=== PATIENT | male | born 1950 | race Caucasian/White ===

== ENCOUNTER 2022-04-16 15:50 | Emergency (ER) | payer MEDICARE, MEDICAID, SELFPAY ==
[2022-04-16 16:30] VITALS: BP 89/59; PULSE 67; RESP 18; TEMP 36.3; O2SAT 93; BMI 25.8
--- NOTE | 2022-04-16 17:33 | DI.CT.S_ITS ---
PROCEDURE: CT HEAD/BRAIN WO CON INDICATIONS: Trauma, fall TECHNIQUE: Noncontrast 4.5 mm thick angled axial sections acquired from the foramen magnum to the vertex, with coronal and sagittal reformats. For radiation dose reduction, the following was used: automated exposure control, adjustment of mA and/or kV according to patient size. COMPARISON: None. FINDINGS: Image quality: Excellent. CSF spaces: Basal cisterns are patent. No extra-axial fluid collections. The ventricles are symmetric in size and shape. Brain: No intracranial bleeds or masses. There is cerebral volume loss for age, with resultant ventricular and sulcal prominence. There are periventricular and deep white matter chronic small vessel ischemic changes. There is intracranial internal carotid artery atherosclerosis. Skull and face: Calvarium and visualized facial bones appear intact, without suspicious lesions. Sinuses: Visualized sinuses and mastoids are clear. IMPRESSION: No acute intracranial finding. Dictated by: Eren Fonseca M.D. on 04/16/2022 at 18:05 Approved by: Eren Fonseca M.D. on 04/16/2022 at 18:05
--- NOTE | 2022-04-16 17:33 | DI.CT.S_ITS ---
PROCEDURE: CT CERVICAL SPINE WO CON INDICATIONS: Trauma, fall. TECHNIQUE: Noncontrast 3 mm thick sections acquired from the skull base to the T4 level. Sagittal and coronal reformats were then constructed. For radiation dose reduction, the following was used: automated exposure control, adjustment of mA and/or kV according to patient size. COMPARISON: None. FINDINGS: Image quality: Excellent. Bones: No fractures or dislocations. Visualized superior ribs are intact. Soft tissues: Prevertebral soft tissues are normal in thickness. No paravertebral hematomas. No apical pneumothoraces. IMPRESSION: No acute finding. Dictated by: Eren Fonseca M.D. on 04/16/2022 at 18:06 Approved by: Eren Fonseca M.D. on 04/16/2022 at 18:07
--- NOTE | 2022-04-16 20:05 | ED_ITS ---
HPI - Fall General Chief Complaint: Fall Stated Complaint: glf Time Seen by Provider: 04/16/22 20:05 Source: patient and EMS Mode of arrival: Ambulatory Limitations: no limitations History of Present Illness HPI Narrative: This is 71-year-old male who presents with complaint of slip and fall in the shower today. He states he hit his right shoulder and head. He states no loss of consciousness. No headache or neck pain. Patient states he is on an aspirin daily. He states his right shoulder hurts. He denies other injuries at this time. He denies any chest pain or shortness of breath. Denies any low back pain. Denies any hip or pelvic pain. He states he did not really injure his arms or legs otherwise. He can move his shoulder fully. Patient denies any nausea or vomiting. No new numbness or tingling. He states his hands are always a little tingly. Patient denies any loss of bowel or bladder control. He states he has walked since then. He states he was in the bathroom and it was wet and slippery. He states he takes medicine for blood pressure and diabetes he does not recall the names. He states is like [place] and he has been staying with his brother recently. Related Data Allergies Allergy/AdvReac Type Severity Reaction Status Date / Time NSAIDS (Non-Steroidal Allergy Verified 04/16/22 16:30 Anti-Inflamma Tetanus Vaccines and Toxoid Allergy Verified 04/16/22 16:30 Review of Systems Review of Systems ROS Unobtainable: All systems reviewed & are unremarkable except as noted in HPI and below Patient History Social History Smoking Status: Former smoker Smoking Status: Former smoker Substance Use Type: marijuana Exam Narrative Exam Narrative: GEN: Patient appears in mild distress. HEAD: No evidence of trauma, no raccoon/Arcos sign. NECK: Nontender, painless range of motion, trachea midline Negative Nexus criteria, there is no midline line tenderness, distracting injury, altered mental status, neuro deficit, recent EtOH. EYES: PERRLA, EOMI ENT: External inspection normal, trachea is midline, TM's are normal no hemotypanum, Nares are clear, no septal hematoma, no dental or oral injury, airway is normal and with normal occlusion, No bony tenderness RESP: Chest is nontender and has symmetric movement, no ecchymosis, breath sounds are normal no crackles, wheezes or rales CVS: Heart sounds are normal, no murmur noted, No JVD. ABG/GI: Nontender, soft, normal bowel sounds, no distention, no organomegaly, pelvic rock is negative NEURO: Oriented AOx3, neuro is grossly intact, sensation and motor is normal all 4 extremities moving, cranial nerves II through XII are intact, GCS is 15 PSYCH: Normal mood and affect SKIN: Intact, warm and dry, no crepitus and without decubitus BACK: No CVA tenderness, no vertebral tenderness, no step-off's, no crepitus EXT: Atraumatic, patient has full range of motion of shoulder. Nontender to deep palpation. 5/5 muscle strength with strong protection engineer and push-pull bilaterally. Patient is able to lift both legs independently without any issue. Hips are nontender, no pedal edema, normal color and temperature, normal range of motion of extremities with normal tendon exam, 2+ pulses in all four extremities Initial Vital Signs Initial Vital Signs: Vital Signs Temperature 97.3 F L 04/16/22 16:30 Pulse Rate 67 04/16/22 16:30 Respiratory Rate 18 04/16/22 16:30 Blood Pressure 89/59 L 04/16/22 16:30 Pulse Oximetry 93 04/16/22 16:30 Oxygen Delivery Method 04/16/22 16:[address] Head Rule Age greater or equal to 65 years: Yes Retrograde amnesia to the event greater or equal to 30 min: No GCS [place] coma scale eye opening: Spontaneous Debbie coma scale verbal response: Orientated [place] coma scale motor response: Obey commands [place] coma scale total score: 15 Course Orders Ordered: Discontinued Medications Hydrocodone Bitart/Acetaminophen (Hydrocodone/Acet 5/325 Tablet) 1 tab PO NOW ONE Stop: 04/16/22 20:22 Last Admin: 04/16/22 21:09 Dose: 1 tab Documented By: ALAN Vital Signs Vital signs: Vital Signs - 8 hr 04/16/22 16:30 Temperature 97.3 F L Pulse Rate 67 Respiratory Rate 18 Blood Pressure 89/59 L Pulse Oximetry 93 Oxygen Delivery Method Room Air MDM - Fall Imaging Data CT scan - head: Radiologist's Impression: [address] [id number] ReportSigned Patient: Jaycee Munoz MMR#: [id number]: 07/10/1942cct:[id number]/Sex: 79 / FDate of Service: 04/16/22Loc: EDAccession Number: [id number]? ? Procedure: XR chest 1V Ordering Provider: Lis Shay D.O. PROCEDURE:? XR CHEST 1V ? INDICATIONS:? chest pain ? TECHNIQUE:? One view of the chest was acquired.? ? COMPARISON:? [facility], , XR CHEST 1V, 01/08/2022, 0:29. ? FINDINGS:? ? Surgical changes and devices:? None.? ? Lungs and pleura:? Lungs are clear.? No pleural effusions or pneumothorax.? ? Mediastinum:? Mediastinal contours appear normal.? Heart size is normal.? ? Bones and chest wall:? No suspicious bony lesions.? Overlying soft tissues appear unremarkable.? ? IMPRESSION:? No acute finding. ? ? Dictated by: Eren Fonseca M.D. on 04/16/2022 at 18:55? ?? Approved by: Eren Fonseca M.D. on 04/16/2022 at 18:55?? CT - cervical spine: Radiologist's Impression: Close Head CT (Signed) Eren Fonseca - 04/16/[address] (Signed) Eren Fonseca - 04/16/22 Launch?Image [address] [address] [address] Scan Report Signed Patient: Lev Marlow MR#: [id number] : 1950 Acct:[id number] Age/Sex: 71 / M Date of Service: 04/16/22 Loc: ED Accession Number: [id number] ?? Procedure: CT cervical spine wo con Ordering Provider: Antony Parry MD PROCEDURE:? CT CERVICAL SPINE WO CON ? INDICATIONS:? Trauma, fall. ? TECHNIQUE:? Noncontrast 3 mm thick sections acquired from the skull base to the T4 level.? Sagittal and coronal reformats were then constructed.? For radiation dose reduction, the following was used:? automated exposure control, adjustment of mA and/or kV according to patient size.? ? COMPARISON:? None. ? FINDINGS:? Image quality:? Excellent.? ? Bones:? No fractures or dislocations.? Visualized superior ribs are intact.? ? Soft tissues:? Prevertebral soft tissues are normal in thickness.? No paravertebral hematomas.? No apical pneumothoraces.? ? ? IMPRESSION:? No acute finding. ? Dictated by: Eren Fonseca M.D. on 04/16/2022 at 18:06 ? ? Approved by: Eren Fonseca M.D. on 04/16/2022 at 18:07?? MDM Narrative Medical decision making narrative: This is a 71-year-old male reportedly anticoagulated on aspirin. Patient had a slip and fall shower. Describes right shoulder pain to myself, he does state he thinks he hit his head some neck pain. Exam is overall reassuring. Head CT and C-spine were obtained based on age, anticoagulation status and are negative. Patient's right shoulder he has full range of motion without any discrete bony tenderness no additional imaging was obtained and his exam is otherwise benign. Discharge Plan Departure Patient Disposition: Home Clinical Impression: Pain in right shoulder, Fall Activity Restrictions/Additional Instructions: Follow-up for recheck if your symptoms are persisting beyond a week. Please return for severe headaches, altered mental status, rapidly worsening neck or back pain, new weakness, loss of sensation, new chest pain or shortness of breath, persistent vomiting, new loss of bowel or bladder control or other new or concerning changes.
[2022-04-16] MEDS: HYDROCODONE/ACET 5/325 TABLET 1 TAB PO (21:09)
--- NOTE | 2022-04-16 21:23 | PC.NURSE ---
ambulatory, pink/warm/dry. Moving all extrem equally well. No s/s of trauma.
[2022-04-16 21:27] VITALS: BP 95/68; PULSE 91; RESP 18; O2SAT 99
== END 2022-04-16 21:29 | disposition home or self-care (01) ==
PROVIDERS: Emergency Provider Emergency Medicine
DX: M25.511 Pain in right shoulder (principal); S09.90XA Unspecified injury of head, initial encounter; M54.2 Cervicalgia; R07.9 Chest pain, unspecified; W18.2XXA Fall in (into) shower or empty bathtub, initial encounter; Z79.82 Long term (current) use of aspirin
CPT/HCPCS: 70450; 72125; 99284

== ENCOUNTER 2022-04-25 10:06 | Emergency (ER) | payer MEDICARE, SELFPAY ==
[2022-04-25 10:06] VITALS: BP 123/77; PULSE 93; RESP 18; TEMP 36.6; O2SAT 100; BMI 21.9
[2022-04-25 10:10] VITALS: BP 129/77; PULSE 57; O2SAT 98
[2022-04-25 10:30] VITALS: BP 124/66; PULSE 80; PULSE 93; RESP 17; RESP 18; O2SAT 98
--- NOTE | 2022-04-25 10:47 | ED_ITS ---
HPI - Fall General Chief Complaint: Fall Stated Complaint: glf, face edema, no thinner Time Seen by Provider: 04/25/22 10:45 Source: patient and EMS Mode of arrival: EMS Limitations: no limitations History of Present Illness HPI Narrative: Patient is a 71-year-old male who is here for evaluation of injuries that he sustained when he tripped and fell at home. He is not on blood thinners. He did hit the left side of his head. Has a bruise to the left side of his eye. No loss of consciousness. Did have neck pain and cervical collar was placed by nursing in triage. He reports no upper or lower extremity injuries. Prior to the fall he did not have chest pain or shortness of breath or lightheadedness. He was able to get up and walk afterwards. Related Data Allergies Allergy/AdvReac Type Severity Reaction Status Date / Time NSAIDS (Non-Steroidal Allergy Verified 04/16/22 16:30 Anti-Inflamma Tetanus Vaccines and Toxoid Allergy Verified 04/16/22 16:30 Review of Systems Constitutional Constitutional: Reports system reviewed and no additional complaints, except as documented Eyes Eyes: Reports system reviewed and no additional complaints, except as documented ENT Ears, Nose, Mouth, and Throat: Reports system reviewed and no additional complaints, except as documented Musculoskeletal Musculoskeletal: Reports system reviewed and no additional complaints, except as documented Integumentary/Breasts Skin/Breast: Reports system reviewed and no additional complaints, except as documented Neurologic Neurologic: Reports system reviewed and no additional complaints, except as documented Hematologic/Lymphatic On Anticoagulants: No Patient History Social History Smoking Status: Former smoker Smoking Status: Former smoker Substance Use Type: marijuana Exam Initial Vital Signs Initial Vital Signs: Vital Signs Temperature 97.8 F 04/25/22 10:06 Pulse Rate 93 H 04/25/22 10:06 Respiratory Rate 18 04/25/22 10:06 Blood Pressure 123/77 04/25/22 10:06 Pulse Oximetry 100 04/25/22 10:06 Oxygen Delivery Method 04/25/22 10:06 Const General: cooperative, comfortable, No in distress and No ill appearing HENMT HENMT Other: Small contusion left side of left eye. Eyes EOM: EOM intact bilaterally Chest Chest: No tenderness Resp Effort & Inspection: normal respiratory effort Auscultation: clear to auscultation bilaterally Cardio Rate: regular rate Rhythm: regular rhythm Back/Spine/Pelvis Cervical Spine: collar present Skin Other: Contusion to the left side of the left eye. Neuro General: patient alert, patient awake and moves all extremities Cognition: normal cognition Extrem Other: No gross deformities, is able to move all 4 extremities equal Psych Appearance: grossly normal and well kempt Scores GCS [place] coma scale eye opening: Spontaneous [place] coma scale verbal response: Orientated [place] coma scale motor response: Obey commands [place] coma scale total score: 15 Course Orders Ordered: ED Orders 04/25/22 10:47 CT cervical spine wo con Stat CT head/brain wo con Stat Vital Signs Vital signs: Vital Signs - 8 hr 04/25/22 10:06 04/25/22 10:10 04/25/22 10:10 Temperature 97.8 F Pulse Rate 93 H 57 L Respiratory Rate 18 Blood Pressure 123/77 129/77 Pulse Oximetry 100 98 Oxygen Delivery Method Room Air 04/25/22 10:30 04/25/22 10:30 04/25/22 11:00 Temperature Pulse Rate 93 H 80 Respiratory Rate 17 18 Blood Pressure 124/66 113/71 Pulse Oximetry 98 98 Oxygen Delivery Method 04/25/22 11:00 04/25/22 11:30 04/25/22 11:30 Temperature Pulse Rate 95 H 96 H Respiratory Rate 18 19 Blood Pressure 113/56 L Pulse Oximetry 98 97 Oxygen Delivery Method 04/25/22 12:00 04/25/22 12:00 Temperature Pulse Rate 109 H Respiratory Rate 21 Blood Pressure 104/73 Pulse Oximetry 98 Oxygen Delivery Method MDM - Fall Differential Diagnosis Differential diagnosis: Likely syncope, concussion without loss of consciousness and other (Intracranial hemorrhage) Condition is:: Resolving Discussed with:: Patient Imaging Data CT - cervical spine: Radiologist's Impression: [address] [address] [address] Scan Report Signed Patient: Lev Marlow MR#: [id number] : 1950 Acct:[id number] Age/Sex: 71 / M Date of Service: 04/25/22 Loc: ED Accession Number: [id number] ?? Procedure: CT cervical spine wo con Ordering Provider: Lev Pope D.O. PROCEDURE:? CT CERVICAL SPINE WO CON ? INDICATIONS:? Fall with neck pain ? TECHNIQUE:? Noncontrast 3 mm thick sections acquired from the skull base to the T4 level.? Sagittal and coronal reformats were then constructed.? For radiation dose reduction, the following was used:? automated exposure control, adjustment of mA and/or kV according to patient size.? ? COMPARISON:? [facility], CT, CT HEAD/BRAIN WO CON, 04/25/2022, 11:19.? [facility], CT, CT CERVICAL SPINE WO CON, 04/16/2022, 17:46. ? FINDINGS:? Image quality:? Excellent.? ? Bones:? No fractures or dislocations.? Visualized superior ribs are intact.? ? Degenerative changes are seen throughout.? Focal degenerative change is seen involving the C1-C2 interface anteriorly. Several levels of significant posteriorly directed endplate osteophytes can be seen.? There is moderate disc space narrowing seen at C4-C5 and C5-C6.? Several levels of at least partially bridging anterior osteophytes can be seen. ? Soft tissues:? Prevertebral soft tissues are normal in thickness.? No paravertebral hematomas.? No apical pneumothoraces.? ? ? IMPRESSION:? Negative for fracture. ? Relatively prominent underlying degenerative changes are seen. ? ? ? Dictated by: Kg Gallagher M.D. on 04/25/2022 at 10:35 ? ? Approved by: Kg Gallagher M.D. on 04/25/2022 at 10:36 CT scan - head: Radiologist's Impression: [address] [address] [address] Scan Report Signed Patient: Lev Marlow MR#: [id number] : 1950 Acct:[id number] Age/Sex: 71 / M Date of Service: 04/25/22 Loc: ED Accession Number: [id number] ?? Procedure: CT head/brain wo con Ordering Provider: Lev Pope D.O. PROCEDURE:? CT HEAD/BRAIN WO CON ? INDICATIONS:? Fall hit left side of head ? TECHNIQUE:? Noncontrast 4.5 mm thick angled axial sections acquired from the foramen magnum to the vertex, with coronal and sagittal reformats.? For radiation dose reduction, the following was used:? automated exposure control, adjustment of mA and/or kV according to patient size.? ? COMPARISON:? [facility], CT, CT CERVICAL SPINE WO CON, 04/25/2022, 11:19.? [facility], CT, CT HEAD/BRAIN WO CON, 04/16/2022, 17:46. ? FINDINGS:? Image quality:? Excellent.? ? CSF spaces:? Basal cisterns are patent.? No extra-axial fluid collections.? The ventricles are symmetric in size and shape.? ? Brain:? No intracranial bleeds or masses.? There is cerebral volume loss for age, with resultant ventricular and sulcal prominence.? There are periventricular and deep white matter chronic small vessel ischemic changes.? There is intracranial internal carotid artery atherosclerosis.? ? Skull and face:? Calvarium and visualized facial bones appear intact, without suspicious lesions.? ? Sinuses:? Visualized sinuses and mastoids are clear.? ? ? IMPRESSION:? No acute intracranial hemorrhage is seen.? ? No acute intracranial process is seen.? ? No displaced calvarial fracture is seen. ? ? Dictated by: Kg Gallagher M.D. on 04/25/2022 at 10:37 ? ? Approved by: Kg Gallagher M.D. on 04/25/2022 at 10:37?? MDM Narrative Medical decision making narrative: Alert oriented x3. CT scan of his head and neck were unremarkable. Contusion to the left side of the left eye is no intervention here in the emergency department. No reports of other injuries. No other injuries found on the exam. Cervical collar was removed. Will discharge patient home. He was given return precautions follow-up instructions. He expressed understanding and agreement. Discharge Plan Departure Patient Disposition: Home Clinical Impression: Contusion of latter-day region, Fall Instructions: How to Prevent Falls Activity Restrictions/Additional Instructions: Your CT scans do not show any signs of fractures nor head bleeds. You can take Tylenol or ibuprofen for any discomfort. Contact your primary doctor for follow-up. Referrals: Miscellaneous,MD Rosalinda [Primary Care Provider] - Stand Alone Forms: Patient Portal/API
--- NOTE | 2022-04-25 10:47 | DI.CT.S_ITS ---
PROCEDURE: CT CERVICAL SPINE WO CON INDICATIONS: Fall with neck pain TECHNIQUE: Noncontrast 3 mm thick sections acquired from the skull base to the T4 level. Sagittal and coronal reformats were then constructed. For radiation dose reduction, the following was used: automated exposure control, adjustment of mA and/or kV according to patient size. COMPARISON: [facility], CT, CT HEAD/BRAIN WO CON, 04/25/2022, 11:19. [facility], CT, CT CERVICAL SPINE WO CON, 04/16/2022, 17:46. FINDINGS: Image quality: Excellent. Bones: No fractures or dislocations. Visualized superior ribs are intact. Degenerative changes are seen throughout. Focal degenerative change is seen involving the C1-C2 interface anteriorly. Several levels of significant posteriorly directed endplate osteophytes can be seen. There is moderate disc space narrowing seen at C4-C5 and C5-C6. Several levels of at least partially bridging anterior osteophytes can be seen. Soft tissues: Prevertebral soft tissues are normal in thickness. No paravertebral hematomas. No apical pneumothoraces. IMPRESSION: Negative for fracture. Relatively prominent underlying degenerative changes are seen. Dictated by: Kg Gallahger M.D. on 04/25/2022 at 10:35 Approved by: Kg Gallagher M.D. on 04/25/2022 at 10:36
--- NOTE | 2022-04-25 10:47 | DI.CT.S_ITS ---
PROCEDURE: CT HEAD/BRAIN WO CON INDICATIONS: Fall hit left side of head TECHNIQUE: Noncontrast 4.5 mm thick angled axial sections acquired from the foramen magnum to the vertex, with coronal and sagittal reformats. For radiation dose reduction, the following was used: automated exposure control, adjustment of mA and/or kV according to patient size. COMPARISON: [facility], CT, CT CERVICAL SPINE WO CON, 04/25/2022, 11:19. [facility], CT, CT HEAD/BRAIN WO CON, 04/16/2022, 17:46. FINDINGS: Image quality: Excellent. CSF spaces: Basal cisterns are patent. No extra-axial fluid collections. The ventricles are symmetric in size and shape. Brain: No intracranial bleeds or masses. There is cerebral volume loss for age, with resultant ventricular and sulcal prominence. There are periventricular and deep white matter chronic small vessel ischemic changes. There is intracranial internal carotid artery atherosclerosis. Skull and face: Calvarium and visualized facial bones appear intact, without suspicious lesions. Sinuses: Visualized sinuses and mastoids are clear. IMPRESSION: No acute intracranial hemorrhage is seen. No acute intracranial process is seen. No displaced calvarial fracture is seen. Dictated by: Kg Gallagher M.D. on 04/25/2022 at 10:37 Approved by: Kg Gallagher M.D. on 04/25/2022 at 10:37
[2022-04-25 11:00] VITALS: BP 113/71; PULSE 95; RESP 18; O2SAT 98
[2022-04-25 11:30] VITALS: BP 113/56; PULSE 96; RESP 19; O2SAT 97
[2022-04-25 12:00] VITALS: BP 104/73; PULSE 109; RESP 21; O2SAT 98
--- NOTE | 2022-04-25 12:04 | PC.NURSE ---
1140 c-collar removed by provider.
--- NOTE | 2022-04-25 12:38 | PC.NURSE ---
report to alphonse rai at [facility].
== END 2022-04-25 12:50 | disposition home or self-care (01) ==
PROVIDERS: Emergency Provider Emergency Medicine
DX: S00.83XA Contusion of other part of head, initial encounter (principal); M54.2 Cervicalgia; W18.30XA Fall on same level, unspecified, initial encounter
CPT/HCPCS: 70450; 72125; 99283

== ENCOUNTER 2022-04-26 10:24 | Inpatient (IN) | payer MEDICARE, MEDICAID, SELFPAY ==
[2022-04-26 10:32] VITALS: BP 123/71; PULSE 97; RESP 18; TEMP 36.8; O2SAT 99; BMI 21.1
--- NOTE | 2022-04-26 11:00 | DI.RAD.S_ITS ---
PROCEDURE: XR CHEST 1V INDICATIONS: falls TECHNIQUE: One view of the chest was acquired. COMPARISON: None. FINDINGS: Surgical changes and devices: None. Lungs and pleura: Lungs are clear. No pleural effusions or pneumothorax. Mediastinum: Mediastinal contours appear normal. Heart size is normal. Bones and chest wall: No suspicious bony lesions. Overlying soft tissues appear unremarkable. IMPRESSION: No acute process. Dictated by: Becki Lozano M.D. on 04/26/2022 at 11:33 Approved by: Becki Lozano M.D. on 04/26/2022 at 11:34
--- NOTE | 2022-04-26 11:00 | DI.CT.S_ITS ---
PROCEDURE: CT ANGIO HEAD AND NECK INDICATIONS: dizzy TECHNIQUE: Pre-contrast 4.5 mm thick sections acquired from the foramen magnum to the vertex. After the administration of intravenous contrast, 1 mm thick sections acquired from the aortic arch through the [place] of [place]. Post-contrast 4.5 mm thick sections then re-acquired from the foramen magnum to the vertex. 3-dimensional txattoc-zfmlbiaoe-slahfzmrhl (MIP) and/or volume rendering reformats were acquired of the central intracranial vasculature and neck separately. For radiation dose reduction, the following was used: automated exposure control, adjustment of mA and/or kV according to patient size. COMPARISON: [facility], CT, CT HEAD/BRAIN WO CON, 04/25/2022, 11:19. FINDINGS: Image quality: Decreased study quality secondary to patient motion. BRAIN: CSF spaces: Ventricles are normal in size and shape. Basal cisterns are patent. No extra-axial fluid collections. Brain: No midline shift. No intracranial bleeds or masses. Polanco-white matter interface appears intact. There is age-appropriate cortical volume loss. Moderate patchy hypodensity seen throughout the periventricular white matter. Skull and face: Small posterior, suboccipital subcutaneous soft tissue thickening, possibly hematoma. Calvarium and facial bones appear intact, without suspicious lesions. Orbits appear normal. Sinuses: Sinuses and mastoids are clear. HEAD CT ANGIOGRAPHY: Anterior circulation: Intracranial internal carotid arteries are normal in size and flow. The flow within the paired anterior cerebral arteries is normal and symmetric. The flow within the middle cerebral arteries is normal and symmetric. The anterior communicating artery is seen. No aneurysms are seen. Posterior circulation: Visualized portions of the vertebral arteries demonstrate normal caliber, and join to form a normal appearing basilar artery. Flow within the posterior cerebral arteries is normal and symmetric. No aneurysms are seen. NECK CT ANGIOGRAPHY: Carotid system: The great vessels demonstrate a conventional anatomy as they arise from the aortic arch. The origins of the common carotid arteries appear patent. The common carotid arteries demonstrate normal caliber and courses. The bifurcation regions are both widely patent. The internal carotid arteries demonstrate normal calibers and courses. Posterior circulation: There is a very tight stenosis of the proximal right subclavian artery estimated to be 80%, consisting of noncalcified plaque. The right vertebral artery is extremely diminutive at its origin, and continuing to be significantly diminutive to the foramen magnum. There are a few areas in the mid vertebral artery where the caliber become so diminutive it is undetectable. The more superior extracranial portions of both vertebral arteries also demonstrate normal courses and calibers. They join to form a normal appearing basilar artery. Soft tissues: Visualized neck soft tissues demonstrate no suspicious abnormalities. Bones: No suspicious bony lesions. Endplate degenerative changes throughout the cervical spine Visualized cervical spine appears normally aligned. IMPRESSION: 1. No CT evidence of acute intracranial process. 2. 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 3. Extremely diminutive right vertebral artery with some areas of noncalcified narrowing which may be symptomatic. 4. No significant stenosis, occlusion, or aneurysm in the intracranial arteries or extracranial carotid arteries. Any quantitative measurements of stenosis were performed using NASCET criteria. Dictated by: Gisselle Escobar M.D. on 04/26/2022 at 12:08 Approved by: Gisselle Escobar M.D. on 04/26/2022 at 12:26
--- NOTE | 2022-04-26 11:00 | DI.RAD.S_ITS ---
PROCEDURE: XR HIP W PEL IF DONE LT 2V INDICATIONS: chronic pain TECHNIQUE: AP pelvis and lateral view of the left hip acquired. COMPARISON: None. FINDINGS: Bones: Patient is status post right hip arthroplasty, with hardware components in expected positions. Moderate left hip joint space narrowing and periarticular osteophyte formation. The hip joint appears congruent. The visualized bony structures appear intact. Soft tissues: Overlying postoperative changes are noted. No suspicious soft tissue densities. IMPRESSION: 1. Expected appearance of right hip arthroplasty. 2. Left hip osteoarthritis. Dictated by: Becki Lozano M.D. on 04/26/2022 at 11:33 Approved by: Becki Lozano M.D. on 04/26/2022 at 11:33
[2022-04-26 11:08] LABS: Add Manual Diff / Slide Review NO; Basophils Absolute Auto 0 /uL (0-100); Basophils Percent Auto 0.3 % (0-2); Eosinophils Absolute Auto 0 /uL (0-450); Eosinophils Percent Auto 0.2 % (2-4); Hematocrit 39.9 % (41-53); Hemoglobin 14.3 g/dL (13.5-17.5); Lymphocytes Absolute Auto 500 /uL (1100-4500); Lymphocytes Percent Auto 4.1 % (25-40); Mean Corpuscular HGB Conc 35.9 % (30-36); Mean Corpuscular Hemoglobin 31.3 PG (26-34); Mean Corpuscular Volume 87.2 fL (80-100); Monocytes Absolute Auto 800 /uL (0-900); Monocytes Percent Auto 6.5 % (3-14); Neutrophils Absolute Auto 10900 /uL (1500-7000); Neutrophils Percent Auto 88.9 % (50-75); Platelet Count 191 X10^3/uL (150-400); Red Blood Cell Count 4.57 X10^6/uL (4.5-5.9); Red Cell Distribution Width 13.7 % (11.6-14.8); White Blood Cell Count 12.3 X10^3/uL (4.5-11.0)
[2022-04-26 11:13] LABS: Alanine Aminotransferase 436 IU/L (<50); Albumin Globulin Ratio 1.4 (1.0-2.8); Alkaline Phosphatase 120 U/L (38-126); Aspartate Aminotransferase 326 IU/L (17-59); Bilirubin Total 1.1 mg/dL (0.2-1.3); Blood Urea Nitrogen 7 mg/dL (9-20); Carbon Dioxide 31 mmol/L (22-32); Chloride 90 mmol/L (98-107); Creatine Kinase 89 U/L (55-170); Estimated Glomerular Filt Rate > 60 mL/min (>60); Globulin 2.9 g/dL (1.7-4.1); Glucose 143 mg/dL (80-110); HEMOLYSIS < 15 (0-50); Lipase 31 U/L (23-300); Potassium 3.7 mmol/L (3.4-5.1); Sodium 127 mmol/L (137-145); Total Protein 6.9 g/dL (6.3-8.2)
[2022-04-26 11:25] LABS: Troponin I < 0.012 ng/mL (0.01-0.034)
[2022-04-26 11:29] LABS: Procalcitonin 0.83 ng/mL (<0.5)
[2022-04-26] MEDS: SODIUM CHLORIDE 0.9% 1,000 ML 150 ML IV (11:46)
--- NOTE | 2022-04-26 12:04 | ED_ITS ---
HPI - Fall General Chief Complaint: Fall Stated Complaint: GLF with chronic hip pain Time Seen by Provider: 04/26/22 10:59 Source: patient, EMS and RN notes reviewed Mode of arrival: EMS History of Present Illness HPI Narrative: Patient is a 71-year-old male who has a history of coronary artery disease 3 stents, hypertension hyperlipidemia, chronic pain presenting today for the 3rd time this month with dizziness and falls. A states he now lives in the assisted living he did not use to but after his frequent falls it seems that he was moved over there. Previously seen on 04/16/2022 for fall in shower with right shoulder injury and head injury. He was then seen yesterday on the after trip and fall, presents today again after another fall and worsening left hip pain. He denies any fever or chills. Not really having chest pain or shortness of breath. Not sure why he is having ongoing falls. No nausea vomiting abdominal pain Related Data Home Medications Medication Instructions Recorded Confirmed atorvastatin 40 mg tablet 40 mg PO DAILY 04/26/22 04/26/22 insulin aspart U-100 100 unit/mL See Rx Instructions .Route .COMPLEX 04/26/22 04/26/22 (3 mL) subcutaneous pen (Novolog Flexpen U-100 Insulin aspart) metoprolol succinate 100 mg 100 mg PO DAILY 04/26/22 04/26/22 tablet,extended release 24 hr sitagliptin phosphate 50 mg tablet 50 mg PO DAILY 04/26/22 04/26/22 (Januvia) tamsulosin 0.4 mg capsule 0.4 mg PO DAILY 04/26/22 04/26/22 Allergies Allergy/AdvReac Type Severity Reaction Status Date / Time NSAIDS (Non-Steroidal Allergy Verified 04/16/22 16:30 Anti-Inflamma Tetanus Vaccines and Toxoid Allergy Verified 04/16/22 16:30 Review of Systems Review of Systems ROS Unobtainable: All systems reviewed & are unremarkable except as noted in HPI and below Patient History Social History household members: none Smoking Status: Former smoker Smoking Status: Former smoker Substance Use Type: marijuana Exam Initial Vital Signs Initial Vital Signs: Vital Signs Temperature 98.3 F 04/26/22 10:32 Pulse Rate 97 H 04/26/22 10:32 Respiratory Rate 18 04/26/22 10:32 Blood Pressure 123/71 04/26/22 10:32 Pulse Oximetry 99 04/26/22 10:32 Oxygen Delivery Method 04/26/22 10:32 GENERAL: Alert pleasant 71-year-old male very thin and in no acute distress. HEENT: Head atraumatic,EOMI, pupils reactive, face symmetric, moist mucous membranes CARDIOVASCULAR: Regular rate and rhythm without murmurs, rubs or gallops. RESPIRATORY: Breath sounds equal bilaterally, no wheezes rales or rhonchi. ABDOMEN: Soft, nontender. Normoactive bowel sounds all 4 quadrants. No guarding or rebound. EXTREMITIES: Normal range of motion, no clubbing or edema. Neurovascularly intact NEUROLOGICAL: Alert and oriented x4.Normal gait and speech. Cranial nerves II through XII grossly intact. Cover Maker strength equal bilaterally, both legs up off gurney SKIN: Warm, dry, no laceration, no petechiae, no rashes or lesions. Course Orders Ordered: ED Orders 04/26/22 10:40 TSH w/ Reflex to FT4 Urgent 04/26/22 10:48 Complete Blood Count AUTO DIFF Stat Comprehensive Metabolic Panel Stat Lipase Stat Procalcitonin Stat Troponin & CK Cardiac Panel Stat 04/26/22 11:00 CT angio head and neck Stat XR chest 1V Stat XR hip w pel if done LT 2V Stat 04/26/22 11:45 Urinalysis and Microscopic Stat 04/26/22 11:47 EKG-12 Lead Stat 04/26/22 14:05 US abdomen limited Stat 04/26/22 14:18 Consult to Occupational Therapy Evaluate & Treat Consult to Physical Therapy Evaluate & Treat 04/26/22 15:24 Blood Culture Stat 04/27/22 05:00 CBC Auto Diff [Complete Blood Count AUTO DIFF] DAILY CMP [Comprehensive Metabolic Panel] DAILY Hepatitis Acute Panel Urgent Procalcitonin Urgent 04/28/22 05:00 CBC Auto Diff [Complete Blood Count AUTO DIFF] DAILY CMP [Comprehensive Metabolic Panel] DAILY 04/29/22 05:00 CBC Auto Diff [Complete Blood Count AUTO DIFF] DAILY CMP [Comprehensive Metabolic Panel] DAILY Dextrose (Dextrose 50 % In Water 25 Gm/50 Ml Syringe) 25 gm IV PRN PRN PRN Reason: Hypoglycemia Enoxaparin Sodium (Enoxaparin 40 Mg/0.4 Ml Syringe) 40 mg SUBCUT DAILY TOMMY Gabapentin (Gabapentin 300 Mg Capsule) 100 mg PO BEDTIME TOMMY Sodium Chloride (Normal Saline 0.9%) 1,000 mls @ 150 mls/hr IV CONT TOMMY Last Admin: 04/26/22 11:46 Dose: 150 mls/hr Documented By: SATINDER Piperacillin Sod/Tazobactam (Sod 3.375 gm/ Sodium Chloride) 100 mls @ 25 mls/hr IV Q8H TOMMY Insulin Glargine (Insulin Glargine 100 Unit/Ml 3ml Pen) 20 unit SUBCUT BEDTIME TOMMY Insulin Human Lispro (Insulin Lispro 100 Unit/Ml 3ml Vial) 0 unit SUBCUT ACHS TOMMY; Protocol Melatonin (Melatonin 3 Mg Tablet) 6 mg PO BEDTIME PRN PRN Reason: Insomnia Metoprolol Succinate (Metoprolol Er 50 Mg Tablet) 100 mg PO DAILY TOMMY Naloxone HCl (Naloxone 0.4 Mg/Ml Vial) 0.2 mg IV Q2MIN PRN PRN Reason: Opiate Reversal Oxycodone/Acetaminophen (Oxycodone/Acetaminophen 5/325 Tablet) 1 tab PO Q4HR PRN PRN Reason: Pain, Moderate (4-6) Polyethylene Glycol (Polyethylene Glycol 3350 17 Gm Powd.Pack) 17 gm PO DAILY PRN PRN Reason: Constipation Sennosides (Sennosides 8.6 Mg Tablet) 8.6 mg PO BID PRN PRN Reason: Constipation Tamsulosin HCl (Tamsulosin 0.4 Mg Capsule) 0.4 mg PO BEDTIME [facility] Discontinued Medications Piperacillin Sod/Tazobactam (Sod 4.5 gm/ Sodium Chloride) 100 mls @ 200 mls/hr IV NOW ONE Stop: 04/26/22 14:06 Last Infusion: 04/26/22 15:09 Dose: 0 mls/hr Documented By: Admin: 04/26/22 14:41 Dose: 200 mls/hr Documented By: SATINDER Oxycodone/Acetaminophen (Oxycodone/Acetaminophen 5/325 Tablet) 1 tab PO NOW ONE Stop: 04/26/22 14:56 Last Admin: 04/26/22 15:00 Dose: 1 tab Documented By: SATINDER Vital Signs Vital signs: Vital Signs - 8 hr 04/26/22 10:32 Temperature 98.3 F Pulse Rate 97 H Respiratory Rate 18 Blood Pressure 123/71 Pulse Oximetry 99 Oxygen Delivery Method Room Air MDM - Fall Lab Data Result diagrams: 04/26/22 10:48 04/26/22 10:48 Labs: Lab Results 04/26/22 04/26/22 04/26/22 Range/Units 10:40 10:48 10:48 WBC 12.3 H (4.5-11.0) X10^3/uL RBC 4.57 (4.5-5.9) X10^6/uL Hgb 14.3 (13.5-17.5) g/dL Hct 39.9 L (41-53) % MCV 87.2 (80-100) fL MCH 31.3 (26-34) PG MCHC 35.9 (30-36) % RDW 13.7 (11.6-14.8) % Plt Count 191 (150-400) X10^3/uL Neut % (Auto) 88.9 H (50-75) % Lymph % (Auto) 4.1 L (25-40) % [place] % (Auto) 6.5 (3-14) % Eos % (Auto) 0.2 L (2-4) % Baso % (Auto) 0.3 (0-2) % Neut # (Auto) 74576 H (7404-1464) /uL Lymph # (Auto) 500 L (4256-1576) /uL [place] # (Auto) 800 (0-900) /uL Eos # (Auto) 0 (0-450) /uL Baso # (Auto) 0 (0-100) /uL Sodium 127 L (137-145) mmol/L Potassium 3.7 (3.4-5.1) mmol/L Chloride 90 L (98-107) mmol/L Carbon Dioxide 31 (22-32) mmol/L BUN 7 L (9-20) mg/dL Creatinine 0.35 L (0.66-1.25) mg/dL Estimated GFR > 60 (>60) mL/min BUN/Creatinine Ratio 20.0 (6-22) Glucose 143 H (80-110) mg/dL Hemoglobin A1c (4.0-6.0) % Calcium 9.0 (8.4-10.2) mg/dL Total Bilirubin 1.1 (0.2-1.3) mg/dL AST 326 H (17-59) IU/L ALT 436 H (<50) IU/L Alkaline Phosphatase 120 (38-126) U/L Total Creatine Kinase 89 (55-170) U/L CK-MB (CK-2) TNP CK-MB (CK-2) Rel Index TNP Troponin I < 0.012 (0.01-0.034) ng/mL Total Protein 6.9 (6.3-8.2) g/dL Albumin 4.0 (3.5-5.0) g/dL Globulin 2.9 (1.7-4.1) g/dL Albumin/Globulin Ratio 1.4 (1.0-2.8) Lipase 31 (23-300) U/L Procalcitonin 0.83 H (<0.5) ng/mL TSH 1.61 (0.47-4.68) uIU/mL Urine Color Urine Appearance Urine pH (4.5-8.0) Ur Specific [place] (1.000-1.035) Urine Protein (Negative) Urine Glucose (UA) (Negative) g/dL Urine Ketones (NEGATIVE) Urine Occult Blood (Negative) Urine Nitrate (Negative) Urine Bilirubin (NEGATIVE) Urine Urobilinogen (0.2) E.U./dL Ur Leukocyte Esterase (NEGATIVE) Urine RBC (0-5/HPF) Urine WBC (0-5/HPF) Ur Squamous Epith Cells (0-5/HPF) Urine Bacteria (None) Ur Culture Indicated? 04/26/22 04/26/22 Range/Units 10:48 11:45 WBC (4.5-11.0) X10^3/uL RBC (4.5-5.9) X10^6/uL Hgb (13.5-17.5) g/dL Hct (41-53) % MCV (80-100) fL MCH (26-34) PG MCHC (30-36) % RDW (11.6-14.8) % Plt Count (150-400) X10^3/uL Neut % (Auto) (50-75) % Lymph % (Auto) (25-40) % [place] % (Auto) (3-14) % Eos % (Auto) (2-4) % Baso % (Auto) (0-2) % Neut # (Auto) (4969-5519) /uL Lymph # (Auto) (9405-6501) /uL [place] # (Auto) (0-900) /uL Eos # (Auto) (0-450) /uL Baso # (Auto) (0-100) /uL Sodium (137-145) mmol/L Potassium (3.4-5.1) mmol/L Chloride (98-107) mmol/L Carbon Dioxide (22-32) mmol/L BUN (9-20) mg/dL Creatinine (0.66-1.25) mg/dL Estimated GFR (>60) mL/min BUN/Creatinine Ratio (6-22) Glucose (80-110) mg/dL Hemoglobin A1c 8.9 H (4.0-6.0) % Calcium (8.4-10.2) mg/dL Total Bilirubin (0.2-1.3) mg/dL AST (17-59) IU/L ALT (<50) IU/L Alkaline Phosphatase (38-126) U/L Total Creatine Kinase (55-170) U/L CK-MB (CK-2) CK-MB (CK-2) Rel Index Troponin I (0.01-0.034) ng/mL Total Protein (6.3-8.2) g/dL Albumin (3.5-5.0) g/dL Globulin (1.7-4.1) g/dL Albumin/Globulin Ratio (1.0-2.8) Lipase (23-300) U/L Procalcitonin (<0.5) ng/mL TSH (0.47-4.68) uIU/mL Urine Color Yellow Urine Appearance Clear Urine pH 7.0 (4.5-8.0) Ur Specific [place] <=1.005 (1.000-1.035) Urine Protein Negative (Negative) Urine Glucose (UA) Negative (Negative) g/dL Urine Ketones Negative (NEGATIVE) Urine Occult Blood Negative (Negative) Urine Nitrate Negative (Negative) Urine Bilirubin Negative (NEGATIVE) Urine Urobilinogen 0.2 (0.2) E.U./dL Ur Leukocyte Esterase Negative (NEGATIVE) Urine RBC 0-1/hpf (0-5/HPF) Urine WBC None seen (0-5/HPF) Ur Squamous Epith Cells None seen (0-5/HPF) Urine Bacteria Occasional (0-1) (None) Ur Culture Indicated? Cult not indicated Imaging Data Chest x-ray: Radiologist's Impression: atient: Beaumont,Lev MR#: [id number] : 1950 Acct:[id number] Age/Sex: 71 / M Date of Service: 04/26/22 Loc: ED Accession Number: [id number] ?? Procedure: XR chest 1V Ordering Provider: Guillermina Aguilar D.O. PROCEDURE:? XR CHEST 1V ? INDICATIONS:? falls ? TECHNIQUE:? One view of the chest was acquired.? ? COMPARISON:? None. ? FINDINGS:? ? Surgical changes and devices:? None.? ? Lungs and pleura:? Lungs are clear.? No pleural effusions or pneumothorax.? ? Mediastinum:? Mediastinal contours appear normal.? Heart size is normal.? ? Bones and chest wall:? No suspicious bony lesions.? Overlying soft tissues appear unremarkable.? ? IMPRESSION:? No acute process. CTA - brain/neck: Radiologist's Impression: CT Scan Report Signed Patient: Lev Marlow MR#: [id number] : 1950 Acct:[id number] Age/Sex: 71 / M Date of Service: 04/26/22 Loc: ED Accession Number: [id number] ?? Procedure: CT angio head and neck Ordering Provider: Guillermina Aguilar D.O. PROCEDURE:? CT ANGIO HEAD AND NECK ? INDICATIONS:? dizzy ? TECHNIQUE:? Pre-contrast 4.5 mm thick sections acquired from the foramen magnum to the vertex.? After the administration of intravenous contrast, 1 mm thick sections acquired from t he aortic arch through the [place] of [place].? Post-contrast 4.5 mm thick sections then re- acquired from the foramen magnum to the vertex.? 3-dimensional hwpvwmi-abkylnriv-gltbytwvjj (MIP) and/or volume rendering reformats were acquired of the central intracranial vasculature and neck separately. For radiation dose reduction, the following was used:? automated exposure control, adjustment of mA and/or kV according to patient size.? ? COMPARISON:? [facility], CT, CT HEAD/BRAIN WO CON, 04/25/2022, 11:19. ? FINDINGS:? Image quality:? Decreased study quality secondary to patient motion. ? BRAIN:? CSF spaces:? Ventricles are normal in size and shape.? Basal cisterns are patent.? No extra-axial fluid collections.? ? Brain:? No midline shift.? No intracranial bleeds or masses.? Polanco-white matter interface appears intact.? There is age-appropriate cortical volume loss.? Moderate patchy hypodensity seen throughout the periventricular white matter. ? Skull and face:? Small posterior, suboccipital subcutaneous soft tissue thickening, possibly hematoma.? Calvarium and facial bones appear intact, without suspicious lesions. ?Orbits appear normal.? ? Sinuses:? Sinuses and mastoids are clear.? ? HEAD CT ANGIOGRAPHY:? Anterior circulation:? Intracranial internal carotid arteries are normal in size and flow.? The flow within the paired anterior cerebral arteries is normal and symmetric.? The flow within the middle cerebral arteries is normal and symmetric.? The anterior communicating artery is seen.? No aneurysms are seen.? ? Posterior circulation:? Visualized portions of the vertebral arteries demonstrate normal caliber, and join to form a normal appearing basilar artery.? Flow within the posterior cerebral arteries is normal and symmetric.? No aneurysms are seen.? ? NECK CT ANGIOGRAPHY:? Carotid system:? The great vessels demonstrate a conventional anatomy as they arise from the aortic arch.? The origins of the common carotid arteries appear patent.? The common carotid arteries demonstrate normal caliber and courses.? The bifurcation regions are both widely patent.? The internal carotid arteries demonstrate normal calibers and courses.? ? Posterior circulation:? There is a very tight stenosis of the proximal right subclavian artery estimated to be 80%, consisting of noncalcified plaque.? The right vertebral artery is extremely diminutive at its origin, and continuing to be significantly diminutive to the foramen magnum.? There are a few areas in the mid vertebral artery where the caliber become so diminutive it is undetectable.? The more superior extracranial portions of both vertebral arteries also demonstrate normal courses and calibers.? They join to form a normal appearing basilar artery.? ? Soft tissues:? Visualized neck soft tissues demonstrate no suspicious abnormalities.? ? Bones:? No suspicious bony lesions.? Endplate degenerative changes throughout t he cervical spine Visualized cervical spine appears normally aligned.? ? ? IMPRESSION:? ? 1. No CT evidence of acute intracranial process. ? 2. 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 ? 3. Extremely diminutive right vertebral artery with some areas of noncalcified narrowing which may be symptomatic. ? 4. No significant stenosis, occlusion, or aneurysm in the intracranial arteries or extracranial carotid arteries.? ? Any quantitative measurements of stenosis were performed using NASCET criteria.? ? ? Dictated by: Gisselle Escobar M.D. on 04/26/2022 at 12:08 ? ? Extremity x-ray #1: Radiologist's Impression: XRay Report Signed Patient: Lev Marlow MR#: [id number] : 1950 Acct:[id number] Age/Sex: 71 / M Date of Service: 04/26/22 Loc: ED Accession Number: [id number] ?? Procedure: XR hip w pel if done LT 2V Ordering Provider: Guillermina Aguilar D.O. PROCEDURE:? XR HIP W PEL IF DONE LT 2V ? INDICATIONS:? chronic pain ? TECHNIQUE:? AP pelvis and lateral view of the left hip acquired.? ? COMPARISON:? None. ? FINDINGS:? ? Bones:? Patient is status post right hip arthroplasty, with hardware components in expected positions.? Moderate left hip joint space narrowing and periarticular osteophyte formation.? The hip joint appears congruent.? The visualized bony structures appear intact.? ? Soft tissues:? Overlying postoperative changes are noted.? No suspicious soft tissue densities.? ? ? IMPRESSION:? 1. Expected appearance of right hip arthroplasty. 2. Left hip osteoarthritis. ? Dictated by: Becki Lozano M.D. on 04/26/2022 at 11:33 ? ? US - abdomen: Radiologist's Impression: Signed Patient: Lev Marlow MR#: [id number] : 1950 Acct:[id number] Age/Sex: 71 / M Date of Service: 04/26/22 Loc: 90A-1 Accession Number: [id number] ?? Procedure: US abdomen limited Ordering Provider: Guillermina Aguilar D.O. PROCEDURE: US ABDOMEN LIMITED ? INDICATIONS:? RIGHT UPPER QUADRANT ELEVATED LIVER ENZYMES ? TECHNIQUE:? Real-time focused scanning was performed of the abdomen, with image documentatio n.? ? COMPARISON:? None. ? FINDINGS:? Liver is within normal limits.? There is a wall echo shadow complex within the gallbladder lumen measuring 26 mm.? Thickening of the gallbladder wall to 5.6 mm is present.? No biliary ductal dilatation.? Pancreas is grossly unremarkable. ? IMPRESSION:? 1. Gallbladder wall thickening, suggestive of cholecystitis in the appropriate clinical setting. 2. Findings suggestive of a large calculus within the gallbladder lumen versus calcified gallbladder wall.? ? ? Dictated by: Becki Lozano M.D. on 04/26/2022 at 15:17 ? ? ECG Data Interpretation: Normal sinus rhythm rate 94 CO interval 168 QRS [address] changes right bundle-branch block noted no priors to compare [facility] Narrative Medical decision making narrative: Patient is a 71-year-old male history of insulin-dependent diabetes hypertension hyperlipidemia coronary artery disease presenting today with weakness and falling for the 3rd time this month. He really isn't having any pain anywhere. His liver enzymes are elevated in the 304 100 range without right upper quadrant tenderness normal bilirubin and normal alk-phos. Ultrasound does show gallb ladder wall thickening suggestive of cholecystitis. Dr. Tinoco surgery has been consulted in regards to this. She is happy to consult and agrees with admission to Medicine. He is found to have mild leukocytosis of 12 with a normal lactate but he does have an elevated procalcitonin. No other source of infection is found so I suspect he does have acute cholecystitis with out sepsis causing his weakness. He is given 1 dose of Zosyn. This may be causing his frequent falls as well. CT head and neck angio was done to rule out any sort of stenosis because this is his 3rd visit. It does show some stenosis in the right proximal subclavian artery and some in the vertebral artery. He is no focal deficits otherwise. Now in the setting of infection it is difficult to determine if this is cause of his fall or not. He was have pain in x-ray did not show any abnormality. Dr. Carolina updated on patient's symptoms test results surgery consultation and is happy to accept [facility] CC: Weakness falling Complicating co-morbidities: As above Corroborating data: ED visits Data collected from: Medical records reviewed: Yes Differential considered: CVA, sepsis, cholelithiasis, alcohol Exam documented above, pertinent findings include: Generally weak without focal deficits no right upper quadrant pain Lab Test results independently reviewed as above. Pertinent findings: WBC 12.3 with neutrophils 88.9, sodium 127 chloride 90, AST, 326 ALT 436, bilirubin 1.1, procalcitonin 0.83 Independently reviewed EKG as above Imaging studies independently reviewed: Consultations: Surgery Dr. Tinoco and hospitalist Dr. Carolina Treatments: [place] Re-evaluations: Discussion: As above Diagnosis: Sepsis acute cholelithiasis, hyponatremia Disposition: see below, along with detailed discharge instructions that have been reviewed with patient as well as indications for ED re-evaluation and additional outpatient follow up Discharge Plan Departure Patient Disposition: Admitted as Observation Clinical Impression: Acute hyponatremia, Sepsis, Cholelithiases Admit Date/Time: 04/26/22 14:17 Admit Provider: Nam Carolina
[2022-04-26 12:07] LABS: Appearance Urine UA CLEAR; Bilirubin Urine UA NEGATIVE (NEGATIVE); Color Urine UA YELLOW; Glucose Urine UA NEGATIVE (Negative); Ketones Urine UA NEGATIVE (NEGATIVE); Leukocyte Esterase Urine UA NEGATIVE (NEGATIVE); Nitrite Urine UA NEGATIVE (Negative); Occult Blood Urine UA NEGATIVE (Negative); Protein Urine UA NEGATIVE (Negative); Specific Gravity Urine UA <=1.005 (1.000-1.035); Urobilinogen Urine UA 0.2 E.U./dL (0.2)
[2022-04-26 12:26] LABS: Bacteria Urine Occasional (0-1); Culture Indicated Urine Cult Not Indicated; RBC Urine 0-1/HPF (0-5/HPF); Squamous Epithelial Cell Urine None Seen (0-5/HPF); WBC Urine None Seen (0-5/HPF)
--- NOTE | 2022-04-26 14:05 | DI.US.S_ITS ---
PROCEDURE: US ABDOMEN LIMITED INDICATIONS: RIGHT UPPER QUADRANT ELEVATED LIVER ENZYMES TECHNIQUE: Real-time focused scanning was performed of the abdomen, with image documentation. COMPARISON: None. FINDINGS: Liver is within normal limits. There is a wall echo shadow complex within the gallbladder lumen measuring 26 mm. Thickening of the gallbladder wall to 5.6 mm is present. No biliary ductal dilatation. Pancreas is grossly unremarkable. IMPRESSION: 1. Gallbladder wall thickening, suggestive of cholecystitis in the appropriate clinical setting. 2. Findings suggestive of a large calculus within the gallbladder lumen versus calcified gallbladder wall. Dictated by: Becki Lozano M.D. on 04/26/2022 at 15:17 Approved by: Becki Lozano M.D. on 04/26/2022 at 15:22
[2022-04-26] MEDS: PIPERACILLIN/TAZO 4.5 GM in SODIUM CHLORIDE 0.9% 100 ML IV (14:41)
[2022-04-26] MEDS: OXYCODONE/ACETAMINOPHEN 5/325 TABLET 1 TAB PO ×2 (15:00→20:17)
[2022-04-26 15:09] LABS: TSH w/ Reflex to FT4 1.61 uIU/mL (0.47-4.68)
[2022-04-26 15:18] VITALS: BP 124/76; PULSE 97; RESP 16; O2SAT 96
[2022-04-26 15:35] VITALS: BP 132/76; PULSE 89; RESP 16; TEMP 36.8; O2SAT 98
[2022-04-26 15:51] VITALS: BMI 21.1
[2022-04-26 16:14] VITALS: BMI 21.1
--- NOTE | 2022-04-26 16:30 | PM.HP.1 ---
History of Present Illness History of Present Illness Date Patient Seen: 04/26/22 Chief complaint: GLF with chronic hip pain Narrative: This is a 71-year-old male with past medical history of CAD s/p JEANNINE x3, hypertension, hyperlipidemia, type 2 diabetes and chronic pain presented to the ED with recurrent falls. Found to have elevated WBC at 13, procalcitonin 0.83 and elevated liver enzymes. Abdominal ultrasound suggested possible acute cholecystitis. Dr. Tinoco general surgery consulted. Patient however denies any abdominal pain, but notes 2 weeks of watery diarrhea. He is not sure why he keeps falling, but he notes chronic tingling and numbness in his hands and feet. He has never received treatment for this. Patient denies drug or alcohol use. Has not seen a doctor in several years, and is unsure who keeps refilling his meds. He denies headache, sore throat, rhinorrhea, CP, abd pain, dysuria or LE swelling. Patient History Family & Social History Social History: household members none Prior Living Arrangements Skilled Nurse Facility Safety & Behavioral: Feels Safe in Current Yes Environment Been Physically Hurt or No Threatened By a Person Tobacco & Substance use: Tobacco type cigarettes Smoking Status Former smoker Substance Use Type marijuana Meds Home Medications and Allergies Home Medications Medication Instructions Recorded Confirmed Type atorvastatin 40 mg tablet 40 mg PO DAILY 04/26/22 04/26/22 History insulin aspart U-100 100 unit/mL See Rx Instructions .Route .COMPLEX 04/26/22 04/26/22 History (3 mL) subcutaneous pen (Novolog Flexpen U-100 Insulin aspart) metoprolol succinate 100 mg 100 mg PO DAILY 04/26/22 04/26/22 History tablet,extended release 24 hr sitagliptin phosphate 50 mg tablet 50 mg PO DAILY 04/26/22 04/26/22 History (Januvia) tamsulosin 0.4 mg capsule 0.4 mg PO DAILY 04/26/22 04/26/22 History Allergies Allergy/AdvReac Type Severity Reaction Status Date / Time NSAIDS (Non-Steroidal Allergy Verified 04/16/22 16:30 Anti-Inflamma Tetanus Vaccines and Toxoid Allergy Verified 04/16/22 16:30 Review of Systems Review of Systems Narrative: All other systems reviewed with the patient and are negative unless otherwise stated. Exam Vital Signs (past 8 hours): - 04/26/22 10:32 04/26/22 15:18 Temperature 98.3 F Pulse Rate 97 H 97 H Respiratory Rate 18 16 Blood Pressure 123/71 124/76 Pulse Oximetry 99 96 Oxygen Delivery Method Room Air Room Air Oxygen Delivery Method Room Air Narrative Exam Narrative: GEN: thin male who appears older than stated age HEENT: moist mucous membranes, PERRL, edentulous NECK: trachea midline, no JVD CV: regular rate and rhythm, no murmurs PULM: clear bilaterally ABD: soft, nontender, nondistended, no organomegaly EXT: warm and well perfused with no edema NEURO: awake, alert, oriented, no focal deficits Objective Labs Result Diagrams: 04/26/22 10:48 04/26/22 10:48 Labs: Laboratory Results - last 24 hr 04/26/22 04/26/22 04/26/22 10:40 10:48 10:48 WBC 12.3 H RBC 4.57 Hgb 14.3 Hct 39.9 L MCV 87.2 MCH 31.3 MCHC 35.9 RDW 13.7 Plt Count 191 Neut % (Auto) 88.9 H Lymph % (Auto) 4.1 L [place] % (Auto) 6.5 Eos % (Auto) 0.2 L Baso % (Auto) 0.3 Neut # (Auto) 37491 H Lymph # (Auto) 500 L [place] # (Auto) 800 Eos # (Auto) 0 Baso # (Auto) 0 Sodium 127 L Potassium 3.7 Chloride 90 L Carbon Dioxide 31 BUN 7 L Creatinine 0.35 L Estimated GFR > 60 BUN/Creatinine Ratio 20.0 Glucose 143 H Calcium 9.0 Total Bilirubin 1.1 AST 326 H ALT 436 H Alkaline Phosphatase 120 Total Creatine Kinase 89 CK-MB (CK-2) TNP CK-MB (CK-2) Rel Index TNP Troponin I < 0.012 Total Protein 6.9 Albumin 4.0 Globulin 2.9 Albumin/Globulin Ratio 1.4 Lipase 31 Procalcitonin 0.83 H TSH 1.61 Urine Color Urine Appearance Urine pH Ur Specific [place] Urine Protein Urine Glucose (UA) Urine Ketones Urine Occult Blood Urine Nitrate Urine Bilirubin Urine Urobilinogen Ur Leukocyte Esterase Urine RBC Urine WBC Ur Squamous Epith Cells Urine Bacteria Ur Culture Indicated? 04/26/22 11:45 WBC RBC Hgb Hct MCV MCH MCHC RDW Plt Count Neut % (Auto) Lymph % (Auto) [place] % (Auto) Eos % (Auto) Baso % (Auto) Neut # (Auto) Lymph # (Auto) [place] # (Auto) Eos # (Auto) Baso # (Auto) Sodium Potassium Chloride Carbon Dioxide BUN Creatinine Estimated GFR BUN/Creatinine Ratio Glucose Calcium Total Bilirubin AST ALT Alkaline Phosphatase Total Creatine Kinase CK-MB (CK-2) CK-MB (CK-2) Rel Index Troponin I Total Protein Albumin Globulin Albumin/Globulin Ratio Lipase Procalcitonin TSH Urine Color Yellow Urine Appearance Clear Urine pH 7.0 Ur Specific [place] <=1.005 Urine Protein Negative Urine Glucose (UA) Negative Urine Ketones Negative Urine Occult Blood Negative Urine Nitrate Negative Urine Bilirubin Negative Urine Urobilinogen 0.2 Ur Leukocyte Esterase Negative Urine RBC 0-1/hpf Urine WBC None seen Ur Squamous Epith Cells None seen Urine Bacteria Occasional (0-1) Ur Culture Indicated? Cult not indicated Assessment & Plan Assessment & Plan narrative: # recurrent falls -patient has had 6 falls in the last month, likely a component of his diabetic neuropathy -trial gabapentin 100mg nightly -PT/OT eval -check orthostatics qshift # possible acute cholecystitis with transaminitis and leukocytosis - LFT's noted to be 326 AST and 436 ALT on admission -Abd US with normal liver and thickened gallbladder wall suggestive of acute cholecystitis, however pt denies abd pain -WBC 13 and procal 0.83, continue zosyn for now and f/u cultures -trend LFT's -check hepatitis panel -avoid hepatotoxic agents -pt notes a few weeks of diarrhea, check stool PCR # hyponatremia -Na 127 on admission -IVF and monitor -if sodium decreases will fluid restrict due to likely SIADH # DM2, chronic -continue home lantus at 20u nightly with SSI -check A1c # HLD, chronic -hold home lipitor due to elevated LFT's # HTN, chronic -continue home metop succ # chronic left hip pain -L hip XR in ED with OA of hip -percocet PRN # possible malnutrition -patient BMI 21, says he lost 150 lbs and with poor sodium question his po intake -freight loading supervisor consultation Code status is full code. COVID negative. DVT prophylaxis with Lovenox. Proxy is his brother Doc. I have reviewed home meds and used all available resources to reconcile the home meds. This patient will be admitted as observation and will require less than 2 midnights of hospital time to treat possible acute cholecystitis. Time Spent With Patient Critical Care time: I spent a total of [] minutes of critical care time on this patient's care today; this time is exclusive of procedural time. Quality VTE Deep Vein Thrombosis/Pulmonary Embolism Present on Admission: No
--- NOTE | 2022-04-26 17:18 | PT.IPTN ---
Physical Therapy Treatment Note M3 PT-IP Subjective Start: 04/26/22 17:14 Freq: NEEDED Status: Active Protocol: Document 04/26/22 16:30 AB (Rec: 04/26/22 17:17 AB [id number]) Subjective Physical Therapy Visit Type Type Patient Refusal Notes Received PT eval and EMR reviewed. checked on pt and pt refused PT but agreed to provide PLOF and home set up. will f/u.
[2022-04-26 17:48] LABS: Hemoglobin A1C% w Est Avg Glu 8.9 % (4.0-6.0)
[2022-04-26 18:33] LABS: UR Morphine/Opiate cutoff 300 Negative (Negative); Ur Creatinine Normal (Normal); Ur Specific Gravity Normal (Normal); Urine Amphetamines Negative (Negative); Urine Barbiturates Negative (Negative); Urine Benzodiazepines Negative (Negative); Urine Cocaine Negative (Negative); Urine MDMA Negative (Negative); Urine Methadone Negative (Negative); Urine Methamphetamines Negative (Negative); Urine Oxycodone Positive (Negative); Urine Phencyclidine Negative (Negative); Urine Tetrahydrocannabinol Negative (Negative); Urine Tricyclic Antidepressant Negative (Negative); Urine pH Normal (Normal)
[2022-04-26] MEDS: PIPERACILLIN/TAZO 3.375 GM in SODIUM CHLORIDE 0.9% 100 ML IV (19:51)
[2022-04-26] MEDS: INSULIN GLARGINE 100 UNIT/ML 3ML PEN 20 UNIT SUBCUT (20:10)
[2022-04-26] MEDS: INSULIN LISPRO 100 UNIT/ML 3ML VIAL SUBCUT (20:10)
[2022-04-26] MEDS: GABAPENTIN 300 MG CAPSULE 100 MG PO (20:12)
[2022-04-26] MEDS: TAMSULOSIN 0.4 MG CAPSULE PO (20:12)
[2022-04-26] MEDS: MELATONIN 3 MG TABLET 6 MG PO (20:17)
[2022-04-26 20:25] VITALS: BP 133/83; PULSE 94; RESP 18; TEMP 36.9; O2SAT 98
[2022-04-26 22:55] VITALS: BP 115/71; BP 129/84; BP 155/89; PULSE 102; PULSE 86; PULSE 99
[2022-04-27] VITALS (15 sets, daily range): BP systolic 82–151; BP diastolic 55–93; PULSE 74–98; RESP 13–18; TEMP 36.2–37; O2SAT 94–100; BMI 21.1
--- NOTE | 2022-04-27 | PATH_ITS ---
[facility] Accession Number: [id number] No. of containers..01 Tissue . 01 Material submitted: . gallbladder - GALLBLADDER . 01 Diagnosis: Gallbladder, Cholecystectomy: Acute and chronic cholecystitis and cholelithiasis. One benign lymph node. MRV 04/30/2022 1340 Local . 01 Electronically signed: . Harriett Ramos MD, Pathologist NPI- [id number] . 01 Gross description: . The specimen is received in formalin, labeled with the patient's name, , and gallbladder, and consists of an intact gallbladder measuring 8.8 x 2.5 x 2.3 cm with edmonds smooth serosa and a roughened, unremarkable hepatic surface. The cystic duct is received patent, is inked blue, and a edmonds lymph node is identified measuring 1.3 cm in greatest dimension. The lumen contains green mucoid bile and multiple dark brown, roughened calculi measuring up to 2.7 cm in greatest dimension grossly obstructing the lumen. The mucosa is edmonds and velvety with focally denuded areas adjacent to the aforementioned calculi. No discoloration, polyps, or lesions are identified. The morales average 0.3 cm thick. Reimbursement Counselor sections to include the cystic duct margin, one half of the bisected lymph node candidate, and full-thickness sections are submitted in cassettes A1-A2. ([id number]) /FRR 04/28/20226 Local . 01 Pathologist provided ICD-10: K80.12 . 01 CPT . 885989 Specimen Comment: A courtesy copy of this report has been sent to [facility] Pathology Performed at: 01 [facility] [address] [place] [address] [address], [place], [place] [id number] MD Lamin Llanes MD Phone: [phone]
[2022-04-27] MEDS: PIPERACILLIN/TAZO 3.375 GM in SODIUM CHLORIDE 0.9% 100 ML IV ×3 (03:44→20:12)
[2022-04-27] MEDS: ONDANSETRON 4 MG/2 ML INJ IV (04:26)
[2022-04-27 06:20] LABS: Alanine Aminotransferase 279 IU/L (<50); Albumin 3.6 g/dL (3.5-5.0); Albumin Globulin Ratio 1.2 (1.0-2.8); Alkaline Phosphatase 109 U/L (38-126); Aspartate Aminotransferase 107 IU/L (17-59); BUN Creatinine Ratio 13.6 (6-22); Bilirubin Total 0.7 mg/dL (0.2-1.3); Blood Urea Nitrogen 6 mg/dL (9-20); Calcium 8.7 mg/dL (8.4-10.2); Carbon Dioxide 31 mmol/L (22-32); Chloride 94 mmol/L (98-107); Estimated Glomerular Filt Rate > 60 mL/min (>60); Globulin 2.9 g/dL (1.7-4.1); Glucose 112 mg/dL (80-110); HEMOLYSIS < 15 (0-50); Potassium 3.4 mmol/L (3.4-5.1); Sodium 132 mmol/L (137-145); Total Protein 6.5 g/dL (6.3-8.2)
[2022-04-27 06:35] LABS: Procalcitonin 0.63 ng/mL (<0.5)
[2022-04-27 06:41] LABS: Add Manual Diff / Slide Review NO; Basophils Absolute Auto 100 /uL (0-100); Basophils Percent Auto 0.7 % (0-2); Eosinophils Absolute Auto 100 /uL (0-450); Eosinophils Percent Auto 1.8 % (2-4); Hematocrit 38.8 % (41-53); Hemoglobin 13.8 g/dL (13.5-17.5); Lymphocytes Absolute Auto 900 /uL (1100-4500); Lymphocytes Percent Auto 11.2 % (25-40); Mean Corpuscular HGB Conc 35.5 % (30-36); Mean Corpuscular Hemoglobin 31.5 PG (26-34); Mean Corpuscular Volume 88.6 fL (80-100); Monocytes Absolute Auto 700 /uL (0-900); Monocytes Percent Auto 8.3 % (3-14); Neutrophils Absolute Auto 6300 /uL (1500-7000); Platelet Count 189 X10^3/uL (150-400); Red Blood Cell Count 4.39 X10^6/uL (4.5-5.9); Red Cell Distribution Width 13.9 % (11.6-14.8); White Blood Cell Count 8.1 X10^3/uL (4.5-11.0)
--- NOTE | 2022-04-27 07:37 | P.PN_ITS ---
Subjective Subjective Date Patient Seen: 04/27/22 Interval history: Patient feeling well this morning. Says gabapentin may have helped his neuropathy some. He is NPO for lap bakari today with gen surg. Exam Vital Signs (past 8 hours): - 04/27/22 03:16 Temperature 97.6 F Pulse Rate 94 H Respiratory Rate 18 Blood Pressure 128/70 Pulse Oximetry 98 Oxygen Flow Rate 0 Oxygen Delivery Method Room Air Oxygen Flow Rate 0 Narrative Exam Narrative: GEN: thin male who appears older than stated age HEENT: moist mucous membranes, PERRL, edentulous NECK: trachea midline, no JVD CV: regular rate and rhythm, no murmurs PULM: clear bilaterally ABD: soft, nontender, nondistended, no organomegaly EXT: warm and well perfused with no edema NEURO: awake, alert, oriented, no focal deficits Objective Labs Result Diagrams: 04/27/22 05:16 04/27/22 05:16 Labs: Laboratory Results - last 24 hr 04/26/22 04/26/22 04/26/22 10:40 10:48 10:48 WBC 12.3 H RBC 4.57 Hgb 14.3 Hct 39.9 L MCV 87.2 MCH 31.3 MCHC 35.9 RDW 13.7 Plt Count 191 Neut % (Auto) 88.9 H Lymph % (Auto) 4.1 L [place] % (Auto) 6.5 Eos % (Auto) 0.2 L Baso % (Auto) 0.3 Neut # (Auto) 04301 H Lymph # (Auto) 500 L [place] # (Auto) 800 Eos # (Auto) 0 Baso # (Auto) 0 Sodium 127 L Potassium 3.7 Chloride 90 L Carbon Dioxide 31 BUN 7 L Creatinine 0.35 L Estimated GFR > 60 BUN/Creatinine Ratio 20.0 Glucose 143 H Hemoglobin A1c Calcium 9.0 Total Bilirubin 1.1 AST 326 H ALT 436 H Alkaline Phosphatase 120 Total Creatine Kinase 89 CK-MB (CK-2) TNP CK-MB (CK-2) Rel Index TNP Troponin I < 0.012 Total Protein 6.9 Albumin 4.0 Globulin 2.9 Albumin/Globulin Ratio 1.4 Lipase 31 Procalcitonin 0.83 H TSH 1.61 Urine Color Urine Appearance Urine pH Ur Specific [place] Urine Protein Urine Glucose (UA) Urine Ketones Urine Occult Blood Urine Nitrate Urine Bilirubin Urine Urobilinogen Ur Leukocyte Esterase Urine RBC Urine WBC Ur Squamous Epith Cells Urine Bacteria Ur Culture Indicated? U Opiates 300ng/mL cut Ur Oxycodone Screen Urine Methadone Screen Ur Barbiturates Screen U Tricyclic Antidepress Ur Phencyclidine Scrn Ur Amphetamines Screen U Methamphetamines Scrn Ur MDMA Scrn (Ecstasy) U Benzodiazepines Scrn Urine Cocaine Screen U Marijuana (THC) Screen 04/26/22 04/26/22 04/26/22 10:48 11:45 18:15 WBC RBC Hgb Hct MCV MCH MCHC RDW Plt Count Neut % (Auto) Lymph % (Auto) [place] % (Auto) Eos % (Auto) Baso % (Auto) Neut # (Auto) Lymph # (Auto) [place] # (Auto) Eos # (Auto) Baso # (Auto) Sodium Potassium Chloride Carbon Dioxide BUN Creatinine Estimated GFR BUN/Creatinine Ratio Glucose Hemoglobin A1c 8.9 H Calcium Total Bilirubin AST ALT Alkaline Phosphatase Total Creatine Kinase CK-MB (CK-2) CK-MB (CK-2) Rel Index Troponin I Total Protein Albumin Globulin Albumin/Globulin Ratio Lipase Procalcitonin TSH Urine Color Yellow Urine Appearance Clear Urine pH 7.0 Ur Specific [place] <=1.005 Urine Protein Negative Urine Glucose (UA) Negative Urine Ketones Negative Urine Occult Blood Negative Urine Nitrate Negative Urine Bilirubin Negative Urine Urobilinogen 0.2 Ur Leukocyte Esterase Negative Urine RBC 0-1/hpf Urine WBC None seen Ur Squamous Epith Cells None seen Urine Bacteria Occasional (0-1) Ur Culture Indicated? Cult not indicated U Opiates 300ng/mL cut Negative Ur Oxycodone Screen Positive H Urine Methadone Screen Negative Ur Barbiturates Screen Negative U Tricyclic Antidepress Negative Ur Phencyclidine Scrn Negative Ur Amphetamines Screen Negative U Methamphetamines Scrn Negative Ur MDMA Scrn (Ecstasy) Negative U Benzodiazepines Scrn Negative Urine Cocaine Screen Negative U Marijuana (THC) Screen Negative 04/27/22 04/27/22 04/27/22 05:16 05:16 05:16 WBC 8.1 RBC 4.39 L Hgb 13.8 Hct 38.8 L MCV 88.6 MCH 31.5 MCHC 35.5 RDW 13.9 Plt Count 189 Neut % (Auto) 78.0 H Lymph % (Auto) 11.2 L [place] % (Auto) 8.3 Eos % (Auto) 1.8 L Baso % (Auto) 0.7 Neut # (Auto) 6300 Lymph # (Auto) 900 L [place] # (Auto) 700 Eos # (Auto) 100 Baso # (Auto) 100 Sodium 132 L Potassium 3.4 Chloride 94 L Carbon Dioxide 31 BUN 6 L Creatinine 0.44 L Estimated GFR > 60 BUN/Creatinine Ratio 13.6 Glucose 112 H Hemoglobin A1c Calcium 8.7 Total Bilirubin 0.7 AST 107 H ALT 279 H Alkaline Phosphatase 109 Total Creatine Kinase CK-MB (CK-2) CK-MB (CK-2) Rel Index Troponin I Total Protein 6.5 Albumin 3.6 Globulin 2.9 Albumin/Globulin Ratio 1.2 Lipase Procalcitonin 0.63 H TSH Urine Color Urine Appearance Urine pH Ur Specific [place] Urine Protein Urine Glucose (UA) Urine Ketones Urine Occult Blood Urine Nitrate Urine Bilirubin Urine Urobilinogen Ur Leukocyte Esterase Urine RBC Urine WBC Ur Squamous Epith Cells Urine Bacteria Ur Culture Indicated? U Opiates 300ng/mL cut Ur Oxycodone Screen Urine Methadone Screen Ur Barbiturates Screen U Tricyclic Antidepress Ur Phencyclidine Scrn Ur Amphetamines Screen U Methamphetamines Scrn Ur MDMA Scrn (Ecstasy) U Benzodiazepines Scrn Urine Cocaine Screen U Marijuana (THC) Screen PFSH Social History household members: none Smoking Status: Former smoker Assessment & Plan Assessment & Plan narrative: # possible acute cholecystitis with transaminitis and leukocytosis - LFT's noted to be 326 AST and 436 ALT on admission -Abd US with normal liver and thickened gallbladder wall suggestive of acute cholecystitis, however pt denies abd pain -WBC 13 and procal 0.83, continue zosyn for now and f/u cultures -trend LFT's, now improving -check hepatitis panel -avoid hepatotoxic agents -lap bakari 04/27 with gen surg -pt notes a few weeks of diarrhea, check stool PCR # recurrent falls -patient has had 6 falls in the last month, likely a component of his diabetic neuropathy -trial gabapentin 100mg nightly -PT/OT eval -check orthostatics qshift # hyponatremia, improving -Na 127 on admission, now 130's -IVF given and monitor # DM2, chronic -continue home lantus at 20u nightly with SSI -A1c 8.9% # HLD, chronic -hold home lipitor due to elevated LFT's # HTN, chronic -continue home metop succ # chronic left hip pain -L hip XR in ED with OA of hip -percocet PRN # possible malnutrition -patient BMI 21, says he lost 150 lbs and with poor sodium question his po intake -night manager consultation Code status is full code. COVID negative. DVT prophylaxis with Lovenox. Proxy is his brother Doc. Dispo: Back to [facility] on 04/28 hopefully. Time Spent With Patient Critical Care time: I spent a total of [] minutes of critical care time on this patient's care today ; this time is exclusive of procedural time. Quality VTE Deep Vein Thrombosis/Pulmonary Embolism Present on Admission: No
[2022-04-27] MEDS: POTASSIUM CHLORIDE 20 MEQ TAB 40 MEQ PO (07:58)
[2022-04-27] MEDS: OXYCODONE/ACETAMINOPHEN 5/325 TABLET 1 TAB PO ×3 (07:58→20:52)
[2022-04-27] MEDS: ENOXAPARIN 40 MG/0.4 ML SYRINGE SUBCUT (08:11)
[2022-04-27] MEDS: METOPROLOL ER 50 MG TABLET 100 MG PO (08:11)
--- NOTE | 2022-04-27 09:20 | PT.IIE ---
Surgery Performed Operation Date: 04/27/22 17:00 <No data on this case meets the specified criteria> Physical Therapy Inpatient Evaluation/Re-Eval M1 PT/OT-IP Prior Functional Status Start: 04/26/22 17:14 Freq: NEEDED Status: Active Protocol: Document 04/27/22 09:20 AB (Rec: 04/27/22 12:49 AB [id number]) Medical Review Prior Functional Status Medical History Reviewed Yes Communication able to make needs known but with confusion Mobility and Gait pt stated that he is self sufficient: independent with all mobilities and ambulation using a FWW. pt stated that he just moved to [facility] ~ 2 weeks ago and was living alone at home and does not use any AD at home. stated that he started using a fWW at [facility]. stated that he cannot walk much but able to walk from his room to the dinning room at [place]. Social History Household Members none Living Arrangements Assisted Living Number of Floors (Floors) One Floor Number of Stairs To Enter/Railing? pt lives at [facility] pt does not remember home set up. Home Equipment Front Wheel Walker M2 PT-IP Current Condition Start: 04/26/22 17:14 Freq: NEEDED Status: Active Protocol: Document 04/27/22 09:20 AB (Rec: 04/27/22 12:49 AB [email or web address]) Physical Therapy Current Condition Current Condition Evaluation Date 04/27/22 Treatment Diagnosis GLF; difficulty in walking Onset Date 04/26/22 M3 PT-IP Subjective Start: 04/26/22 17:14 Freq: NEEDED Status: Active Protocol: Document 04/27/22 09:20 AB (Rec: 04/27/22 12:49 AB [email or web address]) Subjective Physical Therapy Visit Type Type Initial Evaluation Visit Start Time 09:20 Visit Stop Time 09:45 Total Visit Minutes 25 Number of SYSTEMS TESTING LABORATORY TECHNICIAN Visits 0 Physical Therapy Visit Comments Patient Comments agreeable to do PT M4 PT-IP Mobility and Gait Start: 04/26/22 17:14 Freq: NEEDED Status: Active Protocol: Document 04/27/22 09:20 AB (Rec: 04/27/22 12:49 AB [email or web address]) PT-Bed Mobility Assessment Supine to Sit Supine to Sit Standby Assistance PT-Transfer Assessment Sit to and From Stand Sit to and from Stand Standby Assistance,1 Person Assistance,Use of Upper Extremities Equipment Transfer Assistive Device Gait Belt,Front Wheeled Walker Orthotic/Prosthetic Devices or Brace: No Comments Mobility Comments pt sitting on EOB with NAC in room taking BP. PT took over afterwards. BP in sittin/66. sit to stand SBA and BP in standin/55. pt sat back on EOB. slight c/o dizziness but did not worsen. pt rested for ~ 2 min and BP in sittin/54. pt stood up SBA and instructed to take steps towards HOB CGA using FWW. BP checked: 85/57. pt then requested to use the urinal. pt completed sit to stand SBA. CGA for standing balance using FWW for support while pt use the urinal. took side steps again towards HOB using FWW CGA and pt sat back down. BP checked: 87/60. completed sit to supine SBA. positioned in bed. BP checked : 120/80. call light and table placed within reach. Gait Assessment Comments Gait Comments steps towards HOB CGA ~ 2 ft PT-Balance Assessment Sitting Balance and Reactions Static Sitting Balance Ability Normal Dynamic Sitting Balance Ability Good Standing Balance and Reactions Static Standing Balance Ability Fair Dynamic Standing Balance Ability Fair Device Used FWW M5 PT-IP Objective Assessments Start: 04/26/22 17:14 Freq: NEEDED Status: Active Protocol: Document 04/27/22 09:20 AB (Rec: 04/27/22 12:49 AB [email or web address]) Orientation Orientation/Cognition Level of Alertness Confusional State Orientation Name Language Function Ability No Deficits Noted Safety Awareness Decreased Safety Awareness Memory Description Short Term Impaired Gross Range of Motion Lower Extremity ROM Assessment Within Functional Limits Strength Lower Extremity Strength Hip 4-/5 Knee 4-/5 Muscle Tone Muscle Tone WNL Yes M6 PT-IP Treatment Start: 04/26/22 17:14 Freq: NEEDED Status: Active Protocol: Document 04/27/22 09:20 AB (Rec: 04/27/22 12:49 AB [email or web address]) Physical Therapy Treatment Education Education Provided Safety M7 PT-IP Assessment and Plan Start: 04/26/22 17:14 Freq: NEEDED Status: Active Protocol: Document 04/27/22 09:20 AB (Rec: 04/27/22 12:49 AB [email or web address]) PT Summary Assessment and Plan Potential Rehabilitation Potential Fair Status of Condition at Evaluation Unstable Summary Impairments Pain,ROM,Strength,Balance, Coordination,Sensation,Tone, Cognition,Bed Mobility, Transfers,Gait,Activity Tolerance Assessment Summary pt requiring SBA to CGA with mobility but limited activity due to decrease BP: 82/55. will continue to assess progress. pt stated that he lives at [facility] and may go back there if able to provide assistance to pt. Goals Bed Mobility Goal Independent Transfer Goal Independent,Front Wheeled Walker Gait Goal Independent,Front Wheel Walker Gait Distance 150 Days to Meet Goals 5 Frequency of Treatment Frequency Of Treatment Once a Day Treatment Plan Physical Therapy Treatment Plan Bed Mobility Training,Transfer Training,Gait Training, Therapeutic Exercise,Balance Retraining,Discharge Planning, Hot or Cold Pack,Neuromuscular Re-ed,Coordination Retraining Precautions Other Precautions falls; BP Recommendations To Nursing Amount of Assist Needed 1 Person Assist Discharge Recommendations PT Discharge Recommendations Home with 05/11 Assist Available,Home Health Transportation Needs at Discharge Private Vehicle,Wheelchair/ Cabulance
--- NOTE | 2022-04-27 10:40 | CM.DANOTE ---
Addendum entered by Yamini Sorensen R.N. 04/27/22 12:57: Have left two more messages with nurse, Carmelita, to see if she can come and assess patient before his surgery, since he most likely should be ready for discharge tomorrow. Called salary and wage administrator at [facility] and left a message at their extension [phone], letting them know that patient likely will be ready for discharge tomorrow, and is unfortunate that he can't go back to his home tomorrow due to not having adequate nursing staff on the weekends. Mentioned to the salary and wage administrator that this DC Sales Operations Specialist has reached out to Carmelita to see if she can evaluate him, although he has not yet had the surgery. Messages left. Confirmed that patient is inpatient, secondary to his electrolytes. Could be avoidable days if [facility] does not call back, and if medically cleared for tomorrow. Addendum entered by Yamini Sorensen R.N. 04/27/22 11:27: Spoke to Carmelita, nurse at [facility]. She indicated, she is at her facility until 2:00pm, and she would need to see patient before coming back, as they have no nurses on the weekend to evaluate. Asked her reasoning for this, since patients do get discharged on weekends, and them not having the appropriate staff on the weekend ties up patient here for avoidable days. Let her know that this DC Sales Operations Specialist will get the time of the surgery, and see if she can come after surgery. Just found out that the surgery is not until 1700. Left another message with Ericka to see if she can come and see patient before his surgery, and if they can possibly accept tomorrow. Will call her back again if no response in the next few hours. Original Note: DCP: Case received, EMR reviewed and met with patient. Introduced self and role. Was able to obtain information regarding patient's baseline activity status prior to admission, as well as his current living situation. DCP assessment completed with information currently available. Patient is a 71 year old male who admitted yesterday afternoon to the care of the hospitalist team. PCP: [facility] provider? Payer: confirmed: [place]/Medicare. Patient came to the hospital via ambulance secondary to having dizziness and recent fall. Patient has history of type 2 diabetes, CAD, as well as recurrent falls. Patient had an ultrasound which noted acute cholecystitis. Patient is scheduled for surgery today. Met with patient in his room. He is alert and oriented, laying on his bed. Confirmed that patient resides at [facility]. He indicated, he is pretty independent there, takes his own showers, does not use any devices for mobility. Have attempted twice to get in contact with assisted living nurse at [facility], and have left two messages. Plan is for surgery today, possible discharge tomorrow. P: DCP has attempted twice to reach [facility]. Will attempt again. Left a message that patient most likely will be ready for discharge tomorrow, and if he needs to be assessed today. If no response again, will attempt salary and wage administrator. Yamini Sorensen RN/Contact Acid Plant Operator Discharge Planning/Care Management CM Discharge Assessment Start: 04/27/22 10:38 Freq: Status: Active Protocol: Document 04/27/22 10:38 (Rec: 04/27/22 10:40 [id number]) Discharge Planning Assessment Assigned Waiter And Cashier Yamini Sorensen RN/Contact Acid Plant Operator Advance Directives? No History Provided By Patient,Medical Record Prior Living Arrangements Assisted Living Comment Patient resides at [facility]. Household Members none Type of transporation used prior to Relies on Others admit Facility Name Admitted From: [facility] Willing to Return to Facility? Yes Independent with ADL's Yes Is patient alert and oriented? Yes Needs Assistance With Meal Prep,Home Chores / Shopping Caregiver for Another No Barriers to Discharge Yes Comment Getting in touch with [facility] on the weekend to pickling drum operator patients Discharge Plan Home Transportation Arrangement Facility or Medicaid transport . Referrals Initiated None needed Whiteboard Updated in Patient Room with Yes name and ext. # of Waiter And Cashier Review Status In Process Next Review Type Continued Stay Review
--- NOTE | 2022-04-27 11:42 | DIET.CONS ---
Dietary Consultation Note Admission Date: 04/26/2022 14:17 Assessment: 71M admitted after recurrent falls. Potential acute cholecysctitis. PMH of T2DM. Reports he is currently homeless. This has impacted his ability to access food. Has EBT card. Does not utilize food pantries. Was living in [facility]. States he is unclear where he will live after discharge. Per discharge planning, potential discharge to [facility]. BMI low for age (<23-- moderate) Reports diarrhea for 2 weeks prior to admission (chronic severe) Based on limited food access and diet recall, predicted <75% EER for 1 month or more (severe) Nutrition focused physical exam indicates severe wasting of sikh, orbital, acromion process, clavicle, shoulders and legs. PMH of T2DM with HgA1c of 8.9%. 108 mg/dl BG this morning (within goal). States DM management is difficult due to his sweet tooth, loves candy. No PCP currently. Never had DM education. EMR indicates home meds for DM: Januvia and aspart. Pt not able to confirm home meds. States my brain is . It has been like this for a while. Low Na of 127 at admission yesterday. Improved today at 132. Currently NPO for surgery. Ht: 175.26 cm Wt: 64.864 kg BMI: 21.1 Last BM: 04/25/22 (04/26/22 16:14) MNA: 13 Quentin Score: 20 Diet: 04/27/22 00:01 NPO Diet Diet Modifications: NPO Type: NPO except for Meds Nutrition Percent Meal Consumed 100% 04/26/22 18:24 Labs: RBC 4.39 X10^6/uL (4.5-5.9) L 04/27/22 05:16 Hgb 13.8 g/dL (13.5-17.5) 04/27/22 05:16 Hct 38.8 % (41-53) L 04/27/22 05:16 Creatinine 0.44 mg/dL (0.66-1.25) L 04/27/22 05:16 Hemoglobin A1c 8.9 % (4.0-6.0) H 04/26/22 10:48 Nutrition Diagnosis: Chronic severe protein calorie malnutrition r/t limited access to food aeb pt report of homelessness and inability to access food regularly, diet recall indicating <75% EER for 1 month or more, severe physical signs of wasting, low for age BMI, and diarrhea for 2 weeks. -The patient is at much higher risk for medical and surgical complications because of his malnutrition.? This increases the difficulty and complexity of medical and surgical interventions and increases the chances of poor outcomes such as morbidity and mortality. Interventions: Pt currently NPO. After d/c of NPO status, rec high kcal ONS BID. RD to provide food pantries in [place] and [facility]. EER: 1800-1950kcal (28-30kcal/kg per BMI) 97-130g PRO (1.5-2g/kg per malnutrition) Monitoring/Evaluations: NPO status, weight Electronically Signed by: Leslie Vera 04/27/22 11:42 Clinical Dietitian [address] [address]
--- NOTE | 2022-04-27 12:28 | PM.CN ---
History of Present Illness Consult details Date Patient Seen: 04/27/22 Time Patient Seen: 12:29 Chief complaint: GLF with chronic hip pain Reason for consult: Gall bladder as sourse of infection and elevated LFT's Requesting provider: Nam [place] Narrative: Complicated 71 yo male. Multiple medical issues. Likely biliary colic with transient cholangitis. Has gallstones. Severe protein malnutrition and diabetes along with acute hyponatremia. Meds Home Medications and Allergies Home Medications Medication Instructions Recorded Confirmed Type atorvastatin 40 mg tablet 40 mg PO DAILY 04/26/22 04/26/22 History insulin aspart U-100 100 unit/mL See Rx Instructions .Route .COMPLEX 04/26/22 04/26/22 History (3 mL) subcutaneous pen (Novolog Flexpen U-100 Insulin aspart) metoprolol succinate 100 mg 100 mg PO DAILY 04/26/22 04/26/22 History tablet,extended release 24 hr sitagliptin phosphate 50 mg tablet 50 mg PO DAILY 04/26/22 04/26/22 History (Januvia) tamsulosin 0.4 mg capsule 0.4 mg PO DAILY 04/26/22 04/26/22 History Allergies Allergy/AdvReac Type Severity Reaction Status Date / Time NSAIDS (Non-Steroidal Allergy Verified 04/16/22 16:30 Anti-Inflamma Tetanus Vaccines and Toxoid Allergy Verified 04/16/22 16:30 Review of Systems Review of Systems Narrative: multiple falls, decreased sensation in feet. weakness ROS: Yes All systems reviewed with the patient and are negative except as otherwise documented Exam Vital Signs (past 8 hours): - 04/27/22 08:11 04/27/22 09:22 Pulse Rate 94 H Pulse Rate [Orthostatic Lying] 74 Pulse Rate [Orthostatic Sitting] 88 Pulse Rate [Orthostatic Standing] 84 Blood Pressure 128/70 Blood Pressure [Orthostatic Lying] 125/73 Blood Pressure [Orthostatic Sitting] 107/66 Blood Pressure [Orthostatic Standing] 82/55 L Oxygen Delivery Method Room Air Oxygen Flow Rate 0 Const General: cooperative and frail appearing Nutritional Appearance: overweight Orientation: alert, awake and oriented x3 HENMT Head: normocephalic and atraumatic Ears: hearing grossly normal bilaterally Eyes General: appearance normal, both eyes and all related structures Sclera: sclerae normal Neck Neck: trachea midline Chest Chest: normal inspection of the chest Resp Effort & Inspection: normal respiratory effort and able to speak in complete sentences Cardio Rate: regular rate Rhythm: regular rhythm GI Inspection: normal to inspection Palpation: soft Skin General: no rashes or lesions noted and atrophy Neuro General: patient alert, patient awake and patient oriented x3 Cognition: normal cognition Extrem General: full ROM and muscle atrophy Psych Mental Status: mental status grossly normal Judgment: judgment good Objective Labs Result Diagrams: 04/27/22 05:16 04/27/22 05:16 Labs: Laboratory Results - last 24 hr 04/26/22 04/26/22 04/26/22 10:40 10:48 18:15 WBC RBC Hgb Hct MCV MCH MCHC RDW Plt Count Neut % (Auto) Lymph % (Auto) Fannin % (Auto) Eos % (Auto) Baso % (Auto) Neut # (Auto) Lymph # (Auto) Fannin # (Auto) Eos # (Auto) Baso # (Auto) Sodium Potassium Chloride Carbon Dioxide BUN Creatinine Estimated GFR BUN/Creatinine Ratio Glucose Hemoglobin A1c 8.9 H Calcium Total Bilirubin AST ALT Alkaline Phosphatase Total Protein Albumin Globulin Albumin/Globulin Ratio Procalcitonin TSH 1.61 U Opiates 300ng/mL cut Negative Ur Oxycodone Screen Positive H Urine Methadone Screen Negative Ur Barbiturates Screen Negative U Tricyclic Antidepress Negative Ur Phencyclidine Scrn Negative Ur Amphetamines Screen Negative U Methamphetamines Scrn Negative Ur MDMA Scrn (Ecstasy) Negative U Benzodiazepines Scrn Negative Urine Cocaine Screen Negative U Marijuana (THC) Screen Negative 04/27/22 04/27/22 04/27/22 05:16 05:16 05:16 WBC 8.1 RBC 4.39 L Hgb 13.8 Hct 38.8 L MCV 88.6 MCH 31.5 MCHC 35.5 RDW 13.9 Plt Count 189 Neut % (Auto) 78.0 H Lymph % (Auto) 11.2 L Fannin % (Auto) 8.3 Eos % (Auto) 1.8 L Baso % (Auto) 0.7 Neut # (Auto) 6300 Lymph # (Auto) 900 L Fannin # (Auto) 700 Eos # (Auto) 100 Baso # (Auto) 100 Sodium 132 L Potassium 3.4 Chloride 94 L Carbon Dioxide 31 BUN 6 L Creatinine 0.44 L Estimated GFR > 60 BUN/Creatinine Ratio 13.6 Glucose 112 H Hemoglobin A1c Calcium 8.7 Total Bilirubin 0.7 AST 107 H ALT 279 H Alkaline Phosphatase 109 Total Protein 6.5 Albumin 3.6 Globulin 2.9 Albumin/Globulin Ratio 1.2 Procalcitonin 0.63 H TSH U Opiates 300ng/mL cut Ur Oxycodone Screen Urine Methadone Screen Ur Barbiturates Screen U Tricyclic Antidepress Ur Phencyclidine Scrn Ur Amphetamines Screen U Methamphetamines Scrn Ur MDMA Scrn (Ecstasy) U Benzodiazepines Scrn Urine Cocaine Screen U Marijuana (THC) Screen PFSH Social History household members: none Tobacco & Substance Use Smoking Status: Former smoker Assessment & Plan Assessment & Plan narrative: Gallstones with transient cholangitis Laparoscopic cholecystectomy COVID-19 COVID-19 status: Negative Time Spent With Patient Time with patient: less than 30 minutes Critical Care time: I spent a total of [] minutes of critical care time on this patient's care today; this time is exclusive of procedural time.
[2022-04-27] MEDS: LACTATED RINGERS 1,000 ML 42 ML IV ×2 (13:12→14:29)
[2022-04-27 13:16] LABS: COVID19 -Nasal RAPID Negative (Negative)
--- NOTE | 2022-04-27 14:21 | SUR.OPER ---
Supine on padded OR bed, head on pillow, arms secured on padded arm boards at <90 degrees abduction, legs uncrossed, safety belt at thigh, tape over blanket over lower legs. Pt positioned per direction and supervision of Dr Tinoco.
[2022-04-27 14:24] LABS: Acinetobacter baumannii Not Detected (Not Detect); Candida albicans Not Detected (Not Detect); Candida glabrata Not Detected (Not Detect); Candida krusei Not Detected (Not Detect); Candida parapsilosis Not Detected (Not Detect); Candida tropicalis Not Detected (Not Detect); E. coli Not Detected (Not Detect); Enterobacter cloacae complex Not Detected (Not Detect); Enterobacteriaceae species Not Detected (Not Detect); Enterococcus species Not Detected (Not Detect); Haemophilus influenzae Not Detected (Not Detect); Listeria monocytogenes Not Detected (Not Detect); Methicillin-resistant gene Detected (Not Detect); Neisseria meningitidis Not Detected (Not Detect); Proteus species Not Detected (Not Detect); Pseudomonas aeruginosa Not Detected (Not Detect); Serratia marcescens Not Detected (Not Detect); Staphylococcus species Detected (Not Detect); Streptococcus agalactiae (Gr B Not Detected (Not Detect); Streptococcus pneumonia Not Detected (Not Detect); Streptococcus pyogenes (Gr A) Not Detected (Not Detect); Streptococcus species Not Detected (Not Detect)
[2022-04-27] MEDS: BUPIVACAINE 0.5% W/ EPI (PF) 30 ML VIAL INJ (14:31)
--- NOTE | 2022-04-27 14:55 | P.OP_ITS ---
Operative Date/Time/Diagnoses Date of procedure: 04/27/22 Time of procedure: 14:56 Pre-op diagnosis: Biliary colic, transient cholangitis Post-op diagnosis: same Procedure & Clinicians Procedure: Laparoscopic cholecystectomy Same procedure as scheduled: Yes Indications: Biliary colic, transient cholangitis Surgeon: Caryn Tinoco Click Yes if Unassisted: Yes Anesthesia Type: General Operative Notes Findings: Normal-appearing gallbladder, evidence of severe protein malnutrition Closure Type: primary Specimen(s): other (Gallbladder) Estimated Blood Loss (mL): 10 Blood products transfused: none Procedure in detail: Preop diagnosis: Biliary colic and transient cholangitis Postop diagnosis: Same Operative procedure: Laparoscopic cholecystectomy Surgeon: Jacquelin Tinoco MD Anesthetic: General with ET tube intubation with local Findings: Evidence of severe protein malnutrition. Normal-appearing gallbladder with large and small stones Procedure: Patient placed in a supine position. Prepped and draped sterile fashion to expose his abdomen. Infraumbilical port site was placed using open technique a 12 mm port. Insufflation began all other ports were placed under direct vision including a 5 mm port in the midepigastrium and 2 5 mm ports in the right lateral abdomen. Gallbladder was grasped and pushed cephalad for exposure. Cystic duct was identified clipped once distally twice proximally and transected. Cystic artery was identified clipped once distally twice proximally and transected. Gallbladder was removed from the fossa Bovie electrocautery. We had good hemostasis at the end the procedure. The gallbladder did open and bile escaped into the operative site. This was irrigated to a clear return prior to the end of the case. Gallbladder was placed into an Endo-Catch bag and pulled through the infraumb ilical port site without further spillage of bile or stone I then observed the abdomen for hemostasis prior to removing ports. Closure consisted of interrupted 0 Vicryl fascial closure of the infraumbilical port site. Skin was closed a running 4-0 Vicryl. Steri-Strips and sterile dressings were placed. Patient was awakened, extubated, taken to recovery room in stable condition. Needle, instrument, sponge count was correct. Blood loss: 10 mL Specimen: Gallbladder Complications: none Post-operative Condition: stable Disposition: PACU
--- NOTE | 2022-04-27 15:38 | SUR.PHASEI ---
transferred back to 220. belongings in .
[2022-04-27] MEDS: MELATONIN 3 MG TABLET 6 MG PO (20:12)
[2022-04-27] MEDS: TAMSULOSIN 0.4 MG CAPSULE PO (20:12)
[2022-04-27] MEDS: GABAPENTIN 100 MG CAPSULE PO (20:35)
[2022-04-27] MEDS: INSULIN GLARGINE 100 UNIT/ML 3ML PEN 20 UNIT SUBCUT (21:00)
[2022-04-28] VITALS (7 sets, daily range): BP systolic 101–153; BP diastolic 60–88; PULSE 62–91; RESP 18; TEMP 36.5–37.2; O2SAT 96–99
[2022-04-28] MEDS: OXYCODONE/ACETAMINOPHEN 5/325 TABLET 1 TAB PO ×2 (02:22→08:13)
[2022-04-28] MEDS: PIPERACILLIN/TAZO 3.375 GM in SODIUM CHLORIDE 0.9% 100 ML IV (04:25)
[2022-04-28 05:12] LABS: Add Manual Diff / Slide Review NO; Basophils Absolute Auto 0 /uL (0-100); Basophils Percent Auto 0.3 % (0-2); Eosinophils Absolute Auto 100 /uL (0-450); Eosinophils Percent Auto 0.6 % (2-4); Hematocrit 38.6 % (41-53); Hemoglobin 13.7 g/dL (13.5-17.5); Lymphocytes Absolute Auto 800 /uL (1100-4500); Lymphocytes Percent Auto 7.6 % (25-40); Mean Corpuscular HGB Conc 35.5 % (30-36); Mean Corpuscular Hemoglobin 31.1 PG (26-34); Mean Corpuscular Volume 87.6 fL (80-100); Monocytes Absolute Auto 700 /uL (0-900); Monocytes Percent Auto 7.1 % (3-14); Neutrophils Absolute Auto 8300 /uL (1500-7000); Neutrophils Percent Auto 84.4 % (50-75); Platelet Count 193 X10^3/uL (150-400); Red Blood Cell Count 4.41 X10^6/uL (4.5-5.9); Red Cell Distribution Width 14.1 % (11.6-14.8); White Blood Cell Count 9.8 X10^3/uL (4.5-11.0)
[2022-04-28 05:18] LABS: Alanine Aminotransferase 177 IU/L (<50); Alkaline Phosphatase 88 U/L (38-126); Aspartate Aminotransferase 60 IU/L (17-59); Bilirubin Total 0.8 mg/dL (0.2-1.3); Blood Urea Nitrogen 6 mg/dL (9-20); Calcium 8.7 mg/dL (8.4-10.2); Carbon Dioxide 29 mmol/L (22-32); Chloride 94 mmol/L (98-107); Estimated Glomerular Filt Rate > 60 mL/min (>60); Glucose 128 mg/dL (80-110); HEMOLYSIS < 15 (0-50); Potassium 4.1 mmol/L (3.4-5.1); Sodium 133 mmol/L (137-145); Total Protein 6.3 g/dL (6.3-8.2)
[2022-04-28] MEDS: ENOXAPARIN 40 MG/0.4 ML SYRINGE SUBCUT (08:13)
[2022-04-28] MEDS: METOPROLOL ER 50 MG TABLET 100 MG PO (08:14)
[2022-04-28] MEDS: INSULIN LISPRO 100 UNIT/ML 3ML VIAL SUBCUT ×2 (08:16→12:15)
--- NOTE | 2022-04-28 12:11 | CM.DPC ---
Addendum entered by Yamini Sorensen R.N. 04/28/22 13:47: Whit at [facility] has called back, and can accept patient back today. Unable to get in touch with Medicaid for transport, and [facility] has no vehicle to draft roller picker. Called Anshul castro, set up draft roller picker time for 1430 with taxi voucher for $8.00. Updated hospitalist, he is working on orders, and will fax over. Updated nurse, Alicja, to have patient down at ER entrance. Addendum entered by Yamini Sorensen R.N. 04/28/22 12:45: Whit, med tech from [facility], called back. She attempted to call patient, phone was not near him. Placed phone by patient and transferred call. She stated, she will try to get a nurse to see patient this weekend, but not sure if able. She will update this DC Construction Carpenter. Original Note: DCP Cont: Confirmed that patient is medically stable for discharge, but unable to get in touch with the facility. Had mentioned to nurse, Ericka, yesterday, that patient would most likely be ready after surgery, but at the time, surgery time was unknown. Let her know that this DC Construction Carpenter would call her back when surgery time was known. Found out that surgery was at 1700. Attempted to reach Michelle about 3 times, one time, phone was hung up. Left her a message asking her if she could see patient before surgery, but she did not respond. Attempted to reach court administrator, Brigido, left a message, no response. Spoke to Nadia Lamb, hospital DISPLAY DECORATOR, she had called on another matter. Gave her an update on this situation, that [facility], as well as [facility], continue to state that they have no staff on the weekends for admissions. In this perspective, patients sit here at the hospital that are medically stable. Nadia encouraged this DC Construction Carpenter to send out an email, and this can be addressed with Nova Trevino and her. Sent out an email to Adriana Bhatt, regarding conversation with this DC Construction Carpenter and Nadia. This DC Construction Carpenter has already attempted to reach [facility] nurse, with no answer, and left another message with admissions and court administrator, Brigido and Alee. P: DCP to continue to follow. Patient is avoidable day, secondary to not being able to to get in touch with facility. Most likely will be two avoidable days. Plan is to return to [facility], most likely Saturday. Yamini Sroensen RN/Bio Medical Technician
[2022-04-28] MEDS: ACETAMINOPHEN 325 MG TABLET 975 MG PO (13:17)
[2022-04-28] MEDS: HYDROMORPHONE 2 MG TABLET PO (13:18)
--- NOTE | 2022-04-28 13:56 | P.DS_ITS ---
History of Present Illness History of Present Illness Date Patient Seen: 04/28/22 Time Patient Seen: 13:56 Chief complaint: GLF with chronic hip pain Narrative: Per Dr. Carolina, This is a 71-year-old male with past medical history of CAD s/p JEANNINE x3, h ypertension, hyperlipidemia, type 2 diabetes and chronic pain presented to the ED with recurrent falls. Found to have elevated WBC at 13, procalcitonin 0.83 and elevated liver enzymes. Abdominal ultrasound suggested possible acute cholecystitis. Dr. Tinoco general surgery consulted. Patient however denies any abdominal pain, but notes 2 weeks of watery diarrhea. He is not sure why he keeps falling, but he notes chronic tingling and numbness in his hands and feet. He has never received treatment for this. Patient denies drug or alcohol use. Has not seen a doctor in several years, and is unsure who keeps refilling his meds. He denies headache, sore throat, rhinorrhea, CP, abd pain, dysuria or LE swelling. Discharge Providers Provider Date of admission: 04/26/22 14:17 Discharge Date: 04/28/22 Primary care physician: Doctor Karen MD Consults: 04/26/22 14:18 Consult to Occupational Therapy Evaluate & Treat Comment: Physician Instructions: Evaluate and treat Consult to Physical Therapy Evaluate & Treat Comment: Physician Instructions: Evaluate and Treat 04/26/22 17:49 Consult to General Surgery Routine Comment: Consulting Provider: Caryn Tinoco Reason for consultation: possible acute cholecystitis 04/26/22 17:57 Consult to Dietitian, Adult Routine Comment: Reason For Exam: BMI 21, lost 150 lbs, low sodium Discharge provider: Garo Nunez DO Summary Hospital Course Discharge Diagnosis: # recurrent falls # Acute cholecystitis # hyponatremia, improved. # DM2, chronic # HLD, chronic # HTN, chronic # chronic left hip pain # Chronic severe protein calorie malnutrition r/t limited access to food aeb pt report of homelessness and inability to access food regularly, diet recall indicating <75% EER for 1 month or more, severe physical signs of wasting Hospital Course: This is a 71 year old male with a past medical history of CAD, hypertension, hyperlipidemia, type 2 diabetes who presented with recurrent falls from his assisted living facility. On evaluation he had markedly amylase levels and abdominal ultrasound showed findings consistent with cholecystitis. He underwent laparoscopic cholecystectomy with General surgery and had an uncomplicated course after surgery. He was eating tolerating a diet and his pain was controlled on oral medications. His recurrent falls are most likely related to diabetic neuropathy. He did not benefit from low dose gabapentin while admitted, but consider trial of higher doses as an outpatient in assisted living facility. He had mild hyponatremia, likely due to decreased oral intake and improved with fluids and diet. He was diagnosed with chronic severe protein calorie malnutrition, and The patient is at much higher risk for medical and surgical complications because of his malnutrition.? This increases the difficulty and complexity of medical and surgical interventions and increases the chances of poor outcomes such as morbidity and mortality. No changes to his home medications are recommended, other than the addition of short term pain r elief after cholecystectomy. No antibiotics were necessary after cholecystectomy. Time Spent with Patient Time spent: Greater than 30 minutes Exam Vital Signs (past 8 hours): - 04/28/22 08:13 04/28/22 08:14 04/28/22 08:43 Temperature 98.9 F Pulse Rate 83 62 Pulse Rate [Orthostatic Lying] Pulse Rate [Orthostatic Sitting] Pulse Rate [Orthostatic Standing] Respiratory Rate Blood Pressure 103/70 110/68 Blood Pressure [Orthostatic Lying] Blood Pressure [Orthostatic Sitting] Blood Pressure [Orthostatic Standing] Pulse Oximetry Oxygen Flow Rate 04/28/22 12:00 04/28/22 12:37 04/28/22 12:38 Temperature 98.4 F 97.7 F Pulse Rate 86 85 Pulse Rate [Orthostatic Lying] 85 Pulse Rate [Orthostatic Sitting] 86 Pulse Rate [Orthostatic Standing] 91 H Respiratory Rate 18 18 Blood Pressure 108/60 138/82 Blood Pressure [Orthostatic Lying] 138/82 Blood Pressure [Orthostatic Sitting] 142/85 H Blood Pressure [Orthostatic Standing] 153/88 H Pulse Oximetry 96 99 Oxygen Flow Rate 0 0 Oxygen Delivery Method Room Air Oxygen Flow Rate 0 Narrative Exam Narrative: GEN: thin male who appears older than stated age HEENT: moist mucous membranes, PERRL, edentulous NECK: trachea midline, no JVD CV: regular rate and rhythm, no murmurs PULM: clear bilaterally ABD: soft, nontender, nondistended, incisions c/d/i EXT: warm and well perfused with no edema NEURO: awake, alert, oriented, no focal deficits Objective Labs Result Diagrams: 04/28/22 04:40 04/28/22 04:40 Labs: Laboratory Results - last 24 hr 04/26/22 04/28/22 04/28/22 15:18 04:40 04:40 WBC 9.8 RBC 4.41 L Hgb 13.7 Hct 38.6 L MCV 87.6 MCH 31.1 MCHC 35.5 RDW 14.1 Plt Count 193 Neut % (Auto) 84.4 H Lymph % (Auto) 7.6 L Taney % (Auto) 7.1 Eos % (Auto) 0.6 L Baso % (Auto) 0.3 Neut # (Auto) 8300 H Lymph # (Auto) 800 L Taney # (Auto) 700 Eos # (Auto) 100 Baso # (Auto) 0 Sodium 133 L Potassium 4.1 Chloride 94 L Carbon Dioxide 29 BUN 6 L Creatinine 0.46 L Estimated GFR > 60 BUN/Creatinine Ratio 13.0 Glucose 128 H Calcium 8.7 Total Bilirubin 0.8 AST 60 H ALT 177 H Alkaline Phosphatase 88 Total Protein 6.3 A. baumannii (PCR) Not detected Tanya albicans (PCR) Not detected C. glabrata (PCR) Not detected C. krusei (PCR) Not detected C. parapsilosis (PCR) Not detected C. tropicalis (PCR) Not detected Enterobacteriac sp PCR Not detected E. cloacae complex PCR Not detected Enterococcus sp PCR Not detected E. coli (PCR) Not detected H. influenzae (PCR) Not detected Klebsiella oxytoca PCR Not detected Klebsiella pneumoniae Not detected List. monocytogenes PCR Not detected N. meningitidis (PCR) Not detected Proteus species (PCR) Not detected Serratia marcescens PCR Not detected Staphylococcus sp PCR Detected H Staph aureus (PCR) Not detected mecA-Methicil Res Gene Detected H Streptococcus sp PCR Not detected Group A Strep (PCR) Not detected Strep agalactiae (PCR) Not detected Strep pneumoniae (PCR) Not detected P. aeruginosa (PCR) Not detected Sachin/B-Vanco Res Genes TNP KPC-Carbap Res Gene PCR TNP PFSH Social History household members: none Smoking Status: Former smoker Discharge Plan Discharge Plan Patient Disposition: Assisted Living Transfer to: [facility] Provider Discharge Comment: patient was admitted to the hospital with acute cholecystitis. Now s/p laparoscopic cholecystectomy. Doing well after surgery. Continue dilaudid for pain control. Follow up with general surgery following pr ocedure as an outpatient. Discharge orders & Medications Discharge Orders: Discharge (Order); Ordered 04/28/22 Ordered By: Garo Nunez Prescriptions: New acetaminophen 325 mg Tablet 975 mg PO Q8H PRN (Reason: Pain, Mild (1-3)) Qty: 30 0RF hydromorphone 2 mg Tablet 2 mg PO Q4HR PRN (Reason: Pain, Moderate (4-6)) 7 Days Qty: 20 0RF Continued atorvastatin 40 mg tablet 40 mg PO DAILY metoprolol succinate 100 mg tablet extended release 24 hr 100 mg PO DAILY tamsulosin 0.4 mg capsule 0.4 mg PO DAILY Label Comments: TAKE ONE CAPSULE BY MOUTH ONE TIME DAILY insulin aspart U-100 [Novolog Flexpen U-100 Insulin] 100 unit/mL (3 mL) insulin pen See Rx Instructions .ROUTE .COMPLEX Rx Instructions: PER BLOOD SUGAR Januvia 50 mg tablet 50 mg PO DAILY Label Comments: TAKE ONE TABLET BY MOUTH ONE TIME DAILY aspirin 81 mg Tablet,Delayed Release (Dr/Ec) 81 mg PO DAILY omeprazole 20 mg capsule,delayed release(DR/EC) 20 mg PO DAILY Label Comments: once a day insulin glargine [Basaglar KwikPen U-100 Insulin] 100 unit/mL (3 mL) insulin pen 26 unit SUBCUT BEDTIME Label Comments: Inject 26 Units under the skin nightly Follow up/Referrals: Caryn Tinoco MD [Physician] - 2 Weeks (s/p lap bakari) Doctor Jones MD [Primary Care Provider] - Discharge Health Status Precautions: [place] Diet/Activity/Treatments Diet: Diet as Tolerated and Carb-consistent/Diabetic Liquid consistency: Normal/Thin Food texture: Regular Activity: As tolerated Visit Report/Discharge Packet Instructions: DI for Open Cholecystectomy, DI for Laparoscopy, DI for Prescription Opioid Use, DI for Laparoscopic Cholecystectomy, [facility]: Wound Care Stand Alone Forms: Patient Portal/API, Stroke Signs & Symptoms, Surgery Discharge Discharge Data Primary Care Provider: Doctor Karen Quality VTE Deep Vein Thrombosis/Pulmonary Embolism Present on Admission: No
--- NOTE | 2022-04-28 14:31 | PC.NURSE ---
The is pt discharged back to [place]. Attempted to reach medical staff at the facility three separates times but no answer. Pt is A&Ox4 but forgetful at times. Pt is able to make needs known. Pt able to ambulate with FWW. Pain controlled at this time. Pt sent to facility with discharge packet including discharge instructions, prescriptions, and instructions. Pt verbalized understanding of discharge instructions and no questions at this time.
--- NOTE | 2022-04-28 15:05 | PT-IP ANOTE ---
Checked on pt at 1330. Stated he just had pain medication that has made him too groggy to get up and move around yet. [employer] CONVERTER OPERATOR stated will check on him later. Patient DC before this therapist returned to ask if he would like to participate in PT this afternoon.
[2022-05-01 16:13] LABS: HBsAg Screen Negative (Negative); Hepatitis A Antibody IgM Negative (Negative); Hepatitis B Core Antibody IgM Negative (Negative); Hepatitis C Antibody >11.0 s/co ratio (0.0-0.9); Hepatitis C Quant HCV Not Detected IU/mL (.)
[2022-05-04 15:19] LABS: Albumin 3.3 g/dL (3.5-5.0); Albumin Globulin Ratio 1.1 (1.0-2.8)
== END 2022-04-28 14:31 | DRG 417 ==
LOC: ED 14:15 → AC 15:12
PROVIDERS: Surgery; Admitting Provider Student in an Organized Health Care Education/Training Program; Emergency Provider Emergency Medicine; Referring Provider Emergency Medicine; Visit Provider Student in an Organized Health Care Education/Training Program
PROC: 0FT44ZZ Resection of Gallbladder, Percutaneous Endoscopic Approach (ICD-10-PCS; CPT 47562; principal; 2022-04-27 17:00)
DX: K80.00 Calculus of gallbladder with acute cholecystitis without obstruction (principal); E43 Unspecified severe protein-calorie malnutrition; E87.1 Hypo-osmolality and hyponatremia; K83.09 Other cholangitis; E11.40 Type 2 diabetes mellitus with diabetic neuropathy, unspecified; I10 Essential (primary) hypertension; M16.12 Unilateral primary osteoarthritis, left hip; E78.5 Hyperlipidemia, unspecified; I25.10 Atherosclerotic heart disease of native coronary artery without angina pectoris; Z91.81 History of falling; Z20.822 Contact with and (suspected) exposure to COVID-19; Z79.4 Long term (current) use of insulin; Z87.891 Personal history of nicotine dependence; Z68.21 Body mass index [BMI] 21.0-21.9, adult; Z79.84 Long term (current) use of oral hypoglycemic drugs; S00.83XA Contusion of other part of head, initial encounter; M54.2 Cervicalgia; W18.30XA Fall on same level, unspecified, initial encounter
CPT/HCPCS: 36415; 47562; 70450; 70496; 70498; 71045; 72125; 73502; 76705; 80053; 80074; 80305; 81001; 82550; 82962; 83036; 83690; 84145; 84443; 84484; 85025; 87040; 87077; 87147; 87150; 87635; 93005; 93010; 96365; 97163; 97166; 99232; 99283; 99284; 99285; C9803; J1170; J1650; J1815; J2405; J2543; J2704; Q9967

== ENCOUNTER 2022-05-03 21:26 | Emergency (ER) | payer MEDICARE, MEDICAID, SELFPAY ==
[2022-05-03] VITALS (7 sets, daily range): BP systolic 113–142; BP diastolic 63–85; PULSE 73–80; RESP 13–22; TEMP 36.8; O2SAT 97–98; BMI 19.6
--- NOTE | 2022-05-03 21:42 | DI.RAD.S_ITS ---
PROCEDURE: XR CHEST 1V INDICATIONS: chest pain TECHNIQUE: One view of the chest was acquired. COMPARISON: [facility], CR, XR CHEST 1V, 04/26/2022, 11:10. FINDINGS: Surgical changes and devices: None. Lungs and pleura: Evaluation slightly limited by lordotic projection. Visualized lungs are clear. No pleural effusions or pneumothorax. There is a skin fold projecting over the left lateral lung base. Mediastinum: Mediastinal contours appear normal. Heart size is normal. Bones and chest wall: There is an old healed right 8th rib fracture. No suspicious bony lesions. Overlying soft tissues appear unremarkable. IMPRESSION: 1. No acute cardiopulmonary disease. Dictated by: Lamin Goode M.D. on 05/03/2022 at 22:57 Approved by: Lamin Goode M.D. on 05/03/2022 at 22:58
[2022-05-03 21:59] LABS: Prothrombin Time 11.9 SECONDS (10.1-12.7)
[2022-05-03 22:01] LABS: PTT Partial Thromboplastin Tim 34 SECONDS (26-36)
[2022-05-03 22:04] LABS: Alanine Aminotransferase 40 IU/L (<50); Alkaline Phosphatase 73 U/L (38-126); Aspartate Aminotransferase 24 IU/L (17-59); BUN Creatinine Ratio 19.2 (6-22); Bilirubin Total 0.5 mg/dL (0.2-1.3); Blood Urea Nitrogen 10 mg/dL (9-20); Carbon Dioxide 31 mmol/L (22-32); Chloride 92 mmol/L (98-107); Creatine Kinase < 20 U/L (55-170); Estimated Glomerular Filt Rate > 60 mL/min (>60); Glucose 176 mg/dL (80-110); Lipase 50 U/L (23-300); Magnesium 1.6 mg/dL (1.6-2.3); Potassium 3.8 mmol/L (3.4-5.1); Sodium 132 mmol/L (137-145); Total Protein 6.7 g/dL (6.3-8.2)
[2022-05-03 22:07] LABS: Add Manual Diff / Slide Review NO; Basophils Absolute Auto 100 /uL (0-100); Basophils Percent Auto 0.9 % (0-2); Eosinophils Absolute Auto 200 /uL (0-450); Eosinophils Percent Auto 3.1 % (2-4); Hematocrit 40.8 % (41-53); Hemoglobin 14.2 g/dL (13.5-17.5); Lymphocytes Absolute Auto 1300 /uL (1100-4500); Mean Corpuscular HGB Conc 34.8 % (30-36); Mean Corpuscular Hemoglobin 30.5 PG (26-34); Mean Corpuscular Volume 87.5 fL (80-100); Monocytes Absolute Auto 700 /uL (0-900); Monocytes Percent Auto 10.9 % (3-14); Neutrophils Absolute Auto 3800 /uL (1500-7000); Neutrophils Percent Auto 63.1 % (50-75); Platelet Count 293 X10^3/uL (150-400); Red Blood Cell Count 4.67 X10^6/uL (4.5-5.9); Red Cell Distribution Width 13.9 % (11.6-14.8); White Blood Cell Count 6.1 X10^3/uL (4.5-11.0)
[2022-05-03 22:11] LABS: COVID19 -Nasal RAPID Negative (Negative)
--- NOTE | 2022-05-03 22:11 | ED.CHESTPAIN ---
HPI - Chest Pain General Chief Complaint: Chest Pain Stated Complaint: chest pain Time Seen by Provider: 05/03/22 21:56 Source: patient and EMS Mode of arrival: EMS Limitations: no limitations History of Present Illness HPI narrative: Patient is a 71-year-old male who arrives by EMS for evaluation of left-sided chest pain. At the time of my evaluation he states that his pain is now completely resolved but it has been off and on for the past several hours. Is not worse with palpation. He describes it as a dull pain. Is on the left side of his chest. No worse with palpation or movement or breathing. He does have history of coronary artery disease but he states this pain feels different than the discomfort that he had which led to stent placements. He is having shortness of breath but this is not new for him. He recently was in the hospital and had his gallbladder removed. Related Data Home Medications Medication Instructions Recorded Confirmed atorvastatin 40 mg tablet 40 mg PO DAILY 04/26/22 04/26/22 insulin aspart U-100 100 unit/mL See Rx Instructions .Route .COMPLEX 04/26/22 04/26/22 (3 mL) subcutaneous pen (Novolog Flexpen U-100 Insulin aspart) metoprolol succinate 100 mg 100 mg PO DAILY 04/26/22 04/26/22 tablet,extended release 24 hr sitagliptin phosphate 50 mg tablet 50 mg PO DAILY 04/26/22 04/26/22 (Januvia) tamsulosin 0.4 mg capsule 0.4 mg PO DAILY 04/26/22 04/26/22 aspirin 81 mg tablet,delayed 81 mg PO DAILY 04/28/22 04/28/22 release insulin glargine 100 unit/mL (3 26 unit SUBCUT BEDTIME 04/28/22 04/28/22 mL) subcutaneous pen (Basaglar KwikPen U-100 Insulin) omeprazole 20 mg capsule,delayed 20 mg PO DAILY 04/28/22 04/28/22 release Previous Rx's Medication Instructions Recorded acetaminophen 325 mg tablet 975 mg PO Q8H PRN Pain, Mild (1-3) 04/28/22 #30 tabs hydromorphone 2 mg tablet 2 mg PO Q4HR PRN Pain, Moderate 04/28/22 (4-6) 7 days #20 tabs Allergies Allergy/AdvReac Type Severity Reaction Status Date / Time NSAIDS (Non-Steroidal Allergy Verified 04/16/22 16:30 Anti-Inflamma Tetanus Vaccines and Toxoid Allergy Verified 04/16/22 16:30 Review of Systems Constitutional Constitutional: Reports system reviewed and no additional complaints, except as documented Cardiovascular Cardiovascular: Reports system reviewed and no additional complaints, except as documented Respiratory Respiratory: Reports system reviewed and no additional complaints, except as documented Gastrointestinal Gastrointestinal: Reports system reviewed and no additional complaints, except as documented Integumentary/Breasts Skin/Breast: Reports system reviewed and no additional complaints, except as documented Hematologic/Lymphatic On Anticoagulants: No Patient History Social History household members: none Smoking Status: Former smoker Smoking Status: Former smoker alcohol intake frequency: holidays/special occasions only Substance Use Type: marijuana Exam Initial Vital Signs Initial Vital Signs: Vital Signs Pulse Rate 79 05/03/22 21:33 Respiratory Rate 22 05/03/22 21:33 Blood Pressure 113/69 05/03/22 21:33 Pulse Oximetry 97 05/03/22 21:33 Const General: cooperative and frail appearing HENMT Head: normal to inspection and normocephalic Resp Effort & Inspection: normal respiratory effort Auscultation: clear to auscultation bilaterally Cardio Rate: regular rate Rhythm: regular rhythm GI Inspection: normal to inspection and non-distended Neuro General: patient alert, patient awake, patient oriented x3 and moves all extremities Speech: speech normal Extrem General: normal to inspection and capillary refill normal Course Orders Ordered: ED Orders 05/03/22 21:29 Complete Blood Count AUTO DIFF Stat Comprehensive Metabolic Panel Stat Lipase Stat Magnesium Stat Partial Thromboplastin Time Stat Prothrombin Time INR Stat Troponin & CK Cardiac Panel Stat 05/03/22 21:42 XR chest 1V Stat EKG-12 Lead Stat 05/03/22 21:50 COVID19 -Nasal RAPID/Pre-Proc Stat 05/03/22 23:31 Troponin & CK Cardiac Panel Stat Discontinued Medications Hydrocodone Bitart/Acetaminophen (Hydrocodone/Acet 5/325 Tablet) 1 tab PO NOW ONE Stop: 05/04/22 00:41 Last Admin: 05/04/22 00:44 Dose: 1 tab Documented By: MARINO Vital Signs Vital signs: Vital Signs - 8 hr 05/03/22 21:34 05/03/22 21:33 05/03/22 21:33 Temperature 98.2 F Pulse Rate 80 79 Respiratory Rate 15 22 Blood Pressure 113/69 113/69 Pulse Oximetry 97 97 Oxygen Delivery Method Room Air 05/03/22 22:00 05/03/22 22:00 05/03/22 22:30 Temperature Pulse Rate 76 Respiratory Rate 19 Blood Pressure 127/74 114/65 Pulse Oximetry 97 Oxygen Delivery Method 05/03/22 22:30 05/03/22 23:00 05/03/22 23:00 Temperature Pulse Rate 75 73 Respiratory Rate 21 21 Blood Pressure 121/63 Pulse Oximetry 98 98 Oxygen Delivery Method 05/03/22 23:30 05/03/22 23:32 05/03/22 23:32 Temperature Pulse Rate 76 74 Respiratory Rate 18 13 Blood Pressure 142/85 H Pulse Oximetry 98 98 Oxygen Delivery Method 05/04/22 00:00 05/04/22 00:30 Temperature Pulse Rate 81 92 H Respiratory Rate 21 Blood Pressure Pulse Oximetry 98 99 Oxygen Delivery Method MDM - Chest Pain Differential Diagnosis Differential diagnosis: Likely fracture of rib, pneumothorax, stable angina, unstable angina pectoris, atypical chest pain, st elevation myocardial infarction, costochondritis and chest pain Condition is:: Resolved Condition is at treatment goal?: Yes Medical Records Data Attestation: I reviewed the patient's medical records. Lab Data Attestation: I reviewed the patient's lab results. Result diagrams: 05/03/22 21:29 05/03/22 21:29 Labs: Lab Results 05/03/22 05/03/22 05/03/22 Range/Units 21:29 21:29 21:29 WBC 6.1 (4.5-11.0) X10^3/uL RBC 4.67 (4.5-5.9) X10^6/uL Hgb 14.2 (13.5-17.5) g/dL Hct 40.8 L (41-53) % MCV 87.5 (80-100) fL MCH 30.5 (26-34) PG MCHC 34.8 (30-36) % RDW 13.9 (11.6-14.8) % Plt Count 293 (150-400) X10^3/uL Neut % (Auto) 63.1 (50-75) % Lymph % (Auto) 22.0 L (25-40) % Forrest % (Auto) 10.9 (3-14) % Eos % (Auto) 3.1 (2-4) % Baso % (Auto) 0.9 (0-2) % Neut # (Auto) 3800 (5453-4826) /uL Lymph # (Auto) 1300 (9034-8412) /uL Forrest # (Auto) 700 (0-900) /uL Eos # (Auto) 200 (0-450) /uL Baso # (Auto) 100 (0-100) /uL PT 11.9 (10.1-12.7) SECONDS INR 1.0 (0.9-1.3) APTT 34 (26-36) SECONDS Sodium 132 L (137-145) mmol/L Potassium 3.8 (3.4-5.1) mmol/L Chloride 92 L (98-107) mmol/L Carbon Dioxide 31 (22-32) mmol/L BUN 10 (9-20) mg/dL Creatinine 0.52 L (0.66-1.25) mg/dL Estimated GFR > 60 (>60) mL/min BUN/Creatinine Ratio 19.2 (6-22) Glucose 176 H (80-110) mg/dL Calcium 9.0 (8.4-10.2) mg/dL Magnesium 1.6 (1.6-2.3) mg/dL Total Bilirubin 0.5 (0.2-1.3) mg/dL AST 24 (17-59) IU/L ALT 40 (<50) IU/L Alkaline Phosphatase 73 (38-126) U/L Total Creatine Kinase < 20 L (55-170) U/L CK-MB (CK-2) TNP CK-MB (CK-2) Rel Index TNP Troponin I < 0.012 (0.01-0.034) ng/mL Total Protein 6.7 (6.3-8.2) g/dL Lipase 50 D (23-300) U/L SARS-CoV-2 (PCR) (Negative) 05/03/22 05/03/22 Range/Units 21:50 23:31 WBC (4.5-11.0) X10^3/uL RBC (4.5-5.9) X10^6/uL Hgb (13.5-17.5) g/dL Hct (41-53) % MCV (80-100) fL MCH (26-34) PG MCHC (30-36) % RDW (11.6-14.8) % Plt Count (150-400) X10^3/uL Neut % (Auto) (50-75) % Lymph % (Auto) (25-40) % Forrest % (Auto) (3-14) % Eos % (Auto) (2-4) % Baso % (Auto) (0-2) % Neut # (Auto) (3007-7972) /uL Lymph # (Auto) (8334-1575) /uL Forrest # (Auto) (0-900) /uL Eos # (Auto) (0-450) /uL Baso # (Auto) (0-100) /uL PT (10.1-12.7) SECONDS INR (0.9-1.3) APTT (26-36) SECONDS Sodium (137-145) mmol/L Potassium (3.4-5.1) mmol/L Chloride (98-107) mmol/L Carbon Dioxide (22-32) mmol/L BUN (9-20) mg/dL Creatinine (0.66-1.25) mg/dL Estimated GFR (>60) mL/min BUN/Creatinine Ratio (6-22) Glucose (80-110) mg/dL Calcium (8.4-10.2) mg/dL Magnesium (1.6-2.3) mg/dL Total Bilirubin (0.2-1.3) mg/dL AST (17-59) IU/L ALT (<50) IU/L Alkaline Phosphatase (38-126) U/L Total Creatine Kinase < 20 L (55-170) U/L CK-MB (CK-2) TNP CK-MB (CK-2) Rel Index TNP Troponin I < 0.012 (0.01-0.034) ng/mL Total Protein (6.3-8.2) g/dL Lipase (23-300) U/L SARS-CoV-2 (PCR) Negative (Negative) Imaging Data Chest x-ray: Attestation: I personally reviewed and interpreted this imaging study as follows: My Impression: No acute pathology Radiologist's Impression: [address] [address] XRay Report Signed Patient: Lev Marlow MR#: [id number] : 1950 Acct:[id number] Age/Sex: 71 / M Date of Service: 05/03/22 Loc: ED Accession Number: [id number] ?? Procedure: XR chest 1V Ordering Provider: Lev Pope D.O. PROCEDURE:? XR CHEST 1V ? INDICATIONS:? chest pain ? TECHNIQUE:? One view of the chest was acquired.? ? COMPARISON:? [facility], , XR CHEST 1V, 04/26/2022, 11:10. ? FINDINGS:? ? Surgical changes and devices:? None.? ? Lungs and pleura:? Evaluation slightly limited by lordotic projection.? Visualized lungs are clear.? No pleural effusions or pneumothorax.? There is a skin fold projecting over the left lateral lung base.? ? Mediastinum:? Mediastinal contours appear normal.? Heart size is normal.? ? Bones and chest wall:? There is an old healed right 8th rib fracture.? No suspicious bony lesions.? Overlying soft tissues appear unremarkable.? ? IMPRESSION:? ? 1.? No acute cardiopulmonary disease. ? ? ? Dictated by: Lamin Goode M.D. on 05/03/2022 at 22:57 ? ? Approved by: Lamin Goode M.D. on 05/03/2022 at 22:58? ECG Data Attestation: I personally reviewed and interpreted this ECG as follows: Prior ECG tracings: available for review Interpretation: Sinus rhythm Ventricular rate is 76 Left axis deviation Normal QRS No ST T wave changes EMS EKG shows sinus rhythm with occasional PVC with a heart rate of 83 MDM Narrative Medical decision making narrative: Patient has had 2- troponins. Unremarkable EKG. Has been asymptomatic since arrival here in the ER. His other symptoms are at baseline. We will hold on further workup for now given the resolution of his symptoms. With the patient all of his medications as directed. With him follow-up with his primary doctor. He was given return precautions. He expressed understanding and agreement. Discharge Plan Departure Patient Disposition: Home Clinical Impression: Chest pain Instructions: DI for Chest Pain Activity Restrictions/Additional Instructions: Recommend that you continue to take all of your medications as directed and contact your primary doctor for a follow-up. Return to the emergency department for any new or worsening symptoms. Prescriptions: No Action atorvastatin 40 mg tablet 40 mg PO DAILY metoprolol succinate 100 mg tablet extended release 24 hr 100 mg PO DAILY tamsulosin 0.4 mg capsule 0.4 mg PO DAILY Label Comments: TAKE ONE CAPSULE BY MOUTH ONE TIME DAILY insulin aspart U-100 [Novolog Flexpen U-100 Insulin] 100 unit/mL (3 mL) insulin pen See Rx Instructions .ROUTE .COMPLEX Rx Instructions: PER BLOOD SUGAR Januvia 50 mg tablet 50 mg PO DAILY Label Comments: TAKE ONE TABLET BY MOUTH ONE TIME DAILY aspirin 81 mg Tablet,Delayed Release (Dr/Ec) 81 mg PO DAILY omeprazole 20 mg capsule,delayed release(DR/EC) 20 mg PO DAILY Label Comments: once a day insulin glargine [Basaglar KwikPen U-100 Insulin] 100 unit/mL (3 mL) insulin pen 26 unit SUBCUT BEDTIME Label Comments: Inject 26 Units under the skin nightly acetaminophen 325 mg Tablet 975 mg PO Q8H PRN (Reason: Pain, Mild (1-3)) Qty: 30 0RF hydromorphone 2 mg Tablet 2 mg PO Q4HR PRN (Reason: Pain, Moderate (4-6)) 7 Days Qty: 20 0RF Referrals: Miscellaneous,Doctor, MD [Primary Care Provider] - Stand Alone Forms: Patient Portal/API
[2022-05-03 22:15] LABS: Troponin I < 0.012 ng/mL (0.01-0.034)
[2022-05-03 23:49] LABS: Creatine Kinase < 20 U/L (55-170)
[2022-05-04] VITALS: PULSE 81; RESP 21; O2SAT 98
[2022-05-04 00:02] LABS: Troponin I < 0.012 ng/mL (0.01-0.034)
[2022-05-04 00:30] VITALS: PULSE 92; O2SAT 99
[2022-05-04] MEDS: HYDROCODONE/ACET 5/325 TABLET 1 TAB PO (00:44)
[2022-05-04 17:02] LABS: Albumin 3.7 g/dL (3.5-5.0); Albumin Globulin Ratio 1.2 (1.0-2.8); HEMOLYSIS 18 (0-50)
== END 2022-05-04 01:20 | disposition home or self-care (01) ==
PROVIDERS: Emergency Provider Emergency Medicine
DX: R07.9 Chest pain, unspecified (principal); Z20.822 Contact with and (suspected) exposure to COVID-19
CPT/HCPCS: 36415; 71045; 80053; 82550; 83690; 83735; 84484; 85025; 85610; 85730; 87635; 93005; 99284; C9803

== ENCOUNTER 2022-05-06 03:19 | Emergency (ER) | payer MEDICARE, MEDICAID, SELFPAY ==
[2022-05-06 03:32] VITALS: BP 137/82; PULSE 98; RESP 15; TEMP 35.8; O2SAT 99; BMI 20.7
--- NOTE | 2022-05-06 03:34 | ED.FALL ---
HPI - Fall General Chief Complaint: Fall Stated Complaint: fell pain to rt side Time Seen by Provider: 05/06/22 03:23 Source: patient Mode of arrival: Wheelchair Limitations: no limitations History of Present Illness HPI Narrative: Patient is a 71-year-old male who arrives in the emergency department this morning for evaluation of right-sided rib pain. He states that he injured his ribs when he tripped and fell. He states he did not hit his head. Did scrape his right knee. He has been ambulatory. Has had discomfort in the right side of his ribcage since the fall. He was here in the emergency department a couple days ago where I evaluated him for chest discomfort. He states this is completely different from that. He does seem somewhat confused about the events as to why he is here. When he was here a couple days ago he was actually sent from a rehab facility. He arrives this evening not by EMS but by coming in the front door. When asked if he is still at the rehab facility he said yes. He states that he fell because he was trying to meet some friends because they were going to go dragging for gold. When asked why he was doing that in the middle of the night he then states that he seems to be somewhat confused as to what is going on. He does know his name in the ear and where he is now. Related Data Home Medications Medication Instructions Recorded Confirmed atorvastatin 40 mg tablet 40 mg PO DAILY 04/26/22 04/26/22 insulin aspart U-100 100 unit/mL See Rx Instructions .Route .COMPLEX 04/26/22 04/26/22 (3 mL) subcutaneous pen (Novolog Flexpen U-100 Insulin aspart) metoprolol succinate 100 mg 100 mg PO DAILY 04/26/22 04/26/22 tablet,extended release 24 hr sitagliptin phosphate 50 mg tablet 50 mg PO DAILY 04/26/22 04/26/22 (Januvia) tamsulosin 0.4 mg capsule 0.4 mg PO DAILY 04/26/22 04/26/22 aspirin 81 mg tablet,delayed 81 mg PO DAILY 04/28/22 04/28/22 release insulin glargine 100 unit/mL (3 26 unit SUBCUT BEDTIME 04/28/22 04/28/22 mL) subcutaneous pen (Basaglar KwikPen U-100 Insulin) omeprazole 20 mg capsule,delayed 20 mg PO DAILY 04/28/22 04/28/22 release Previous Rx's Medication Instructions Recorded acetaminophen 325 mg tablet 975 mg PO Q8H PRN Pain, Mild (1-3) 04/28/22 #30 tabs Allergies Allergy/AdvReac Type Severity Reaction Status Date / Time NSAIDS (Non-Steroidal Allergy Verified 04/16/22 16:30 Anti-Inflamma Tetanus Vaccines and Toxoid Allergy Verified 04/16/22 16:30 Review of Systems Constitutional Constitutional: Reports system reviewed and no additional complaints, except as documented Cardiovascular Cardiovascular: Reports system reviewed and no additional complaints, except as documented Respiratory Respiratory: Reports system reviewed and no additional complaints, except as documented Integumentary/Breasts Skin/Breast: Reports system reviewed and no additional complaints, except as documented Neurologic Neurologic: Reports system reviewed and no additional complaints, except as documented Hematologic/Lymphatic On Anticoagulants: No Patient History Social History household members: none Smoking Status: Former smoker Smoking Status: Former smoker alcohol intake frequency: holidays/special occasions only Substance Use Type: marijuana Exam Initial Vital Signs Initial Vital Signs: Vital Signs Temperature 96.4 F L 05/06/22 03:32 Pulse Rate 98 H 05/06/22 03:32 Respiratory Rate 15 05/06/22 03:32 Blood Pressure 137/82 05/06/22 03:32 Pulse Oximetry 99 05/06/22 03:32 Oxygen Delivery Method 05/06/22 03:32 HENMT Head: normal to inspection Chest Other: Tenderness to palpation right-sided ribs Resp Effort & Inspection: normal respiratory effort Auscultation: clear to auscultation bilaterally Cardio Rate: regular rate GI Inspection: non-distended Back/Spine/Pelvis Cervical Spine: No cervical spinal tenderness Skin Other: Superficial abrasion right knee Neuro Other: Patient is alert to person and place but seems somewhat confused as to the events that led to him coming here. Extrem Other: Patient is able to stand. Full range of motion of bilateral lower extremities. And upper extremities Course Orders Ordered: ED Orders 05/06/22 03:35 XR ribs RT min 3V w CXR1V Stat Vital Signs Vital signs: Vital Signs - 8 hr 05/06/22 03:32 Temperature 96.4 F L Pulse Rate 98 H Respiratory Rate 15 Blood Pressure 137/82 Pulse Oximetry 99 Oxygen Delivery Method Room Air MDM - Fall Differential Diagnosis Differential diagnosis: Likely syncope and other (Rib fractures, orthopedic injuries, intra-abdominal injuries, intracranial injuries and others) Lab Data Labs: Point of Care Testing Glucose POC 124 Imaging Data Rib x-ray: Attestation: I personally reviewed and interpreted this imaging study as follows: Radiologist's Impression: Chronic appearing right 8th through 10th rib fractures. No convincing acute finding MDM Narrative Medical decision making narrative: Patient arrived through the triage entrance although I had significant concern that maybe he actually got confused and left his rehab facility without their knowledge. He stated that he was actually meeting up some friend to go [place] [employer] but he was obviously somewhat confused about this. He did know what year was in his name and his date and that he was at the hospital. He stated that he fell and had right-sided chest pain. The x-ray did not show any acute fractures. He is no respiratory distress. There is no other signs of trauma. We were able to contact his living facility and it turns out that he has not been discharge. They were unaware that he had left. We were unable to come pick him up. I informed the patient that we should send him back to his rehab facility and he agreed. He did eat here in the ER. Will transport back by BLS secondary to his confusion. Discharge Plan Departure Patient Disposition: SNF Clinical Impression: Right-sided chest wall pain Activity Restrictions/Additional Instructions: Lev can continue to take all of his medications as directed. Prescriptions: No Action atorvastatin 40 mg tablet 40 mg PO DAILY metoprolol succinate 100 mg tablet extended release 24 hr 100 mg PO DAILY tamsulosin 0.4 mg capsule 0.4 mg PO DAILY Label Comments: TAKE ONE CAPSULE BY MOUTH ONE TIME DAILY insulin aspart U-100 [Novolog Flexpen U-100 Insulin] 100 unit/mL (3 mL) insulin pen See Rx Instructions .ROUTE .COMPLEX Rx Instructions: PER BLOOD SUGAR Januvia 50 mg tablet 50 mg PO DAILY Label Comments: TAKE ONE TABLET BY MOUTH ONE TIME DAILY aspirin 81 mg Tablet,Delayed Release (Dr/Ec) 81 mg PO DAILY omeprazole 20 mg capsule,delayed release(DR/EC) 20 mg PO DAILY Label Comments: once a day insulin glargine [Basaglar KwikPen U-100 Insulin] 100 unit/mL (3 mL) insulin pen 26 unit SUBCUT BEDTIME Label Comments: Inject 26 Units under the skin nightly acetaminophen 325 mg Tablet 975 mg PO Q8H PRN (Reason: Pain, Mild (1-3)) Qty: 30 0RF SNF Discharge Plan Transfer to: [facility] I certify the postop hospital jail care is medically necessary on a continuing basis for any conditions for which he/ she received care during this hospitalization.: Yes The receiving facility has agreed to accept transfer and provide medical treatment.: Yes
--- NOTE | 2022-05-06 03:35 | DI.RAD.S_ITS ---
PROCEDURE: XR RIBS RT MIN 3V W CXR 1V INDICATIONS: R side rib pain after fall TECHNIQUE: 2 views of the right ribs were acquired, along with a single view chest. COMPARISON: None. FINDINGS: Surgical changes and devices: None. Bones and chest wall: Age indeterminate right posterior 8th through 10th rib fractures are seen. No suspicious bony lesions. Overlying soft tissues appear unremarkable. Lungs and pleura: No pleural effusions or pneumothorax. Lungs appear clear. Mediastinum: Mediastinal contours appear normal. Heart size is normal. IMPRESSION: Age indeterminate right posterior lateral 8th through 10th rib fractures, suggest clinical correlation. No acute cardiopulmonary pathology. No significant discrepancies from preliminary reading. Dictated by: Jj Nava M.D. on 05/06/2022 at 8:46 Approved by: Jj Nava M.D. on 05/06/2022 at 8:47
== END 2022-05-06 07:40 ==
PROVIDERS: Emergency Provider Emergency Medicine
DX: R07.89 Other chest pain (principal)
CPT/HCPCS: 71101; 82962; 99283

== ENCOUNTER → 2022-06-05 15:17 | Outpatient (ROUT) | payer MEDICARE, MEDICAID, SELFPAY ==
[2022-06-05 15:24] LABS: Add Manual Diff / Slide Review NO; Basophils Absolute Auto 100 /uL (0-100); Basophils Percent Auto 1.4 % (0-2); Eosinophils Absolute Auto 100 /uL (0-450); Eosinophils Percent Auto 2.4 % (2-4); Hematocrit 40.3 % (41-53); Hemoglobin 14.1 g/dL (13.5-17.5); Lymphocytes Absolute Auto 1000 /uL (1100-4500); Mean Corpuscular HGB Conc 34.9 % (30-36); Mean Corpuscular Hemoglobin 30.9 PG (26-34); Mean Corpuscular Volume 88.4 fL (80-100); Monocytes Absolute Auto 600 /uL (0-900); Monocytes Percent Auto 13.9 % (3-14); Neutrophils Absolute Auto 2700 /uL (1500-7000); Neutrophils Percent Auto 59.3 % (50-75); Platelet Count 202 X10^3/uL (150-400); Red Blood Cell Count 4.55 X10^6/uL (4.5-5.9); White Blood Cell Count 4.5 X10^3/uL (4.5-11.0)
[2022-06-05 15:45] LABS: BUN Creatinine Ratio 18.4 (6-22); Blood Urea Nitrogen 9 mg/dL (9-20); Calcium 9.2 mg/dL (8.4-10.2); Carbon Dioxide 28 mmol/L (22-32); Chloride 92 mmol/L (98-107); Estimated Glomerular Filt Rate > 60 mL/min (>60); Glucose 177 mg/dL (80-110); HEMOLYSIS < 15 (0-50); Sodium 130 mmol/L (137-145)
== END ==
PROVIDERS: Visit Provider Nurse Practitioner Family
DX: N18.9 Chronic kidney disease, unspecified (principal); D64.9 Anemia, unspecified
CPT/HCPCS: 80048; 85025

== ENCOUNTER 2022-06-21 20:31 | Inpatient (IN) | payer MEDICARE, MEDICAID, SELFPAY ==
[2022-06-21] VITALS (15 sets, daily range): BP systolic 100–139; BP diastolic 55–64; PULSE 91–98; RESP 8–23; TEMP 39.3; O2SAT 95–97; BMI 21.4
--- NOTE | 2022-06-21 20:42 | DI.RAD.S_ITS ---
PROCEDURE: XR CHEST 1V INDICATIONS: altered, weak TECHNIQUE: One view of the chest was acquired. COMPARISON: [facility], CT, CT CHEST ABD PEL W CON, 06/21/2022, 21:32. [facility], CR, XR CHEST 1V, 05/03/2022, 21:58. FINDINGS: Surgical changes and devices: None. Lungs and pleura: Lungs are clear. No pleural effusions or pneumothorax. Mediastinum: Mediastinal contours appear normal. Heart size is normal. Bones and chest wall: No suspicious bony lesions. Overlying soft tissues appear unremarkable. IMPRESSION: 1. No acute cardiopulmonary disease. Dictated by: Lamin Goode M.D. on 06/21/2022 at 21:56 Approved by: Lamin Goode M.D. on 06/21/2022 at 22:06
[2022-06-21 20:53] LABS: Prothrombin Time 11.8 SECONDS (10.1-12.7)
[2022-06-21 20:55] LABS: Add Manual Diff / Slide Review NO; Basophils Absolute Auto 0 /uL (0-100); Basophils Percent Auto 0.5 % (0-2); Eosinophils Absolute Auto 0 /uL (0-450); Eosinophils Percent Auto 0.4 % (2-4); Hemoglobin 14.7 g/dL (13.5-17.5); Lymphocytes Absolute Auto 300 /uL (1100-4500); Mean Corpuscular HGB Conc 34.2 % (30-36); Mean Corpuscular Hemoglobin 30.7 PG (26-34); Mean Corpuscular Volume 89.8 fL (80-100); Monocytes Absolute Auto 200 /uL (0-900); Monocytes Percent Auto 3.8 % (3-14); Neutrophils Absolute Auto 5000 /uL (1500-7000); Neutrophils Percent Auto 90.3 % (50-75); PTT Partial Thromboplastin Tim 31 SECONDS (26-36); Platelet Count 187 X10^3/uL (150-400); Red Blood Cell Count 4.79 X10^6/uL (4.5-5.9); Red Cell Distribution Width 13.9 % (11.6-14.8); White Blood Cell Count 5.5 X10^3/uL (4.5-11.0)
[2022-06-21 20:59] LABS: Lactate (Lactic Acid) 2.9 mmol/L (0.7-2.1)
[2022-06-21 21:01] LABS: Acetaminophen < 10 ug/mL (10-30); Albumin 4.4 g/dL (3.5-5.0); Albumin Globulin Ratio 1.3 (1.0-2.8); Alkaline Phosphatase 330 U/L (38-126); BUN Creatinine Ratio 21.2 (6-22); Bilirubin Total 2.7 mg/dL (0.2-1.3); Blood Urea Nitrogen 11 mg/dL (9-20); Calcium 9.2 mg/dL (8.4-10.2); Carbon Dioxide 33 mmol/L (22-32); Chloride 92 mmol/L (98-107); Creatine Kinase 26 U/L (55-170); Estimated Glomerular Filt Rate > 60 mL/min (>60); Ethanol (ETOH) < 10 mg/dL; Globulin 3.3 g/dL (1.7-4.1); Glucose 152 mg/dL (80-110); HEMOLYSIS < 15 (0-50); Potassium 3.7 mmol/L (3.4-5.1); Salicylate < 1.0 mg/dL (<20); Sodium 131 mmol/L (137-145); Total Protein 7.7 g/dL (6.3-8.2)
[2022-06-21 21:13] LABS: Troponin I 0.067 ng/mL (0.01-0.034)
[2022-06-21 21:14] LABS: Alanine Aminotransferase 894 IU/L (<50); Aspartate Aminotransferase 1394 IU/L (17-59)
[2022-06-21 21:18] LABS: Procalcitonin 0.32 ng/mL (<0.5)
[2022-06-21] MEDS: SODIUM CHLORIDE 0.9% 1,000 ML 150 ML IV (21:20)
--- NOTE | 2022-06-21 21:24 | DI.CT.S_ITS ---
PROCEDURE: CT CHEST ABD PEL W CON INDICATIONS: septic, altered, critical LFTs TECHNIQUE: After the administration of intravenous contrast, axial sections acquired from the supraclavicular neck to the pubic symphysis. Coronal and sagittal reformats were performed. For radiation dose reduction, the following was used: automated exposure control, adjustment of mA and/or kV according to patient size. COMPARISON: [facility], CR, XR CHEST 1V, 06/21/2022, 20:42. FINDINGS: Image quality: There is motion artifact limiting evaluation. Beam hardening artifact is also present secondary to patient's bilateral upper extremities as well as streak artifact from patient's right hip prosthesis also limiting evaluation. CHEST: Lower Neck: No lymphadenopathy by size criteria. Thyroid: Visualized thyroid demonstrates no discrete nodules. Axillae: No lymphadenopathy by size criteria. Chest Wall: Unremarkable. Lungs and Airways: No acute consolidation. There is mild dependent atelectasis bilaterally. Motion artifact limits evaluation of the lung bases. Mild centrilobular emphysematous changes are present. The trachea and central airways are patent. Pleura: No pneumothorax or pleural effusions. Heart: Heart size is normal. No pericardial effusion. Thoracic Vessels: The aorta and pulmonary arteries are normal in size. Mediastinum and Felisa: No lymphadenopathy by size criteria. Esophagus: No wall thickening. No hiatal hernia. ABDOMEN: Liver: No mass lesion. Gallbladder: Surgically absent. Biliary ducts: No biliary ductal dilatation. Pancreas: Unremarkable. Spleen: Normal in size. Adrenal Glands: No adrenal nodules. Kidneys and Ureters: No hydronephrosis. Stomach and Bowel: Stomach and small bowel loops are normal in caliber and wall thickness. No pericecal inflammatory changes to suggest appendicitis. There is mild segmental wall thickening within the sigmoid colon. Colonic diverticulosis is present without acute diverticulitis. Peritoneum: No abnormal intraperitoneal fluid. No free air. Ventral Wall: No hernia. Abdominal Nodes: No retroperitoneal or mesenteric adenopathy by size criteria. Vessels: Aorta and inferior vena cava are normal in size. PELVIS: Pelvic Organs: Unremarkable. Bladder: Unremarkable. Pelvic Nodes: No enlarged lymph nodes. Miscellaneous: No inguinal hernias are seen. Bones: Visualized osseous structures demonstrate no suspicious focal lesions. IMPRESSION: 1. No acute airspace consolidation. 2. No definite acute abnormality in the abdomen or pelvis. 3. Mild segmental wall thickening in the sigmoid colon may reflect a mild colitis. Recommend correlation clinically. Dictated by: Lamin Goode M.D. on 06/21/2022 at 22:31 Approved by: Lamin Goode M.D. on 06/21/2022 at 22:40
--- NOTE | 2022-06-21 21:31 | DI.CT.S_ITS ---
PROCEDURE: CT HEAD/BRAIN WO CON INDICATIONS: altered TECHNIQUE: Noncontrast 4.5 mm thick angled axial sections acquired from the foramen magnum to the vertex, with coronal and sagittal reformats. For radiation dose reduction, the following was used: automated exposure control, adjustment of mA and/or kV according to patient size. COMPARISON: [facility], CT, CT HEAD/BRAIN WO CON, 04/25/2022, 11:19. FINDINGS: Image quality: Excellent. CSF spaces: Basal cisterns are patent. No extra-axial fluid collections. The ventricles are symmetric in size and shape. There is mild to moderate cerebral volume loss, with resultant ventricular and sulcal prominence. Brain: No intracranial hemorrhage, mass, or mass effect. There are subcortical, periventricular and deep white matter hypodensities consistent with moderate chronic small vessel ischemic changes. The espino-white matter junction appears preserved. There is intracranial internal carotid artery atherosclerosis. Skull and face: Calvarium and visualized facial bones appear intact, without suspicious lesions. Sinuses: Visualized sinuses and mastoids are clear. IMPRESSION: 1. No acute intracranial abnormality. 2. Moderate chronic white matter small vessel ischemic changes and mild to moderate cerebral volume loss. Dictated by: Lamin Goode M.D. on 06/21/2022 at 22:30 Approved by: Lamin Goode M.D. on 06/21/2022 at 22:31
[2022-06-21 21:51] LABS: Ammonia (NH3) < 9 umol/L (9-30)
--- NOTE | 2022-06-21 22:00 | ED_ITS ---
HPI - Fall General Chief Complaint: Fall Stated Complaint: [id number]- [id number] Time Seen by Provider: 06/21/22 20:35 Source: patient and EMS Mode of arrival: EMS History of Present Illness HPI Narrative: 71-year-old male former smoker with history diabetes, hyperlipidemia, hypertension presents from a senior living facility for evaluation of altered mental status over the course of the day and a ground level fall. The patient is typically alert and oriented and has been confused and generally departed from his baseline over the course of the day, certainly prior to his fall. It is unclear why he fell but someone heard him fall through a curtain. He denies any head or neck pain. Denies chest pain, shortness of breath or cough. He admits to general chronic pain. He states that when he fell he landed on his buttocks. He denies any extremity pain. He denies any fever or chills. He is had no nausea or vomiting. He does state that he generally feels weak and unwell Related Data Home Medications Medication Instructions Recorded Confirmed atorvastatin 40 mg tablet 40 mg PO DAILY 04/26/22 05/11/22 insulin aspart U-100 100 unit/mL See Rx Instructions .Route .COMPLEX 04/26/22 05/11/22 (3 mL) subcutaneous pen (Novolog FlexPen U-100 Insulin aspart) metoprolol succinate 100 mg 100 mg PO DAILY 04/26/22 05/11/22 tablet,extended release 24 hr sitagliptin phosphate 50 mg tablet 50 mg PO DAILY 04/26/22 05/11/22 (Januvia) tamsulosin 0.4 mg capsule 0.4 mg PO DAILY 04/26/22 05/11/22 aspirin 81 mg tablet,delayed 81 mg PO DAILY 04/28/22 05/11/22 release insulin glargine 100 unit/mL (3 26 unit SUBCUT BEDTIME 04/28/22 05/11/22 mL) subcutaneous pen (Basaglar KwikPen U-100 Insulin) omeprazole 20 mg capsule,delayed 20 mg PO DAILY 04/28/22 05/11/22 release Previous Rx's Medication Instructions Recorded acetaminophen 325 mg tablet 975 mg PO Q8H PRN Pain, Mild (1-3) 04/28/22 #30 tabs Allergies Allergy/AdvReac Type Severity Reaction Status Date / Time NSAIDS (Non-Steroidal Allergy Verified 05/11/22 10:18 Anti-Inflamma Tetanus Vaccines and Toxoid Allergy Verified 05/11/22 10:18 Review of Systems Review of Systems Narrative: GENERAL: See HPI HEENT: Denies sinus pain, ear pain, sore throat, difficulty swallowing, dizziness. RESPIRATORY: Denies dyspnea, cough, wheezing, hemoptysis, sputum. CARDIOVASCULAR: Denies chest pain, palpitations, orthopnea, edema, GASTROINTESTINAL: Denies nausea, vomiting, abdominal pain, diarrhea, co nstipation, melena. : Denies dysuria, frequency, incontinence, hematuria, urinary retention. MUSCULOSKELETAL: See HPI SKIN: Denies rash, skin lesions, or other NEUROLOGIC: Denies weakness, headache, numbness, change in speech, confusion, seizures, incoordination. PSYCHIATRIC: No concerning psychosocial issues. 12 point review of systems is negative except for those stated above Patient History Medical History (Updated 06/22/22 @ 02:12 by TEA Jimenez) BPH (benign prostatic hyperplasia) CAD (coronary artery disease) of bypass graft Chronic pain Essential hypertension GERD (gastroesophageal reflux disease) Malnutrition of mild degree Recurrent falls Type 2 diabetes mellitus with hyperlipidemia Surgical History (Updated 06/22/22 @ 02:12 by TEA Jimenez) History of cholecystectomy Family History (Updated 06/22/22 @ 02:13 by TEA Jimenez) Father No problems noted. Mother No problems noted. Social History household members: none Smoking Status: Former smoker Smoking Status: Former smoker alcohol intake frequency: holidays/special occasions only Substance Use Type: marijuana Exam Narrative Exam Narrative: GENERAL: [71] year old patient appears stated age. Well-developed patient, in mild distress. GCS 14 (slightly confused) HEAD: Atraumatic. Normocephalic. No hematoma or contusion, no evidence of depressed skull fracture EYES: Pupils equal round and reactive. Extraocular motions intact. No scleral icterus. No injection or drainage. ENT: Nose without bleeding, purulent drainage. Throat without erythema, tonsillar hypertrophy or exudate. Airway patent. NECK: Trachea midline. Non tender CARDIOVASCULAR: Regular rate and rhythm without murmurs, gallops, or rubs. RESPIRATORY: Clear to auscultation. Breath sounds equal bilaterally. No wheezes, rales, or rhonchi. GASTROINTESTINAL: Abdomen soft, non-tender, nondistended. EXTREMITIES: No edema or joint tenderness. BACK: Nontender without deformity or crepitance. No flank tenderness. NEURO: Cranial nerves 2-12 grossly intact SKIN: No rash or erythema of visible areas Initial Vital Signs Initial Vital Signs: Vital Signs Temperature 102.8 F H 06/21/22 20:41 Pulse Rate 91 H 06/21/22 20:41 Respiratory Rate 22 06/21/22 20:41 Blood Pressure 101/57 L 06/21/22 20:41 Pulse Oximetry 96 06/21/22 20:41 Oxygen Delivery Method Room Air 06/21/22 20:41 Course Orders Ordered: ED Orders 06/21/22 20:34 Acetaminophen Stat Complete Blood Count AUTO DIFF Stat Comprehensive Metabolic Panel Stat Ethanol (ETOH) Stat Lactate (Lactic Acid) Stat Osmolality, Serum Stat PTT Partial Thromboplastin Dylon Stat Procalcitonin Stat Prothrombin Time INR Stat Salicylate Stat Thyroid Stimulating Hormone Stat Troponin & CK Cardiac Panel Stat 06/21/22 20:42 XR chest 1V Stat EKG-12 Lead Stat 06/21/22 21:15 Blood Culture Stat 06/21/22 21:24 CT chest abd pel w con Stat 06/21/22 21:31 CT head/brain wo con Stat 06/21/22 21:35 Ammonia (NH3) Stat 06/21/22 23:45 Urinalysis and Microscopic Stat Urine Culture Stat Urine Drug Screen, Rapid Stat 06/22/22 US abdomen limited Stat 06/22/22 00:06 Hepatitis Acute Panel Stat 06/22/22 00:12 Respiratory Panel (Film Array) Stat 06/22/22 01:27 Education, smoking cessation ONGOING 06/22/22 01:46 Hemoglobin A1C% w Est Avg Glu Urgent 06/22/22 01:48 Consult to Dietitian, Adult Routine Consult to Occupational Therapy Evaluate & Treat Consult to Physical Therapy Evaluate & Treat CRP [C-Reactive Protein Quant] Urgent GGT [Gamma Glutamyl Transpeptidase] Stat LDH [Lactate Dehydrogenase] Stat Lipase Stat Magnesium Urgent TRIG [Triglycerides] Urgent 06/22/22 01:51 Consult to Discharge Planning Routine 06/22/22 02:10 MRSA (Nasal) PCR Stat 06/22/22 05:00 Complete Blood Count AUTO DIFF DAILY Comprehensive Metabolic Panel DAILY Prothrombin Time INR Routine Trop I [Troponin I] Q6H 06/23/22 05:00 Complete Blood Count AUTO DIFF DAILY Comprehensive Metabolic Panel DAILY 06/24/22 05:00 Complete Blood Count AUTO DIFF DAILY Comprehensive Metabolic Panel DAILY Acetaminophen (Acetaminophen 325 Mg Tablet) 650 mg PO Q6H PRN PRN Reason: Fever/Mild Pain (1-3) Dextrose (Dextrose 50 % In Water 25 Gm/50 Ml Syringe) 25 gm IV PRN PRN PRN Reason: Hypoglycemia Sodium Chloride (Normal Saline 0.9%) 1,000 mls @ 150 mls/hr IV CONT TOMMY Last Admin: 06/21/22 21:20 Dose: 150 mls/hr Documented By: RLS Dextrose/Sodium Chloride (Dextrose 5%-0.9% Ns) 1,000 mls @ 80 mls/hr IV CONT TOMMY Last Admin: 06/22/22 02:18 Dose: 80 mls/hr Documented By: GC Piperacillin Sod/Tazobactam (Sod 3.375 gm/ Sodium Chloride) 100 mls @ 25 mls/hr IV Q8H [facility] Insulin Glargine (Insulin Glargine 100 Unit/Ml 3ml Pen) 26 unit SUBCUT 2100 [facility] Insulin Human Lispro (Insulin Lispro 100 Unit/Ml 3ml Vial) 0 unit SUBCUT ACHS [facility]; Protocol Metoprolol Succinate (Metoprolol Er 50 Mg Tablet) 100 mg PO DAILY [facility] Naloxone HCl (Naloxone 0.4 Mg/Ml Vial) 0.2 mg IV Q2MIN PRN PRN Reason: Opiate Reversal Ondansetron HCl (Ondansetron 4 Mg/2 Ml Inj) 4 mg IV Q4HR PRN PRN Reason: Nausea And Vomiting Oxycodone HCl (Oxycodone Ir 10 Mg Tablet) 10 mg PO Q3H PRN PRN Reason: Pain, Severe (7-10) Pantoprazole Sodium (Pantoprazole Dr 20 Mg Tablet) 20 mg PO 0600 [facility] Sennosides (Sennosides 8.6 Mg Tablet) 17.2 mg PO BEDTIME [facility] Tamsulosin HCl (Tamsulosin 0.4 Mg Capsule) 0.4 mg PO DAILY [facility] Discontinued Medications Atorvastatin Calcium (Atorvastatin 20 Mg Tablet) 40 mg PO DAILY [facility] Sodium Chloride (Normal Saline 0.9%) 2,121 mls @ 707 mls/hr 30 ml/kg infuse over 3 hr (2121 ml) IV NOW ONE Stop: 06/22/22 00:21 Last Infusion: 06/22/22 00:36 Dose: 0 mls/hr Documented By: Admin: 06/21/22 22:11 Dose: 707 mls/hr Documented By: MARINO Piperacillin Sod/Tazobactam (Sod 4.5 gm/ Sodium Chloride) 100 mls @ 200 mls/hr IV NOW ONE Stop: 06/21/22 21:23 Last Infusion: 06/21/22 22:45 Dose: 0 mls/hr Documented By: Admin: 06/21/22 22:10 Dose: 200 mls/hr Documented By: MARINO Non-Formulary Medication (Omeprazole) 20 mg PO DAILY TOMMY Vital Signs Vital signs: Vital Signs - 8 hr 06/21/22 20:41 06/21/22 20:44 06/21/22 20:45 Temperature 102.8 F H Pulse Rate 91 H 98 H 98 H Respiratory Rate 22 15 Blood Pressure 101/57 L Pulse Oximetry 96 96 97 Oxygen Delivery Method Room Air 06/21/22 20:45 06/21/22 21:00 06/21/22 21:00 Temperature Pulse Rate 92 H Respiratory Rate 22 Blood Pressure 100/56 L 123/64 Pulse Oximetry 95 Oxygen Delivery Method 06/21/22 21:15 06/21/22 21:15 06/21/22 21:30 Temperature Pulse Rate 92 H Respiratory Rate 19 Blood Pressure 110/58 L 111/55 L Pulse Oximetry 96 Oxygen Delivery Method 06/21/22 21:30 06/21/22 21:55 06/21/22 21:55 Temperature Pulse Rate 91 H 93 H Respiratory Rate 18 18 Blood Pressure 139/63 Pulse Oximetry 96 96 Oxygen Delivery Method 06/21/22 22:00 06/21/22 22:00 06/21/22 22:15 Temperature Pulse Rate 92 H 91 H Respiratory Rate 16 16 Blood Pressure 128/55 L Pulse Oximetry 96 96 Oxygen Delivery Method 06/21/22 22:15 06/21/22 22:30 06/21/22 22:30 Temperature Pulse Rate 93 H Respiratory Rate 12 Blood Pressure 121/58 L 121/62 Pulse Oximetry 96 Oxygen Delivery Method 06/21/22 22:45 06/21/22 22:45 06/21/22 23:00 Temperature Pulse Rate 94 H Respiratory Rate 8 L Blood Pressure 119/61 134/64 Pulse Oximetry 96 Oxygen Delivery Method 06/21/22 23:00 06/21/22 23:15 06/21/22 23:15 Temperature Pulse Rate 96 H 95 H Respiratory Rate 15 23 Blood Pressure 115/57 L Pulse Oximetry 97 97 Oxygen Delivery Method 06/21/22 23:30 06/21/22 23:30 06/21/22 23:45 Temperature Pulse Rate 96 H Respiratory Rate 18 Blood Pressure 120/55 L 129/58 L Pulse Oximetry Oxygen Delivery Method 06/21/22 23:45 06/22/22 00:00 06/22/22 00:00 Temperature Pulse Rate 96 H 96 H Respiratory Rate 18 14 Blood Pressure 119/57 L Pulse Oximetry 97 96 Oxygen Delivery Method 06/22/22 00:15 06/22/22 00:15 06/22/22 00:30 Temperature Pulse Rate 95 H Respiratory Rate 20 Blood Pressure 105/56 L 128/60 Pulse Oximetry 98 Oxygen Delivery Method 06/22/22 00:30 06/22/22 01:00 06/22/22 01:00 Temperature Pulse Rate 95 H 91 H Respiratory Rate 19 17 Blood Pressure 123/53 L Pulse Oximetry 96 97 Oxygen Delivery Method 06/22/22 01:15 06/22/22 01:15 06/22/22 01:30 Temperature Pulse Rate 90 Respiratory Rate 17 Blood Pressure 115/58 L 121/57 L Pulse Oximetry 97 Oxygen Delivery Method 06/22/22 01:30 06/22/22 01:46 06/22/22 01:46 Temperature Pulse Rate 90 92 H Respiratory Rate 18 20 Blood Pressure 98/78 Pulse Oximetry 98 99 Oxygen Delivery Method 06/22/22 02:00 06/22/22 02:01 06/22/22 02:01 Temperature 99.2 F Pulse Rate 92 H 90 Respiratory Rate Blood Pressure 116/55 L Pulse Oximetry 97 97 Oxygen Delivery Method 06/22/22 02:16 06/22/22 02:16 Temperature Pulse Rate 87 Respiratory Rate Blood Pressure 124/62 Pulse Oximetry 97 Oxygen Delivery Method MDM - Fall Lab Data 06/21/22 20:34 06/21/22 20:34 Labs: Lab Results 06/21/22 06/21/22 06/21/22 Range/Units 20:34 20:34 20:34 WBC 5.5 (4.5-11.0) X10^3/uL RBC 4.79 (4.5-5.9) X10^6/uL Hgb 14.7 (13.5-17.5) g/dL Hct 43.0 (41-53) % MCV 89.8 (80-100) fL MCH 30.7 (26-34) PG MCHC 34.2 (30-36) % RDW 13.9 (11.6-14.8) % Plt Count 187 (150-400) X10^3/uL Neut % (Auto) 90.3 H (50-75) % Lymph % (Auto) 5.0 L (25-40) % [place] % (Auto) 3.8 (3-14) % Eos % (Auto) 0.4 L (2-4) % Baso % (Auto) 0.5 (0-2) % Neut # (Auto) 5000 (2153-4170) /uL Lymph # (Auto) 300 L (3501-1978) /uL [place] # (Auto) 200 (0-900) /uL Eos # (Auto) 0 (0-450) /uL Baso # (Auto) 0 (0-100) /uL PT 11.8 (10.1-12.7) SECONDS INR 1.0 (0.9-1.3) APTT 31 (26-36) SECONDS Sodium 131 L (137-145) mmol/L Potassium 3.7 (3.4-5.1) mmol/L Chloride 92 L (98-107) mmol/L Carbon Dioxide 33 H (22-32) mmol/L BUN 11 (9-20) mg/dL Creatinine 0.52 L (0.66-1.25) mg/dL Estimated GFR > 60 (>60) mL/min BUN/Creatinine Ratio 21.2 (6-22) Glucose 152 H (80-110) mg/dL Lactate (0.7-2.1) mmol/L Calcium 9.2 (8.4-10.2) mg/dL Magnesium (1.6-2.3) mg/dL Total Bilirubin 2.7 H (0.2-1.3) mg/dL GGT (15-73) U/L AST 1394 H (17-59) IU/L ALT 894 H (<50) IU/L Alkaline Phosphatase 330 H (38-126) U/L Ammonia (9-30) umol/L Lactate Dehydrogenase (120-246) U/L Total Creatine Kinase 26 L (55-170) U/L CK-MB (CK-2) TNP CK-MB (CK-2) Rel Index TNP Troponin I 0.067 H (0.01-0.034) ng/mL C-Reactive Protein (<1.0) mg/dL Total Protein 7.7 (6.3-8.2) g/dL Albumin 4.4 (3.5-5.0) g/dL Globulin 3.3 (1.7-4.1) g/dL Albumin/Globulin Ratio 1.3 (1.0-2.8) Triglycerides (35-150) mg/dL Lipase (23-300) U/L Procalcitonin 0.32 (<0.5) ng/mL TSH (0.47-4.68) uIU/mL Urine Color Urine Appearance Urine pH (4.5-8.0) Ur Specific Humphrey (1.000-1.035) Urine Protein (Negative) Urine Glucose (UA) (Negative) g/dL Urine Ketones (NEGATIVE) Urine Occult Blood (Negative) Urine Nitrate (Negative) Urine Bilirubin (NEGATIVE) Urine Urobilinogen (0.2) E.U./dL Ur Leukocyte Esterase (NEGATIVE) Urine RBC (0-5/HPF) Urine WBC (0-5/HPF) Urine Bacteria (None) Micro UA Comment Salicylates < 1.0 (<20) mg/dL U Opiates 300ng/mL cut (Negative) Ur Oxycodone Screen (Negative) Urine Methadone Screen (Negative) Acetaminophen < 10 (10-30) ug/mL Ur Barbiturates Screen (Negative) U Tricyclic Antidepress (Negative) Ur Phencyclidine Scrn (Negative) Ur Amphetamines Screen (Negative) U Methamphetamines Scrn (Negative) Ur MDMA Scrn (Ecstasy) (Negative) U Benzodiazepines Scrn (Negative) Urine Cocaine Screen (Negative) U Marijuana (THC) Screen (Negative) Ethyl Alcohol < 10 ( - 10) mg/dL Chlamy pneumoniae PCR (Not Detect) Adenovirus (PCR) (Not Detect) B. pertussis DNA (PCR) (Not Detecte) B.parapertussis DNA PCR (Not Detecte) Coronavirus OC43 (PCR) (Not Detect) Coronavirus HKU1 (PCR) (Not Detect) Coronavirus 229E (PCR) (Not Detect) SARS-CoV-2 (PCR) (Not Detecte) Coronavirus NL63 (PCR) (Not Detect) Human Metapneumovir PCR (Not Detect) Influenza Type A (PCR) (Not Detect) Influenza Type B (PCR) (Not Detect) M. pneumoniae (PCR) (Not Detect) Parainfluenza 1 (PCR) (Not Detect) Parainfluenza 2 (PCR) (Not Detect) Parainfluenza 3 (PCR) (Not Detect) Parainfluenza 4 (PCR) (Not Detect) RSV (PCR) (Not Detect) Entero/Rhino (PCR) (Not Detect) 06/21/22 06/21/22 06/21/22 Range/Units 20:34 20:34 21:35 WBC (4.5-11.0) X10^3/uL RBC (4.5-5.9) X10^6/uL Hgb (13.5-17.5) g/dL Hct (41-53) % MCV (80-100) fL MCH (26-34) PG MCHC (30-36) % RDW (11.6-14.8) % Plt Count (150-400) X10^3/uL Neut % (Auto) (50-75) % Lymph % (Auto) (25-40) % [place] % (Auto) (3-14) % Eos % (Auto) (2-4) % Baso % (Auto) (0-2) % Neut # (Auto) (1283-7180) /uL Lymph # (Auto) (9935-6047) /uL [place] # (Auto) (0-900) /uL Eos # (Auto) (0-450) /uL Baso # (Auto) (0-100) /uL PT (10.1-12.7) SECONDS INR (0.9-1.3) APTT (26-36) SECONDS Sodium (137-145) mmol/L Potassium (3.4-5.1) mmol/L Chloride (98-107) mmol/L Carbon Dioxide (22-32) mmol/L BUN (9-20) mg/dL Creatinine (0.66-1.25) mg/dL Estimated GFR (>60) mL/min BUN/Creatinine Ratio (6-22) Glucose (80-110) mg/dL Lactate 2.9 H (0.7-2.1) mmol/L Calcium (8.4-10.2) mg/dL Magnesium (1.6-2.3) mg/dL Total Bilirubin (0.2-1.3) mg/dL GGT (15-73) U/L AST (17-59) IU/L ALT (<50) IU/L Alkaline Phosphatase (38-126) U/L Ammonia < 9 L (9-30) umol/L Lactate Dehydrogenase (120-246) U/L Total Creatine Kinase (55-170) U/L CK-MB (CK-2) CK-MB (CK-2) Rel Index Troponin I (0.01-0.034) ng/mL C-Reactive Protein (<1.0) mg/dL Total Protein (6.3-8.2) g/dL Albumin (3.5-5.0) g/dL Globulin (1.7-4.1) g/dL Albumin/Globulin Ratio (1.0-2.8) Triglycerides (35-150) mg/dL Lipase (23-300) U/L Procalcitonin (<0.5) ng/mL TSH 0.820 (0.47-4.68) uIU/mL Urine Color Urine Appearance Urine pH (4.5-8.0) Ur Specific [place] (1.000-1.035) Urine Protein (Negative) Urine Glucose (UA) (Negative) g/dL Urine Ketones (NEGATIVE) Urine Occult Blood (Negative) Urine Nitrate (Negative) Urine Bilirubin (NEGATIVE) Urine Urobilinogen (0.2) E.U./dL Ur Leukocyte Esterase (NEGATIVE) Urine RBC (0-5/HPF) Urine WBC (0-5/HPF) Urine Bacteria (None) Micro UA Comment Salicylates (<20) mg/dL U Opiates 300ng/mL cut (Negative) Ur Oxycodone Screen (Negative) Urine Methadone Screen (Negative) Acetaminophen (10-30) ug/mL Ur Barbiturates Screen (Negative) U Tricyclic Antidepress (Negative) Ur Phencyclidine Scrn (Negative) Ur Amphetamines Screen (Negative) U Methamphetamines Scrn (Negative) Ur MDMA Scrn (Ecstasy) (Negative) U Benzodiazepines Scrn (Negative) Urine Cocaine Screen (Negative) U Marijuana (THC) Screen (Negative) Ethyl Alcohol ( - 10) mg/dL Chlamy pneumoniae PCR (Not Detect) Adenovirus (PCR) (Not Detect) B. pertussis DNA (PCR) (Not Detecte) B.parapertussis DNA PCR (Not Detecte) Coronavirus OC43 (PCR) (Not Detect) Coronavirus HKU1 (PCR) (Not Detect) Coronavirus 229E (PCR) (Not Detect) SARS-CoV-2 (PCR) (Not Detecte) Coronavirus NL63 (PCR) (Not Detect) Human Metapneumovir PCR (Not Detect) Influenza Type A (PCR) (Not Detect) Influenza Type B (PCR) (Not Detect) M. pneumoniae (PCR) (Not Detect) Parainfluenza 1 (PCR) (Not Detect) Parainfluenza 2 (PCR) (Not Detect) Parainfluenza 3 (PCR) (Not Detect) Parainfluenza 4 (PCR) (Not Detect) RSV (PCR) (Not Detect) Entero/Rhino (PCR) (Not Detect) 06/21/22 06/21/22 06/21/22 Range/Units 23:45 23:45 23:59 WBC (4.5-11.0) X10^3/uL RBC (4.5-5.9) X10^6/uL Hgb (13.5-17.5) g/dL Hct (41-53) % MCV (80-100) fL MCH (26-34) PG MCHC (30-36) % RDW (11.6-14.8) % Plt Count (150-400) X10^3/uL Neut % (Auto) (50-75) % Lymph % (Auto) (25-40) % [place] % (Auto) (3-14) % Eos % (Auto) (2-4) % Baso % (Auto) (0-2) % Neut # (Auto) (9108-5219) /uL Lymph # (Auto) (6189-8021) /uL [place] # (Auto) (0-900) /uL Eos # (Auto) (0-450) /uL Baso # (Auto) (0-100) /uL PT (10.1-12.7) SECONDS INR (0.9-1.3) APTT (26-36) SECONDS Sodium (137-145) mmol/L Potassium (3.4-5.1) mmol/L Chloride (98-107) mmol/L Carbon Dioxide (22-32) mmol/L BUN (9-20) mg/dL Creatinine (0.66-1.25) mg/dL Estimated GFR (>60) mL/min BUN/Creatinine Ratio (6-22) Glucose (80-110) mg/dL Lactate 1.7 (0.7-2.1) mmol/L Calcium (8.4-10.2) mg/dL Magnesium (1.6-2.3) mg/dL Total Bilirubin (0.2-1.3) mg/dL GGT (15-73) U/L AST (17-59) IU/L ALT (<50) IU/L Alkaline Phosphatase (38-126) U/L Ammonia (9-30) umol/L Lactate Dehydrogenase (120-246) U/L Total Creatine Kinase (55-170) U/L CK-MB (CK-2) CK-MB (CK-2) Rel Index Troponin I (0.01-0.034) ng/mL C-Reactive Protein (<1.0) mg/dL Total Protein (6.3-8.2) g/dL Albumin (3.5-5.0) g/dL Globulin (1.7-4.1) g/dL Albumin/Globulin Ratio (1.0-2.8) Triglycerides (35-150) mg/dL Lipase (23-300) U/L Procalcitonin (<0.5) ng/mL TSH (0.47-4.68) uIU/mL Urine Color Yellow Urine Appearance Clear Urine pH 7.0 (4.5-8.0) Ur Specific [place] <=1.005 (1.000-1.035) Urine Protein Negative (Negative) Urine Glucose (UA) Negative (Negative) g/dL Urine Ketones Negative (NEGATIVE) Urine Occult Blood Negative (Negative) Urine Nitrate Negative (Negative) Urine Bilirubin Negative (NEGATIVE) Urine Urobilinogen 1.0 (0.2) E.U./dL Ur Leukocyte Esterase Negative (NEGATIVE) Urine RBC None seen (0-5/HPF) Urine WBC None seen (0-5/HPF) Urine Bacteria None seen (None) Micro UA Comment * Salicylates (<20) mg/dL U Opiates 300ng/mL cut Negative (Negative) Ur Oxycodone Screen Negative (Negative) Urine Methadone Screen Negative (Negative) Acetaminophen (10-30) ug/mL Ur Barbiturates Screen Negative (Negative) U Tricyclic Antidepress Negative (Negative) Ur Phencyclidine Scrn Negative (Negative) Ur Amphetamines Screen Negative (Negative) U Methamphetamines Scrn Negative (Negative) Ur MDMA Scrn (Ecstasy) Negative (Negative) U Benzodiazepines Scrn Negative (Negative) Urine Cocaine Screen Negative (Negative) U Marijuana (THC) Screen Negative (Negative) Ethyl Alcohol ( - 10) mg/dL Chlamy pneumoniae PCR (Not Detect) Adenovirus (PCR) (Not Detect) B. pertussis DNA (PCR) (Not Detecte) B.parapertussis DNA PCR (Not Detecte) Coronavirus OC43 (PCR) (Not Detect) Coronavirus HKU1 (PCR) (Not Detect) Coronavirus 229E (PCR) (Not Detect) SARS-CoV-2 (PCR) (Not Detecte) Coronavirus NL63 (PCR) (Not Detect) Human Metapneumovir PCR (Not Detect) Influenza Type A (PCR) (Not Detect) Influenza Type B (PCR) (Not Detect) M. pneumoniae (PCR) (Not Detect) Parainfluenza 1 (PCR) (Not Detect) Parainfluenza 2 (PCR) (Not Detect) Parainfluenza 3 (PCR) (Not Detect) Parainfluenza 4 (PCR) (Not Detect) RSV (PCR) (Not Detect) Entero/Rhino (PCR) (Not Detect) 06/22/22 06/22/22 06/22/22 Range/Units 00:12 01:48 01:48 WBC (4.5-11.0) X10^3/uL RBC (4.5-5.9) X10^6/uL Hgb (13.5-17.5) g/dL Hct (41-53) % MCV (80-100) fL MCH (26-34) PG MCHC (30-36) % RDW (11.6-14.8) % Plt Count (150-400) X10^3/uL Neut % (Auto) (50-75) % Lymph % (Auto) (25-40) % [place] % (Auto) (3-14) % Eos % (Auto) (2-4) % Baso % (Auto) (0-2) % Neut # (Auto) (4988-2089) /uL Lymph # (Auto) (9227-4844) /uL [place] # (Auto) (0-900) /uL Eos # (Auto) (0-450) /uL Baso # (Auto) (0-100) /uL PT (10.1-12.7) SECONDS INR (0.9-1.3) APTT (26-36) SECONDS Sodium (137-145) mmol/L Potassium (3.4-5.1) mmol/L Chloride (98-107) mmol/L Carbon Dioxide (22-32) mmol/L BUN (9-20) mg/dL Creatinine (0.66-1.25) mg/dL Estimated GFR (>60) mL/min BUN/Creatinine Ratio (6-22) Glucose (80-110) mg/dL Lactate (0.7-2.1) mmol/L Calcium (8.4-10.2) mg/dL Magnesium (1.6-2.3) mg/dL Total Bilirubin (0.2-1.3) mg/dL GGT 267 H (15-73) U/L AST (17-59) IU/L ALT (<50) IU/L Alkaline Phosphatase (38-126) U/L Ammonia (9-30) umol/L Lactate Dehydrogenase 904 H (120-246) U/L Total Creatine Kinase (55-170) U/L CK-MB (CK-2) CK-MB (CK-2) Rel Index Troponin I (0.01-0.034) ng/mL C-Reactive Protein (<1.0) mg/dL Total Protein (6.3-8.2) g/dL Albumin (3.5-5.0) g/dL Globulin (1.7-4.1) g/dL Albumin/Globulin Ratio (1.0-2.8) Triglycerides (35-150) mg/dL Lipase 70 (23-300) U/L Procalcitonin (<0.5) ng/mL TSH (0.47-4.68) uIU/mL Urine Color Urine Appearance Urine pH (4.5-8.0) Ur Specific [place] (1.000-1.035) Urine Protein (Negative) Urine Glucose (UA) (Negative) g/dL Urine Ketones (NEGATIVE) Urine Occult Blood (Negative) Urine Nitrate (Negative) Urine Bilirubin (NEGATIVE) Urine Urobilinogen (0.2) E.U./dL Ur Leukocyte Esterase (NEGATIVE) Urine RBC (0-5/HPF) Urine WBC (0-5/HPF) Urine Bacteria (None) Micro UA Comment Salicylates (<20) mg/dL U Opiates 300ng/mL cut (Negative) Ur Oxycodone Screen (Negative) Urine Methadone Screen (Negative) Acetaminophen (10-30) ug/mL Ur Barbiturates Screen (Negative) U Tricyclic Antidepress (Negative) Ur Phencyclidine Scrn (Negative) Ur Amphetamines Screen (Negative) U Methamphetamines Scrn (Negative) Ur MDMA Scrn (Ecstasy) (Negative) U Benzodiazepines Scrn (Negative) Urine Cocaine Screen (Negative) U Marijuana (THC) Screen (Negative) Ethyl Alcohol ( - 10) mg/dL Chlamy pneumoniae PCR Not detected (Not Detect) Adenovirus (PCR) Not detected (Not Detect) B. pertussis DNA (PCR) Not detected (Not Detecte) B.parapertussis DNA PCR Not detected (Not Detecte) Coronavirus OC43 (PCR) Not detected (Not Detect) Coronavirus HKU1 (PCR) Not detected (Not Detect) Coronavirus 229E (PCR) Not detected (Not Detect) SARS-CoV-2 (PCR) Not detected (Not Detecte) Coronavirus NL63 (PCR) Not detected (Not Detect) Human Metapneumovir PCR Not detected (Not Detect) Influenza Type A (PCR) Not detected (Not Detect) Influenza Type B (PCR) Not detected (Not Detect) M. pneumoniae (PCR) Not detected (Not Detect) Parainfluenza 1 (PCR) Not detected (Not Detect) Parainfluenza 2 (PCR) Not detected (Not Detect) Parainfluenza 3 (PCR) Not detected (Not Detect) Parainfluenza 4 (PCR) Not detected (Not Detect) RSV (PCR) Not detected (Not Detect) Entero/Rhino (PCR) Not detected (Not Detect) 06/22/22 06/22/22 Range/Units 01:48 01:48 WBC (4.5-11.0) X10^3/uL RBC (4.5-5.9) X10^6/uL Hgb (13.5-17.5) g/dL Hct (41-53) % MCV (80-100) fL MCH (26-34) PG MCHC (30-36) % RDW (11.6-14.8) % Plt Count (150-400) X10^3/uL Neut % (Auto) (50-75) % Lymph % (Auto) (25-40) % [place] % (Auto) (3-14) % Eos % (Auto) (2-4) % Baso % (Auto) (0-2) % Neut # (Auto) (1344-9924) /uL Lymph # (Auto) ([id number]) /uL [place] # (Auto) (0-900) /uL Eos # (Auto) (0-450) /uL Baso # (Auto) (0-100) /uL PT (10.1-12.7) SECONDS INR (0.9-1.3) APTT (26-36) SECONDS Sodium (137-145) mmol/L Potassium (3.4-5.1) mmol/L Chloride (98-107) mmol/L Carbon Dioxide (22-32) mmol/L BUN (9-20) mg/dL Creatinine (0.66-1.25) mg/dL Estimated GFR (>60) mL/min BUN/Creatinine Ratio (6-22) Glucose (80-110) mg/dL Lactate (0.7-2.1) mmol/L Calcium (8.4-10.2) mg/dL Magnesium 1.5 L (1.6-2.3) mg/dL Total Bilirubin (0.2-1.3) mg/dL GGT (15-73) U/L AST (17-59) IU/L ALT (<50) IU/L Alkaline Phosphatase (38-126) U/L Ammonia (9-30) umol/L Lactate Dehydrogenase (120-246) U/L Total Creatine Kinase (55-170) U/L CK-MB (CK-2) CK-MB (CK-2) Rel Index Troponin I (0.01-0.034) ng/mL C-Reactive Protein 1.6 H (<1.0) mg/dL Total Protein (6.3-8.2) g/dL Albumin (3.5-5.0) g/dL Globulin (1.7-4.1) g/dL Albumin/Globulin Ratio (1.0-2.8) Triglycerides 100 (35-150) mg/dL Lipase (23-300) U/L Procalcitonin (<0.5) ng/mL TSH (0.47-4.68) uIU/mL Urine Color Urine Appearance Urine pH (4.5-8.0) Ur Specific [place] (1.000-1.035) Urine Protein (Negative) Urine Glucose (UA) (Negative) g/dL Urine Ketones (NEGATIVE) Urine Occult Blood (Negative) Urine Nitrate (Negative) Urine Bilirubin (NEGATIVE) Urine Urobilinogen (0.2) E.U./dL Ur Leukocyte Esterase (NEGATIVE) Urine RBC (0-5/HPF) Urine WBC (0-5/HPF) Urine Bacteria (None) Micro UA Comment Salicylates (<20) mg/dL U Opiates 300ng/mL cut (Negative) Ur Oxycodone Screen (Negative) Urine Methadone Screen (Negative) Acetaminophen (10-30) ug/mL Ur Barbiturates Screen (Negative) U Tricyclic Antidepress (Negative) Ur Phencyclidine Scrn (Negative) Ur Amphetamines Screen (Negative) U Methamphetamines Scrn (Negative) Ur MDMA Scrn (Ecstasy) (Negative) U Benzodiazepines Scrn (Negative) Urine Cocaine Screen (Negative) U Marijuana (THC) Screen (Negative) Ethyl Alcohol ( - 10) mg/dL Chlamy pneumoniae PCR (Not Detect) Adenovirus (PCR) (Not Detect) B. pertussis DNA (PCR) (Not Detecte) B.parapertussis DNA PCR (Not Detecte) Coronavirus OC43 (PCR) (Not Detect) Coronavirus HKU1 (PCR) (Not Detect) Coronavirus 229E (PCR) (Not Detect) SARS-CoV-2 (PCR) (Not Detecte) Coronavirus NL63 (PCR) (Not Detect) Human Metapneumovir PCR (Not Detect) Influenza Type A (PCR) (Not Detect) Influenza Type B (PCR) (Not Detect) M. pneumoniae (PCR) (Not Detect) Parainfluenza 1 (PCR) (Not Detect) Parainfluenza 2 (PCR) (Not Detect) Parainfluenza 3 (PCR) (Not Detect) Parainfluenza 4 (PCR) (Not Detect) RSV (PCR) (Not Detect) Entero/Rhino (PCR) (Not Detect) MDM Narrative Medical decision making narrative: [71] year old patient presents with altered mental status, weakness and fever Multiple etiologies for patient's symptoms considered including, but not limited to: [Sepsis due to multiple etiologies, traumatic injury as a consequence of fall] Prior Charts reviewed in our EMR Primary Historian: patient, nursing staff through EMS Labs reviewed and interpreted by myself: No leukocytosis or left shift, no anemia. Electrolytes and renal function within normal range, LFTs and bilirubin up. Initial lactate significantly elevated, improved after fluids and antibiotics Imaging reviewed: CT head, Chest/Abd/Pelvis without significant abnormalities Consultations: Hospitalist Patient with generalized weakness, fever, chills and acute metabolic encephalopathy in the setting of elevated LFTs and bilirubin, without radiographic findings. No evidence of pneumonia, urine without evidence of infection. No obvious obstructive process on imaging. Patient will require hospitalization for further stabilization and evaluation of his condition Discharge Plan Departure Patient Disposition: Admitted As Inpatient Clinical Impression: Acute metabolic encephalopathy, Sepsis, Fever, Abnormal LFTs
[2022-06-21] MEDS: PIPERACILLIN/TAZO 4.5 GM in SODIUM CHLORIDE 0.9% 100 ML IV (22:10)
[2022-06-21] MEDS: SODIUM CHLORIDE 0.9% 2,121 ML 707 ML IV (22:11)
[2022-06-21 22:45] LABS: Reflexed Lactate in 2 Hours Y
[2022-06-22] VITALS (26 sets, daily range): BP systolic 93–142; BP diastolic 49–78; PULSE 61–96; RESP 14–21; TEMP 36.7–37.3; O2SAT 94–99; BMI 22.1
[2022-06-22] LABS: Appearance Urine UA CLEAR; Bilirubin Urine UA NEGATIVE (NEGATIVE); Color Urine UA YELLOW; Glucose Urine UA NEGATIVE (Negative); Ketones Urine UA NEGATIVE (NEGATIVE); Leukocyte Esterase Urine UA NEGATIVE (NEGATIVE); Nitrite Urine UA NEGATIVE (Negative); Occult Blood Urine UA NEGATIVE (Negative); Protein Urine UA NEGATIVE (Negative); Specific Gravity Urine UA <=1.005 (1.000-1.035)
--- NOTE | 2022-06-22 | DI.US.S_ITS ---
PROCEDURE: US ABDOMEN LIMITED INDICATIONS: Transaminitis with fever lactic acidosis (RTUQ) TECHNIQUE: Real-time scanning was performed of the abdominal and retroperitoneal organs, with image documentation. COMPARISON: [facility], , US ABDOMEN LIMITED, 04/26/2022, 14:30. FINDINGS: Liver: Liver is normal in size and homogeneous in echotexture. Gallbladder: Surgically absent part Biliary ducts: Intrahepatic bile ducts are non-dilated. Extrahepatic bile duct caliber measures 4 mm. Normal is 6-7 mm or less in diameter, or 10 mm or less post-cholecystectomy. Pancreas: Visualized portions of the pancreas are sonographically normal. IMPRESSION: Normal right upper quadrant ultrasound . Dictated by: Robert Gonzalez M.D. on 06/22/2022 at 7:57 Approved by: Robert Gonzalez M.D. on 06/22/2022 at 8:02
[2022-06-22 00:19] LABS: Bacteria Urine None Seen; RBC Urine None Seen (0-5/HPF); WBC Urine None Seen (0-5/HPF)
[2022-06-22 00:22] LABS: Lactate 2HR (Lactic Acid Rflx) 1.7 mmol/L (0.7-2.1)
[2022-06-22 00:28] LABS: Ur Creatinine 20 (Normal); Ur Specific Gravity <1.005 (Normal); Urine pH 7 (Normal)
[2022-06-22 00:29] LABS: UR Morphine/Opiate cutoff 300 Negative (Negative); Urine Amphetamines Negative (Negative); Urine Barbiturates Negative (Negative); Urine Benzodiazepines Negative (Negative); Urine Cocaine Negative (Negative); Urine MDMA Negative (Negative); Urine Methadone Negative (Negative); Urine Methamphetamines Negative (Negative); Urine Oxycodone Negative (Negative); Urine Phencyclidine Negative (Negative); Urine Tetrahydrocannabinol Negative (Negative); Urine Tricyclic Antidepressant Negative (Negative)
--- NOTE | 2022-06-22 01:58 | PM.HP.1 ---
History of Present Illness History of Present Illness Date Patient Seen: 06/22/22 Time Patient Seen: 01:59 Chief complaint: GLF- confused- rbbb Narrative: Lev Fernandez is a 71-year-old male with a medical history of CAD s/p JEANNINE x3, hypertension, hyperlipidemia, IDDM, BPH, recurrent falls, malnutrition, and a recent history 04/27/2022 of lap bakari. Patient presented to the ED from an SNF altered over the day following a ground level fall which was not witnessed, patient is altered mildly GCS 14, and endorses generalized pain all over, rigors, increasing weakness with a presenting fever 102.8. On admit patient is slightly confused, impairing accuracy of ROS: denies chest pain, shortness in breath, headache, changes in vision, difficulty swallowing, speech impairment, numbness, tingling, LOC, cough, recent exposure to illness, urinary incontinence/retention, dysuria, frequency, urgency, hematuria, bowel changes, constipation, incontinence, melena, rashes, recent changes to medication, or illness. In ED temp 102.8?, BP 101/57, 91, 22, 96% on room air. On admit temp continues 102.8, BP 115/57, 95, 23, O2 sat 97% on room air. GCS 14, are factor hepatocellular, sofa: 3, ABIC: 8.27 intermediate risk. Patient has no white count or left shift, sodium 131, Cl 92, bicarb 33, creatinine 0.52, glucose 152. procalcitonin, salicylates, acetaminophen, ETOH, and ammonia are all negative, lactate 2.9. Bili 2.7, AST 1394, ALT 894, alk-phos 330, TSH 0.820 CK 26, troponin 0.067, tox screen is negative, urinalysis is negative, chest x-ray is negative. Head CT negative, CT of chest abdomen pelvis demonstrate?Mild segmental wall thickening in the sigmoid colon may reflect a mild colitis. Patient admitted to acute care with sepsis without shock, ground level fall, transaminitis, lactic acidosis, and global encephalopathy of unknown etiology. ? Patient History Medical History (Updated 06/22/22 @ 02:12 by JOSE Jimenez-NEDA) BPH (benign prostatic hyperplasia) CAD (coronary artery disease) of bypass graft Chronic pain Essential hypertension GERD (gastroesophageal reflux disease) Malnutrition of mild degree Recurrent falls Type 2 diabetes mellitus with hyperlipidemia Surgical History ([facility] 06/22/22 @ 02:[facility] History of cholecystectomy Family & Social History Family History (Updated 06/22/22 @ 02:13 [facility] Father No problems noted. Mother No problems noted. Social History: household members none-resides in a SNF Safety & Behavioral: Feels Safe in Current Yes Environment Been Physically Hurt or No Threatened By a Person Tobacco & Substance use: Tobacco type cigarettes Smoking Status Former smoker alcohol intake frequency holiday/special occasion Substance Use Type marijuana Meds Home Medications and Allergies Home Medications Medication Instructions Recorded Confirmed Type atorvastatin 40 mg tablet 40 mg PO DAILY 04/26/22 05/11/22 History insulin aspart U-100 100 unit/mL See Rx Instructions .Route .COMPLEX 04/26/22 05/11/22 History (3 mL) subcutaneous pen (Novolog FlexPen U-100 Insulin aspart) metoprolol succinate 100 mg 100 mg PO DAILY 04/26/22 05/11/22 History tablet,extended release 24 hr sitagliptin phosphate 50 mg tablet 50 mg PO DAILY 04/26/22 05/11/22 History (Januvia) tamsulosin 0.4 mg capsule 0.4 mg PO DAILY 04/26/22 05/11/22 History acetaminophen 325 mg tablet 975 mg PO Q8H PRN Pain, Mild (1-3) 04/28/22 05/11/22 Rx #30 tabs aspirin 81 mg tablet,delayed 81 mg PO DAILY 04/28/22 05/11/22 History release insulin glargine 100 unit/mL (3 26 unit SUBCUT BEDTIME 04/28/22 05/11/22 History mL) subcutaneous pen (Basaglar KwikPen U-100 Insulin) omeprazole 20 mg capsule,delayed 20 mg PO DAILY 04/28/22 05/11/22 History release Allergies Allergy/AdvReac Type Severity Reaction Status Date / Time NSAIDS (Non-Steroidal Allergy Verified 05/11/22 10:18 Anti-Inflamma Tetanus Vaccines and Toxoid Allergy Verified 05/11/22 10:18 Review of Systems Review of Systems Narrative: All 12 point systems reviewed with the patient and are negative except otherwise documented. Accuracy questionable due to global encephalopathy. Exam Vital Signs (past 8 hours): - 06/21/22 20:41 06/21/22 20:44 06/21/22 20:45 Temperature 102.8 F H Pulse Rate 91 H 98 H 98 H Respiratory Rate 22 15 Blood Pressure 101/57 L Pulse Oximetry 96 96 97 Oxygen Delivery Method Room Air 06/21/22 20:45 06/21/22 21:00 06/21/22 21:00 Temperature Pulse Rate 92 H Respiratory Rate 22 Blood Pressure 100/56 L 123/64 Pulse Oximetry 95 Oxygen Delivery Method 06/21/22 21:15 06/21/22 21:15 06/21/22 21:30 Temperature Pulse Rate 92 H Respiratory Rate 19 Blood Pressure 110/58 L 111/55 L Pulse Oximetry 96 Oxygen Delivery Method 06/21/22 21:30 06/21/22 21:55 06/21/22 21:55 Temperature Pulse Rate 91 H 93 H Respiratory Rate 18 18 Blood Pressure 139/63 Pulse Oximetry 96 96 Oxygen Delivery Method 06/21/22 22:00 06/21/22 22:00 06/21/22 22:15 Temperature Pulse Rate 92 H 91 H Respiratory Rate 16 16 Blood Pressure 128/55 L Pulse Oximetry 96 96 Oxygen Delivery Method 06/21/22 22:15 06/21/22 22:30 06/21/22 22:30 Temperature Pulse Rate 93 H Respiratory Rate 12 Blood Pressure 121/58 L 121/62 Pulse Oximetry 96 Oxygen Delivery Method 06/21/22 22:45 06/21/22 22:45 06/21/22 23:00 Temperature Pulse Rate 94 H Respiratory Rate 8 L Blood Pressure 119/61 134/64 Pulse Oximetry 96 Oxygen Delivery Method 06/21/22 23:00 06/21/22 23:15 06/21/22 23:15 Temperature Pulse Rate 96 H 95 H Respiratory Rate 15 23 Blood Pressure 115/57 L Pulse Oximetry 97 97 Oxygen Delivery Method Oxygen Delivery Method Room Air Narrative Exam Narrative: General: Patient is a thin, frail appearing elderly male, mildly confused in no distress at this time. HEENT: Normocephalic, atraumatic, extraocular muscles intact, oral pharynx is clear and mucous membranes are dry. Neck is supple and symmetric, trachea is midline, no adenopathy, no thyroid enlargement, nontender, no masses palpated. Negative for JVD Chest: Breathing without nasal flaring, retractions, labored, mildly tachypneic Lungs: all lung rossi are clear without adventitious sounds, wheezes, rhonchi, or rales. Cardio: regular rate and rhythm without murmur, rubs, or gallops, no carotid bruit, no cardiac pulsations present. Abdomen: Soft generalized diffuse tenderness with deep palpation, negative for organomegaly, or masses. Bowel sounds are hypoactive present in all 4 quadrants without guarding or rebound, no CVA tenderness. Musculoskeletal: Muscle strength and tone are equal, noted wasting, no deformity, crepitus, effusions, cyanosis, clubbing or edema present. Full range of motion intact radial and pedal pulses are normal. Skin: Very Warm dry and intact without rashes, ulcerations or petechiae. Neuro: GCS:14 -mild confusion, Alert and orientated x3, moves all extremities, sensation to touch intact, no gross deficits noted of cranial nerves. Psych: Patient has a appropriate affect, mental status attitude thought context and judgment appear slightly altered from base line. Objective Labs 06/21/22 20:34 06/21/22 20:34 Labs: Laboratory Results - last 24 hr 06/21/22 06/21/22 06/21/22 20:34 20:34 20:34 WBC 5.5 RBC 4.79 Hgb 14.7 Hct 43.0 MCV 89.8 MCH 30.7 MCHC 34.2 RDW 13.9 Plt Count 187 Neut % (Auto) 90.3 H Lymph % (Auto) 5.0 L Clarke % (Auto) 3.8 Eos % (Auto) 0.4 L Baso % (Auto) 0.5 Neut # (Auto) 5000 Lymph # (Auto) 300 L Clarke # (Auto) 200 Eos # (Auto) 0 Baso # (Auto) 0 PT 11.8 INR 1.0 APTT 31 Sodium 131 L Potassium 3.7 Chloride 92 L Carbon Dioxide 33 H BUN 11 Creatinine 0.52 L Estimated GFR > 60 BUN/Creatinine Ratio 21.2 Glucose 152 H Lactate Calcium 9.2 Total Bilirubin 2.7 H AST 1394 H ALT 894 H Alkaline Phosphatase 330 H Ammonia Total Creatine Kinase 26 L CK-MB (CK-2) TNP CK-MB (CK-2) Rel Index TNP Troponin I 0.067 H Total Protein 7.7 Albumin 4.4 Globulin 3.3 Albumin/Globulin Ratio 1.3 Procalcitonin 0.32 TSH Urine Color Urine Appearance Urine pH Ur Specific [place] Urine Protein Urine Glucose (UA) Urine Ketones Urine Occult Blood Urine Nitrate Urine Bilirubin Urine Urobilinogen Ur Leukocyte Esterase Urine RBC Urine WBC Urine Bacteria Micro UA Comment Salicylates < 1.0 U Opiates 300ng/mL cut Ur Oxycodone Screen Urine Methadone Screen Acetaminophen < 10 Ur Barbiturates Screen U Tricyclic Antidepress Ur Phencyclidine Scrn Ur Amphetamines Screen U Methamphetamines Scrn Ur MDMA Scrn (Ecstasy) U Benzodiazepines Scrn Urine Cocaine Screen U Marijuana (THC) Screen Ethyl Alcohol < 10 06/21/22 06/21/22 06/21/22 20:34 20:34 21:35 WBC RBC Hgb Hct MCV MCH MCHC RDW Plt Count Neut % (Auto) Lymph % (Auto) Clarke % (Auto) Eos % (Auto) Baso % (Auto) Neut # (Auto) Lymph # (Auto) Clarke # (Auto) Eos # (Auto) Baso # (Auto) PT INR APTT Sodium Potassium Chloride Carbon Dioxide BUN Creatinine Estimated GFR BUN/Creatinine Ratio Glucose Lactate 2.9 H Calcium Total Bilirubin AST ALT Alkaline Phosphatase Ammonia < 9 L Total Creatine Kinase CK-MB (CK-2) CK-MB (CK-2) Rel Index Troponin I Total Protein Albumin Globulin Albumin/Globulin Ratio Procalcitonin TSH 0.820 Urine Color Urine Appearance Urine pH Ur Specific [place] Urine Protein Urine Glucose (UA) Urine Ketones Urine Occult Blood Urine Nitrate Urine Bilirubin Urine Urobilinogen Ur Leukocyte Esterase Urine RBC Urine WBC Urine Bacteria Micro UA Comment Salicylates U Opiates 300ng/mL cut Ur Oxycodone Screen Urine Methadone Screen Acetaminophen Ur Barbiturates Screen U Tricyclic Antidepress Ur Phencyclidine Scrn Ur Amphetamines Screen U Methamphetamines Scrn Ur MDMA Scrn (Ecstasy) U Benzodiazepines Scrn Urine Cocaine Screen U Marijuana (THC) Screen Ethyl Alcohol 06/21/22 06/21/22 06/21/22 23:45 23:45 23:59 WBC RBC Hgb Hct MCV MCH MCHC RDW Plt Count Neut % (Auto) Lymph % (Auto) Clarke % (Auto) Eos % (Auto) Baso % (Auto) Neut # (Auto) Lymph # (Auto) Clarke # (Auto) Eos # (Auto) Baso # (Auto) PT INR APTT Sodium Potassium Chloride Carbon Dioxide BUN Creatinine Estimated GFR BUN/Creatinine Ratio Glucose Lactate 1.7 Calcium Total Bilirubin AST ALT Alkaline Phosphatase Ammonia Total Creatine Kinase CK-MB (CK-2) CK-MB (CK-2) Rel Index Troponin I Total Protein Albumin Globulin Albumin/Globulin Ratio Procalcitonin TSH Urine Color Yellow Urine Appearance Clear Urine pH 7.0 Ur Specific [place] <=1.005 Urine Protein Negative Urine Glucose (UA) Negative Urine Ketones Negative Urine Occult Blood Negative Urine Nitrate Negative Urine Bilirubin Negative Urine Urobilinogen 1.0 Ur Leukocyte Esterase Negative Urine RBC None seen Urine WBC None seen Urine Bacteria None seen Micro UA Comment * Salicylates U Opiates 300ng/mL cut Negative Ur Oxycodone Screen Negative Urine Methadone Screen Negative Acetaminophen Ur Barbiturates Screen Negative U Tricyclic Antidepress Negative Ur Phencyclidine Scrn Negative Ur Amphetamines Screen Negative U Methamphetamines Scrn Negative Ur MDMA Scrn (Ecstasy) Negative U Benzodiazepines Scrn Negative Urine Cocaine Screen Negative U Marijuana (THC) Screen Negative Ethyl Alcohol Assessment & Plan Assessment & Plan narrative: Lev Fernandez is a 71-year-old male with a medical history of CAD s/p JEANNINE x3, hypertension, hyperlipidemia, IDDM, BPH, recurrent falls, malnutrition, and a recent history 04/27/2022 of lap bakari. Patient presented to the ED from an SNF altered over the day following a ground level fall which was not witnessed, patient is altered GCS14, and endorses generalized pain all over, rigors, increasing weakness with a presenting fever 102.8. Patient admitted to acute care with sepsis without shock, ground level fall, transaminitis, lactic acidosis, fever, with global encephalopathy of unknown etiology. Patient will require IV hydration, IV antibiotics monitoring evaluation of transaminitis, sepsis, and encephalopathy, right upper quadrant abdominal ultrasound tomorrow, and evaluation by PT OT regarding falls. 1. Sepsis without shock, with fever, lactic acidosis, global encephalopathy, acute, present on admission -unknown etiology, metabolic, sofa score: 3, possible hepatic encephalopathy -ED temp 102.8?, BP 101/57, 91, 22, 96% on room air. -admit temp continues 102.8, BP 115/57, 95, 23, O2 sat 97% on room air. -no white count or left shift, sodium 131, Cl 92, bicarb 33, creatinine 0.52, glucose 152. Bili 2.7, GCS 14. -procalcitonin, salicylates, acetaminophen, ETOH, UA, CXR, tox, and ammonia are all negative, lactate 2.9. -fluid bolus given in ED with Zosyn -continue Zosyn q.6 hours, D5 NS at 100cc/HR-appears hypovolemic -NPO overnight (except meds & ice chips as tolerated) if no nausea or vomiting advance with clear liquids in a.m. -monitor for shock, inflammatory markers, variceal hemorrhage, ascites, ischemic hepatitis (hypoxic hepatitis/shock liver), hepatocellular carcinoma, hepatic renal syndrome, renal failure associated with possible underlying liver diseases. 2. Transaminitis, hepatocellular, acute on chronic -R factor hepatocellular, ABIC: 8.27 intermediate risk. -Bili 2.7, AST 1394, ALT 894, alk-phos 330, TSH 0.820 CK 26, -CT of chest abdomen pelvis demonstrate?Mild segmental wall thickening in the sigmoid colon may reflect a mild colitis. -On last admit 04/26/2022: - LFT's noted to be 326 AST and 436 ALT on admission -04/26/2022: Abd US with normal liver and thickened gallbladder wall suggestive of acute cholecystitis, however pt denies abd pain -lap bakari 04/27/2022- WBC 13 and procal 0.83,-hepatitis panel negative -trend LFT's -avoid hepatotoxic agents -pending respiratory panel, LDH, GGT, lipase, triglycerides,MRSA -alk-phos 330, GGT 267: Right upper quadrant ultrasound ordered -strict I&O 3. Myocardial injury as evidenced by elevated troponin likely demand, acute, present on admission -troponin 0.067 trend x3 4. Ground level fall, unwitnessed, hx of recurrent falls, acute, present on admission -head CT negative, CXR negative -PT OT consult ordered -strict fall precaution 5. Hyponatremia, acute on chronic, present on admission -Na 131 on admit-D5 NS at 80 cc/HR -04/26/2022 Na 127 on admission -IVF and monitor -if sodium decreases will fluid restrict due to likely SIADH 6. IDDM, with hyperlipidemia, acute on chronic, present on admission -continue home lantus at 26u nightly with SSI -Hold lipitor due to LFTs -check A1c 7. HTN, essential, chronic, present on admission -continue metoprolol 8. chronic pain, present on admission -pain management continue 9. BPH, chronic, present on admission Continue tamsulosin -monitor for urinary retention 10. Malnutrition, mild, acute on chronic, present on admission -as evidence by BMI 21.4 -patient's malnutrition places them at high risk for medical and surgical complications in relation to acute illness/chronic illness. This increases the difficulty in complexity of medical management and increases the chances poor outcomes such as mortality and morbidity as well as impaired wound healing, and immune suppression. -dietary consult ordered to evaluate and implement steps to improve caloric intake and nutrition. Code status:Full Surrogate decision maker: Brother Doc MCCRARY PCR:Negative DVT/VTE prophylaxis: Lovenox and SCD Disposition: Patient admitted to acute care for evaluation sepsis, fever lactic acidosis transaminitis and global encephalopathy, ground level fall, expected length of stay greater than 2 midnights. I have utilized all available immediate resources to obtain, update, or review the patient's current medications. I confirmed that the patient's advanced care plan is present, Code status is documented and/or surrogate decision maker is listed in the patient's medical record. I have personally reviewed patient's chart notes from PCP, specialists, diagnostic imaging, and laboratory results. Time Spent With Patient Critical Care time: I spent a total of [] minutes of critical care time on this patient's care today; this time is exclusive of procedural time.
[2022-06-22 02:09] LABS: Lipase 70 U/L (23-300); Magnesium 1.5 mg/dL (1.6-2.3)
[2022-06-22 02:14] LABS: Gamma Glutamyl Transpeptidase 267 U/L (15-73)
[2022-06-22 02:17] LABS: C-Reactive Protein Quant 1.6 mg/dL (<1.0); Triglycerides 100 mg/dL (35-150)
[2022-06-22] MEDS: DEXTROSE 5%-0.9% NS 1,000 ML 80 ML IV (02:18)
[2022-06-22 02:21] LABS: Lactate Dehydrogenase 904 U/L (120-246)
[2022-06-22 02:26] LABS: Adenovirus Not Detected (Not Detect); B. parapertussis Not Detected (Not Detecte); Bordetella pertussis Not Detected (Not Detecte); Chlamydophila pneumoniae Not Detected (Not Detect); Coronavirus 229E Not Detected (Not Detect); Coronavirus HKU1 Not Detected (Not Detect); Coronavirus NL 63 Not Detected (Not Detect); Coronavirus OC43 Not Detected (Not Detect); Human Metapneumovirus Not Detected (Not Detect); Human Rhinovirus/Enterovirus Not Detected (Not Detect); Influenza A Not Detected (Not Detect); Influenza B Not Detected (Not Detect); Mycoplasma pneumoniae Not Detected (Not Detect); Parainfluenza Virus 1 Not Detected (Not Detect); Parainfluenza Virus 2 Not Detected (Not Detect); Parainfluenza Virus 3 Not Detected (Not Detect); Parainfluenza Virus 4 Not Detected (Not Detect); Respiratory Syncytial Virus Not Detected (Not Detect); SARS- CoV-2 Not Detected (Not Detecte)
[2022-06-22] MEDS: PIPERACILLIN/TAZO 3.375 GM in SODIUM CHLORIDE 0.9% 100 ML IV ×3 (03:35→19:01)
[2022-06-22 03:53] LABS: MRSA (Nasal) PCR Not Detected (Not Detect)
[2022-06-22] MEDS: MAGNESIUM SULFATE 2 GM/50 ML PIGGYBACK IV (04:20)
[2022-06-22 05:18] LABS: Alanine Aminotransferase 659 IU/L (<50); Albumin 3.4 g/dL (3.5-5.0); Albumin Globulin Ratio 1.3 (1.0-2.8); Alkaline Phosphatase 219 U/L (38-126); Aspartate Aminotransferase 557 IU/L (17-59); BUN Creatinine Ratio 23.9 (6-22); Bilirubin Total 1.7 mg/dL (0.2-1.3); Blood Urea Nitrogen 11 mg/dL (9-20); Calcium 8.2 mg/dL (8.4-10.2); Carbon Dioxide 25 mmol/L (22-32); Chloride 98 mmol/L (98-107); Estimated Glomerular Filt Rate > 60 mL/min (>60); Globulin 2.6 g/dL (1.7-4.1); Glucose 140 mg/dL (80-110); HEMOLYSIS 27 (0-50); Potassium 3.4 mmol/L (3.4-5.1); Sodium 130 mmol/L (137-145)
[2022-06-22 05:53] LABS: Troponin I 0.292 ng/mL (0.01-0.034)
[2022-06-22 06:22] LABS: Add Manual Diff / Slide Review NO; Basophils Absolute Auto 0 /uL (0-100); Basophils Percent Auto 0.3 % (0-2); Eosinophils Absolute Auto 0 /uL (0-450); Eosinophils Percent Auto 0.1 % (2-4); Hemoglobin 12.8 g/dL (13.5-17.5); Lymphocytes Absolute Auto 500 /uL (1100-4500); Lymphocytes Percent Auto 4.4 % (25-40); Mean Corpuscular HGB Conc 34.6 % (30-36); Mean Corpuscular Hemoglobin 30.8 PG (26-34); Mean Corpuscular Volume 89.1 fL (80-100); Monocytes Absolute Auto 1000 /uL (0-900); Monocytes Percent Auto 8.5 % (3-14); Neutrophils Absolute Auto 9700 /uL (1500-7000); Neutrophils Percent Auto 86.7 % (50-75); Platelet Count 160 X10^3/uL (150-400); Red Blood Cell Count 4.15 X10^6/uL (4.5-5.9); Red Cell Distribution Width 13.7 % (11.6-14.8); White Blood Cell Count 11.2 X10^3/uL (4.5-11.0)
[2022-06-22 06:29] LABS: INR 1.4 (0.9-1.3); Prothrombin Time 15.6 SECONDS (10.1-12.7)
[2022-06-22] MEDS: PANTOPRAZOLE DR 20 MG TABLET PO (06:30)
[2022-06-22 06:46] LABS: Magnesium 1.8 mg/dL (1.6-2.3)
--- NOTE | 2022-06-22 06:52 | PC.NURSE ---
Hospitalist, Nakia Meier notified of bump in pts troponin. Pt denies CP, SOB, diaphoresis, N/V.
[2022-06-22 07:00] LABS: Hemoglobin A1C% w Est Avg Glu 6.3 % (4.0-6.0)
--- NOTE | 2022-06-22 08:02 | OT.IPNOTE ---
Pt troponin levels increased and at .292, hold OT eval.
--- NOTE | 2022-06-22 08:15 | PC.NURSE ---
This nurse cannot validate the accuracy of the vitals that were transferred to the chart from the monitor prior to 7am.
--- NOTE | 2022-06-22 09:05 | PT-IP ANOTE ---
Holding physical therapy evaluation. Troponins are increasing. Will follow up when pt more medically stable.
[2022-06-22] MEDS: INSULIN LISPRO 100 UNIT/ML 3ML VIAL SUBCUT ×2 (09:19→13:07)
[2022-06-22] MEDS: ENOXAPARIN 40 MG/0.4 ML SYRINGE SUBCUT (09:20)
[2022-06-22] MEDS: TAMSULOSIN 0.4 MG CAPSULE PO (09:37)
[2022-06-22] MEDS: METOPROLOL ER 50 MG TABLET PO (09:38)
--- NOTE | 2022-06-22 09:54 | PC.NURSE ---
I called and spoke with the hospitalist Caroline as patient's BP's have been lower this morning between 105-120 systolic. She gave me a verbal order to give 50mg metoprolol ER instead of the 100mg dose. ordered changed.
--- NOTE | 2022-06-22 11:26 | CM.DANOTE ---
Addendum entered by STAR Kitchen 06/22/22 13:33: ADD: SW received a call back from [facility] and provided update and potential that pt will improve in the next 1-2 days for discharge over the weekend and Whit confirms they cannot accept return pts over the weekend although SW discussed if no medical need to remain in the hospital there might not be justification for keeping pt admitted and she acknowledged understanding but states they do not have RN to accept admission back on the w/e. BF Addendum entered by STAR Kitchen 06/22/22 11:45: ADD: ABBY called medicaid transportation and confirmed pt has transportation benefits in case pt ready for d/c over the weekend and [facility] unable to provide transport. Brother/DPOA Doc also confirmed pt has no hx of SNF. BF Original Note: Patient is a 71 yo male who was admitted on 06/22/22 for GLF/Confusion. Pt has [employer] [facility] and [facility] and his PCP is [facility] provider. EMR was reviewed. Per MD, pt with GLF and sepsis with encephalopathy and to get IV-Abx and fluids. PT/OT pending due to trops/bp issues. Pt's last admission was in Apr 2022 this year for Richie Duenas and discharged back to [facility]. SW met bedside with pt and explained role and he confirms he lives at [facility] and thought he has only been there a couple weeks but he moved in a couple months ago the end of last year. Pt confirms he typically ambulates with FWW independently at [facility] and manages most of his own ADLs but they assist with meals and meds and transport. Pt confirms his brother Doc in [place] is his DPOA and states he's the only local family that matters. Pt agreeable with getting brother on the phone with update and to talk to pt. SW called Doc and explained role and his got on speaker phone as she is a retired RN and provide update and they confirm [facility] informed them of pt's ED visit and admission. They state pt has a son who lives in [place] who talks to pt via phone regularly. Pt has some mild cognitive impairment at baseline with slight forgetfulness at times. SW discussed process of PT/OT eval and recommendations and coordination with [facility] to confirm pt can return to [facility] at d/c and then if SNF recommended, SW would need to confirm which SNFs accept [facility] H[facility] and then get insurance auth. Pt and family hopeful pt can return to [facility] at d/c. SW called [facility] and left msg with RN station/phone and faxed initial clinicals to review. Plan: SW to follow for PT/OT eval and recommendations towards determining return to [facility] vs potential for SNF pending progress. STAR Kitchen Discharge Planning/Care Management CM Discharge Assessment Start: 06/22/22 11:23 Freq: Status: Active Protocol: Document 06/22/22 11:23 BF (Rec: 06/22/22 11:26 BF [id number]) Discharge Planning Assessment Assigned Horologist STAR Juan DPOA/Assigned Designee Name brother Doc Contact Information [phone] Advance Directives? No Advance Directives on File No History Provided By Patient,Family Member,Medical Record Has Patient been admitted in last 30 No days? Comment last admit in Apr 2022 for Lap Yulissa and return to [facility] Prior Living Arrangements Assisted Living Household Members none Type of transporation used prior to Relies on Others admit Facility Name Admitted From: [facility] Willing to Return to Facility? Yes Independent with ADL's Yes: mostly Is patient alert and oriented? Yes: mostly, some forgetfulness Needs Assistance With Meal Prep,Managing Medications ,Home Chores / Shopping Caregiver for Another No DME Already Rented / Owned FWW / Walker Patient/Family Preference Home with Home Health Comment Return to [facility] with HH vs SNF pending progress Barriers to Discharge Yes Comment Getting in touch with [facility] on the weekend to picker and packer patients Discharge Plan Assisted Living Facility Transportation Arrangement Facility or Medicaid transport . Additional Comment Pending PT eval and recommendations Whiteboard Updated in Patient Room with Yes name and ext. # of Horologist Review Status In Process Please Provide Date Initial DC 06/22/22 Assessment Was Performed Next Review Type Continued Stay Review
[2022-06-22] MEDS: POTASSIUM CHLORIDE 20 MEQ TAB 40 MEQ PO (12:24)
[2022-06-22 12:52] LABS: Acinetobacter baumannii Not Detected (Not Detect); Candida albicans Not Detected (Not Detect); Candida glabrata Not Detected (Not Detect); Candida krusei Not Detected (Not Detect); Candida parapsilosis Not Detected (Not Detect); E. coli Not Detected (Not Detect); Enterobacter cloacae complex Not Detected (Not Detect); Enterobacteriaceae species Detected (Not Detect); Enterococcus species Not Detected (Not Detect); Haemophilus influenzae Not Detected (Not Detect); KPC (carbapenem-resist gene) Not Detected (Not Detect); Listeria monocytogenes Not Detected (Not Detect); Methicillin-resistant gene Not Detected (Not Detect); Neisseria meningitidis Not Detected (Not Detect); Proteus species Not Detected (Not Detect); Pseudomonas aeruginosa Not Detected (Not Detect); Serratia marcescens Not Detected (Not Detect); Staphylococcus species Not Detected (Not Detect); Streptococcus agalactiae (Gr B Not Detected (Not Detect); Streptococcus pneumonia Not Detected (Not Detect); Streptococcus pyogenes (Gr A) Not Detected (Not Detect); Streptococcus species Not Detected (Not Detect)
[2022-06-22 12:53] LABS: Candida tropicalis Not Detected (Not Detect)
[2022-06-22] MEDS: OXYCODONE IR 5 MG TABLET 10 MG PO ×2 (13:05→22:05)
[2022-06-22] MEDS: DEXTROSE 5%-0.9% NS 1,000 ML 100 ML IV (15:17)
--- NOTE | 2022-06-22 15:24 | PC.NURSE ---
Pt arrived from ED at approximately 1045 this a.m. VSS, low grade temp 99.1. He is A&OX2, initially he pulled out x2 PIV's. Explained to patient need for intravenous medications and he states Ok. I'll leave these in. He denies CP, SOB, dizziness. He c/o back pain this afternoon 11/22 and reports pain is well controlled with prn oxycodone 10 mg this afternoon. He is passing gas and able to stand and ambulate with slightly unsteady gait to BR to void. He is tolerating jello well denying sara n/v or abdominal pain.+ flatulence. K+replacement po administered as well as IV zosyn antibiotic. +BCX results reported to Hospitalist. No new orders as patient is receiving antibiotics. Continuous monitoring. BG ACHS,
--- NOTE | 2022-06-22 15:31 | DIET.CONS ---
Addendum entered by Leslie Vera 06/22/22 16:07: Will monitor PO, ONS, and diet adv Original Note: Dietary Consultation Note Admission Date: 06/22/2022 03:55 Assessment: 71 y/o M admitted for sepsis without shock, GLF, transaminitis, lactic acidosis, and global encephalopathy. This RD saw Lev last admission in April. He was then diagnosed with malnutrition mostly r/t food insecurity. Some improvement in wt from 65 to 68kg in that time. Pt has been at a SNF prior to this admission. Due to his altered cognition, he was unable to report recent food intake reliably. Has PMH of T2DM, malnutrition, and lap bakari. BMI low for age <23 (moderate) NFPE: significant scooping of temples, prominent acromion process and boxed shoulders. Current diet is clears. May benefit from advancement of diet to meet nutrient needs. Ht: 175.26 cm Wt: 68 kg BMI: 22.1 Last BM: 06/22/22 (06/22/22 11:11) MNA: 9 Quentin Score: 19 Diet: 06/22/22 01:37 NPO Diet Diet Modifications: except for ice chips & medsOvernightmayadvanceinAM May Advance Diet as Tolerated: Yes NPO Type: NPO except for Meds 06/22/22 Breakfast Clear Liquid Diet Diet Modifications: Labs: RBC 4.15 X10^6/uL (4.5-5.9) L 06/22/22 05:35 Hgb 12.8 g/dL (13.5-17.5) L 06/22/22 05:35 Hct 37.0 % (41-53) L 06/22/22 05:35 Creatinine 0.46 mg/dL (0.66-1.25) L 06/22/22 04:59 Hemoglobin A1c 6.3 % (4.0-6.0) H 06/21/22 20:34 Lactate 1.7 mmol/L (0.7-2.1) 06/21/22 23:59 Nutrition Diagnosis: Chronic moderate protein calorie malnutrition r/t predicated inadequate PO and h/o food insecurity aeb pt report last admission of limited access to food, moderately low BMI for age (<23) and significant muscle/fat wasting indicated by prominent acromion process, boxed shoulders, and temporal scooping. -The patient is at much higher risk for medical and surgical complications because of his malnutrition. This increases the difficulty and complexity of medical and surgical interventions and increases the chances of poor outcomes such as morbidity and mortality. Interventions: 1. While on clears will send appropriate ONS TID 2. After advancement, rec regular ONS BID EER: 1700-1900kcals (25-28kcal/kg per BMI) 88-102g PRO (1.3-1.5g/kg per malnutrition) Monitoring/Evaluations: Electronically Signed by: Leslie Vera 06/22/22 15:31 Clinical Dietitian [address] [address]
--- NOTE | 2022-06-22 17:16 | PM.EVENT ---
Event Note Event Note (Rapid Response, Code, or fall): Patient had blood cultures positive for Gram-negative bacilli in 3/[address] revealed some evidence for sigmoid colitis. It is possible that he has had translocation of the gut as the etiology for his bacteremia. Right upper quadrant ultrasound was negative. Does have significant transaminitis which raises concern for acute hepatitis, but LFTs are already improving. He has no evidence of an obstructive process. No biliary ductal dilatation. No evidence for cholangitis. Continue Zosyn therapy. Plan to recheck blood cultures in the morning. He is now afebrile w/stable vital signs.
[2022-06-22] MEDS: INSULIN GLARGINE 100 UNIT/ML 3ML PEN 26 UNIT SUBCUT (21:07)
[2022-06-23] VITALS (11 sets, daily range): BP systolic 115–148; BP diastolic 69–79; PULSE 68–80; RESP 17–20; TEMP 36.5–37.4; O2SAT 97–99
[2022-06-23] MEDS: OXYCODONE IR 5 MG TABLET 10 MG PO ×3 (02:24→20:53)
[2022-06-23] MEDS: PIPERACILLIN/TAZO 3.375 GM in SODIUM CHLORIDE 0.9% 100 ML IV ×3 (02:24→19:44)
[2022-06-23] MEDS: DEXTROSE 5%-0.9% NS 1,000 ML 100 ML IV (02:25)
[2022-06-23 04:32] LABS: Add Manual Diff / Slide Review NO; Basophils Absolute Auto 0 /uL (0-100); Basophils Percent Auto 0.6 % (0-2); Eosinophils Absolute Auto 200 /uL (0-450); Eosinophils Percent Auto 2.6 % (2-4); Hematocrit 35.1 % (41-53); Hemoglobin 12.4 g/dL (13.5-17.5); Lymphocytes Absolute Auto 700 /uL (1100-4500); Mean Corpuscular HGB Conc 35.2 % (30-36); Mean Corpuscular Hemoglobin 31.3 PG (26-34); Monocytes Absolute Auto 600 /uL (0-900); Monocytes Percent Auto 8.9 % (3-14); Neutrophils Absolute Auto 5200 /uL (1500-7000); Neutrophils Percent Auto 76.9 % (50-75); Platelet Count 143 X10^3/uL (150-400); Red Blood Cell Count 3.95 X10^6/uL (4.5-5.9); White Blood Cell Count 6.7 X10^3/uL (4.5-11.0)
[2022-06-23 04:33] LABS: Alanine Aminotransferase 382 IU/L (<50); Albumin 3.4 g/dL (3.5-5.0); Albumin Globulin Ratio 1.3 (1.0-2.8); Alkaline Phosphatase 166 U/L (38-126); Aspartate Aminotransferase 165 IU/L (17-59); BUN Creatinine Ratio 10.6 (6-22); Bilirubin Total 1.2 mg/dL (0.2-1.3); Blood Urea Nitrogen 5 mg/dL (9-20); Calcium 8.3 mg/dL (8.4-10.2); Carbon Dioxide 31 mmol/L (22-32); Chloride 99 mmol/L (98-107); Estimated Glomerular Filt Rate > 60 mL/min (>60); Globulin 2.6 g/dL (1.7-4.1); Glucose 81 mg/dL (80-110); HEMOLYSIS < 15 (0-50); Potassium 3.7 mmol/L (3.4-5.1); Sodium 133 mmol/L (137-145)
[2022-06-23 04:48] LABS: Troponin I 0.217 ng/mL (0.01-0.034)
[2022-06-23] MEDS: PANTOPRAZOLE DR 20 MG TABLET PO (06:49)
[2022-06-23] MEDS: ENOXAPARIN 40 MG/0.4 ML SYRINGE SUBCUT (08:06)
[2022-06-23] MEDS: TAMSULOSIN 0.4 MG CAPSULE PO (08:07)
[2022-06-23] MEDS: METOPROLOL ER 50 MG TABLET 100 MG PO (08:07)
[2022-06-23] MEDS: INSULIN LISPRO 100 UNIT/ML 3ML VIAL SUBCUT ×2 (08:10→12:27)
--- NOTE | 2022-06-23 11:13 | PT-IP ANOTE ---
Patient refused physical therapy evaluation at this time. He reports he was able to walk to the bathroom with nursing earlier today and he is too tired to get up again. Assisted pt to reposition in bed for comfort. Will continue to follow for evaluation when he is ready to participate.
--- NOTE | 2022-06-23 11:29 | OT.IPNOTE ---
Pt states too tired at this time to do OT eval. Pt states wants to go back home and not go to SNF, but open to home health if needed.
--- NOTE | 2022-06-23 14:52 | CM.DPNOTE ---
Discharge Planning Note: 71 year old patient resting in bed, slightly confused, weak, poor memory. Positive blood cultures. has a brother Doc who lives in [place]. Patient resides at [facility] in [facility] he has been there since the Fall. Plan: Follow for needs. Call [facility] on Saturday for update. Buffy Chadwick RN/DCP
[2022-06-23] MEDS: ONDANSETRON 4 MG/2 ML INJ IV (17:02)
--- NOTE | 2022-06-23 17:57 | PM.PN.1 ---
Subjective Subjective Interval history: 71-year-old male with coronary artery disease status post drug-eluting stent placement x3, hypertension, hyperlipidemia, insulin-dependent diabetes mellitus type 2, BPH, recurrent falls, malnutrition, and recent laparoscopic cholecystectomy who was admitted with sepsis as evidenced by fever, lactic acidosis, encephalopathy, and transaminitis. Blood culture subsequently grew Gram-negative bacilli in 3/[address] also revealed evidence for sigmoid colitis. Is felt he likely has bacterial translocation of the gut as the etiology. Patient reports he does not feel as though he is significantly improved today. Continues to have abdominal pain both in the left lower quadrant and right lower quadrant. He is a somewhat vague historian. He initially tells me he does not know if he has lost weight. However he then tells me his baseline weight a year ago was 260 lb and more recently he has been weighing 130 lb. He then tells me his weight was 260 lb 2 years ago. He reports he was not making any specific effort to lose weight. Exam Vital Signs (past 8 hours): - 06/23/22 13:00 06/23/22 14:00 06/23/22 17:00 Temperature 97.7 F Pulse Rate 74 Respiratory Rate 17 Blood Pressure 119/69 Pulse Oximetry 97 98 99 Oxygen Delivery Method Room Air Room Air Oxygen Flow Rate 0 Oxygen Delivery Method Room Air Oxygen Flow Rate 0 Narrative Exam Narrative: GEN: Frail elderly male, Alert and oriented x 3, NAD HEENT:NC, Face symmetric CHEST: Respiratory excursions symmetric, CTAB CV: RRR, no M/R/G ABD: Soft, mild tenderness in both the left and right lower quadrants, ND, BT present in all 4 quadrants, no organomegaly or masses EXTR: warm, well perfused, no C/C/E SKIN: warm and dry, no rash NEURO: Alert and oriented x 3, nonfocal Objective Labs 06/23/22 04:05 06/23/22 04:05 Labs: Laboratory Results - last 24 hr 06/23/22 06/23/22 06/23/22 04:05 04:05 04:05 WBC 6.7 RBC 3.95 L Hgb 12.4 L Hct 35.1 L MCV 89.0 MCH 31.3 MCHC 35.2 RDW 14.0 Plt Count 143 L Neut % (Auto) 76.9 H Lymph % (Auto) 11.0 L [place] % (Auto) 8.9 Eos % (Auto) 2.6 Baso % (Auto) 0.6 Neut # (Auto) 5200 Lymph # (Auto) 700 L [place] # (Auto) 600 Eos # (Auto) 200 Baso # (Auto) 0 Sodium 133 L Potassium 3.7 Chloride 99 Carbon Dioxide 31 BUN 5 L Creatinine 0.47 L Estimated GFR > 60 BUN/Creatinine Ratio 10.6 Glucose 81 Calcium 8.3 L Total Bilirubin 1.2 AST 165 H ALT 382 H Alkaline Phosphatase 166 H Troponin I 0.217 H* Total Protein 6.0 L Albumin 3.4 L Globulin 2.6 Albumin/Globulin Ratio 1.3 PFSH Medical History (Updated 06/22/22 @ 02:12 by TEA Jimenez) BPH (benign prostatic hyperplasia) CAD (coronary artery disease) of bypass graft Chronic pain Essential hypertension GERD (gastroesophageal reflux disease) Malnutrition of mild degree Recurrent falls Type 2 diabetes mellitus with hyperlipidemia Surgical History (Updated 06/22/22 @ 02:12 by TEA Jimenez) History of cholecystectomy Family History (Updated 06/22/22 @ 02:13 by TEA Jimenez) Father No problems noted. Mother No problems noted. Social History household members: none Smoking Status: Former smoker alcohol intake: current Assessment & Plan Assessment & Plan narrative: 1. Gram-negative sepsis, likely secondary to bacterial translocation of the gut from colitis Blood cultures were drawn on admission and 3/4 bottles are positive for Gram-negative bacilli. Speciation is presently pending. Suspected etiology is bacterial translocation from the gut at the site of colitis. Continue Zosyn therapy. Await further culture results. 2. Transaminitis Suspect this is related to sepsis. LFTs are significantly improved from admission. On the his AST was 1394, down to 557 yesterday and 165 today. ALT was 894 on admission, down to 659 yesterday and 382 today. Alkaline phosphatase was 330 on admission 219 yesterday and 166 today. 3. Acute myocardial injury Initial troponin was 0.067. It peaked at 0.292 and has since come down 2.2 1 7. He had no ischemic symptoms. Suspect it was secondary to sepsis physiology. 4. Ground level fall, unwitnessed in the setting of recurrent falls Patient declined to participate in therapies today. Await further evaluation and recommendation. 5. Hyponatremia, acute on chronic Sodium was 131 on admission, down to 130 yesterday. Up to 133 today. No specific intervention needed. 6. Diabetes mellitus type 2, insulin dependent Blood sugars have been well controlled in the 120s to 150s. Continue controlled carb diet and usual insulin dosing. 7. Hypertension Blood pressures have been normotensive. Continue usual metoprolol dosing. 8. Severe protein calorie malnutrition Patient reports unintentional weight loss of approximately 100 lb over the last 1-2 years. Will ensure he has a dietitian consult in place. 9. Hyperlipidemia Continue statin therapy. 10. Chronic pain syndrome Oxycodone is available as needed. 11. BPH Continue tamsulosin. Code status Full Prophylaxis Lovenox Disposition Likely return to assisted living facility at discharge. Time Spent With Patient Critical Care time: I spent a total of [] minutes of critical care time on this patient's care today; this time is exclusive of procedural time. Quality VTE Deep Vein Thrombosis/Pulmonary Embolism Present on Admission: No
[2022-06-23] MEDS: SENNOSIDES 8.6 MG TABLET 17.2 MG PO (20:53)
[2022-06-23] MEDS: INSULIN GLARGINE 100 UNIT/ML 3ML PEN 26 UNIT SUBCUT (20:57)
[2022-06-24] VITALS: BP 105/60; PULSE 67; RESP 19; TEMP 36.6; O2SAT 98
[2022-06-24] MEDS: PIPERACILLIN/TAZO 3.375 GM in SODIUM CHLORIDE 0.9% 100 ML IV ×3 (03:32→18:44)
[2022-06-24] MEDS: OXYCODONE IR 5 MG TABLET 10 MG PO ×2 (03:35→19:23)
[2022-06-24 04:00] VITALS: BP 129/75; PULSE 77; RESP 19; TEMP 36.4; O2SAT 97
[2022-06-24 04:53] LABS: Add Manual Diff / Slide Review NO; Basophils Absolute Auto 100 /uL (0-100); Eosinophils Absolute Auto 200 /uL (0-450); Eosinophils Percent Auto 2.6 % (2-4); Hemoglobin 13.3 g/dL (13.5-17.5); Lymphocytes Absolute Auto 1000 /uL (1100-4500); Lymphocytes Percent Auto 17.9 % (25-40); Mean Corpuscular Hemoglobin 30.9 PG (26-34); Mean Corpuscular Volume 88.4 fL (80-100); Monocytes Absolute Auto 700 /uL (0-900); Monocytes Percent Auto 11.9 % (3-14); Neutrophils Absolute Auto 3900 /uL (1500-7000); Neutrophils Percent Auto 66.6 % (50-75); Platelet Count 154 X10^3/uL (150-400); White Blood Cell Count 5.8 X10^3/uL (4.5-11.0)
[2022-06-24 05:13] LABS: Alanine Aminotransferase 253 IU/L (<50); Albumin 3.5 g/dL (3.5-5.0); Albumin Globulin Ratio 1.2 (1.0-2.8); Alkaline Phosphatase 158 U/L (38-126); Aspartate Aminotransferase 74 IU/L (17-59); BUN Creatinine Ratio 11.8 (6-22); Bilirubin Total 0.9 mg/dL (0.2-1.3); Blood Urea Nitrogen 6 mg/dL (9-20); Calcium 8.6 mg/dL (8.4-10.2); Carbon Dioxide 30 mmol/L (22-32); Chloride 97 mmol/L (98-107); Estimated Glomerular Filt Rate > 60 mL/min (>60); Globulin 2.9 g/dL (1.7-4.1); Glucose 72 mg/dL (80-110); HEMOLYSIS < 15 (0-50); Potassium 3.2 mmol/L (3.4-5.1); Sodium 133 mmol/L (137-145); Total Protein 6.4 g/dL (6.3-8.2)
[2022-06-24] MEDS: PANTOPRAZOLE DR 20 MG TABLET PO (05:38)
[2022-06-24 08:00] VITALS: BP 118/70; PULSE 78; RESP 14; TEMP 36.8; O2SAT 97
--- NOTE | 2022-06-24 09:00 | PT.IIE ---
Current Diagnoses Sepsis, unspecified organism (06/22/22) Surgical History (Last Updated 06/22/22 @ 02:12 [facility] History of cholecystectomy Medical History (Last Updated 06/22/22 @ 02:12 by Nakia Meier [facility]) BPH (benign prostatic hyperplasia) CAD (coronary artery disease) of bypass graft Chronic pain Essential hypertension GERD (gastroesophageal reflux disease) Malnutrition of mild degree Recurrent falls Type 2 diabetes mellitus with hyperlipidemia Physical Therapy Inpatient Evaluation/Re-Eval M1 PT/OT-IP Prior Functional Status Start: 06/23/22 10:59 Freq: NEEDED Status: Active Protocol: Document 06/24/22 08:43 DCW (Rec: 06/24/22 09:49 [facility] [id number]) Medical Review Prior Functional Status Medical History Reviewed Yes Diet/Fluid Consistency Regular Communication WNL Mobility and Gait FWW at baseline, occasional use of walking stick, but stick has recently been misplaced Activities of Daily Living and IADL's There is no normal, just depends how I feel, typically walking short distances within [facility] Social History Household Members none Living Arrangements Assisted Living Home Equipment Front Wheel Walker,Straight Cane M2 PT-IP Current Condition Start: 06/23/22 10:59 Freq: NEEDED Status: Active Protocol: Document 06/24/22 08:43 DCW (Rec: 06/24/22 09:49 DCW [id number]) Physical Therapy Current Condition Current Condition Evaluation Date 06/24/22 Treatment Diagnosis Fatigue, weakness Onset Date 06/22/22 M3 PT-IP Subjective Start: 06/23/22 10:59 Freq: NEEDED Status: Active Protocol: Document 06/24/22 08:43 DCW (Rec: 06/24/22 09:49 [facility] [id number]) Subjective Physical Therapy Visit Type Type Initial Evaluation Visit Start Time 08:43 Visit Stop Time 09:00 Total Visit Minutes 17 Notes Upon therapist entering room, pt had bed up in reclined position, but was lying in bed upside down, so that his feet were up in the raised head of the bed and was resting his head against the footboard. Notes he is willing to work with PT, but that he is much more fatigued that usual. 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 I never don't have pain . Therapy Pain Assessment Pain When Pain Assessed At Rest Pain Present Pain Present Pain Reported Location Generalized Intensity 6 M4 PT-IP Mobility and Gait Start: 06/23/22 10:59 Freq: NEEDED Status: Active Protocol: Document 06/24/22 08:43 DCW (Rec: 06/24/22 09:49 DCW [id number]) PT-Bed Mobility Assessment Rolling Level of Assist Independent Supine to Sit Supine to Sit Independent Sit to Supine Sit to Supine Independent Scooting Scooting to Edge of Bed Independent Scooting Up and Down in Bed Independent PT-Transfer Assessment Sit to and From Stand Sit to and from Stand Independent Equipment Transfer Assistive Device Gait Belt,Front Wheeled Walker Comments Mobility Comments Pt performs bed mobility and sit->stand transfers independently but very impulsively, not waiting for instruction or therapist readiness. Gait Assessment Gait Gait Assistance Required: Standby Assistance Distance (Feet) 25 Assistive Devices Assistive Device Gait Belt,Front Wheeled Walker Factors Limiting Gait Function Factors Limiting Gait Function Decreased Activity Tolerance, Decreased Strength,Difficulty Following Directions,Poor Safety Awareness Comments Gait Comments Pt ambulated 25' in room SBA / c FWW, reports he could have walked into kay, but was unwilling to wear a mask, so he turned around and plopped back down in bed. M5 PT-IP Objective Assessments Start: 06/23/22 10:59 Freq: NEEDED Status: Active Protocol: Document 06/24/22 08:43 DCW (Rec: 06/24/22 09:49 DC [id number]) Orientation Orientation/Cognition Level of Alertness Alert Orientation Name,Birthday,Month,Year,Place ,Situation Language Function Ability No Deficits Noted Safety Awareness Decreased Safety Awareness Memory Description No Deficits Noted Comments Impulsive Gross Range of Motion Lower Extremity ROM Assessment Within Functional Limits Strength Lower Extremity Strength Assessment Within Functional Limits M7 PT-IP Assessment and Plan Start: 06/23/22 10:59 Freq: NEEDED Status: Active Protocol: Document 06/24/22 08:43 DCW (Rec: 06/24/22 09:49 DCW [id number]) PT Summary Assessment and Plan Potential Rehabilitation Potential Good Status of Condition at Evaluation Stable Summary Impairments Balance,Activity Tolerance Assessment Summary Overall, pt a little difficult of a historian, but does feel that he is moving fairly similarly to baseline, although with decreased activity tolerance. After getting up and ambulating 25', pt did note increased fatigue , O2 sat measured at 97% after activity. Pt would likely benefit from in-patient therapy working on balance and improving activity tolerance, may have limited effect due to impulsivity. Pt will likely be able to return to [facility] upon discharge from hospital. Pt left in bed with call patino within reach. Goals Gait Goal Independent,Front Wheel Walker Gait Distance 100' Frequency of Treatment Frequency Of Treatment Once a Day Treatment Plan Physical Therapy Treatment Plan Gait Training,Therapeutic Exercise,Balance Retraining, Discharge Planning Other Recommendations and Next Treatment Increasing gait distance, Focus improving activity tolerance Recommendations To Nursing Amount of Assist Needed Standby Assistance Discharge Recommendations Other Discharge Recommendations Return to [facility]
[2022-06-24] MEDS: ASPIRIN EC 81 MG TABLET PO (09:48)
[2022-06-24] MEDS: METOPROLOL ER 50 MG TABLET 100 MG PO (09:48)
[2022-06-24] MEDS: TAMSULOSIN 0.4 MG CAPSULE PO (09:48)
[2022-06-24] MEDS: ENOXAPARIN 40 MG/0.4 ML SYRINGE SUBCUT (09:48)
[2022-06-24] MEDS: SITAGLIPTIN 50 MG TABLET PO (09:48)
--- NOTE | 2022-06-24 10:28 | PC.NURSE ---
Patients blood sugar 99, o insulin given. Patient took his meds whole with water and tolerated well. He denies pain. Worked with physical therapy and did well.
[2022-06-24] MEDS: POTASSIUM CHLORIDE 20 MEQ TAB 40 MEQ PO ×2 (10:47→20:53)
[2022-06-24 12:00] VITALS: BP 107/70; PULSE 75; RESP 14; TEMP 36.5; O2SAT 97
--- NOTE | 2022-06-24 13:38 | PM.PN.1 ---
Subjective Subjective Interval history: 71-year-old male with coronary artery disease status post drug-eluting stent placement x3, hypertension, hyperlipidemia, insulin-dependent diabetes mellitus type 2, BPH, recurrent falls, malnutrition, and recent laparoscopic cholecystectomy who was admitted with sepsis as evidenced by fever, lactic acidosis, acute metabolic encephalopathy, and transaminitis.? Blood culture subsequently grew Gram-negative bacilli in 3/4 bottles.? Abdominal CT also revealed evidence for sigmoid colitis.? Is felt he likely has bacterial translocation of the gut as the etiology. Patient states he is not sure if he is feeling better today. He had a bit of nausea this morning but feels it will get better with eating. He states his left lower quadrant pain has resolved. He remains somewhat of a vague historian. As noted yesterday, he reported losing 130 lb over the last 1-2 years. He describes it as being unintentional weight loss. He reports diminished appetite overall. Exam Vital Signs (past 8 hours): - 06/24/22 08:00 06/24/22 10:09 06/24/22 12:00 Temperature 98.3 F 97.7 F Pulse Rate 78 75 Respiratory Rate 14 14 Blood Pressure 118/70 107/70 Pulse Oximetry 97 97 Oxygen Delivery Method Room Air Oxygen Flow Rate 0 0 Oxygen Delivery Method Room Air Oxygen Flow Rate 0 Narrative Exam Narrative: GEN:? Frail elderly male, Alert and oriented x 3, NAD HEENT:NC, Face symmetric, bitemporal wasting CHEST: Respiratory excursions symmetric, CTAB CV: RRR, no M/R/G ABD: Soft, scaphoid abdomen, mild tenderness in the right lower quadrant, ND, BT present in all 4 quadrants, no organomegaly or masses EXTR: warm, thin with sarcopenia, well perfused, no C/C/E SKIN: warm and dry, no rash NEURO: Alert and oriented x 3, nonfocal Objective Labs 06/24/22 04:29 06/24/22 04:29 Labs: Laboratory Results - last 24 hr 06/24/22 06/24/22 04:29 04:29 WBC 5.8 RBC 4.30 L Hgb 13.3 L Hct 38.0 L MCV 88.4 MCH 30.9 MCHC 35.0 RDW 14.0 Plt Count 154 Neut % (Auto) 66.6 Lymph % (Auto) 17.9 L [place] % (Auto) 11.9 Eos % (Auto) 2.6 Baso % (Auto) 1.0 Neut # (Auto) 3900 Lymph # (Auto) 1000 L [place] # (Auto) 700 Eos # (Auto) 200 Baso # (Auto) 100 Sodium 133 L Potassium 3.2 L Chloride 97 L Carbon Dioxide 30 BUN 6 L Creatinine 0.51 L Estimated GFR > 60 BUN/Creatinine Ratio 11.8 Glucose 72 L Calcium 8.6 Total Bilirubin 0.9 AST 74 H ALT 253 H Alkaline Phosphatase 158 H Total Protein 6.4 Albumin 3.5 Globulin 2.9 Albumin/Globulin Ratio 1.2 [facility] Medical History (Updated 06/22/22 @ 02:12 by VON Jimenez) BPH (benign prostatic hyperplasia) CAD (coronary artery disease) of bypass graft Chronic pain Essential hypertension GERD (gastroesophageal reflux disease) Malnutrition of mild degree Recurrent falls Type 2 diabetes mellitus with hyperlipidemia Surgical History (Updated 06/22/22 @ 02:12 by TEA Jimenez) History of cholecystectomy Family History (Updated 06/22/22 @ 02:13 by TEA Jimenez) Father No problems noted. Mother No problems noted. Social History household members: none Smoking Status: Former smoker alcohol intake: current Assessment & Plan Assessment & Plan narrative: 1. Sepsis secondary to Klebsiella pneumonia, likely secondary to bacterial translocation of the gut from colitis Blood cultures were drawn on admission and 3/4 bottles were positive for Klebsiella pneumonia.?Suspected etiology is bacterial translocation from the gut at the site of colitis.? Klebsiella is sensitive to everything except for ampicillin and ticarcillin. Continue Zosyn therapy.? Patient is showing clinical improvement with resolution of his fever, normalization of his white blood cell count and improved pain. 2. Transaminitis Suspect this is related to sepsis.? LFTs are significantly improved from admission.? His AST is now down to 74, ALT down to 253, and alk phos down to 158. 3. Acute myocardial injury Initial troponin was 0.067.? It peaked at 0.292 and has since come down 2.2 1 7.? He had no ischemic symptoms.? Suspect it was secondary to sepsis physiology. 4. Ground level fall, unwitnessed in the setting of recurrent falls Patient declined to participate in therapies today.? PT evaluated him today and found he was requiring only standby assist and recommended return to his [facility]. 5. Hyponatremia, acute on chronic Sodium was 131 on admission, down to 130 on 06/22, stable at 133 since. 6. Diabetes mellitus type 2, insulin dependent Blood sugars remain well controlled.? Continue controlled carb diet and usual insulin dosing. 7. Hypertension Blood pressures have been normotensive.? Continue usual metoprolol dosing. 8. Severe protein calorie malnutrition Patient reported a 130 lb unintentional weight loss over the last 1-2 years. Additionally, there is documentation within our EMR that shows he weighed 79.379 kg on April 16 and weighs 68 kg now, which represents a 14.2% weight loss in just over 2 months. Patient meets criteria for chronic severe protein calorie malnutrition. At the time of the dietitians evaluation, the history of profound weight loss was not known, hence her diagnosis of chronic moderate protein calorie malnutrition. 9. Hyperlipidemia Continue statin therapy. 10. Chronic pain syndrome Oxycodone is available as needed. 11. BPH Continue tamsulosin. Resolved issues: Acute metabolic encephalopathy, due to sepsis, resolved Code status Full Prophylaxis Lovenox Disposition Plan to return to his assisted living facility tomorrow Time Spent With Patient Critical Care time: I spent a total of [] minutes of critical care time on this patient's care today; this time is exclusive of procedural time. Quality VTE Deep Vein Thrombosis/Pulmonary Embolism Present on Admission: No
[2022-06-24 16:00] VITALS: BP 92/60; PULSE 70; RESP 13; TEMP 36.6; O2SAT 90
[2022-06-24 20:00] VITALS: BP 136/81; PULSE 87; RESP 20; TEMP 36.6; O2SAT 96
[2022-06-24] MEDS: INSULIN GLARGINE 100 UNIT/ML 3ML PEN 26 UNIT SUBCUT (20:52)
[2022-06-24] MEDS: SENNOSIDES 8.6 MG TABLET 17.2 MG PO (20:53)
--- NOTE | 2022-06-24 22:30 | PC.NURSE ---
Patient is alert and oriented except did not know month, day of month or day of week. Breath sounds CTA with RA sat of 96%. HRR. Denies nausea. BT present but hypoactive; does complain of some mild tenderness in low abdomen. Denies dysuria, frequency or urgency with urination. Is able to turn himself in bed. Gait not assessed at this time but previous RN reported he gets up with walker and 1 assist and patient denies any weakness. Complained of pain in bilateral hips and was medicated earlier with oxycodone. Bilateral calf SCD's were applied. Fall risk score is high and bed alarm is activated.
[2022-06-25] VITALS (7 sets, daily range): BP systolic 112–123; BP diastolic 53–81; PULSE 77–89; RESP 17–19; TEMP 36.3–36.8; O2SAT 96–98
[2022-06-25] MEDS: SODIUM CHLORIDE 0.9% FLUSH 10 ML IV ×2 (02:57→08:31)
[2022-06-25] MEDS: PIPERACILLIN/TAZO 3.375 GM in SODIUM CHLORIDE 0.9% 100 ML IV (02:57)
[2022-06-25] MEDS: SODIUM CHLORIDE 0.9% 250 ML 21 ML IV (02:57)
[2022-06-25 05:21] LABS: Add Manual Diff / Slide Review NO; Basophils Absolute Auto 100 /uL (0-100); Basophils Percent Auto 1.1 % (0-2); Eosinophils Absolute Auto 200 /uL (0-450); Eosinophils Percent Auto 2.8 % (2-4); Hematocrit 38.3 % (41-53); Hemoglobin 13.5 g/dL (13.5-17.5); Lymphocytes Absolute Auto 1000 /uL (1100-4500); Lymphocytes Percent Auto 18.6 % (25-40); Mean Corpuscular HGB Conc 35.2 % (30-36); Mean Corpuscular Hemoglobin 31.2 PG (26-34); Mean Corpuscular Volume 88.7 fL (80-100); Monocytes Absolute Auto 700 /uL (0-900); Monocytes Percent Auto 13.1 % (3-14); Neutrophils Absolute Auto 3600 /uL (1500-7000); Neutrophils Percent Auto 64.4 % (50-75); Platelet Count 170 X10^3/uL (150-400); Red Blood Cell Count 4.31 X10^6/uL (4.5-5.9); Red Cell Distribution Width 13.6 % (11.6-14.8); White Blood Cell Count 5.6 X10^3/uL (4.5-11.0)
[2022-06-25 05:33] LABS: Alanine Aminotransferase 170 IU/L (<50); Albumin 3.7 g/dL (3.5-5.0); Albumin Globulin Ratio 1.2 (1.0-2.8); Alkaline Phosphatase 151 U/L (38-126); Aspartate Aminotransferase 37 IU/L (17-59); Bilirubin Total 0.8 mg/dL (0.2-1.3); Blood Urea Nitrogen 6 mg/dL (9-20); Calcium 8.7 mg/dL (8.4-10.2); Carbon Dioxide 28 mmol/L (22-32); Chloride 97 mmol/L (98-107); Estimated Glomerular Filt Rate > 60 mL/min (>60); Glucose 140 mg/dL (80-110); HEMOLYSIS < 15 (0-50); Potassium 3.9 mmol/L (3.4-5.1); Sodium 131 mmol/L (137-145); Total Protein 6.7 g/dL (6.3-8.2)
[2022-06-25] MEDS: OXYCODONE IR 5 MG TABLET 10 MG PO ×2 (05:35→13:14)
[2022-06-25] MEDS: PANTOPRAZOLE DR 20 MG TABLET PO (05:38)
--- NOTE | 2022-06-25 07:59 | P.DS_ITS ---
History of Present Illness History of Present Illness Date Patient Seen: 06/25/22 Time Patient Seen: 08:00 Chief complaint: GLF- confused- rbbb Narrative: Lev Fernandez is a 71-year-old male with a medical history of CAD s/p JEANNINE x3, hypertension, hyperlipidemia, IDDM, BPH, recurrent falls, malnutrition, and a recent history 04/27/2022 of lap bakari. Patient presented to the ED from an SNF altered over the day following a ground level fall which was not witnessed, patient is altered mildly GCS 14, and endorses generalized pain all over, rigors, increasing weakness with a presenting fever 102.8. On admit patient is slightly confused, impairing accuracy of ROS: denies chest pain, shortness in breath, headache, changes in vision, difficulty swallowing, speech impairment, numbness, tingling, LOC, cough, recent exposure to illness, urinary incontinence/retention, dysuria, frequency, urgency, hematuria, bowel changes, constipation, incontinence, melena, rashes, recent changes to medication, or illness. In ED temp 102.8?, BP 101/57, 91, 22, 96% on room air. On admit temp continues 102.8, BP 115/57, 95, 23, O2 sat 97% on room air. GCS 14, are factor hepatocellular, sofa: 3, ABIC: 8.27 intermediate risk. Patient has no white count or left shift, sodium 131, Cl 92, bicarb 33, creatinine 0.52, glucose 152. procalcitonin, salicylates, acetaminophen, ETOH, and ammonia are all negative, lactate 2.9. Bili 2.7, AST 1394, ALT 894, alk-phos 330, TSH 0.820 CK 26, troponin 0.067, tox screen is negative, urinalysis is negative, chest x-ray is negative. Head CT negative, CT of chest abdomen pelvis demonstrate?Mild segmental wall thickening in the sigmoid colon may reflect a mild colitis. Patient admitted to acute care with sepsis without shock, ground level fall, transaminitis, lactic acidosis, and global encephalopathy of unknown etiology. ? Discharge Providers Provider Date of admission: 06/22/22 03:55 Discharge Date: 06/25/22 Consults: 06/22/22 01:48 Consult to Dietitian, Adult Routine Comment: Reason For Exam: BMI 21.4 Consult to Occupational Therapy Evaluate & Treat Comment: Physician Instructions: Evaluate and treat Consult to Physical Therapy Evaluate & Treat Comment: Physician Instructions: Evaluate and Treat 06/22/22 01:51 Consult to Discharge Planning Routine Comment: Discharge provider: Nam Carolina DO Summary Hospital Course Discharge Diagnosis: 1. Sepsis secondary to Klebsiella pneumonia, likely secondary to bacterial translocation of the gut from colitis Blood cultures were drawn on admission and 3/4 bottles were positive for Klebsiella pneumonia.?Suspected etiology is bacterial translocation from the gut at the site of colitis.? Klebsiella is sensitive to everything except for ampicillin and ticarcillin.? Continue Zosyn therapy.? Patient is showing clinical improvement with resolution of his fever, normalization of his white blood cell count and improved pain. Discharged on 5 more days of po levaquin. 2. Transaminitis Suspect this is related to sepsis.? LFTs are significantly improved from admission.? His AST is now down to 74, ALT down to 253, and alk phos down to 158. 3. Acute myocardial injury Initial troponin was 0.067.? It peaked at 0.292 and has since come down.? He had no ischemic symptoms.? Suspect it was secondary to sepsis physiology. 4. Ground level fall, unwitnessed in the setting of recurrent falls Patient declined to participate in therapies today.? PT evaluated him and found he was requiring only standby assist and recommended return to his [facility]. 5. Hyponatremia, acute on chronic Sodium was 131 on admission, down to 130 on 06/22, stable at 133 since. 6. Diabetes mellitus type 2, insulin dependent Blood sugars remain well controlled.? Continue controlled carb diet and usual insulin dosing. 7. Hypertension Blood pressures have been normotensive.? Continue usual metoprolol dosing. 8. Severe protein calorie malnutrition Patient reported a 130 lb unintentional weight loss over the last 1-2 years.? Additionally, there is documentation within our EMR that shows he weighed 79.379 kg on April 16 and weighs 68 kg now, which represents a 14.2% weight loss in just over 2 months.? Patient meets criteria for chronic severe protein calorie malnutrition.? At the time of the dietitians evaluation, the history of profound weight loss was not known, hence her diagnosis of chronic moderate protein ca ilan malnutrition. 9. Hyperlipidemia Continue statin therapy. 10. Chronic pain syndrome Oxycodone is available as needed. 11. BPH Continue tamsulosin. Hospital Course: 71-year-old male with coronary artery disease status post drug-eluting stent pl acement x3, hypertension, hyperlipidemia, insulin-dependent diabetes mellitus type 2, BPH, recurrent falls, malnutrition, and recent laparoscopic cholecystectomy who was admitted with sepsis as evidenced by fever, lactic acidosis, acute metabolic encephalopathy, and transaminitis.? Blood culture sub sequently grew Klebsiella pneumoniae in 3/4 bottles.? Abdominal CT also revealed evidence for sigmoid colitis.? Is felt he likely has bacterial translocation of the gut as the etiology. Received 3 days of IV Zosyn and switched to 5 days of po levaquin on discharge. Time Spent with Patient Time spent: Greater than 30 minutes Exam Vital Signs (past 8 hours): - 06/25/22 00:00 06/25/22 00:00 06/25/22 04:00 Temperature 98.3 F 98.0 F Pulse Rate 89 78 Respiratory Rate 19 19 Blood Pressure 112/81 123/77 Pulse Oximetry 98 98 98 Oxygen Delivery Method Room Air Oxygen Flow Rate 0 06/25/22 04:00 Temperature Pulse Rate Respiratory Rate Blood Pressure Pulse Oximetry 98 Oxygen Delivery Method Room Air Oxygen Flow Rate 0 Oxygen Delivery Method Room Air Oxygen Flow Rate 0 Narrative Exam Narrative: GEN:? Frail elderly male, Alert and oriented x 3, NAD HEENT:NC, Face symmetric, bitemporal wasting CHEST: Respiratory excursions symmetric, CTAB CV: RRR, no M/R/G ABD: Soft, scaphoid abdomen, mild tenderness in the right lower quadrant, ND, BT present in all 4 quadrants, no organomegaly or masses EXTR: warm, thin with sarcopenia, well perfused, no C/C/E SKIN: warm and dry, no rash NEURO: Alert and oriented x 3, nonfocal Objective Labs 06/25/22 04:58 06/25/22 04:58 Labs: Laboratory Results - last 24 hr 06/25/22 06/25/22 04:58 04:58 WBC 5.6 RBC 4.31 L Hgb 13.5 Hct 38.3 L MCV 88.7 MCH 31.2 MCHC 35.2 RDW 13.6 Plt Count 170 Neut % (Auto) 64.4 Lymph % (Auto) 18.6 L [place] % (Auto) 13.1 Eos % (Auto) 2.8 Baso % (Auto) 1.1 Neut # (Auto) 3600 Lymph # (Auto) 1000 L [place] # (Auto) 700 Eos # (Auto) 200 Baso # (Auto) 100 Sodium 131 L Potassium 3.9 Chloride 97 L Carbon Dioxide 28 BUN 6 L Creatinine 0.46 L Estimated GFR > 60 BUN/Creatinine Ratio 13.0 Glucose 140 H Calcium 8.7 Total Bilirubin 0.8 AST 37 ALT 170 H Alkaline Phosphatase 151 H Total Protein 6.7 Albumin 3.7 Globulin 3.0 Albumin/Globulin Ratio 1.2 PFSH Medical History (Updated 06/22/22 @ 02:12 by TEA Jimenez) BPH (benign prostatic hyperplasia) CAD (coronary artery disease) of bypass graft Chronic pain Essential hypertension GERD (gastroesophageal reflux disease) Malnutrition of mild degree Recurrent falls Type 2 diabetes mellitus with hyperlipidemia Surgical History (Updated 06/22/22 @ 02:12 by TEA Jimenez) History of cholecystectomy Family History (Updated 06/22/22 @ 02:13 by TEA Jimenez) Father No problems noted. Mother No problems noted. Social History household members: none Smoking Status: Former smoker alcohol intake: current Discharge Plan Discharge Plan Patient Disposition: Assisted Living Other facility: [facility] Under care of provider: Facility MD Discharge orders & Medications Discharge Orders: Discharge (Order); Ordered 06/25/22 Ordered By: Nam Carolina Prescriptions: New sennosides [senna] 8.6 mg Tablet 17.2 mg PO BEDTIME Qty: 30 0RF Saccharomyces boulardii [Florastor] 250 mg capsule 250 mg PO BID Qty: 30 0RF levofloxacin 750 mg tablet 750 mg PO DAILY 5 Days Qty: 5 0RF Rx Instructions: start on 06/26 buprenorphine 7.5 mcg/hour patch weekly 1 patch transdermal QWEEK Qty: 4 0RF Continued atorvastatin 40 mg tablet 40 mg PO DAILY metoprolol succinate 100 mg tablet extended release 24 hr 100 mg PO DAILY tamsulosin 0.4 mg capsule 0.4 mg PO DAILY Patient Comments: TAKE ONE CAPSULE BY MOUTH ONE TIME DAILY insulin aspart U-100 [Novolog FlexPen U-100 Insulin] 100 unit/mL (3 mL) insulin pen See Rx Instructions .ROUTE .COMPLEX Rx Instructions: PER BLOOD SUGAR Januvia 50 mg tablet 50 mg PO DAILY Patient Comments: TAKE ONE TABLET BY MOUTH ONE TIME DAILY aspirin 81 mg Tablet,Delayed Release (Dr/Ec) 81 mg PO DAILY omeprazole 20 mg capsule,delayed release(DR/EC) 20 mg PO DAILY Patient Comments: once a day insulin glargine [Basaglar KwikPen U-100 Insulin] 100 unit/mL (3 mL) insulin pen 26 unit SUBCUT BEDTIME Patient Comments: Inject 26 Units under the skin nightly acetaminophen 325 mg Tablet 975 mg PO Q8H PRN (Reason: Pain, Mild (1-3)) Qty: 30 0RF Follow up/Referrals: Miscellaneous,Doctor, MD [Non-Staff] - Diet/Activity/Treatments Diet: Diet as Tolerated and Carb-consistent/Diabetic Liquid consistency: Normal/Thin Food texture: Regular Activity: As tolerated Oxygen: N/A Visit Report/Discharge Packet Instructions: DI for Colitis, DI for Bacteremia-Adult Stand Alone Forms: Patient Portal/API, Stroke Signs & Symptoms Quality VTE Deep Vein Thrombosis/Pulmonary Embolism Present on Admission: No
[2022-06-25] MEDS: INSULIN LISPRO 100 UNIT/ML 3ML VIAL SUBCUT ×2 (08:23→12:17)
[2022-06-25] MEDS: cefTRIAXone 2,000 MG in SODIUM CHLORIDE 0.9% 100 ML 200 MG IV (08:24)
[2022-06-25] MEDS: ASPIRIN EC 81 MG TABLET PO (08:25)
[2022-06-25] MEDS: METOPROLOL ER 50 MG TABLET 100 MG PO (08:25)
[2022-06-25] MEDS: TAMSULOSIN 0.4 MG CAPSULE PO (08:25)
[2022-06-25] MEDS: SITAGLIPTIN 50 MG TABLET PO (08:25)
--- NOTE | 2022-06-25 08:47 | CM.DPC ---
Addendum entered by STAR Kitchen 06/25/22 13:54: ADD: Faxed d/c summary to [facility] to review and return call from Alvina at [facility] that they can transport at 1500. ABBY updated electric welder helper, ORDER ENTRY SPECIALIST, and RN. BF Addendum entered by STAR Kitchen 06/25/22 10:54: ADD: Alvina RN from [facility] completed bedside assess and confirm they can accept pt back and has received the signed med list and scripts and they will fill the meds but currently their internet/computer system is down and waiting for it to be fixed before they can transport pt back today and admit him and Alvina will call back walter. BF Original Note: DCP Discharge SHELTER Per MD, pt is medically stable for d/c back to [facility] today and no identified barriers to discharge. ABBY faxed updated MD and PT notes to [facility] to review and called [facility] and updated and she confirms they will likely be bedside around 1000 today to confirm they can accept him back. Plan: ABBY to follow for confirmation from [facility] RN that pt can return today via facility van and to fax d/c packet for their review. STAR Kitchen
--- NOTE | 2022-06-25 09:01 | OT.IPNOTE ---
Went to see pt for OT eval and pt to be discharging back to [facility]. Pt states has been doing his ADL's on his own in the room, therefore discharge OT eval orders.
--- NOTE | 2022-06-25 10:30 | PT.IPTN ---
Current Diagnoses Sepsis, unspecified organism (06/22/22) Physical Therapy Treatment Note M2 PT-IP Current Condition Start: 06/23/22 10:59 Freq: NEEDED Status: Active Protocol: Document 06/24/22 08:43 DCW (Rec: 06/24/22 09:49 DCW [id number]) Physical Therapy Current Condition Current Condition Evaluation Date 06/24/22 Treatment Diagnosis Fatigue, weakness Onset Date 06/22/22 M3 PT-IP Subjective Start: 06/23/22 10:59 Freq: NEEDED Status: Active Protocol: Document 06/25/22 11:00 TS (Rec: 06/25/22 11:22 TS [id number]) Subjective Physical Therapy Visit Type Type Treatment Note Visit Start Time 10:30 Visit Stop Time 10:50 Total Visit Minutes 20 M4 PT-IP Mobility and Gait Start: 06/23/22 10:59 Freq: NEEDED Status: Active Protocol: Document 06/25/22 11:00 TS (Rec: 06/25/22 11:22 TS [id number]) PT-Bed Mobility Assessment Rolling Level of Assist Independent Supine to Sit Supine to Sit Independent Sit to Supine Sit to Supine Independent Scooting Scooting to Edge of Bed Independent Scooting Up and Down in Bed Independent PT-Transfer Assessment Sit to and From Stand Sit to and from Stand Independent Equipment Transfer Assistive Device Gait Belt,Front Wheeled Walker Comments Mobility Comments Pt found resting in bed watching star trek this morning, agreeable to PT session. He continues to perform all bed mobility and sit to stand independently without UE support. Therapist did not find him to be impulsive this morning and followed instructions well. Gait Assessment Gait Gait Assistance Required: Standby Assistance Distance (Feet) 150 Assistive Devices Assistive Device Gait Belt,Front Wheeled Walker Gait Deviations General Gait Pattern Narrow Based Gait Factors Limiting Gait Function Factors Limiting Gait Function Decreased Activity Tolerance, Poor Balance Comments Gait Comments Pt ambulated 150' ft with FWW around unit today SBA. He demonstrated a narrow stance during ambulation with some swaying and according to him feeling wobbly. PT-Balance Assessment Sitting Balance and Reactions Static Sitting Balance Ability Normal Dynamic Sitting Balance Ability Good Standing Balance and Reactions Static Standing Balance Ability Good Dynamic Standing Balance Ability Fair Device Used Hand on tray table Comments Other Balance Tests/Deviations/Treatment Pt performed static standing : with use of finger tips on tray table after coming up from sitting. Pt performed narrow stance eyes open 30 secs and eyes closed 10 secs before laying back on bed, some swaying in both attempts. M5 PT-IP Objective Assessments Start: 06/23/22 10:59 Freq: NEEDED Status: Active Protocol: Document 06/24/22 08:43 DCW (Rec: 06/24/22 09:49 DCW [id number]) Orientation Orientation/Cognition Level of Alertness Alert Orientation Name,Birthday,Month,Year,Place ,Situation Language Function Ability No Deficits Noted Safety Awareness Decreased Safety Awareness Memory Description No Deficits Noted Comments Impulsive Gross Range of Motion Lower Extremity ROM Assessment Within Functional Limits Strength Lower Extremity Strength Assessment Within Functional Limits M7 PT-IP Assessment and Plan Start: 06/23/22 10:59 Freq: NEEDED Status: Active Protocol: Document 06/25/22 11:00 TS (Rec: 06/25/22 11:22 TS [id number]) PT Summary Assessment and Plan Potential Rehabilitation Potential Good Status of Condition at Evaluation Stable Summary Impairments Balance,Activity Tolerance Assessment Summary Pt continues to be independent in bed mobility and sit to stand. He continues to have fair balance with swaying during standing and ambulation with FWW. Recommend pt get up with nursing until balance has improved. PT is currently recommending home to [facility] and PT to improve his balance. Goals Gait Goal Independent,Front Wheel Walker Gait Distance 100' Treatment Plan Physical Therapy Treatment Plan Gait Training,Therapeutic Exercise,Balance Retraining, Discharge Planning Other Recommendations and Next Treatment Improve balance. Focus Recommendations To Nursing Amount of Assist Needed Standby Assistance Discharge Recommendations Other Discharge Recommendations Return to [facility]
--- NOTE | 2022-06-25 15:19 | PC.NURSE ---
Pt. left unit with all belongings via wheelchair to facility designee and vehicle. D/c plan reviewed with pt and Care management updated facility to pt status. Pt left unit @ 1500.
[2022-06-25 18:13] LABS: Osmolality, Serum 277 mOsmol/kg (280-301)
[2022-06-27 18:12] LABS: HBsAg Screen Negative (Negative); Hepatitis A Antibody IgM Negative (Negative); Hepatitis B Core Antibody IgM Negative (Negative); Hepatitis C Antibody Reactive (Non Reactive); Hepatitis C Quant HCV Not Detected IU/mL (.)
== END 2022-06-25 15:00 | DRG 871 ==
LOC: ED 06-22 01:46 → AC 06-22 03:55
PROVIDERS: Family Medicine; Admitting Provider Nurse Practitioner Family; Emergency Provider Emergency Medicine; Referring Provider Emergency Medicine; Visit Provider Nurse Practitioner Family
DX: A41.9 Sepsis, unspecified organism (principal); E43 Unspecified severe protein-calorie malnutrition; G93.41 Metabolic encephalopathy; J15.0 Pneumonia due to Klebsiella pneumoniae; E87.1 Hypo-osmolality and hyponatremia; I5A Non-ischemic myocardial injury (non-traumatic); E87.20 Acidosis, unspecified; R29.6 Repeated falls; E11.9 Type 2 diabetes mellitus without complications; E78.5 Hyperlipidemia, unspecified; I10 Essential (primary) hypertension; N40.0 Benign prostatic hyperplasia without lower urinary tract symptoms; G89.4 Chronic pain syndrome; K52.9 Noninfective gastroenteritis and colitis, unspecified; I25.10 Atherosclerotic heart disease of native coronary artery without angina pectoris; K21.9 Gastro-esophageal reflux disease without esophagitis; Z87.891 Personal history of nicotine dependence; Z68.22 Body mass index [BMI] 22.0-22.9, adult; Z79.4 Long term (current) use of insulin; Z95.5 Presence of coronary angioplasty implant and graft; Z79.84 Long term (current) use of oral hypoglycemic drugs; Z20.822 Contact with and (suspected) exposure to COVID-19
CPT/HCPCS: 36415; 70450; 71045; 71260; 74177; 76705; 80053; 80074; 80305; 80320; 80329; 81001; 82140; 82550; 82962; 82977; 83036; 83605; 83615; 83690; 83735; 83930; 84145; 84443; 84478; 84484; 85025; 85610; 85730; 86140; 87040; 87086; 87150; 87186; 87633; 87797; 93005; 93010; 96365; 96366; 96367; 97116; 97161; 99284; 99285; G0480; J0696; J1650; J1815; J2405; J2543; J3475; Q9967

== ENCOUNTER 2022-07-14 00:04 | Emergency (ER) | payer MEDICARE, MEDICAID, SELFPAY ==
[2022-06-22 11:11] VITALS: BMI 22.1
[2022-07-14] VITALS: BP 126/82; PULSE 92; RESP 15; TEMP 36.8; O2SAT 95; BMI 21.9
--- NOTE | 2022-07-14 00:06 | DI.RAD.S_ITS ---
PROCEDURE: XR ACUTE ABDOMEN SERIES INDICATIONS: abdominal pain TECHNIQUE: One view chest and two views of the abdomen were acquired. COMPARISON: [facility], CR, XR CHEST 1V, 06/21/2022, 20:42. [facility], CT, CT CHEST ABD PEL W CON, 06/21/2022, 21:32. FINDINGS: Surgical changes and devices: There is a right hip prosthesis redemonstrated. Chest: Lungs are clear. Heart size is normal. No pleural effusions. No pneumoperitoneum. Abdomen: Bowel gas pattern is within normal limits. No suspicious calcifications. Bones: No suspicious bony lesions. IMPRESSION: 1. No definite acute intra-abdominal abnormality. Dictated by: Lamin Goode M.D. on 07/14/2022 at 1:25 Approved by: Lamin Goode M.D. on 07/14/2022 at 1:27
--- NOTE | 2022-07-14 00:10 | ED_ITS ---
HPI - Abdominal Pain General Chief Complaint: Abdominal Pain Stated Complaint: R lower quad pain Time Seen by Provider: 07/14/22 00:06 Source: patient and EMS Mode of arrival: EMS History of Present Illness HPI narrative: 71-year-old male former smoker with history diabetes, hyperlipidemia, hypertension presents from a detention facility for evaluation of right lower quadrant pain over at least the past few days. He states he is had multiple occasions before but this seems to be the worst. His pain is worse when he moves and improves with rest. He denies any fever or chills. He is slightly nauseated but denies any vomiting. He denies any runny nose, sore throat or cough. He is had no chest pain or shortness of breath. He denies recent antibiotics, change in medications or dietary change. Related Data Home Medications Medication Instructions Recorded Confirmed atorvastatin 40 mg tablet 40 mg PO DAILY 04/26/22 06/22/22 insulin aspart U-100 100 unit/mL See Rx Instructions .Route .COMPLEX 04/26/22 06/22/22 (3 mL) subcutaneous pen (Novolog FlexPen U-100 Insulin aspart) metoprolol succinate 100 mg 100 mg PO DAILY 04/26/22 06/22/22 tablet,extended release 24 hr sitagliptin phosphate 50 mg tablet 50 mg PO DAILY 04/26/22 06/22/22 (Januvia) tamsulosin 0.4 mg capsule 0.4 mg PO DAILY 04/26/22 06/22/22 aspirin 81 mg tablet,delayed 81 mg PO DAILY 04/28/22 06/22/22 release insulin glargine 100 unit/mL (3 26 unit SUBCUT BEDTIME 04/28/22 06/22/22 mL) subcutaneous pen (Basaglar KwikPen U-100 Insulin) omeprazole 20 mg capsule,delayed 20 mg PO DAILY 04/28/22 06/22/22 release Previous Rx's Medication Instructions Recorded acetaminophen 325 mg tablet 975 mg PO Q8H PRN Pain, Mild (1-3) 04/28/22 #30 tabs Saccharomyces boulardii 250 mg 250 mg PO BID #30 caps 06/24/22 capsule (Florastor) sennosides 8.6 mg tablet (senna) 17.2 mg PO BEDTIME #30 tabs 06/24/22 buprenorphine 7.5 mcg/hour weekly 1 patch transdermal QWEEK #4 ea 06/25/22 transdermal patch amoxicillin 875 mg-potassium 1 tab PO Q12H #20 tabs 07/14/22 clavulanate 125 mg tablet Allergies Allergy/AdvReac Type Severity Reaction Status Date / Time NSAIDS (Non-Steroidal Allergy Verified 05/11/22 10:18 Anti-Inflamma Tetanus Vaccines and Toxoid Allergy Verified 05/11/22 10:18 Review of Systems Review of Systems Narrative: GENERAL: Denies chills, fatigue, malaise, fever, sweats. HEENT: Denies sinus pain, ear pain, sore throat, difficulty swallowing, dizziness. RESPIRATORY: Denies dyspnea, cough, wheezing, hemoptysis, sputum. CARDIOVASCULAR: Denies chest pain, palpitations, orthopnea, edema, GASTROINTESTINAL: See HPI : Denies dysuria, frequency, incontinence, hematuria, urinary retention. MUSCULOSKELETAL: denies weakness, joint pain, or bony pain SKIN: Denies rash, skin lesions, or other NEUROLOGIC: Denies weakness, headache, numbness, change in speech, confusion, seizures, incoordination. PSYCHIATRIC: No concerning psychosocial issues. 12 point review of systems is negative except for those stated above Patient History Medical History BPH (benign prostatic hyperplasia) CAD (coronary artery disease) of bypass graft Chronic pain Essential hypertension GERD (gastroesophageal reflux disease) Malnutrition of mild degree Recurrent falls Type 2 diabetes mellitus with hyperlipidemia Surgical History History of cholecystectomy Family History Father No problems noted. Mother No problems noted. Social History household members: none Smoking Status: Former smoker alcohol intake: current Smoking Status: Former smoker alcohol intake frequency: holidays/special occasions only Substance Use Type: marijuana Exam Narrative Exam Narrative: GENERAL: [71] year old patient appears stated age. Well-developed patient, in mild distress. HEAD: Atraumatic. Normocephalic. EYES: Pupils equal round and reactive. Extraocular motions intact. No scleral icterus. No injection or drainage. ENT: Nose without bleeding, purulent drainage. Throat without erythema, tonsillar hypertrophy or exudate. Airway patent. NECK: Trachea midline. Non tender CARDIOVASCULAR: Regular rate and rhythm without murmurs, gallops, or rubs. RESPIRATORY: Clear to auscultation. Breath sounds equal bilaterally. No wheezes, rales, or rhonchi. GASTROINTESTINAL: Abdomen soft, moderately tender in the right lower quadrant, nondistended. EXTREMITIES: No edema or joint tenderness. BACK: Nontender without deformity or crepitance. No flank tenderness. NEURO: AOx3. SKIN: No rash or erythema of visible areas Initial Vital Signs Initial Vital Signs: Vital Signs Temperature 98.3 F 07/14/22 00:00 Pulse Rate 92 H 07/14/22 00:00 Respiratory Rate 15 07/14/22 00:00 Blood Pressure 126/82 07/14/22 00:00 Pulse Oximetry 95 07/14/22 00:00 Oxygen Delivery Method Room Air 07/14/22 00:00 Course Orders Ordered: Discontinued Medications Hydrocodone Bitart/Acetaminophen (Hydrocodone/Acet 5/325 Prepack) 1 bottle [facility] SEE[facility] ONE Stop: 07/14/22 03:49 Last Admin: 07/14/22 04:06 Dose: 1 bottle Documented By: NATHAN Amoxicillin/Clavulanate Potassium (Amoxicillin/Clav 875/125 Mg) 1 tab PO NOW ONE Stop: 07/14/22 03:49 Last Admin: 07/14/22 04:06 Dose: 1 tab Documented By: NATHAN Sodium Chloride (Normal Saline 0.9%) 1,000 mls @ 1,000 mls/hr IV BOLUS ONE Stop: 07/14/22 01:05 Last Infusion: 07/14/22 01:41 Dose: 0 mls/hr Documented By: Admin: 07/14/22 00:21 Dose: 1,000 mls/hr Documented By: NATHAN Ondansetron HCl (Ondansetron 4 Mg Odt Prepack) [facility] bottle [facility] ONE Stop: 07/14/22 03:49 Last Admin: 07/14/22 04:06 Dose: 1 bottle Documented By: NATHAN Vital Signs Vital signs: Vital Signs - 8 hr 07/14/22 00:00 07/14/22 03:16 Temperature 98.3 F Pulse Rate 92 H 86 Respiratory Rate 15 Blood Pressure 126/82 Pulse Oximetry 95 98 Oxygen Delivery Method Room Air MDM - Abdominal Pain Lab Data 07/14/22 00:10 07/14/22 00:10 Labs: Lab Results 07/14/22 07/14/22 Range/Units 00:10 00:10 WBC 9.0 (4.5-11.0) X10^3/uL RBC 4.33 L (4.5-5.9) X10^6/uL Hgb 13.4 L (13.5-17.5) g/dL Hct 38.2 L (41-53) % MCV 88.4 (80-100) fL MCH 31.0 (26-34) PG MCHC 35.1 (30-36) % RDW 14.0 (11.6-14.8) % Plt Count 257 (150-400) X10^3/uL Neut % (Auto) 62.2 (50-75) % Lymph % (Auto) 21.5 L (25-40) % [place] % (Auto) 12.4 (3-14) % Eos % (Auto) 2.8 (2-4) % Baso % (Auto) 1.1 (0-2) % Neut # (Auto) 5600 (0656-8736) /uL Lymph # (Auto) 2000 (3608-0119) /uL [place] # (Auto) 1100 H (0-900) /uL Eos # (Auto) 300 (0-450) /uL Baso # (Auto) 100 (0-100) /uL Sodium 133 L (137-145) mmol/L Potassium 3.7 (3.4-5.1) mmol/L Chloride 95 L (98-107) mmol/L Carbon Dioxide 34 H (22-32) mmol/L BUN 6 L (9-20) mg/dL Creatinine 0.53 L (0.66-1.25) mg/dL Estimated GFR > 60 (>60) mL/min BUN/Creatinine Ratio 11.3 (6-22) Glucose 83 (80-110) mg/dL Calcium 9.2 (8.4-10.2) mg/dL Total Bilirubin 0.6 (0.2-1.3) mg/dL AST 25 (17-59) IU/L ALT 30 (<50) IU/L Alkaline Phosphatase 76 (38-126) U/L Total Protein 7.2 (6.3-8.2) g/dL Albumin 4.2 (3.5-5.0) g/dL Globulin 3.0 (1.7-4.1) g/dL Albumin/Globulin Ratio 1.4 (1.0-2.8) Lipase 55 (23-300) U/L MDM Narrative Medical decision making narrative: CC: 71-year-old male with right lower quadrant pain Complicating co-morbidities: Age, hyperlipidemia, coronary artery disease, type 2 diabetes Data collected from: Patient Medical records reviewed: Prior notes reviewed in our EMR Differential considered, but not limited to: Appendicitis, bowel obstruction, diverticulitis, kidney stone versus other Exam documented above, pertinent findings include: Heart rate regular, lungs clear, abdomen is soft but tender in the right lower quadrant with bowel sounds present Electrolytes and renal function largely within normal, Lab Test results independently reviewed as above. Pertinent findings: No significant leukocytosis or left shift, no evidence of anemia, bilirubin and LFTs within normal Independently reviewed EKG as above Imaging studies independently reviewed: CT shows possible mild diverticulitis without evidence of abscess or perforation, no acute appendicitis Discussion: Patient presents with right lower quadrant pain, no signs of sepsis, pain well controlled, labs reassuring, imaging demonstrates no obstruction, perforation or abscess. No indication for hospitalization. Patient tolerating orals and appropriate for discharge. Return precautions di scussed, patient understands diagnosis and plan, questions answered to his apparent satisfaction Discharge Plan Departure Patient Disposition: Home Clinical Impression: Diverticulitis Instructions: DI for Diverticulitis Activity Restrictions/Additional Instructions: *You have been diagnosed with [abdominal pain due to diverticulitis] * As we discussed your history and physical exam as well as labs and imaging are very reassuring. *What to do: *Please continue to take your regular medications as directed. [x ] New medication prescriptions printed *Please follow up with your primary care provider in 2-3 days, call for an appointment. Let them know you were seen in the Emergency Department and that we ask that you be seen in follow up. We will electronically transmit a record of today's note if your PCP is in our system *Please consider a clear liquid diet for the next 24-48 hours and then slowly advance to regular as tolerated. Also, try to avoid alcohol, nicotine, caffeine, spicy, acidic or fatty foods as this may worsen your symptoms *If you do not have a primary care provider please contact the [facility] Resource line at [phone]. They will ask some questions about your medical history and help get you set up with a doctor in the community. *Return to Emergency Department if you should have any new, worsening or concerning symptoms, such as [fever greater than 101 F, shaking chills, worsening pain, persistent vomiting or other bothersome symptoms] Prescriptions: New amoxicillin-pot clavulanate 875-125 mg tablet 1 tab PO Q12H Qty: 20 0RF No Action atorvastatin 40 mg tablet 40 mg PO DAILY metoprolol succinate 100 mg tablet extended release 24 hr 100 mg PO DAILY tamsulosin 0.4 mg capsule 0.4 mg PO DAILY Patient Comments: TAKE ONE CAPSULE BY MOUTH ONE TIME DAILY insulin aspart U-100 [Novolog FlexPen U-100 Insulin] 100 unit/mL (3 mL) insulin pen See Rx Instructions .ROUTE .COMPLEX Rx Instructions: PER BLOOD SUGAR Januvia 50 mg tablet 50 mg PO DAILY Patient Comments: TAKE ONE TABLET BY MOUTH ONE TIME DAILY aspirin 81 mg Tablet,Delayed Release (Dr/Ec) 81 mg PO DAILY omeprazole 20 mg capsule,delayed release(DR/EC) 20 mg PO DAILY Patient Comments: once a day insulin glargine [Basaglar KwikPen U-100 Insulin] 100 unit/mL (3 mL) insulin pen 26 unit SUBCUT BEDTIME Patient Comments: Inject 26 Units under the skin nightly acetaminophen 325 mg Tablet 975 mg PO Q8H PRN (Reason: Pain, Mild (1-3)) Qty: 30 0RF sennosides [senna] 8.6 mg Tablet 17.2 mg PO BEDTIME Qty: 30 0RF Saccharomyces boulardii [Florastor] 250 mg capsule 250 mg PO BID Qty: 30 0RF buprenorphine 7.5 mcg/hour patch weekly 1 patch transdermal QWEEK Qty: 4 0RF Stand Alone Forms: Patient Portal/API
[2022-07-14 00:20] LABS: Add Manual Diff / Slide Review NO; Basophils Absolute Auto 100 /uL (0-100); Basophils Percent Auto 1.1 % (0-2); Eosinophils Absolute Auto 300 /uL (0-450); Eosinophils Percent Auto 2.8 % (2-4); Hematocrit 38.2 % (41-53); Hemoglobin 13.4 g/dL (13.5-17.5); Lymphocytes Absolute Auto 2000 /uL (1100-4500); Lymphocytes Percent Auto 21.5 % (25-40); Mean Corpuscular HGB Conc 35.1 % (30-36); Mean Corpuscular Volume 88.4 fL (80-100); Monocytes Absolute Auto 1100 /uL (0-900); Monocytes Percent Auto 12.4 % (3-14); Neutrophils Absolute Auto 5600 /uL (1500-7000); Neutrophils Percent Auto 62.2 % (50-75); Platelet Count 257 X10^3/uL (150-400); Red Blood Cell Count 4.33 X10^6/uL (4.5-5.9)
[2022-07-14] MEDS: SODIUM CHLORIDE 0.9% 1,000 ML 1000 ML IV (00:21)
[2022-07-14 00:32] LABS: Alanine Aminotransferase 30 IU/L (<50); Albumin 4.2 g/dL (3.5-5.0); Albumin Globulin Ratio 1.4 (1.0-2.8); Alkaline Phosphatase 76 U/L (38-126); Aspartate Aminotransferase 25 IU/L (17-59); BUN Creatinine Ratio 11.3 (6-22); Bilirubin Total 0.6 mg/dL (0.2-1.3); Blood Urea Nitrogen 6 mg/dL (9-20); Calcium 9.2 mg/dL (8.4-10.2); Carbon Dioxide 34 mmol/L (22-32); Chloride 95 mmol/L (98-107); Estimated Glomerular Filt Rate > 60 mL/min (>60); Glucose 83 mg/dL (80-110); HEMOLYSIS 23 (0-50); Lipase 55 U/L (23-300); Potassium 3.7 mmol/L (3.4-5.1); Sodium 133 mmol/L (137-145); Total Protein 7.2 g/dL (6.3-8.2)
--- NOTE | 2022-07-14 02:26 | DI.CT.S_ITS ---
PROCEDURE: CT ABDOMEN PELVIS W CON INDICATIONS: severe RLQ pain TECHNIQUE: After the administration of oral and IV contrast, axial sections were acquired from the lung bases to the pubic symphysis. Coronal and sagittal reformats were performed. For radiation dose reduction, the following was used: automated exposure control, adjustment of mA and/or kV according to patient size. COMPARISON: [facility], CR, XR ACUTE ABDOMEN SERIES, 07/14/2022, 0:14. FINDINGS: Image quality: There is artifact associated with the metallic hardware. Artifact from the metallic hardware is reduced by metal reconstruction algorithm. Lung bases: Unremarkable. Heart: No significant findings. Advanced coronary artery calcification is seen. ABDOMEN: Liver: Unremarkable. Gallbladder: Removed. Biliary ducts: Unremarkable. Pancreas: Unremarkable. Spleen: Unremarkable. Adrenal Glands: Unremarkable. Kidneys and Ureters: At the superior pole of the right kidney, there is a water density cyst measuring 2.6 cm. Additional tiny apparent cyst can be seen elsewhere. Prominent atherosclerotic calcification of the renal arteries can be seen. The kidneys demonstrate normal size and enhance symmetrically. There is no hydronephrosis. Stomach and Bowel: In this patient with this given history, scrutiny is given to the appendix. No appendix (either normal or abnormal) is identified on this study. No focal right lower quadrant inflammatory change can be seen. There is a moderate amount of stool seen within the colon. Colonic diverticulosis is seen, with minimal, potential diverticulitis. No dilated loops of small bowel are seen. The stomach is relatively decompressed, which limits its evaluation. Peritoneum: No abnormal intraperitoneal fluid. No free air. Ventral Wall: No hernia. Abdominal Nodes: No retroperitoneal or mesenteric adenopathy by size criteria. Vessels: Aorta and inferior vena cava are normal in size. Atherosclerotic calcification is noted. PELVIS: Pelvic Organs: Unremarkable. Bladder: Unremarkable. Pelvic Nodes: No enlarged lymph nodes. Miscellaneous: No inguinal hernias are seen. Bones: Right hip arthroplasty hardware is seen. IMPRESSION: No appendix (either normal or abnormal) is identified on this study. No focal right lower quadrant inflammatory change is seen. Minimal, potential diverticulitis. There is a moderate amount of stool seen within the colon. Please correlate with an underlying history of constipation. Additional findings: Advanced atherosclerotic disease, including involving the coronary arteries Cholecystectomy Right hip arthroplasty Note: No significant discrepancy from the preliminary report. Dictated by: Kg Gallagher M.D. on 07/14/2022 at 8:42 Approved by: Kg Gallagher M.D. on 07/14/2022 at 8:46
[2022-07-14 03:16] VITALS: PULSE 86; O2SAT 98
[2022-07-14] MEDS: HYDROCODONE/ACET 5/325 PREPACK 1 BOTTLE MISC (04:06)
[2022-07-14] MEDS: AMOXICILLIN/CLAV 875/125 MG 1 TAB PO (04:06)
[2022-07-14] MEDS: ONDANSETRON 4 MG ODT PREPACK 1 BOTTLE MISC (04:06)
[2022-07-14 05:58] VITALS: BP 139/76; PULSE 77; RESP 18; O2SAT 97
== END 2022-07-14 05:59 | disposition home or self-care (01) ==
PROVIDERS: Emergency Provider Emergency Medicine
DX: K57.92 Diverticulitis of intestine, part unspecified, without perforation or abscess without bleeding (principal); Z79.899 Other long term (current) drug therapy
CPT/HCPCS: 36415; 74022; 74177; 80053; 83690; 85025; 96360; 99284; Q9967

== ENCOUNTER 2022-07-16 22:19 | Emergency (ER) | payer MEDICARE, MEDICAID, SELFPAY ==
[2022-06-22 11:11] VITALS: BMI 22.1
[2022-07-16 22:28] VITALS: BP 89/52; PULSE 82; RESP 16; TEMP 36.8; O2SAT 98; BMI 20.7
--- NOTE | 2022-07-16 22:49 | DI.RAD.S_ITS ---
PROCEDURE: XR CHEST 1V INDICATIONS: suspected sepsis TECHNIQUE: One view of the chest was acquired. COMPARISON: [facility], CR, XR CHEST 1V, 06/21/2022, 20:42. FINDINGS: Surgical changes and devices: None. Lungs and pleura: Lungs are clear. No pleural effusions or pneumothorax. Mediastinum: Mediastinal contours appear normal. Heart size is normal. Bones and chest wall: No suspicious bony lesions. Overlying soft tissues appear unremarkable. IMPRESSION: 1. No acute cardiopulmonary disease. Dictated by: Lamin Goode M.D. on 07/17/2022 at 0:53 Approved by: Lamin Goode M.D. on 07/17/2022 at 0:55
[2022-07-16 23:07] VITALS: BP 96/61
[2022-07-16 23:16] LABS: Prothrombin Time 11.3 SECONDS (10.1-12.7)
[2022-07-16 23:18] LABS: PTT Partial Thromboplastin Tim 34 SECONDS (26-36)
[2022-07-16 23:19] LABS: Alanine Aminotransferase 26 IU/L (<50); Albumin 4.1 g/dL (3.5-5.0); Albumin Globulin Ratio 1.4 (1.0-2.8); Alkaline Phosphatase 66 U/L (38-126); Aspartate Aminotransferase 24 IU/L (17-59); BUN Creatinine Ratio 11.1 (6-22); Bilirubin Total 0.6 mg/dL (0.2-1.3); Blood Urea Nitrogen 7 mg/dL (9-20); Calcium 9.1 mg/dL (8.4-10.2); Carbon Dioxide 29 mmol/L (22-32); Chloride 95 mmol/L (98-107); Estimated Glomerular Filt Rate > 60 mL/min (>60); Globulin 2.9 g/dL (1.7-4.1); Glucose 123 mg/dL (80-110); HEMOLYSIS < 15 (0-50); Lipase 65 U/L (23-300); Potassium 3.8 mmol/L (3.4-5.1); Sodium 131 mmol/L (137-145)
[2022-07-16 23:21] LABS: Add Manual Diff / Slide Review NO; Basophils Absolute Auto 100 /uL (0-100); Basophils Percent Auto 2.4 % (0-2); Eosinophils Absolute Auto 100 /uL (0-450); Eosinophils Percent Auto 3.9 % (2-4); Hemoglobin 13.5 g/dL (13.5-17.5); Lymphocytes Absolute Auto 1300 /uL (1100-4500); Lymphocytes Percent Auto 35.5 % (25-40); Mean Corpuscular HGB Conc 34.7 % (30-36); Mean Corpuscular Volume 89.4 fL (80-100); Monocytes Absolute Auto 400 /uL (0-900); Monocytes Percent Auto 11.1 % (3-14); Neutrophils Absolute Auto 1700 /uL (1500-7000); Neutrophils Percent Auto 47.1 % (50-75); Platelet Count 212 X10^3/uL (150-400); Red Blood Cell Count 4.36 X10^6/uL (4.5-5.9); Red Cell Distribution Width 13.7 % (11.6-14.8); White Blood Cell Count 3.7 X10^3/uL (4.5-11.0)
[2022-07-16 23:32] LABS: COVID19 -Nasal RAPID Negative (Negative)
[2022-07-16 23:36] LABS: Procalcitonin 0.03 ng/mL (<0.5)
[2022-07-16] MEDS: SODIUM CHLORIDE 0.9% 1,000 ML 1000 ML IV (23:36)
--- NOTE | 2022-07-16 23:42 | ED_ITS ---
HPI - Abdominal Pain General Chief Complaint: Abdominal Pain Stated Complaint: Abd pain Time Seen by Provider: 07/16/22 22:26 Source: patient and EMS Mode of arrival: EMS History of Present Illness HPI narrative: 71-year-old male former smoker with history diabetes, hyperlipidemia, hypertension returns for the second time this week for evaluation of abdominal pain. He was diagnosed with diverticulitis a few days ago and sent home with ABX and pain meds. There is report that his pain meds were not appropriately labeled and were thrown away and he hasn't had access to pain meds. He denies N/V/Diarrhea. His pain is worse when he moves and better with rest. He's had no fever or chills. He denies chest pain, SOB, or cough. Related Data Home Medications Medication Instructions Recorded Confirmed atorvastatin 40 mg tablet 40 mg PO DAILY 04/26/22 06/22/22 insulin aspart U-100 100 unit/mL See Rx Instructions .Route .COMPLEX 04/26/22 06/22/22 (3 mL) subcutaneous pen (Novolog FlexPen U-100 Insulin aspart) metoprolol succinate 100 mg 100 mg PO DAILY 04/26/22 06/22/22 tablet,extended release 24 hr sitagliptin phosphate 50 mg tablet 50 mg PO DAILY 04/26/22 06/22/22 (Januvia) tamsulosin 0.4 mg capsule 0.4 mg PO DAILY 04/26/22 06/22/22 aspirin 81 mg tablet,delayed 81 mg PO DAILY 04/28/22 06/22/22 release insulin glargine 100 unit/mL (3 26 unit SUBCUT BEDTIME 04/28/22 06/22/22 mL) subcutaneous pen (Basaglar KwikPen U-100 Insulin) omeprazole 20 mg capsule,delayed 20 mg PO DAILY 04/28/22 06/22/22 release Previous Rx's Medication Instructions Recorded acetaminophen 325 mg tablet 975 mg PO Q8H PRN Pain, Mild (1-3) 04/28/22 #30 tabs Saccharomyces boulardii 250 mg 250 mg PO BID #30 caps 06/24/22 capsule (Florastor) sennosides 8.6 mg tablet (senna) 17.2 mg PO BEDTIME #30 tabs 06/24/22 buprenorphine 7.5 mcg/hour weekly 1 patch transdermal QWEEK #4 ea 06/25/22 transdermal patch amoxicillin 875 mg-potassium 1 tab PO Q12H #20 tabs 07/14/22 clavulanate 125 mg tablet hydrocodone 5 mg-acetaminophen 325 1 tab PO Q4-6H PRN pain #10 tabs 07/17/22 mg tablet Allergies Allergy/AdvReac Type Severity Reaction Status Date / Time NSAIDS (Non-Steroidal Allergy Verified 05/11/22 10:18 Anti-Inflamma Tetanus Vaccines and Toxoid Allergy Verified 05/11/22 10:18 Review of Systems Review of Systems Narrative: GENERAL: Denies chills, fatigue, malaise, fever, sweats. HEENT: Denies sinus pain, ear pain, sore throat, difficulty swallowing, dizziness. RESPIRATORY: Denies dyspnea, cough, wheezing, hemoptysis, sputum. CARDIOVASCULAR: Denies chest pain, palpitations, orthopnea, edema, GASTROINTESTINAL: See HPI : Denies dysuria, frequency, incontinence, hematuria, urinary retention. MUSCULOSKELETAL: denies weakness, joint pain, or bony pain SKIN: Denies rash, skin lesions, or other NEUROLOGIC: Denies weakness, headache, numbness, change in speech, confusion, seizures, incoordination. PSYCHIATRIC: No concerning psychosocial issues. 12 point review of systems is negative except for those stated above Patient History Medical History BPH (benign prostatic hyperplasia) CAD (coronary artery disease) of bypass graft Chronic pain Essential hypertension GERD (gastroesophageal reflux disease) Malnutrition of mild degree Recurrent falls Type 2 diabetes mellitus with hyperlipidemia Surgical History History of cholecystectomy Family History Father No problems noted. Mother No problems noted. Social History household members: none Smoking Status: Former smoker alcohol intake: current Smoking Status: Former smoker alcohol intake frequency: holidays/special occasions only Substance Use Type: marijuana Exam Narrative Exam Narrative: GENERAL: [71] year old patient appears stated age. Well-developed patient, in mild distress. HEAD: Atraumatic. Normocephalic. EYES: Pupils equal round and reactive. Extraocular motions intact. No scleral icterus. No injection or drainage. ENT: Nose without bleeding, purulent drainage. Throat without erythema, tonsillar hypertrophy or exudate. Airway patent. NECK: Trachea midline. Non tender CARDIOVASCULAR: Regular rate and rhythm without murmurs, gallops, or rubs. RESPIRATORY: Clear to auscultation. Breath sounds equal bilaterally. No wheezes, rales, or rhonchi. GASTROINTESTINAL: Abdomen soft, tenderness, nondistended. EXTREMITIES: No edema or joint tenderness. BACK: Nontender without deformity or crepitance. No flank tenderness. NEURO: AOx3. SKIN: No rash or erythema of visible areas Initial Vital Signs Initial Vital Signs: Vital Signs Temperature 98.2 F 07/16/22 22:28 Pulse Rate 82 07/16/22 22:28 Respiratory Rate 16 07/16/22 22:28 Blood Pressure 89/52 L 07/16/22 22:28 Pulse Oximetry 98 07/16/22 22:28 Oxygen Delivery Method Room Air 07/16/22 22:28 Course Orders Ordered: Discontinued Medications Hydrocodone Bitart/Acetaminophen (Hydrocodone/Acet 5/325 Prepack) 1 bottle MISC SEEINSTR ONE Stop: 07/17/22 02:46 Last Admin: 07/17/22 03:01 Dose: 1 bottle Documented By: NATHAN Sodium Chloride (Normal Saline 0.9%) 1,000 mls @ 1,000 mls/hr IV BOLUS ONE Stop: 07/16/22 23:48 Last Infusion: 07/17/22 00:39 Dose: 0 mls/hr Documented By: Admin: 07/16/22 23:36 Dose: 1,000 mls/hr Documented By: NATHAN Ondansetron HCl (Ondansetron 4 Mg Odt) 4 mg SL NOW PRN PRN Reason: Nausea And Vomiting Ondansetron HCl (Ondansetron 4 Mg/2 Ml Inj) 4 mg IV NOW PRN PRN Reason: Nausea And Vomiting Ondansetron HCl (Ondansetron 4 Mg Odt Prepack) 1 bottle MISC SEEINSTR ONE Stop: 07/17/22 02:46 Last Admin: 07/17/22 03:01 Dose: 1 bottle Documented By: NATHAN Vital Signs Vital signs: Vital Signs - 8 hr 07/16/22 22:28 07/16/22 23:07 Temperature 98.2 F Pulse Rate 82 Respiratory Rate 16 Blood Pressure 89/52 L 96/61 Pulse Oximetry 98 Oxygen Delivery Method Room Air MDM - Abdominal Pain Lab Data 07/16/22 22:52 07/16/22 22:52 Labs: Lab Results 07/16/22 07/16/22 07/16/22 Range/Units 22:52 22:52 22:52 WBC 3.7 L (4.5-11.0) X10^3/uL RBC 4.36 L (4.5-5.9) X10^6/uL Hgb 13.5 (13.5-17.5) g/dL Hct 39.0 L (41-53) % MCV 89.4 (80-100) fL MCH 31.0 (26-34) PG MCHC 34.7 (30-36) % RDW 13.7 (11.6-14.8) % Plt Count 212 (150-400) X10^3/uL Neut % (Auto) 47.1 L (50-75) % Lymph % (Auto) 35.5 (25-40) % Moca % (Auto) 11.1 (3-14) % Eos % (Auto) 3.9 (2-4) % Baso % (Auto) 2.4 H (0-2) % Neut # (Auto) 1700 (1600-1941) /uL Lymph # (Auto) 1300 (4976-7564) /uL Moca # (Auto) 400 (0-900) /uL Eos # (Auto) 100 (0-450) /uL Baso # (Auto) 100 (0-100) /uL PT 11.3 (10.1-12.7) SECONDS INR 1.0 (0.9-1.3) APTT 34 (26-36) SECONDS Sodium 131 L (137-145) mmol/L Potassium 3.8 (3.4-5.1) mmol/L Chloride 95 L (98-107) mmol/L Carbon Dioxide 29 (22-32) mmol/L BUN 7 L (9-20) mg/dL Creatinine 0.63 L (0.66-1.25) mg/dL Estimated GFR > 60 (>60) mL/min BUN/Creatinine Ratio 11.1 (6-22) Glucose 123 H (80-110) mg/dL Lactate (0.7-2.1) mmol/L Calcium 9.1 (8.4-10.2) mg/dL Total Bilirubin 0.6 (0.2-1.3) mg/dL AST 24 (17-59) IU/L ALT 26 (<50) IU/L Alkaline Phosphatase 66 (38-126) U/L Total Protein 7.0 (6.3-8.2) g/dL Albumin 4.1 (3.5-5.0) g/dL Globulin 2.9 (1.7-4.1) g/dL Albumin/Globulin Ratio 1.4 (1.0-2.8) Lipase 65 (23-300) U/L Procalcitonin 0.03 (<0.5) ng/mL SARS-CoV-2 (PCR) (Negative) 07/16/22 07/16/22 Range/Units 22:52 22:52 WBC (4.5-11.0) X10^3/uL RBC (4.5-5.9) X10^6/uL Hgb (13.5-17.5) g/dL Hct (41-53) % MCV (80-100) fL MCH (26-34) PG MCHC (30-36) % RDW (11.6-14.8) % Plt Count (150-400) X10^3/uL Neut % (Auto) (50-75) % Lymph % (Auto) (25-40) % Moca % (Auto) (3-14) % Eos % (Auto) (2-4) % Baso % (Auto) (0-2) % Neut # (Auto) (3070-7096) /uL Lymph # (Auto) (1038-7396) /uL Moca # (Auto) (0-900) /uL Eos # (Auto) (0-450) /uL Baso # (Auto) (0-100) /uL PT (10.1-12.7) SECONDS INR (0.9-1.3) APTT (26-36) SECONDS Sodium (137-145) mmol/L Potassium (3.4-5.1) mmol/L Chloride (98-107) mmol/L Carbon Dioxide (22-32) mmol/L BUN (9-20) mg/dL Creatinine (0.66-1.25) mg/dL Estimated GFR (>60) mL/min BUN/Creatinine Ratio (6-22) Glucose (80-110) mg/dL Lactate 1.0 (0.7-2.1) mmol/L Calcium (8.4-10.2) mg/dL Total Bilirubin (0.2-1.3) mg/dL AST (17-59) IU/L ALT (<50) IU/L Alkaline Phosphatase (38-126) U/L Total Protein (6.3-8.2) g/dL Albumin (3.5-5.0) g/dL Globulin (1.7-4.1) g/dL Albumin/Globulin Ratio (1.0-2.8) Lipase (23-300) U/L Procalcitonin (<0.5) ng/mL SARS-CoV-2 (PCR) Negative (Negative) Point of care testing: Urine Dip Bedside Urine Glucose Negative Bedside Urine Bilirubin - Negative Bedside Urine Ketone - Negative Urine Specific [place] 1.005 Bedside Urine Occult Blood - Negative Bedside Urine pH 6.5 Bedside Urine Protein - Negative Bedside Urine Urobilinogen - Negative Bedside Urine Nitrite - Negative Bedside Urine Leukocytes - Negative Esterase MDM Narrative Medical decision making narrative: [71] year old patient presents with abdominal pain Multiple etiologies for patient's symptoms considered including, but not limited to: [diverticulitis with abscess, perforation vs. other] Prior Charts reviewed in our EMR Primary Historian: patient Labs reviewed and interpreted by myself: no leukocytosis, no anemia, elect rolytes and kidney function at baseline Imaging reviewed: CT Abd/pel with mild segmental thickening consistent with colitis Patient's symptoms improved over duration of stay with above-stated therapies. Findings and discharge diagnosis discussed with patient/family followed by verbalization of understanding Return precautions discussed with patient/family whom verbalize understanding of diagnosis and plan Discharge Plan Departure Patient Disposition: Home Clinical Impression: Colitis Instructions: DI for Colitis Activity Restrictions/Additional Instructions: *You have been diagnosed with [abdominal pain] due to colitis *What to do: *Please continue to take your regular medications as directed. Also, please be sure to continue the antibiotics you were given at your last visit [x ] New medication prescriptions sent to your pharmacy: [ ] *Please follow up with your primary care provider in 2-3 days, call for an appointment. Let them know you were seen in the Emergency Department and that we ask that you be seen in follow up. We will electronically transmit a record of today's note if your PCP is in our system *Please consider a clear liquid diet for the next 24-48 hours and then slowly advance to regular as tolerated. Also, try to avoid alcohol, nicotine, caffeine, spicy, acidic or fatty foods as this may worsen your symptoms *If you do not have a primary care provider please contact the [facility] Resource line at [phone]. They will ask some questions about your medical history and help get you set up with a doctor in the community. *Return to Emergency Department if you should have any new, worsening or concerning symptoms, such as [fever greater than 101 F, shaking chills, worsening pain, persistent vomiting or other bothersome symptoms] You have been prescribed a short course of narcotic medications. These are potentially dangerous and addictive medications that should be used carefully. While on these medications you cannot drive or operate heavy machinery. Additionally, you cannot sign legal documents or perform any duties such as this. 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 Please understand that we cannot provide further refills of narcotics or controlled substances through the ED and your pain management will need to be through your Primary Care Provider Prescriptions: New hydrocodone-acetaminophen 5-325 mg tablet 1 tab PO Q4-6H PRN (Reason: pain) Qty: 10 0RF No Action amoxicillin-pot clavulanate 875-125 mg tablet 1 tab PO Q12H Qty: 20 0RF atorvastatin 40 mg tablet 40 mg PO DAILY metoprolol succinate 100 mg tablet extended release 24 hr 100 mg PO DAILY tamsulosin 0.4 mg capsule 0.4 mg PO DAILY Patient Comments: TAKE ONE CAPSULE BY MOUTH ONE TIME DAILY insulin aspart U-100 [Novolog FlexPen U-100 Insulin] 100 unit/mL (3 mL) insulin pen See Rx Instructions .ROUTE .COMPLEX Rx Instructions: PER BLOOD SUGAR Januvia 50 mg tablet 50 mg PO DAILY Patient Comments: TAKE ONE TABLET BY MOUTH ONE TIME DAILY aspirin 81 mg Tablet,Delayed Release (Dr/Ec) 81 mg PO DAILY omeprazole 20 mg capsule,delayed release(DR/EC) 20 mg PO DAILY Patient Comments: once a day insulin glargine [Basaglar KwikPen U-100 Insulin] 100 unit/mL (3 mL) insulin pen 26 unit SUBCUT BEDTIME Patient Comments: Inject 26 Units under the skin nightly acetaminophen 325 mg Tablet 975 mg PO Q8H PRN (Reason: Pain, Mild (1-3)) Qty: 30 0RF sennosides [senna] 8.6 mg Tablet 17.2 mg PO BEDTIME Qty: 30 0RF Saccharomyces boulardii [Florastor] 250 mg capsule 250 mg PO BID Qty: 30 0RF buprenorphine 7.5 mcg/hour patch weekly 1 patch transdermal QWEEK Qty: 4 0RF Stand Alone Forms: Patient Portal/API
--- NOTE | 2022-07-17 00:55 | DI.CT.S_ITS ---
PROCEDURE: CT CHEST ABD PEL W CON INDICATIONS: sepsis, fever, DM, chest/abd pain TECHNIQUE: After the administration of intravenous contrast, axial sections acquired from the supraclavicular neck to the pubic symphysis. Coronal and sagittal reformats were performed. For radiation dose reduction, the following was used: automated exposure control, adjustment of mA and/or kV according to patient size. COMPARISON: [facility], CT, CT ABDOMEN PELVIS W CON, 07/14/2022, 2:29. [facility], CT, CT CHEST ABD PEL W CON, 06/21/2022, 21:32. FINDINGS: Image quality: There is metallic streak artifact secondary to patient's right hip prosthesis. CHEST: Lower Neck: No lymphadenopathy by size criteria. Thyroid: Visualized thyroid demonstrates no discrete nodules. Axillae: No lymphadenopathy by size criteria. Chest Wall: Unremarkable. Lungs and Airways: No acute consolidation. No suspicious pulmonary nodules. The trachea and central airways are patent. Pleura: No pneumothorax or pleural effusions. Heart: Heart size is normal. No pericardial effusion. Thoracic Vessels: The aorta and pulmonary arteries are normal in size. Mediastinum and Felisa: No lymphadenopathy by size criteria. Esophagus: No wall thickening. No hiatal hernia. ABDOMEN: Liver: No mass lesion. Gallbladder: Surgically absent. Biliary ducts: No biliary ductal dilatation. Pancreas: Unremarkable. Spleen: Normal in size. Adrenal Glands: No adrenal nodules. Kidneys and Ureters: No hydronephrosis. There is an exophytic right renal cyst as well as additional small low-density foci in the kidneys bilaterally which are too small to characterize but likely represent cysts. Stomach and Bowel: Stomach and small bowel loops are normal in caliber and wall thickness. The appendix is not well visualized but there are no pericecal inflammatory changes to suggest appendicitis. There is mild segmental wall thickening within the sigmoid colon redemonstrated suggestive of a mild colitis. Colonic diverticulosis is redemonstrated without acute diverticulitis. Peritoneum: No abnormal intraperitoneal fluid. No free air. Ventral Wall: No hernia. Abdominal Nodes: No retroperitoneal or mesenteric adenopathy by size criteria. Vessels: Aorta and inferior vena cava are normal in size. There is diffuse atherosclerotic vascular calcification. PELVIS: Pelvic Organs: Unremarkable. Bladder: Unremarkable. Pelvic Nodes: No enlarged lymph nodes. Miscellaneous: No inguinal hernias are seen. Bones: There are bilateral healed rib fractures redemonstrated. Visualized osseous structures demonstrate no suspicious focal lesions. IMPRESSION: 1. Mild segmental wall thickening in the sigmoid colon redemonstrated suggestive of a mild infectious or inflammatory colitis. 2. Colonic diverticulosis without definite acute diverticulitis. Dictated by: Lamin Goode M.D. on 07/17/2022 at 1:50 Approved by: Lamin Goode M.D. on 07/17/2022 at 1:57
[2022-07-17 01:46] VITALS: BP 150/69; PULSE 69; RESP 18; O2SAT 96
[2022-07-17] MEDS: HYDROCODONE/ACET 5/325 PREPACK 1 BOTTLE MISC (03:01)
[2022-07-17] MEDS: ONDANSETRON 4 MG ODT PREPACK 1 BOTTLE MISC (03:01)
--- NOTE | 2022-07-17 03:11 | PC.NURSE ---
[employer] note Scheduled BLS transport with [facility] for pt to go back to [facility] around 0445.
== END 2022-07-17 04:42 | disposition home or self-care (01) ==
PROVIDERS: Emergency Provider Emergency Medicine
DX: K52.9 Noninfective gastroenteritis and colitis, unspecified (principal); R07.9 Chest pain, unspecified; Z79.899 Other long term (current) drug therapy; Z20.822 Contact with and (suspected) exposure to COVID-19
CPT/HCPCS: 36415; 71045; 71260; 74177; 80053; 81003; 83605; 83690; 84145; 85025; 85610; 85730; 87040; 87635; 93005; 96360; 99284; C9803; Q9967

== ENCOUNTER → 2022-07-17 08:00 | Outpatient (ROUT) | payer MEDICARE, MEDICAID, SELFPAY ==
[2022-06-22 11:11] VITALS: BMI 22.1
[2022-07-17 09:05] LABS: Add Manual Diff / Slide Review NO; Basophils Absolute Auto 100 /uL (0-100); Basophils Percent Auto 1.6 % (0-2); Eosinophils Absolute Auto 100 /uL (0-450); Eosinophils Percent Auto 3.2 % (2-4); Hematocrit 38.8 % (41-53); Hemoglobin 13.3 g/dL (13.5-17.5); Lymphocytes Absolute Auto 1300 /uL (1100-4500); Lymphocytes Percent Auto 27.6 % (25-40); Mean Corpuscular HGB Conc 34.3 % (30-36); Mean Corpuscular Hemoglobin 30.8 PG (26-34); Mean Corpuscular Volume 89.8 fL (80-100); Monocytes Absolute Auto 700 /uL (0-900); Monocytes Percent Auto 14.5 % (3-14); Neutrophils Absolute Auto 2500 /uL (1500-7000); Neutrophils Percent Auto 53.1 % (50-75); Platelet Count 205 X10^3/uL (150-400); Red Blood Cell Count 4.32 X10^6/uL (4.5-5.9); Red Cell Distribution Width 13.4 % (11.6-14.8); White Blood Cell Count 4.6 X10^3/uL (4.5-11.0)
[2022-07-17 09:41] LABS: BUN Creatinine Ratio 10.7 (6-22); Blood Urea Nitrogen 6 mg/dL (9-20); Carbon Dioxide 30 mmol/L (22-32); Chloride 98 mmol/L (98-107); Estimated Glomerular Filt Rate > 60 mL/min (>60); Glucose 84 mg/dL (80-110); HEMOLYSIS < 15 (0-50); Potassium 3.5 mmol/L (3.4-5.1); Sodium 136 mmol/L (137-145)
== END ==
PROVIDERS: Visit Provider Nurse Practitioner Family
DX: Z79.899 Other long term (current) drug therapy (principal)
CPT/HCPCS: 36415; 80048; 85025

== ENCOUNTER 2022-08-02 15:18 | Emergency (ER) | payer MEDICARE, MEDICAID, SELFPAY ==
[2022-06-22 11:11] VITALS: BMI 22.1
[2022-08-02 15:22] VITALS: BP 144/91; PULSE 77; RESP 18; TEMP 36.6; O2SAT 99
[2022-08-02 15:53] LABS: Add Manual Diff / Slide Review NO; Basophils Absolute Auto 100 /uL (0-100); Basophils Percent Auto 1.7 % (0-2); Eosinophils Absolute Auto 200 /uL (0-450); Eosinophils Percent Auto 3.2 % (2-4); Hematocrit 39.5 % (41-53); Hemoglobin 13.9 g/dL (13.5-17.5); Lymphocytes Absolute Auto 1200 /uL (1100-4500); Lymphocytes Percent Auto 23.6 % (25-40); Mean Corpuscular HGB Conc 35.1 % (30-36); Mean Corpuscular Hemoglobin 31.1 PG (26-34); Mean Corpuscular Volume 88.5 fL (80-100); Monocytes Absolute Auto 600 /uL (0-900); Monocytes Percent Auto 11.6 % (3-14); Neutrophils Absolute Auto 3000 /uL (1500-7000); Neutrophils Percent Auto 59.9 % (50-75); Platelet Count 186 X10^3/uL (150-400); Red Blood Cell Count 4.47 X10^6/uL (4.5-5.9); Red Cell Distribution Width 13.3 % (11.6-14.8)
[2022-08-02 16:03] LABS: Alanine Aminotransferase 22 IU/L (<50); Albumin Globulin Ratio 1.3 (1.0-2.8); Alkaline Phosphatase 67 U/L (38-126); Aspartate Aminotransferase 22 IU/L (17-59); BUN Creatinine Ratio 18.5 (6-22); Bilirubin Total 0.8 mg/dL (0.2-1.3); Blood Urea Nitrogen 10 mg/dL (9-20); Carbon Dioxide 33 mmol/L (22-32); Chloride 98 mmol/L (98-107); Estimated Glomerular Filt Rate > 60 mL/min (>60); Glucose 121 mg/dL (80-110); HEMOLYSIS 24 (0-50); Lipase 52 U/L (23-300); Potassium 3.9 mmol/L (3.4-5.1); Sodium 134 mmol/L (137-145)
[2022-08-02 17:12] VITALS: BP 163/77; PULSE 85; RESP 16; O2SAT 99
--- NOTE | 2022-08-02 18:51 | ED.ABDPAIN ---
HPI - Abdominal Pain General Chief Complaint: Abdominal Pain Stated Complaint: RLQ abdominal Pain Time Seen by Provider: 08/02/22 17:20 Source: patient and EMS Mode of arrival: EMS History of Present Illness HPI narrative: The patient 71-year-old male history of diabetes, hyperlipidemia, hypertension, who presents for the 3rd time this month with right lower quadrant pain. He is had multiple CTs including chest/ab/pelvis and other abdominal CTs with presumed mild colitis. He previously had sepsis secondary to Klebsiella pneumonia that was in 06/2022. His most recent visit was 07/16/2022 he was given antibiotics on July 14 Augmentin in pain medications. 3rd he presented stating that his pain medications were lost or thrown away. He reports that he continues to have right lower quadrant pain. It has been ongoing for months no one will tell him what it is. He denies any fever or chills. He does look thin but he reports that he is eating and drinking. Bowel movements are normal. He denies any dizziness, chest pain palpitations. Related Data Home Medications Medication Instructions Recorded Confirmed atorvastatin 40 mg tablet 40 mg PO DAILY 04/26/22 08/02/22 insulin aspart U-100 100 unit/mL See Rx Instructions .Route .COMPLEX 04/26/22 08/02/22 (3 mL) subcutaneous pen (Novolog FlexPen U-100 Insulin aspart) metoprolol succinate 100 mg 100 mg PO DAILY 04/26/22 08/02/22 tablet,extended release 24 hr sitagliptin phosphate 50 mg tablet 50 mg PO DAILY 04/26/22 08/02/22 (Januvia) tamsulosin 0.4 mg capsule 0.4 mg PO DAILY 04/26/22 08/02/22 aspirin 81 mg tablet,delayed 81 mg PO DAILY 04/28/22 08/02/22 release omeprazole 20 mg capsule,delayed 20 mg PO DAILY 04/28/22 08/02/22 release insulin glargine 100 unit/mL (3 20 unit SUBCUT BEDTIME 08/02/22 08/02/22 mL) subcutaneous pen (Lantus Solostar U-100 Insulin) trazodone 50 mg tablet 50 mg PO BEDTIME 08/02/22 08/02/22 Previous Rx's Medication Instructions Recorded Saccharomyces boulardii 250 mg 250 mg PO BID #30 caps 06/24/22 capsule (Florastor) sennosides 8.6 mg tablet (senna) 17.2 mg PO BEDTIME #30 tabs 06/24/22 buprenorphine 7.5 mcg/hour weekly 1 patch transdermal QWEEK #4 ea 06/25/22 transdermal patch Allergies Allergy/AdvReac Type Severity Reaction Status Date / Time NSAIDS (Non-Steroidal Allergy Verified 08/02/22 15:51 Anti-Inflamma Tetanus Vaccines and Toxoid Allergy Verified 08/02/22 15:51 Review of Systems Review of Systems ROS Unobtainable: All systems reviewed & are unremarkable except as noted in HPI and below Patient History Medical History BPH (benign prostatic hyperplasia) CAD (coronary artery disease) of bypass graft Chronic pain Essential hypertension GERD (gastroesophageal reflux disease) Malnutrition of mild degree Recurrent falls Type 2 diabetes mellitus with hyperlipidemia Surgical History History of cholecystectomy Family History Father No problems noted. Mother No problems noted. Social History household members: none Smoking Status: Former smoker alcohol intake: current Smoking Status: Former smoker alcohol intake frequency: holidays/special occasions only Substance Use Type: marijuana Exam Initial Vital Signs Initial Vital Signs: Vital Signs Temperature 97.9 F 08/02/22 15:22 Pulse Rate 77 08/02/22 15:22 Respiratory Rate 18 08/02/22 15:22 Blood Pressure 144/91 H 08/02/22 15:22 Pulse Oximetry 99 08/02/22 15:22 Oxygen Delivery Method Room Air 08/02/22 15:22 GENERAL: Thin 71-year-old male no acute distress HEENT: Head atraumatic,EOMI, pupils reactive, face symmetric, moist mucous membranes CARDIOVASCULAR: Regular rate and rhythm without murmurs, rubs or gallops. RESPIRATORY: Breath sounds equal bilaterally, no wheezes rales or rhonchi. ABDOMEN: Soft, mild right lower quadrant pain no guarding no rebound negative Hernandez sign : No CVA tenderness EXTREMITIES: Normal range of motion, no clubbing or edema. Neurovascularly intact NEUROLOGICAL: Alert and oriented x4. SKIN: Warm, dry, no laceration, no petechiae, no rashes or lesions. Course Orders Ordered: Discontinued Medications Hydrocodone Bitart/Acetaminophen (Hydrocodone/Acet 5/325 Tablet) 1 tab PO NOW ONE Stop: 08/02/22 19:40 Last Admin: 08/02/22 19:45 Dose: 1 tab Documented By: QUINCY Morphine Sulfate (Morphine 4 Mg/Ml Inj) 4 mg IV NOW ONE Stop: 08/02/22 18:59 Last Admin: 08/02/22 19:47 Dose: Not Given Documented By: QUINCY Vital Signs Vital signs: Vital Signs - 8 hr 08/02/22 15:22 08/02/22 17:12 Temperature 97.9 F Pulse Rate 77 85 Respiratory Rate 18 16 Blood Pressure 144/91 H 163/77 H Pulse Oximetry 99 99 Oxygen Delivery Method Room Air Room Air MDM - Abdominal Pain Lab Data 08/02/22 15:30 08/02/22 15:30 Labs: Lab Results 08/02/22 08/02/22 Range/Units 15:30 15:30 WBC 5.0 (4.5-11.0) X10^3/uL RBC 4.47 L (4.5-5.9) X10^6/uL Hgb 13.9 (13.5-17.5) g/dL Hct 39.5 L (41-53) % MCV 88.5 (80-100) fL MCH 31.1 (26-34) PG MCHC 35.1 (30-36) % RDW 13.3 (11.6-14.8) % Plt Count 186 (150-400) X10^3/uL Neut % (Auto) 59.9 (50-75) % Lymph % (Auto) 23.6 L (25-40) % [place] % (Auto) 11.6 (3-14) % Eos % (Auto) 3.2 (2-4) % Baso % (Auto) 1.7 (0-2) % Neut # (Auto) 3000 (9718-9119) /uL Lymph # (Auto) 1200 (7402-7865) /uL [place] # (Auto) 600 (0-900) /uL Eos # (Auto) 200 (0-450) /uL Baso # (Auto) 100 (0-100) /uL Sodium 134 L (137-145) mmol/L Potassium 3.9 (3.4-5.1) mmol/L Chloride 98 (98-107) mmol/L Carbon Dioxide 33 H (22-32) mmol/L BUN 10 (9-20) mg/dL Creatinine 0.54 L (0.66-1.25) mg/dL Estimated GFR > 60 (>60) mL/min BUN/Creatinine Ratio 18.5 (6-22) Glucose 121 H (80-110) mg/dL Calcium 9.0 (8.4-10.2) mg/dL Total Bilirubin 0.8 (0.2-1.3) mg/dL AST 22 (17-59) IU/L ALT 22 (<50) IU/L Alkaline Phosphatase 67 (38-126) U/L Total Protein 7.0 (6.3-8.2) g/dL Albumin 4.0 (3.5-5.0) g/dL Globulin 3.0 (1.7-4.1) g/dL Albumin/Globulin Ratio 1.3 (1.0-2.8) Lipase 52 (23-300) U/L Point of care testing: Urine Dip Bedside Urine Glucose Negative Bedside Urine Bilirubin - Negative Bedside Urine Ketone - Negative Urine Specific [place] 1.010 Bedside Urine Occult Blood - Negative Bedside Urine pH 6.5 Bedside Urine Protein - Negative Bedside Urine Urobilinogen - Negative Bedside Urine Nitrite - Negative Bedside Urine Leukocytes - Negative Esterase MDM Narrative Medical decision making narrative: Patient 71-year-old male history of alcohol abuse, hypertension diabetes presents today with ongoing right lower quadrant pain. He has been seen and worked up multiple times for this. He previously had sepsis with Klebsiella pneumonia in June. He is no evidence of sepsis today. He is afebrile with normal vitals. He has a white count of 5 there is no other abnormality. No evidence of DKA electrolytes are within limits creatinine baseline glucose is 121. Previously elevated liver enzymes thought to be secondary to sepsis have since resolved. Multiple CTs this month do not show any abnormality in the right lower quadrant. Patient has already been treated with Augmentin. He is requesting pain medicine and information. He has already been given 2 prescriptions for hydrocodone this month. There will be no more given today. He is allergic to NSAIDs and refuses to take Tylenol. He is given 1 dose of morphine. At this time I do not believe that he needs any repeat imaging or further antibiotics. He needs follow-up with a PCP and GI. Discharge Plan Departure Patient Disposition: Home Clinical Impression: Abdominal pain, chronic, generalized, Colitis Instructions: DI for Abdominal Pain-Adult Activity Restrictions/Additional Instructions: *You have been diagnosed with abdominal pain, colitis *What to do: At this time you do need to follow up with your primary care provider for pain management. You may also need to see a GI specialist for colonoscopy *Continue to take medications as directed Tylenol 650 mg every 6 hours if needed for zeod-un-pbyomxvi pain *Follow up with your primary care provider in 2-3 days or call [phone] *Return to ER if you should have increasing pain fever passing out or any new, worsening or concerning symptoms Prescriptions: No Action trazodone 50 mg tablet 50 mg PO BEDTIME insulin glargine [Lantus Solostar U-100 Insulin] 100 unit/mL (3 mL) Insulin Pen 20 unit SUBCUT BEDTIME atorvastatin 40 mg tablet 40 mg PO DAILY metoprolol succinate 100 mg tablet extended release 24 hr 100 mg PO DAILY tamsulosin 0.4 mg capsule 0.4 mg PO DAILY Patient Comments: TAKE ONE CAPSULE BY MOUTH ONE TIME DAILY insulin aspart U-100 [Novolog FlexPen U-100 Insulin] 100 unit/mL (3 mL) insulin pen See Rx Instructions .ROUTE .COMPLEX Rx Instructions: PER BLOOD SUGAR Januvia 50 mg tablet 50 mg PO DAILY Patient Comments: TAKE ONE TABLET BY MOUTH ONE TIME DAILY aspirin 81 mg Tablet,Delayed Release (Dr/Ec) 81 mg PO DAILY omeprazole 20 mg capsule,delayed release(DR/EC) 20 mg PO DAILY Patient Comments: once a day sennosides [senna] 8.6 mg Tablet 17.2 mg PO BEDTIME Qty: 30 0RF Saccharomyces boulardii [Florastor] 250 mg capsule 250 mg PO BID Qty: 30 0RF buprenorphine 7.5 mcg/hour patch weekly 1 patch transdermal QWEEK Qty: 4 0RF Stand Alone Forms: Patient Portal/API
[2022-08-02] MEDS: HYDROCODONE/ACET 5/325 TABLET 1 TAB PO (19:45)
== END 2022-08-02 20:19 | disposition home or self-care (01) ==
PROVIDERS: Emergency Medicine; Emergency Provider Emergency Medicine
DX: R10.84 Generalized abdominal pain (principal); K52.9 Noninfective gastroenteritis and colitis, unspecified; Z79.899 Other long term (current) drug therapy
CPT/HCPCS: 36415; 80053; 81003; 83690; 85025; 99283

== ENCOUNTER 2022-08-20 12:13 | Emergency (ER) | payer MEDICARE, MEDICAID, SELFPAY ==
[2022-06-22 11:11] VITALS: BMI 22.1
[2022-08-20] VITALS (26 sets, daily range): BP systolic 99–139; BP diastolic 57–78; PULSE 76–91; RESP 11–24; TEMP 36.9; O2SAT 94–100; BMI 21.5
--- NOTE | 2022-08-20 12:30 | DI.RAD.S_ITS ---
PROCEDURE: XR CHEST 1V INDICATIONS: suspected sepsis TECHNIQUE: One view of the chest was acquired. COMPARISON: [facility], CR, XR CHEST 1V, 07/16/2022, 23:20. FINDINGS: Surgical changes and devices: None. Lungs and pleura: Minimal appearance of increased patchy opacities are noted within the bases, right greater than left. Mediastinum: Mediastinal contours appear normal. Heart size is normal. Bones and chest wall: No suspicious bony lesions. Overlying soft tissues appear unremarkable. IMPRESSION: Minimal appearance of bibasilar patchy opacities suggestive of pneumonia. Dictated by: María Bruce M.D. on 08/20/2022 at 12:55 Approved by: María Bruce M.D. on 08/20/2022 at 12:55
[2022-08-20 12:42] LABS: Add Manual Diff / Slide Review NO; Basophils Absolute Auto 100 /uL (0-100); Basophils Percent Auto 1.9 % (0-2); Eosinophils Absolute Auto 200 /uL (0-450); Eosinophils Percent Auto 3.6 % (2-4); Hematocrit 39.9 % (41-53); Hemoglobin 13.8 g/dL (13.5-17.5); Lymphocytes Absolute Auto 1500 /uL (1100-4500); Lymphocytes Percent Auto 26.1 % (25-40); Mean Corpuscular HGB Conc 34.7 % (30-36); Mean Corpuscular Hemoglobin 30.6 PG (26-34); Mean Corpuscular Volume 88.1 fL (80-100); Monocytes Absolute Auto 500 /uL (0-900); Monocytes Percent Auto 9.5 % (3-14); Neutrophils Absolute Auto 3400 /uL (1500-7000); Neutrophils Percent Auto 58.9 % (50-75); Platelet Count 196 X10^3/uL (150-400); Red Blood Cell Count 4.52 X10^6/uL (4.5-5.9); Red Cell Distribution Width 13.6 % (11.6-14.8); White Blood Cell Count 5.7 X10^3/uL (4.5-11.0)
--- NOTE | 2022-08-20 12:45 | ED_ITS ---
HPI - Syncope General Chief Complaint: Syncope Stated Complaint: near syncope Time Seen by Provider: 08/20/22 12:39 Source: patient and EMS Mode of arrival: EMS Limitations: no limitations History of Present Illness HPI narrative: Patient is a 71-year-old male who resides at rehab facility, history of coronary artery disease with 3 stents, hypertension, hyperlipidemia, chronic pain presents today with a syncopal episode. He has been in recently for ongoing right lower quadrant pain diagnosed with colitis. He was previously septic and admitted however has been in then for ongoing pain. Presents today with a syncopal episode. He was found slumped over passed out with coffee spilled in his lap. He denies any recollection of how this happened or the events leading to this. He is awake alert. EMS reports that he was hypotensive on scene but blood pressure has improved with a small amount of IV fluids. He continues to have some mild right lower quadrant pain. Denies any palpitations chest pain. Related Data Home Medications Medication Instructions Recorded Confirmed atorvastatin 40 mg tablet 40 mg PO DAILY 04/26/22 08/02/22 insulin aspart U-100 100 unit/mL See Rx Instructions .Route .COMPLEX 04/26/22 08/02/22 (3 mL) subcutaneous pen (Novolog FlexPen U-100 Insulin aspart) metoprolol succinate 100 mg 100 mg PO DAILY 04/26/22 08/02/22 tablet,extended release 24 hr sitagliptin phosphate 50 mg tablet 50 mg PO DAILY 04/26/22 08/02/22 (Januvia) tamsulosin 0.4 mg capsule 0.4 mg PO DAILY 04/26/22 08/02/22 aspirin 81 mg tablet,delayed 81 mg PO DAILY 04/28/22 08/02/22 release omeprazole 20 mg capsule,delayed 20 mg PO DAILY 04/28/22 08/02/22 release insulin glargine 100 unit/mL (3 20 unit SUBCUT BEDTIME 08/02/22 08/02/22 mL) subcutaneous pen (Lantus Solostar U-100 Insulin) trazodone 50 mg tablet 50 mg PO BEDTIME 08/02/22 08/02/22 Previous Rx's Medication Instructions Recorded Saccharomyces boulardii 250 mg 250 mg PO BID #30 caps 06/24/22 capsule (Florastor) sennosides 8.6 mg tablet (senna) 17.2 mg PO BEDTIME #30 tabs 06/24/22 buprenorphine 7.5 mcg/hour weekly 1 patch transdermal QWEEK #4 ea 06/25/22 transdermal patch Allergies Allergy/AdvReac Type Severity Reaction Status Date / Time NSAIDS (Non-Steroidal Allergy Verified 08/02/22 15:51 Anti-Inflamma Tetanus Vaccines and Toxoid Allergy Verified 08/02/22 15:51 Review of Systems Review of Systems ROS Unobtainable: All systems reviewed & are unremarkable except as noted in HPI and below Patient History Medical History BPH (benign prostatic hyperplasia) CAD (coronary artery disease) of bypass graft Chronic pain Essential hypertension GERD (gastroesophageal reflux disease) Malnutrition of mild degree Recurrent falls Type 2 diabetes mellitus with hyperlipidemia Surgical History History of cholecystectomy Family History Father No problems noted. Mother No problems noted. Social History household members: none Smoking Status: Former smoker alcohol intake: current Smoking Status: Former smoker alcohol intake frequency: holidays/special occasions only Substance Use Type: marijuana Exam Initial Vital Signs Initial Vital Signs: Vital Signs Temperature 98.5 F 08/20/22 12:15 Pulse Rate 84 08/20/22 12:15 Respiratory Rate 16 08/20/22 12:15 Blood Pressure 116/75 08/20/22 12:15 Pulse Oximetry 100 08/20/22 12:15 Oxygen Delivery Method Room Air 08/20/22 12:15 GENERAL: Very thin 71-year-old male malnourished HEENT: Head atraumatic,EOMI, pupils reactive, face symmetric, moist mucous membranes CARDIOVASCULAR: Regular rate and rhythm without murmurs, rubs or gallops. RESPIRATORY: Breath sounds equal bilaterally, no wheezes rales or rhonchi. ABDOMEN: Soft, mild right lower quadrant pain similar to previous exams Normoactive bowel sounds all 4 quadrants. No guarding or rebound. EXTREMITIES: Normal range of motion, no clubbing or edema. Neurovascularly intact NEUROLOGICAL: Alert and oriented x4.Normal gait and speech. Cranial nerves II through XII grossly intact. 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 Course Orders Ordered: Discontinued Medications Sodium Chloride (Normal Saline 0.9%) 1,000 mls @ 1,000 mls/hr IV BOLUS ONE Stop: 08/20/22 15:48 Last Infusion: 08/20/22 16:21 Dose: 0 mls/hr Documented By: Admin: 08/20/22 15:00 Dose: 1,000 mls/hr Documented By: ALAN Ondansetron HCl (Ondansetron 4 Mg Odt) 4 mg SL NOW PRN PRN Reason: Nausea And Vomiting Ondansetron HCl (Ondansetron 4 Mg/2 Ml Inj) 4 mg IV NOW PRN PRN Reason: Nausea And Vomiting Vital Signs Vital signs: Vital Signs - 8 hr 08/20/22 12:15 08/20/22 12:17 08/20/22 12:18 Temperature 98.5 F Pulse Rate 84 80 Respiratory Rate 16 13 Blood Pressure 116/75 116/75 Pulse Oximetry 100 95 Oxygen Delivery Method Room Air Room Air 08/20/22 12:20 08/20/22 12:20 08/20/22 12:30 Temperature Pulse Rate 85 Respiratory Rate 15 Blood Pressure 115/78 107/71 Pulse Oximetry 95 Oxygen Delivery Method 08/20/22 12:30 08/20/22 12:40 08/20/22 12:40 Temperature Pulse Rate 79 77 Respiratory Rate 19 14 Blood Pressure 106/69 Pulse Oximetry 99 99 Oxygen Delivery Method 08/20/22 12:50 08/20/22 12:50 08/20/22 13:00 Temperature Pulse Rate 76 Respiratory Rate 11 L Blood Pressure 105/62 104/63 Pulse Oximetry 98 Oxygen Delivery Method 08/20/22 13:00 08/20/22 13:10 08/20/22 13:10 Temperature Pulse Rate 82 83 Respiratory Rate 14 12 Blood Pressure 106/63 Pulse Oximetry 99 98 Oxygen Delivery Method 08/20/22 13:20 08/20/22 13:20 08/20/22 13:30 Temperature Pulse Rate 84 Respiratory Rate 11 L Blood Pressure 99/57 L 101/64 Pulse Oximetry 99 Oxygen Delivery Method Room Air 08/20/22 13:30 08/20/22 13:40 08/20/22 13:50 Temperature Pulse Rate 85 88 85 Respiratory Rate 18 24 15 Blood Pressure Pulse Oximetry 98 99 98 Oxygen Delivery Method 08/20/22 14:00 08/20/22 14:10 08/20/22 14:20 Temperature Pulse Rate 84 80 78 Respiratory Rate 15 17 13 Blood Pressure Pulse Oximetry 98 98 98 Oxygen Delivery Method 08/20/22 14:30 08/20/22 14:40 08/20/22 14:50 Temperature Pulse Rate 79 78 86 Respiratory Rate 15 14 15 Blood Pressure Pulse Oximetry 98 97 98 Oxygen Delivery Method Room Air 08/20/22 15:00 08/20/22 15:22 08/20/22 15:22 Temperature Pulse Rate 86 85 Respiratory Rate 20 Blood Pressure 133/67 Pulse Oximetry 99 94 Oxygen Delivery Method Room Air MDM - Syncope Lab Data 08/20/22 12:15 08/20/22 12:15 Labs: Lab Results 08/20/22 08/20/22 08/20/22 Range/Units 12:15 12:15 12:15 WBC 5.7 (4.5-11.0) X10^3/uL RBC 4.52 (4.5-5.9) X10^6/uL Hgb 13.8 (13.5-17.5) g/dL Hct 39.9 L (41-53) % MCV 88.1 (80-100) fL MCH 30.6 (26-34) PG MCHC 34.7 (30-36) % RDW 13.6 (11.6-14.8) % Plt Count 196 (150-400) X10^3/uL Neut % (Auto) 58.9 (50-75) % Lymph % (Auto) 26.1 (25-40) % [place] % (Auto) 9.5 (3-14) % Eos % (Auto) 3.6 (2-4) % Baso % (Auto) 1.9 (0-2) % Neut # (Auto) 3400 (3579-2832) /uL Lymph # (Auto) 1500 (6439-5398) /uL [place] # (Auto) 500 (0-900) /uL Eos # (Auto) 200 (0-450) /uL Baso # (Auto) 100 (0-100) /uL PT 11.5 (10.1-12.7) SECONDS INR 1.0 (0.9-1.3) APTT 32 (26-36) SECONDS Sodium 133 L (137-145) mmol/L Potassium 4.6 (3.4-5.1) mmol/L Chloride 97 L (98-107) mmol/L Carbon Dioxide 30 (22-32) mmol/L BUN 11 (9-20) mg/dL Creatinine 0.65 L (0.66-1.25) mg/dL Estimated GFR > 60 (>60) mL/min BUN/Creatinine Ratio 16.9 (6-22) Glucose 129 H (80-110) mg/dL Lactate (0.7-2.1) mmol/L Calcium 9.1 (8.4-10.2) mg/dL Total Bilirubin 0.7 (0.2-1.3) mg/dL AST 22 (17-59) IU/L ALT 22 (<50) IU/L Alkaline Phosphatase 48 (38-126) U/L Total Creatine Kinase < 20 L (55-170) U/L CK-MB (CK-2) TNP CK-MB (CK-2) Rel Index TNP Troponin I < 0.012 (0.01-0.034) ng/mL Total Protein 7.1 (6.3-8.2) g/dL Albumin 4.1 (3.5-5.0) g/dL Globulin 3.0 (1.7-4.1) g/dL Albumin/Globulin Ratio 1.4 (1.0-2.8) Lipase 34 (23-300) U/L Procalcitonin 0.03 (<0.5) ng/mL Prolactin Urine Color Urine Appearance Urine pH (4.5-8.0) Ur Specific [place] (1.000-1.035) Urine Protein (Negative) Urine Glucose (UA) (Negative) g/dL Urine Ketones (NEGATIVE) Urine Occult Blood (Negative) Urine Nitrate (Negative) Urine Bilirubin (NEGATIVE) Urine Urobilinogen (0.2) E.U./dL Ur Leukocyte Esterase (NEGATIVE) Urine RBC (0-5/HPF) Urine WBC (0-5/HPF) Ur Squamous Epith Cells (0-5/HPF) Urine Bacteria (None) Ur Culture Indicated? 08/20/22 08/20/22 08/20/22 Range/Units 12:15 12:15 13:50 WBC (4.5-11.0) X10^3/uL RBC (4.5-5.9) X10^6/uL Hgb (13.5-17.5) g/dL Hct (41-53) % MCV (80-100) fL MCH (26-34) PG MCHC (30-36) % RDW (11.6-14.8) % Plt Count (150-400) X10^3/uL Neut % (Auto) (50-75) % Lymph % (Auto) (25-40) % [place] % (Auto) (3-14) % Eos % (Auto) (2-4) % Baso % (Auto) (0-2) % Neut # (Auto) (7847-0909) /uL Lymph # (Auto) (7185-7107) /uL [place] # (Auto) (0-900) /uL Eos # (Auto) (0-450) /uL Baso # (Auto) (0-100) /uL PT (10.1-12.7) SECONDS INR (0.9-1.3) APTT (26-36) SECONDS Sodium (137-145) mmol/L Potassium (3.4-5.1) mmol/L Chloride (98-107) mmol/L Carbon Dioxide (22-32) mmol/L BUN (9-20) mg/dL Creatinine (0.66-1.25) mg/dL Estimated GFR (>60) mL/min BUN/Creatinine Ratio (6-22) Glucose (80-110) mg/dL Lactate 1.3 (0.7-2.1) mmol/L Calcium (8.4-10.2) mg/dL Total Bilirubin (0.2-1.3) mg/dL AST (17-59) IU/L ALT (<50) IU/L Alkaline Phosphatase (38-126) U/L Total Creatine Kinase (55-170) U/L CK-MB (CK-2) CK-MB (CK-2) Rel Index Troponin I (0.01-0.034) ng/mL Total Protein (6.3-8.2) g/dL Albumin (3.5-5.0) g/dL Globulin (1.7-4.1) g/dL Albumin/Globulin Ratio (1.0-2.8) Lipase (23-300) U/L Procalcitonin (<0.5) ng/mL Prolactin Cancelled Urine Color Yellow Urine Appearance Clear Urine pH 6.0 (4.5-8.0) Ur Specific [place] <=1.005 (1.000-1.035) Urine Protein Negative (Negative) Urine Glucose (UA) Negative (Negative) g/dL Urine Ketones Negative (NEGATIVE) Urine Occult Blood Negative (Negative) Urine Nitrate Negative (Negative) Urine Bilirubin Negative (NEGATIVE) Urine Urobilinogen 0.2 (0.2) E.U./dL Ur Leukocyte Esterase Negative (NEGATIVE) Urine RBC 0-1/hpf (0-5/HPF) Urine WBC None seen (0-5/HPF) Ur Squamous Epith Cells None seen (0-5/HPF) Urine Bacteria None seen (None) Ur Culture Indicated? Cult not indicated Imaging Data CT scan - head: Radiologist's Impression: PROCEDURE:? CT HEAD/BRAIN WO CON ? INDICATIONS:? syncope ? TECHNIQUE:? Noncontrast 4.5 mm thick angled axial sections acquired from the foramen magnum to the vertex, with coronal and sagittal reformats.? For radiation dose reduction, the following was used:? automated exposure control, adjustment of mA and/or kV according to patient size.? ? COMPARISON:? [facility], CT, CT HEAD/BRAIN WO CON, 06/21/2022, 21:32. ? FINDINGS:? Image quality:? Excellent.? ? CSF spaces:? Basal cisterns are patent.? No extra-axial fluid collections.? The ventricles are symmetric in size and shape.? ? Brain:? No intracranial bleeds or masses.? There is cerebral volume loss for ag e, with resultant ventricular and sulcal prominence.? There are periventricular and deep white matter chronic small vessel ischemic changes.? There is intracranial internal carotid artery atherosclerosis.? ? Skull and face:? Calvarium and visualized facial bones appear intact, without suspicious lesions.? ? Sinuses:? Visualized sinuses and mastoids are clear.? ? IMPRESSION:? ? 1. No acute intracranial process. ? 2. Moderate atrophy and chronic microvascular ischemic changes. ? ? ? Dictated by: María Bruce M.D. on 08/20/2022 at 15:37 ECG Data Interpretation: Normal sinus rhythm rate 77 VT interval 130 QRS 126 QTC [address] changes similar to previous MDM Narrative Medical decision making narrative: The patient 71-year-old male who has multiple comorbidities including coronary artery disease hypertension diabetes presents today for syncopal episode. Initially he was hypotensive however blood pressure improved quickly with IV flu ids. He is chronic ongoing right lower quadrant pain consistent with colitis he has been imaged multiple times pain does not seem to be any worse today than it has been previously. He has no leukocytosis or fever to suggest infection. Electrolytes and kidney function remained stable and at baseline for him. Negative troponin normal EKG. Head CT is also negative. He ambulates in the emergency department without any difficulty. He has been on the monitor and watched for multiple hours no arrhythmias found. Unclear what caused syncopal episode today but he is overall improving and doing better. No need for admission at this time. Discharge Plan Departure Patient Disposition: Home Clinical Impression: Syncope Instructions: DI for Syncope in Adults (Fainting) Activity Restrictions/Additional Instructions: *You have been diagnosed with syncope *What to do: At this time reason for your passing out episode. Please drink fluids today you might have been mildly dehydrated. Please try to eat as well *Continue to take medications as directed *Follow up with your primary care provider in 2-3 days or call [phone] *Return to ER if you should have recurrent episode of passing out chest pain palpitations or any new, worsening or concerning symptoms Prescriptions: No Action trazodone 50 mg tablet 50 mg PO BEDTIME insulin glargine [Lantus Solostar U-100 Insulin] 100 unit/mL (3 mL) Insulin Pen 20 unit SUBCUT BEDTIME atorvastatin 40 mg tablet 40 mg PO DAILY metoprolol succinate 100 mg tablet extended release 24 hr 100 mg PO DAILY tamsulosin 0.4 mg capsule 0.4 mg PO DAILY Patient Comments: TAKE ONE CAPSULE BY MOUTH ONE TIME DAILY insulin aspart U-100 [Novolog FlexPen U-100 Insulin] 100 unit/mL (3 mL) insulin pen See Rx Instructions .ROUTE .COMPLEX Rx Instructions: PER BLOOD SUGAR Januvia 50 mg tablet 50 mg PO DAILY Patient Comments: TAKE ONE TABLET BY MOUTH ONE TIME DAILY aspirin 81 mg Tablet,Delayed Release (Dr/Ec) 81 mg PO DAILY omeprazole 20 mg capsule,delayed release(DR/EC) 20 mg PO DAILY Patient Comments: once a day sennosides [senna] 8.6 mg Tablet 17.2 mg PO BEDTIME Qty: 30 0RF Saccharomyces boulardii [Florastor] 250 mg capsule 250 mg PO BID Qty: 30 0RF buprenorphine 7.5 mcg/hour patch weekly 1 patch transdermal QWEEK Qty: 4 0RF Stand Alone Forms: Patient Portal/API
[2022-08-20 12:49] LABS: Prothrombin Time 11.5 SECONDS (10.1-12.7)
[2022-08-20 12:52] LABS: PTT Partial Thromboplastin Tim 32 SECONDS (26-36)
[2022-08-20 12:53] LABS: Lactate (Lactic Acid) 1.3 mmol/L (0.7-2.1)
[2022-08-20 12:54] LABS: Alanine Aminotransferase 22 IU/L (<50); Albumin 4.1 g/dL (3.5-5.0); Albumin Globulin Ratio 1.4 (1.0-2.8); Alkaline Phosphatase 48 U/L (38-126); Aspartate Aminotransferase 22 IU/L (17-59); BUN Creatinine Ratio 16.9 (6-22); Bilirubin Total 0.7 mg/dL (0.2-1.3); Blood Urea Nitrogen 11 mg/dL (9-20); Calcium 9.1 mg/dL (8.4-10.2); Carbon Dioxide 30 mmol/L (22-32); Chloride 97 mmol/L (98-107); Creatine Kinase < 20 U/L (55-170); Estimated Glomerular Filt Rate > 60 mL/min (>60); Glucose 129 mg/dL (80-110); HEMOLYSIS 26 (0-50); Lipase 34 U/L (23-300); Potassium 4.6 mmol/L (3.4-5.1); Sodium 133 mmol/L (137-145); Total Protein 7.1 g/dL (6.3-8.2)
[2022-08-20 13:06] LABS: Troponin I < 0.012 ng/mL (0.01-0.034)
[2022-08-20 13:11] LABS: Procalcitonin 0.03 ng/mL (<0.5)
[2022-08-20 14:03] LABS: Appearance Urine UA CLEAR; Bilirubin Urine UA NEGATIVE (NEGATIVE); Color Urine UA YELLOW; Glucose Urine UA NEGATIVE (Negative); Ketones Urine UA NEGATIVE (NEGATIVE); Leukocyte Esterase Urine UA NEGATIVE (NEGATIVE); Nitrite Urine UA NEGATIVE (Negative); Occult Blood Urine UA NEGATIVE (Negative); Protein Urine UA NEGATIVE (Negative); Specific Gravity Urine UA <=1.005 (1.000-1.035); Urobilinogen Urine UA 0.2 E.U./dL (0.2)
[2022-08-20 14:16] LABS: RBC Urine 0-1/HPF (0-5/HPF); WBC Urine None Seen (0-5/HPF)
[2022-08-20 14:17] LABS: Bacteria Urine None Seen; Culture Indicated Urine Cult Not Indicated; Squamous Epithelial Cell Urine None Seen (0-5/HPF)
--- NOTE | 2022-08-20 14:49 | DI.CT.S_ITS ---
PROCEDURE: CT HEAD/BRAIN WO CON INDICATIONS: syncope TECHNIQUE: Noncontrast 4.5 mm thick angled axial sections acquired from the foramen magnum to the vertex, with coronal and sagittal reformats. For radiation dose reduction, the following was used: automated exposure control, adjustment of mA and/or kV according to patient size. COMPARISON: [facility], CT, CT HEAD/BRAIN WO CON, 06/21/2022, 21:32. FINDINGS: Image quality: Excellent. CSF spaces: Basal cisterns are patent. No extra-axial fluid collections. The ventricles are symmetric in size and shape. Brain: No intracranial bleeds or masses. There is cerebral volume loss for age, with resultant ventricular and sulcal prominence. There are periventricular and deep white matter chronic small vessel ischemic changes. There is intracranial internal carotid artery atherosclerosis. Skull and face: Calvarium and visualized facial bones appear intact, without suspicious lesions. Sinuses: Visualized sinuses and mastoids are clear. IMPRESSION: 1. No acute intracranial process. 2. Moderate atrophy and chronic microvascular ischemic changes. Dictated by: María Bruce M.D. on 08/20/2022 at 15:37 Approved by: María Bruce M.D. on 08/20/2022 at 15:37
[2022-08-20] MEDS: SODIUM CHLORIDE 0.9% 1,000 ML 1000 ML IV (15:00)
--- NOTE | 2022-08-20 16:20 | PC.NURSE ---
steady gait w/ ambulation, denies chest pain / shortness of breath. States he feels well. Taking po well.
== END 2022-08-20 16:35 | disposition home or self-care (01) ==
PROVIDERS: Emergency Provider Emergency Medicine
DX: R55 Syncope and collapse (principal)
CPT/HCPCS: 70450; 71045; 80053; 81001; 82550; 83605; 83690; 84145; 84484; 85025; 85610; 85730; 93005; 99284

== ENCOUNTER 2022-08-23 17:22 | Emergency (ER) | payer MEDICARE, MEDICAID, SELFPAY ==
[2022-06-22 11:11] VITALS: BMI 22.1
[2022-08-23] VITALS (14 sets, daily range): BP systolic 102–140; BP diastolic 71–86; PULSE 86–96; RESP 17–18; TEMP 37.1; O2SAT 96–99; BMI 20.4
[2022-08-23 18:00] LABS: Add Manual Diff / Slide Review NO; Basophils Absolute Auto 100 /uL (0-100); Basophils Percent Auto 1.1 % (0-2); Eosinophils Absolute Auto 100 /uL (0-450); Eosinophils Percent Auto 1.6 % (2-4); Hematocrit 40.6 % (41-53); Hemoglobin 14.1 g/dL (13.5-17.5); Lymphocytes Absolute Auto 1300 /uL (1100-4500); Lymphocytes Percent Auto 28.4 % (25-40); Mean Corpuscular HGB Conc 34.9 % (30-36); Mean Corpuscular Hemoglobin 30.3 PG (26-34); Mean Corpuscular Volume 86.9 fL (80-100); Monocytes Absolute Auto 600 /uL (0-900); Monocytes Percent Auto 11.8 % (3-14); Neutrophils Absolute Auto 2700 /uL (1500-7000); Neutrophils Percent Auto 57.1 % (50-75); Platelet Count 182 X10^3/uL (150-400); Red Blood Cell Count 4.67 X10^6/uL (4.5-5.9); Red Cell Distribution Width 13.5 % (11.6-14.8); White Blood Cell Count 4.7 X10^3/uL (4.5-11.0)
[2022-08-23 18:02] LABS: Alanine Aminotransferase 22 IU/L (<50); Albumin 4.1 g/dL (3.5-5.0); Albumin Globulin Ratio 1.5 (1.0-2.8); Alkaline Phosphatase 50 U/L (38-126); Aspartate Aminotransferase 22 IU/L (17-59); BUN Creatinine Ratio 14.1 (6-22); Bilirubin Total 0.4 mg/dL (0.2-1.3); Blood Urea Nitrogen 9 mg/dL (9-20); Calcium 8.8 mg/dL (8.4-10.2); Carbon Dioxide 31 mmol/L (22-32); Chloride 95 mmol/L (98-107); Estimated Glomerular Filt Rate > 60 mL/min (>60); Globulin 2.7 g/dL (1.7-4.1); Glucose 210 mg/dL (80-110); HEMOLYSIS 22 (0-50); Lipase 44 U/L (23-300); Potassium 3.6 mmol/L (3.4-5.1); Sodium 133 mmol/L (137-145); Total Protein 6.8 g/dL (6.3-8.2)
--- NOTE | 2022-08-23 18:08 | DI.CT.S_ITS ---
PROCEDURE: CT ABDOMEN PELVIS W CON INDICATIONS: rlq pain hx colitis TECHNIQUE: After the administration of IV contrast, axial sections were acquired from the lung bases to the pubic symphysis. Coronal and sagittal reformats were performed. For radiation dose reduction, the following was used: automated exposure control, adjustment of mA and/or kV according to patient size. COMPARISON: [facility], CT, CT CHEST ABD PEL W CON, 07/17/2022, 1:22. [facility], CT, CT ABDOMEN PELVIS W CON, 07/14/2022, 2:29. FINDINGS: Image quality: There is artifact associated with the metallic hardware. Artifact from the metallic hardware is reduced by metal reconstruction algorithm. Lung bases: Unremarkable. Heart: Prominent coronary artery calcification is seen. ABDOMEN: Liver: Unremarkable. Gallbladder: Removed. Biliary ducts: Unremarkable. Pancreas: Unremarkable. Spleen: Unremarkable. Adrenal Glands: Unremarkable. Kidneys and Ureters: There is a 3 cm water density nonenhancing cyst along the superior aspect of the right kidney. Renal artery calcifications can be seen, without chandrika kidney stones. There is no hydronephrosis. The kidneys enhance normally and symmetrically. Stomach and Bowel: Generalized thickening is seen of the distal colon, beginning at the level of the splenic flexure, although worst within the distal descending colon and continuing through the rectum. The more proximal colon is unremarkable. Colonic diverticula can be seen, which is worst distally. No dilated loops of small bowel are seen. New line the stomach is mildly fluid the distended. Peritoneum: No abnormal intraperitoneal fluid. No free air. Ventral Wall: No hernia. Abdominal Nodes: No retroperitoneal or mesenteric adenopathy by size criteria. Vessels: Aorta and inferior vena cava are normal in size. Atherosclerotic calcification is noted. PELVIS: Pelvic Organs: Unremarkable. Bladder: Unremarkable. Pelvic Nodes: No enlarged lymph nodes. Miscellaneous: No inguinal hernias are seen. Bones: Right hip arthroplasty hardware is seen. Age-appropriate bony degenerative changes are seen. IMPRESSION: Moderate distal colonic wall thickening can be seen. Please correlate with potential infectious and inflammatory causes of colitis, including C. difficile colitis. Distal colonic diverticulosis is seen. The extensive abnormal colon is broader than would be expected in diverticulitis. No findings of perforation or abscess can be seen. Additional findings: Prominent coronary artery calcification Atherosclerotic change seen throughout, including involving the renal arteries Simple appearing right renal cyst Cholecystectomy Right hip arthroplasty hardware Dictated by: Kg Gallagher M.D. on 08/23/2022 at 18:07 Approved by: Kg Gallagher M.D. on 08/23/2022 at 18:11
[2022-08-23] MEDS: ONDANSETRON 4 MG/2 ML INJ IV (18:45)
[2022-08-23 20:41] LABS: Appearance Urine UA CLEAR; Bilirubin Urine UA NEGATIVE (NEGATIVE); Color Urine UA YELLOW; Glucose Urine UA NEGATIVE (Negative); Ketones Urine UA NEGATIVE (NEGATIVE); Leukocyte Esterase Urine UA NEGATIVE (NEGATIVE); Nitrite Urine UA NEGATIVE (Negative); Occult Blood Urine UA NEGATIVE (Negative); Protein Urine UA NEGATIVE (Negative); Specific Gravity Urine UA <=1.005 (1.000-1.035); Urobilinogen Urine UA 0.2 E.U./dL (0.2)
[2022-08-23 20:49] LABS: Bacteria Urine None Seen; Culture Indicated Urine Cult Not Indicated; RBC Urine 0-1/HPF (0-5/HPF); WBC Urine 0-1/HPF (0-5/HPF)
--- NOTE | 2022-08-23 20:52 | ED.ABDPAIN ---
HPI - Abdominal Pain General Chief Complaint: Abdominal Pain Stated Complaint: Abd. Pain Time Seen by Provider: 08/23/22 18:07 Source: patient and EMS Mode of arrival: EMS History of Present Illness HPI narrative: Patient 71-year-old male history of chronic ongoing colitis, insulin-dependent diabetes, hyperlipidemia hypertension presents 2nd time this week. He has chronic ongoing right lower quadrant pain history of colitis generalized weakness overall not feeling well was previously seen for a syncopal episode no syncope today no chest pain. He has been coming to the emergency department more frequently. It does not appear that he is had a colonoscopy denies any blood in his stool no nausea vomiting Related Data Home Medications Medication Instructions Recorded Confirmed atorvastatin 40 mg tablet 40 mg PO DAILY 04/26/22 08/02/22 insulin aspart U-100 100 unit/mL See Rx Instructions .Route .COMPLEX 04/26/22 08/02/22 (3 mL) subcutaneous pen (Novolog FlexPen U-100 Insulin aspart) metoprolol succinate 100 mg 100 mg PO DAILY 04/26/22 08/02/22 tablet,extended release 24 hr sitagliptin phosphate 50 mg tablet 50 mg PO DAILY 04/26/22 08/02/22 (Januvia) tamsulosin 0.4 mg capsule 0.4 mg PO DAILY 04/26/22 08/02/22 aspirin 81 mg tablet,delayed 81 mg PO DAILY 04/28/22 08/02/22 release omeprazole 20 mg capsule,delayed 20 mg PO DAILY 04/28/22 08/02/22 release insulin glargine 100 unit/mL (3 20 unit SUBCUT BEDTIME 08/02/22 08/02/22 mL) subcutaneous pen (Lantus Solostar U-100 Insulin) trazodone 50 mg tablet 50 mg PO BEDTIME 08/02/22 08/02/22 Previous Rx's Medication Instructions Recorded Saccharomyces boulardii 250 mg 250 mg PO BID #30 caps 06/24/22 capsule (Florastor) sennosides 8.6 mg tablet (senna) 17.2 mg PO BEDTIME #30 tabs 06/24/22 buprenorphine 7.5 mcg/hour weekly 1 patch transdermal QWEEK #4 ea 06/25/22 transdermal patch ciprofloxacin HCl 500 mg tablet 500 mg PO BID #14 tabs 08/23/22 (Cipro) metronidazole 500 mg tablet 500 mg PO Q8H 7 days #21 tabs 08/23/22 Allergies Allergy/AdvReac Type Severity Reaction Status Date / Time NSAIDS (Non-Steroidal Allergy Verified 08/23/22 17:56 Anti-Inflamma Tetanus Vaccines and Toxoid Allergy Verified 08/23/22 17:56 Review of Systems Review of Systems ROS Unobtainable: All systems reviewed & are unremarkable except as noted in HPI and below Patient History Medical History BPH (benign prostatic hyperplasia) CAD (coronary artery disease) of bypass graft Chronic pain Essential hypertension GERD (gastroesophageal reflux disease) Malnutrition of mild degree Recurrent falls Type 2 diabetes mellitus with hyperlipidemia Surgical History History of cholecystectomy Family History Father No problems noted. Mother No problems noted. Social History household members: none Smoking Status: Former smoker alcohol intake: current Smoking Status: Former smoker tobacco type: cigarettes alcohol intake frequency: holidays/special occasions only Substance Use Type: does not use and former substance user Exam Initial Vital Signs Initial Vital Signs: Vital Signs Pulse Rate 92 H 08/23/22 17:26 Pulse Oximetry 98 08/23/22 17:26 GENERAL: Cachectic thin 71-year-old male HEENT: Head atraumatic,EOMI, pupils reactive, face symmetric, moist mucous membranes CARDIOVASCULAR: Regular rate and rhythm without murmurs, rubs or gallops. RESPIRATORY: Breath sounds equal bilaterally, no wheezes rales or rhonchi. ABDOMEN: Soft, mild right lower quadrant pain minimal guarding no rebound. EXTREMITIES: Normal range of motion, no clubbing or edema. Neurovascularly intact NEUROLOGICAL: Alert and oriented x4. SKIN: Warm, dry, no laceration, no petechiae, no rashes or lesions. Course Orders Ordered: Discontinued Medications Ciprofloxacin (Ciprofloxacin 250 Mg Tablet) 500 mg PO NOW ONE Stop: 08/23/22 21:24 Last Admin: 08/23/22 21:44 Dose: 500 mg Documented By: Hydromorphone HCl (Hydromorphone 0.5 Mg Inj) 0.5 mg IV NOW ONE Stop: 08/23/22 20:59 Last Admin: 08/23/22 21:09 Dose: 0.5 mg Documented By: MARINO Sodium Chloride (Normal Saline 0.9%) 1,000 mls @ 1,000 mls/hr IV BOLUS ONE Stop: 08/23/22 22:03 Last Infusion: 08/23/22 21:55 Dose: 0 mls/hr Documented By: Admin: 08/23/22 21:10 Dose: 1,000 mls/hr Documented By: MARINO Metronidazole (Metronidazole 500 Mg Tablet) 500 mg PO NOW ONE Stop: 08/23/22 21:24 Last Admin: 08/23/22 21:44 Dose: 500 mg Documented By: Ondansetron HCl (Ondansetron 4 Mg Odt) 4 mg PO NOW PRN PRN Reason: Nausea And Vomiting Ondansetron HCl (Ondansetron 4 Mg/2 Ml Inj) 4 mg IV NOW PRN PRN Reason: Nausea And Vomiting Last Admin: 08/23/22 18:45 Dose: 4 mg Documented By: KRYSTLE Vital Signs Vital signs: Vital Signs - 8 hr 08/23/22 17:51 08/23/22 17:26 08/23/22 17:27 Temperature 98.8 F Pulse Rate 91 H 92 H 92 H Respiratory Rate 18 Blood Pressure 140/77 Pulse Oximetry 97 98 98 Oxygen Delivery Method Room Air 08/23/22 17:27 08/23/22 17:30 08/23/22 18:00 Temperature Pulse Rate 91 H 96 H Respiratory Rate 17 Blood Pressure 140/77 Pulse Oximetry 98 97 Oxygen Delivery Method 08/23/22 18:27 08/23/22 18:27 08/23/22 18:30 Temperature Pulse Rate 86 Respiratory Rate Blood Pressure 128/77 129/81 Pulse Oximetry 98 Oxygen Delivery Method 08/23/22 18:30 08/23/22 19:00 08/23/22 19:00 Temperature Pulse Rate 86 94 H Respiratory Rate Blood Pressure 125/75 Pulse Oximetry 98 97 Oxygen Delivery Method 08/23/22 19:30 08/23/22 19:30 08/23/22 20:00 Temperature Pulse Rate 90 94 H Respiratory Rate Blood Pressure 136/84 Pulse Oximetry 98 99 Oxygen Delivery Method 08/23/22 20:01 08/23/22 20:01 Temperature Pulse Rate 90 Respiratory Rate Blood Pressure 130/73 Pulse Oximetry 98 Oxygen Delivery Method MDM - Abdominal Pain Lab Data 08/23/22 17:31 08/23/22 17:31 Labs: Lab Results 08/23/22 08/23/22 08/23/22 Range/Units 17:31 17:31 20:20 WBC 4.7 (4.5-11.0) X10^3/uL RBC 4.67 (4.5-5.9) X10^6/uL Hgb 14.1 (13.5-17.5) g/dL Hct 40.6 L (41-53) % MCV 86.9 (80-100) fL MCH 30.3 (26-34) PG MCHC 34.9 (30-36) % RDW 13.5 (11.6-14.8) % Plt Count 182 (150-400) X10^3/uL Neut % (Auto) 57.1 (50-75) % Lymph % (Auto) 28.4 (25-40) % [place] % (Auto) 11.8 (3-14) % Eos % (Auto) 1.6 L (2-4) % Baso % (Auto) 1.1 (0-2) % Neut # (Auto) 2700 (5974-4675) /uL Lymph # (Auto) 1300 (4161-0576) /uL [place] # (Auto) 600 (0-900) /uL Eos # (Auto) 100 (0-450) /uL Baso # (Auto) 100 (0-100) /uL Sodium 133 L (137-145) mmol/L Potassium 3.6 (3.4-5.1) mmol/L Chloride 95 L (98-107) mmol/L Carbon Dioxide 31 (22-32) mmol/L BUN 9 (9-20) mg/dL Creatinine 0.64 L (0.66-1.25) mg/dL Estimated GFR > 60 (>60) mL/min BUN/Creatinine Ratio 14.1 (6-22) Glucose 210 H (80-110) mg/dL Calcium 8.8 (8.4-10.2) mg/dL Total Bilirubin 0.4 (0.2-1.3) mg/dL AST 22 (17-59) IU/L ALT 22 (<50) IU/L Alkaline Phosphatase 50 (38-126) U/L Total Protein 6.8 (6.3-8.2) g/dL Albumin 4.1 (3.5-5.0) g/dL Globulin 2.7 (1.7-4.1) g/dL Albumin/Globulin Ratio 1.5 (1.0-2.8) Lipase 44 (23-300) U/L Urine Color Yellow Urine Appearance Clear Urine pH 7.0 (4.5-8.0) Ur Specific [place] <=1.005 (1.000-1.035) Urine Protein Negative (Negative) Urine Glucose (UA) Negative (Negative) g/dL Urine Ketones Negative (NEGATIVE) Urine Occult Blood Negative (Negative) Urine Nitrate Negative (Negative) Urine Bilirubin Negative (NEGATIVE) Urine Urobilinogen 0.2 (0.2) E.U./dL Ur Leukocyte Esterase Negative (NEGATIVE) Urine RBC 0-1/hpf (0-5/HPF) Urine WBC 0-1/hpf (0-5/HPF) Urine Bacteria None seen (None) Ur Culture Indicated? Cult not indicated Imaging Data CT scan - abdomen/pelvis: Radiologist's Impression: PROCEDURE:? CT ABDOMEN PELVIS W CON ? INDICATIONS:? rlq pain hx colitis ? TECHNIQUE:? After the administration of IV contrast, axial sections were acquired from the lung bases to the pubic symphysis.? Coronal and sagittal reformats were performed.? For radiation dose reduction, the following was used:? automated exposure control, adjustment of mA and/or kV according to patient size. ? COMPARISON:? [facility], CT, CT CHEST ABD PEL W CON, 07/17/2022, 1:22.? [facility], CT, CT ABDOMEN PELVIS W CON, 07/14/2022, 2:29. ? FINDINGS:? Image quality:? There is artifact associated with the metallic hardware. ? Artifact from the metallic hardware is reduced by metal reconstruction algorithm.? ? Lung bases:? Unremarkable.? ? Heart:? Prominent coronary artery calcification is seen. ? ? ABDOMEN: Liver:? Unremarkable.? ? Gallbladder:? Removed.? ? Biliary ducts:? Unremarkable.? ? Pancreas:? Unremarkable.? ? Spleen:? Unremarkable.? ? Adrenal Glands:? Unremarkable.? ? Kidneys and Ureters:? There is a 3 cm water density nonenhancing cyst along the superior aspect of the right kidney.? Renal artery calcifications can be seen, without chandrika kidney stones.? There is no hydronephrosis.? The kidneys enhance normally and symmetrically. ? Stomach and Bowel:? Generalized thickening is seen of the distal colon, beginning at the level of the splenic flexure, although worst within the distal descending colon and continuing through the rectum. The more proximal colon is unremarkable. Colonic diverticula can be seen, which is worst distally. No dilated loops of small bowel are seen.? New line the stomach is mildly fluid the distended. Peritoneum:? No abnormal intraperitoneal fluid.? No free air.? ? Ventral Wall: ? No hernia.? Abdominal Nodes:? No retroperitoneal or mesenteric adenopathy by size criteria.? Vessels:? Aorta and inferior vena cava are normal in size.? Atherosclerotic calcification is noted.? ? PELVIS: Pelvic Organs:? Unremarkable.? ? Bladder:? Unremarkable.? ? Pelvic Nodes: No enlarged lymph nodes.? Miscellaneous: No inguinal hernias are seen. ? ? ? Bones:? Right hip arthroplasty hardware is seen.? Age-appropriate bony degenerative changes are seen.? ? ? IMPRESSION:? ? Moderate distal colonic wall thickening can be seen.? Please correlate with potential infectious and inflammatory causes of colitis, including C. difficile colitis.? Distal colonic diverticulosis is seen.? The extensive abnormal colon is broader than would be expected in diverticulitis. ? No findings of perforation or abscess can be seen. ? Additional findings:? Prominent coronary artery calcification Atherosclerotic change seen throughout, including involving the renal arteries Simple appearing right renal cyst Cholecystectomy Right hip arthroplasty hardware ? Dictated by: Kg Gallagher M.D. on 08/23/2022 at 18:07 ? ? [facility] Narrative Medical decision making narrative: Patient is 71-year-old male thin cachectic appears chronically ill. Continues to have frequent visits to the emergency department. Again blood work is overall reassuring with leukocytosis anemia, sodium is slightly low but stable at 133, chloride 95 creatinine 0.6 BUN 9, total protein 6.8. CT shows persistent colonic thickening. There is concern for underlying malignancy. Patient has not had a colonoscopy denies any blood in stool. 21:00 Dr. Tinoco updated on patient's symptoms test results agrees with an outpatient colonoscopy. She is given patient's name. Discussed needing an outpatient colonoscopy with patient, he is understanding. At this time I also think reasonable to restart antibiotics to see if it helps his pain but definitely needs a colonoscopy. Discharge Plan Departure Patient Disposition: Home Clinical Impression: Colitis Instructions: DI for Colitis Activity Restrictions/Additional Instructions: YOU MUST CALL TO SCHEDULE A COLONOSCOPY TO RULE OUT CANCER *You have been diagnosed with colitis *What to do: There is concern for underlying cancer with her ongoing abdominal pain and issues. You do need a colonoscopy. I do think reasonable to start you again on antibiotics as he if it is helpful. Increased diet as tolerated *Continue to take medications as directed--> SENT TO [facility] Cipro 500 mg twice a day for 7 days Flagyl 500 mg 3 times a day for 7 days *Follow up with your primary care provider in 2-3 days or call [phone] Tinoco in her office tomorrow to schedule an appointment *Return to ER if you should have increasing pain passing out or any new, worsening or concerning symptoms Prescriptions: New metronidazole 500 mg tablet 500 mg PO Q8H 7 Days Qty: 21 0RF ciprofloxacin HCl [Cipro] 500 mg tablet 500 mg PO BID Qty: 14 0RF No Action trazodone 50 mg tablet 50 mg PO BEDTIME insulin glargine [Lantus Solostar U-100 Insulin] 100 unit/mL (3 mL) Insulin Pen 20 unit SUBCUT BEDTIME atorvastatin 40 mg tablet 40 mg PO DAILY metoprolol succinate 100 mg tablet extended release 24 hr 100 mg PO DAILY tamsulosin 0.4 mg capsule 0.4 mg PO DAILY Patient Comments: TAKE ONE CAPSULE BY MOUTH ONE TIME DAILY insulin aspart U-100 [Novolog FlexPen U-100 Insulin] 100 unit/mL (3 mL) insulin pen See Rx Instructions .ROUTE .COMPLEX Rx Instructions: PER BLOOD SUGAR Januvia 50 mg tablet 50 mg PO DAILY Patient Comments: TAKE ONE TABLET BY MOUTH ONE TIME DAILY aspirin 81 mg Tablet,Delayed Release (Dr/Ec) 81 mg PO DAILY omeprazole 20 mg capsule,delayed release(DR/EC) 20 mg PO DAILY Patient Comments: once a day sennosides [senna] 8.6 mg Tablet 17.2 mg PO BEDTIME Qty: 30 0RF Saccharomyces boulardii [Florastor] 250 mg capsule 250 mg PO BID Qty: 30 0RF buprenorphine 7.5 mcg/hour patch weekly 1 patch transdermal QWEEK Qty: 4 0RF Stand Alone Forms: Patient Portal/API
[2022-08-23] MEDS: HYDROMORPHONE 0.5 MG INJ IV (21:09)
[2022-08-23] MEDS: SODIUM CHLORIDE 0.9% 1,000 ML 1000 ML IV (21:10)
[2022-08-23] MEDS: CIPROFLOXACIN 250 MG TABLET 500 MG PO (21:44)
[2022-08-23] MEDS: metroNIDAZOLE 500 MG TABLET PO (21:44)
== END 2022-08-23 21:55 | disposition home or self-care (01) ==
PROVIDERS: Emergency Medicine; Emergency Provider Emergency Medicine
DX: K52.9 Noninfective gastroenteritis and colitis, unspecified (principal); R79.89 Other specified abnormal findings of blood chemistry; Z79.899 Other long term (current) drug therapy
CPT/HCPCS: 36415; 74177; 80053; 81001; 83690; 85025; 96361; 96374; 96375; 99284; J1170; J2405; Q9967

== ENCOUNTER 2022-09-02 23:46 | Observation (INO) | payer MEDICARE, MEDICAID, SELFPAY ==
[2022-06-22 11:11] VITALS: BMI 22.1
[2022-09-02 23:46] VITALS: BP 143/91; PULSE 68; RESP 16; TEMP 36.4; O2SAT 98; BMI 22.1
[2022-09-02 23:48] VITALS: PULSE 71; RESP 12; O2SAT 98
--- NOTE | 2022-09-02 23:52 | DI.CT.S_ITS ---
PROCEDURE: CT CHEST ABD PEL W CON INDICATIONS: syncope TECHNIQUE: After the administration of intravenous contrast, axial sections acquired from the supraclavicular neck to the pubic symphysis. Coronal and sagittal reformats were performed. For radiation dose reduction, the following was used: automated exposure control, adjustment of mA and/or kV according to patient size. COMPARISON: [facility], CT, CT CHEST ABD PEL W CON, 07/17/2022, 1:22. FINDINGS: Image quality: There is metallic streak artifact from patient's right hip prosthesis limiting evaluation. CHEST: Lower Neck: No lymphadenopathy by size criteria. Thyroid: Visualized thyroid demonstrates no discrete nodules. Axillae: No lymphadenopathy by size criteria. Chest Wall: Unremarkable. Lungs and Airways: No acute consolidation. There is a small pulmonary nodule measuring up to 0.4 cm on series 5, image 93 which appears unchanged from the prior study. The trachea and central airways are patent. Pleura: No pneumothorax or pleural effusions. Heart: Heart size is normal. No pericardial effusion. Thoracic Vessels: The aorta and pulmonary arteries are normal in size. Mediastinum and [place]: No lymphadenopathy by size criteria. Esophagus: No wall thickening. No hiatal hernia. ABDOMEN: Liver: No mass lesion. Gallbladder: Within normal limits without calcified gallstones. Biliary ducts: No biliary ductal dilatation. Pancreas: Unremarkable. Spleen: Normal in size. Adrenal Glands: No adrenal nodules. Kidneys and Ureters: No hydronephrosis. Stomach and Bowel: Stomach and small bowel loops are normal in caliber and wall thickness. No pericecal inflammatory changes to suggest appendicitis. There is mild segmental wall thickening in the descending and sigmoid colon redemonstrated suggestive of a mild colitis. Peritoneum: No abnormal intraperitoneal fluid. No free air. Ventral Wall: No hernia. Abdominal Nodes: No retroperitoneal or mesenteric adenopathy by size criteria. Vessels: Aorta and inferior vena cava are normal in size. PELVIS: Pelvic Organs: Unremarkable. Bladder: Unremarkable. Pelvic Nodes: No enlarged lymph nodes. Miscellaneous: No inguinal hernias are seen. Bones: Visualized osseous structures demonstrate no suspicious focal lesions. IMPRESSION: 1. Mild segmental wall thickening in the descending and sigmoid colon redemonstrated suggestive of a mild colitis. 2. Right upper lobe pulmonary nodule. The finding is nonspecific and a follow-up CT may be performed in 12 months to demonstrate stability if clinically indicated. Dictated by: Lamin Goode M.D. on 09/03/2022 at 2:01 Approved by: Lamin Goode M.D. on 09/03/2022 at 2:11
--- NOTE | 2022-09-02 23:52 | ED.SYNCOPE ---
HPI - Syncope General Chief Complaint: Syncope Stated Complaint: witnessed syncopal episode Time Seen by Provider: 09/02/22 23:52 History of Present Illness HPI narrative: Patient is a 71-year-old male history of colitis hyperlipidemia insulin-dependent diabetes hypertension presents for the 3rd time this month. He is here with a syncopal episode. He resides at a long-term care facility. He is unsure of the exact events, but passed out and was found to be hypotensive. When EMS arrived he did have a blood pressure in the 80s but it quickly resolved without any fluids. He is no numbness tingling weakness. He frequently has pain on the right side secondary to his colitis however today he says this on the left side. He was instructed to follow-up for colonoscopy last time I saw him on the however he is not yet made any arrangements for that. Related Data Home Medications Medication Instructions Recorded Confirmed atorvastatin 40 mg tablet 40 mg PO DAILY 04/26/22 08/02/22 insulin aspart U-100 100 unit/mL See Rx Instructions .Route .COMPLEX 04/26/22 08/02/22 (3 mL) subcutaneous pen (Novolog FlexPen U-100 Insulin aspart) metoprolol succinate 100 mg 100 mg PO DAILY 04/26/22 08/02/22 tablet,extended release 24 hr sitagliptin phosphate 50 mg tablet 50 mg PO DAILY 04/26/22 08/02/22 (Januvia) tamsulosin 0.4 mg capsule 0.4 mg PO DAILY 04/26/22 08/02/22 aspirin 81 mg tablet,delayed 81 mg PO DAILY 04/28/22 08/02/22 release omeprazole 20 mg capsule,delayed 20 mg PO DAILY 04/28/22 08/02/22 release insulin glargine 100 unit/mL (3 20 unit SUBCUT BEDTIME 08/02/22 08/02/22 mL) subcutaneous pen (Lantus Solostar U-100 Insulin) trazodone 50 mg tablet 50 mg PO BEDTIME 08/02/22 08/02/22 Previous Rx's Medication Instructions Recorded Saccharomyces boulardii 250 mg 250 mg PO BID #30 caps 06/24/22 capsule (Florastor) sennosides 8.6 mg tablet (senna) 17.2 mg PO BEDTIME #30 tabs 06/24/22 buprenorphine 7.5 mcg/hour weekly 1 patch transdermal QWEEK #4 ea 06/25/22 transdermal patch ciprofloxacin HCl 500 mg tablet 500 mg PO BID #14 tabs 08/23/22 (Cipro) Allergies Allergy/AdvReac Type Severity Reaction Status Date / Time NSAIDS (Non-Steroidal Allergy Verified 08/23/22 17:56 Anti-Inflamma Tetanus Vaccines and Toxoid Allergy Verified 08/23/22 17:56 Review of Systems Review of Systems ROS Unobtainable: All systems reviewed & are unremarkable except as noted in HPI and below Patient History Medical History BPH (benign prostatic hyperplasia) CAD (coronary artery disease) of bypass graft Chronic pain Essential hypertension GERD (gastroesophageal reflux disease) Malnutrition of mild degree Recurrent falls Type 2 diabetes mellitus with hyperlipidemia Surgical History History of cholecystectomy Family History Father No problems noted. Mother No problems noted. Social History household members: none Smoking Status: Former smoker alcohol intake: current Smoking Status: Former smoker tobacco type: cigarettes alcohol intake frequency: holidays/special occasions only Substance Use Type: does not use and former substance user Exam Initial Vital Signs Initial Vital Signs: Vital Signs Temperature 97.6 F 09/02/22 23:46 Pulse Rate 68 09/02/22 23:46 Respiratory Rate 16 09/02/22 23:46 Blood Pressure 143/91 H 09/02/22 23:46 Pulse Oximetry 98 09/02/22 23:46 Oxygen Delivery Method Room Air 09/02/22 23:46 GENERAL: Cachectic chronically ill 71-year-old male HEENT: Head atraumatic,EOMI, pupils reactive, face symmetric, moist mucous membranes CARDIOVASCULAR: Regular rate and rhythm without murmurs, rubs or gallops. RESPIRATORY: Breath sounds equal bilaterally, no wheezes rales or rhonchi. ABDOMEN: Soft, minimally tender no guarding no rebound no distention : No CVA tenderness EXTREMITIES: Normal range of motion, no clubbing or edema. Neurovascularly intact NEUROLOGICAL: Alert and oriented x4. Roving Weight Gauger strength equal bilaterally moving lower extremities SKIN: Warm, dry, no laceration, no petechiae, no rashes or lesions. Course Orders Ordered: ED Orders 09/02/22 23:50 Complete Blood Count AUTO DIFF Stat Comprehensive Metabolic Panel Stat ETOH [Ethanol (ETOH)] Stat Lactate (Lactic Acid) Stat Lipase Stat Procalcitonin Stat Prolactin Stat Troponin & CK Cardiac Panel Stat 09/02/22 23:52 CT chest abd pel w con Stat 09/03/22 EKG-12 Lead Routine EKG-12 Lead Routine 09/03/22 01:23 Urinalysis and Microscopic Stat Urine Drug Screen, Rapid Stat Acetaminophen (Acetaminophen 325 Mg Tablet) 650 mg PO Q6H PRN PRN Reason: Fever/Mild Pain (1-3) Dextrose (Dextrose 50 % In Water 25 Gm/50 Ml Syringe) 25 gm IV PRN PRN PRN Reason: Hypoglycemia Enoxaparin Sodium (Enoxaparin 40 Mg/0.4 Ml Syringe) 40 mg SUBCUT DAILY TOMMY Sodium Chloride (Normal Saline 0.9%) 1,000 mls @ 1,000 mls/hr IV BOLUS ONE Stop: 09/03/22 05:22 Insulin Glargine (Insulin Glargine 100 Unit/Ml 3ml Pen) 20 unit SUBCUT BEDTIME TOMMY Insulin Human Lispro (Insulin Lispro 100 Unit/Ml 3ml Vial) 0 unit SUBCUT ACHS TOMMY; Protocol Loperamide HCl (Loperamide 2 Mg Capsule) 2 mg PO QID PRN PRN Reason: Diarrhea Naloxone HCl (Naloxone 0.4 Mg/Ml Vial) 0.2 mg IV Q2MIN PRN PRN Reason: Opiate Reversal Ondansetron HCl (Ondansetron 4 Mg/2 Ml Inj) 4 mg IV Q8HR PRN PRN Reason: Nausea And Vomiting Discontinued Medications Sodium Chloride (Normal Saline 0.9%) 1,000 mls @ 1,000 mls/hr IV CONT TOMMY Last Infusion: 09/03/22 01:15 Dose: 0 mls/hr Documented By: Admin: 09/02/22 23:56 Dose: 1,000 mls/hr Documented By: SB Sodium Chloride (Normal Saline 0.9%) 1,000 mls @ 1,000 mls/hr IV BOLUS ONE Stop: 09/03/22 02:27 Last Infusion: 09/03/22 02:49 Dose: 0 mls/hr Documented By: Admin: 09/03/22 01:46 Dose: 1,000 mls/hr Documented By: MARINO Vital Signs Vital signs: Vital Signs - 8 hr 09/02/22 23:46 09/03/22 01:35 09/03/22 01:36 Temperature 97.6 F Pulse Rate 68 Pulse Rate [Orthostatic Lying] 85 Pulse Rate [Orthostatic Sitting] 90 Pulse Rate [Orthostatic Standing] 79 Respiratory Rate 16 Blood Pressure 143/91 H Blood Pressure [Orthostatic Lying] 102/65 102/65 Blood Pressure [Orthostatic Sitting] 107/68 107/68 Blood Pressure [Orthostatic Standing] 124/70 124/70 Pulse Oximetry 98 Oxygen Delivery Method Room Air 09/02/22 23:48 09/03/22 00:00 09/03/22 00:21 Temperature Pulse Rate 71 70 65 Pulse Rate [Orthostatic Lying] Pulse Rate [Orthostatic Sitting] Pulse Rate [Orthostatic Standing] Respiratory Rate 12 14 20 Blood Pressure Blood Pressure [Orthostatic Lying] Blood Pressure [Orthostatic Sitting] Blood Pressure [Orthostatic Standing] Pulse Oximetry 98 99 99 Oxygen Delivery Method 09/03/22 00:21 09/03/22 00:30 09/03/22 00:30 Temperature Pulse Rate 65 Pulse Rate [Orthostatic Lying] Pulse Rate [Orthostatic Sitting] Pulse Rate [Orthostatic Standing] Respiratory Rate 14 Blood Pressure 110/67 111/69 Blood Pressure [Orthostatic Lying] Blood Pressure [Orthostatic Sitting] Blood Pressure [Orthostatic Standing] Pulse Oximetry 98 Oxygen Delivery Method 09/03/22 01:00 09/03/22 01:00 09/03/22 01:20 Temperature Pulse Rate 75 81 Pulse Rate [Orthostatic Lying] Pulse Rate [Orthostatic Sitting] Pulse Rate [Orthostatic Standing] Respiratory Rate 16 19 Blood Pressure 123/76 Blood Pressure [Orthostatic Lying] Blood Pressure [Orthostatic Sitting] Blood Pressure [Orthostatic Standing] Pulse Oximetry 98 98 Oxygen Delivery Method 09/03/22 01:20 09/03/22 01:21 09/03/22 01:21 Temperature Pulse Rate 85 Pulse Rate [Orthostatic Lying] Pulse Rate [Orthostatic Sitting] Pulse Rate [Orthostatic Standing] Respiratory Rate 15 Blood Pressure 124/71 107/68 Blood Pressure [Orthostatic Lying] Blood Pressure [Orthostatic Sitting] Blood Pressure [Orthostatic Standing] Pulse Oximetry 98 Oxygen Delivery Method 09/03/22 01:22 09/03/22 01:22 09/03/22 01:30 Temperature Pulse Rate 85 Pulse Rate [Orthostatic Lying] Pulse Rate [Orthostatic Sitting] Pulse Rate [Orthostatic Standing] Respiratory Rate 16 Blood Pressure 102/65 125/71 Blood Pressure [Orthostatic Lying] Blood Pressure [Orthostatic Sitting] Blood Pressure [Orthostatic Standing] Pulse Oximetry Oxygen Delivery Method 09/03/22 01:30 09/03/22 02:00 09/03/22 02:00 Temperature Pulse Rate 80 80 Pulse Rate [Orthostatic Lying] Pulse Rate [Orthostatic Sitting] Pulse Rate [Orthostatic Standing] Respiratory Rate 12 19 Blood Pressure 125/80 Blood Pressure [Orthostatic Lying] Blood Pressure [Orthostatic Sitting] Blood Pressure [Orthostatic Standing] Pulse Oximetry 93 97 Oxygen Delivery Method 09/03/22 02:30 09/03/22 02:30 09/03/22 03:00 Temperature Pulse Rate 81 Pulse Rate [Orthostatic Lying] Pulse Rate [Orthostatic Sitting] Pulse Rate [Orthostatic Standing] Respiratory Rate 13 Blood Pressure 126/88 118/63 Blood Pressure [Orthostatic Lying] Blood Pressure [Orthostatic Sitting] Blood Pressure [Orthostatic Standing] Pulse Oximetry 98 Oxygen Delivery Method Room Air 09/03/22 03:00 09/03/22 03:30 09/03/22 03:31 Temperature Pulse Rate 78 86 84 Pulse Rate [Orthostatic Lying] Pulse Rate [Orthostatic Sitting] Pulse Rate [Orthostatic Standing] Respiratory Rate Blood Pressure Blood Pressure [Orthostatic Lying] Blood Pressure [Orthostatic Sitting] Blood Pressure [Orthostatic Standing] Pulse Oximetry 98 98 98 Oxygen Delivery Method 09/03/22 03:31 Temperature Pulse Rate Pulse Rate [Orthostatic Lying] Pulse Rate [Orthostatic Sitting] Pulse Rate [Orthostatic Standing] Respiratory Rate Blood Pressure 123/69 Blood Pressure [Orthostatic Lying] Blood Pressure [Orthostatic Sitting] Blood Pressure [Orthostatic Standing] Pulse Oximetry Oxygen Delivery Method MDM - Syncope Lab Data 09/02/22 23:50 09/02/22 23:50 Labs: Lab Results 09/02/22 09/02/22 09/02/22 Range/Units 23:50 23:50 23:50 WBC 5.5 (4.5-11.0) X10^3/uL RBC 4.55 (4.5-5.9) X10^6/uL Hgb 14.0 (13.5-17.5) g/dL Hct 40.2 L (41-53) % MCV 88.4 (80-100) fL MCH 30.8 (26-34) PG MCHC 34.9 (30-36) % RDW 13.5 (11.6-14.8) % Plt Count 190 (150-400) X10^3/uL Neut % (Auto) 50.8 (50-75) % Lymph % (Auto) 34.8 (25-40) % [place] % (Auto) 11.0 (3-14) % Eos % (Auto) 3.2 (2-4) % Baso % (Auto) 0.2 (0-2) % Neut # (Auto) 2800 (6931-1770) /uL Lymph # (Auto) 1900 (6161-4045) /uL [place] # (Auto) 600 (0-900) /uL Eos # (Auto) 200 (0-450) /uL Baso # (Auto) 0 (0-100) /uL Sodium (137-145) mmol/L Potassium (3.4-5.1) mmol/L Chloride (98-107) mmol/L Carbon Dioxide (22-32) mmol/L BUN (9-20) mg/dL Creatinine (0.66-1.25) mg/dL Estimated GFR (>60) mL/min BUN/Creatinine Ratio (6-22) Glucose (80-110) mg/dL Lactate 1.4 (0.7-2.1) mmol/L Calcium (8.4-10.2) mg/dL Total Bilirubin (0.2-1.3) mg/dL AST (17-59) IU/L ALT (<50) IU/L Alkaline Phosphatase (38-126) U/L Total Creatine Kinase (55-170) U/L CK-MB (CK-2) CK-MB (CK-2) Rel Index Troponin I (0.01-0.034) ng/mL Total Protein (6.3-8.2) g/dL Albumin (3.5-5.0) g/dL Globulin (1.7-4.1) g/dL Albumin/Globulin Ratio (1.0-2.8) Lipase (23-300) U/L Procalcitonin 0.04 (<0.5) ng/mL Prolactin (3.7-17.9) ng/mL Urine Color Urine Appearance Urine pH (4.5-8.0) Ur Specific [place] (1.000-1.035) Urine Protein (Negative) Urine Glucose (UA) (Negative) g/dL Urine Ketones (NEGATIVE) Urine Occult Blood (Negative) Urine Nitrate (Negative) Urine Bilirubin (NEGATIVE) Urine Urobilinogen (0.2) E.U./dL Ur Leukocyte Esterase (NEGATIVE) Urine RBC (0-5/HPF) Urine WBC (0-5/HPF) Urine Bacteria (None) Ur Culture Indicated? U Opiates 300ng/mL cut (Negative) Ur Oxycodone Screen (Negative) Urine Methadone Screen (Negative) Ur Barbiturates Screen (Negative) U Tricyclic Antidepress (Negative) Ur Phencyclidine Scrn (Negative) Ur Amphetamines Screen (Negative) U Methamphetamines Scrn (Negative) Ur MDMA Scrn (Ecstasy) (Negative) U Benzodiazepines Scrn (Negative) Urine Cocaine Screen (Negative) U Marijuana (THC) Screen (Negative) Ethyl Alcohol < 10 ( - 10) mg/dL 09/02/22 09/02/22 09/03/22 Range/Units 23:50 23:50 01:23 WBC (4.5-11.0) X10^3/uL RBC (4.5-5.9) X10^6/uL Hgb (13.5-17.5) g/dL Hct (41-53) % MCV (80-100) fL MCH (26-34) PG MCHC (30-36) % RDW (11.6-14.8) % Plt Count (150-400) X10^3/uL Neut % (Auto) (50-75) % Lymph % (Auto) (25-40) % [place] % (Auto) (3-14) % Eos % (Auto) (2-4) % Baso % (Auto) (0-2) % Neut # (Auto) (4090-6259) /uL Lymph # (Auto) (3918-3267) /uL [place] # (Auto) (0-900) /uL Eos # (Auto) (0-450) /uL Baso # (Auto) (0-100) /uL Sodium 133 L (137-145) mmol/L Potassium 3.5 (3.4-5.1) mmol/L Chloride 98 (98-107) mmol/L Carbon Dioxide 28 (22-32) mmol/L BUN 9 (9-20) mg/dL Creatinine 0.59 L (0.66-1.25) mg/dL Estimated GFR > 60 (>60) mL/min BUN/Creatinine Ratio 15.3 (6-22) Glucose 87 (80-110) mg/dL Lactate (0.7-2.1) mmol/L Calcium 9.2 (8.4-10.2) mg/dL Total Bilirubin 0.7 (0.2-1.3) mg/dL AST 32 (17-59) IU/L ALT 20 (<50) IU/L Alkaline Phosphatase 40 (38-126) U/L Total Creatine Kinase 20 L (55-170) U/L CK-MB (CK-2) TNP CK-MB (CK-2) Rel Index TNP Troponin I < 0.012 (0.01-0.034) ng/mL Total Protein 6.9 (6.3-8.2) g/dL Albumin 4.0 (3.5-5.0) g/dL Globulin 2.9 (1.7-4.1) g/dL Albumin/Globulin Ratio 1.4 (1.0-2.8) Lipase 43 (23-300) U/L Procalcitonin (<0.5) ng/mL Prolactin 33.4 H (3.7-17.9) ng/mL Urine Color Yellow Urine Appearance Clear Urine pH 7.0 (4.5-8.0) Ur Specific [place] 1.010 (1.000-1.035) Urine Protein Negative (Negative) Urine Glucose (UA) Negative (Negative) g/dL Urine Ketones Negative (NEGATIVE) Urine Occult Blood Negative (Negative) Urine Nitrate Negative (Negative) Urine Bilirubin Negative (NEGATIVE) Urine Urobilinogen 0.2 (0.2) E.U./dL Ur Leukocyte Esterase Negative (NEGATIVE) Urine RBC None seen (0-5/HPF) Urine WBC None seen (0-5/HPF) Urine Bacteria None seen (None) Ur Culture Indicated? Cult not indicated U Opiates 300ng/mL cut (Negative) Ur Oxycodone Screen (Negative) Urine Methadone Screen (Negative) Ur Barbiturates Screen (Negative) U Tricyclic Antidepress (Negative) Ur Phencyclidine Scrn (Negative) Ur Amphetamines Screen (Negative) U Methamphetamines Scrn (Negative) Ur MDMA Scrn (Ecstasy) (Negative) U Benzodiazepines Scrn (Negative) Urine Cocaine Screen (Negative) U Marijuana (THC) Screen (Negative) Ethyl Alcohol ( - 10) mg/dL 09/03/22 Range/Units 01:23 WBC (4.5-11.0) X10^3/uL RBC (4.5-5.9) X10^6/uL Hgb (13.5-17.5) g/dL Hct (41-53) % MCV (80-100) fL MCH (26-34) PG MCHC (30-36) % RDW (11.6-14.8) % Plt Count (150-400) X10^3/uL Neut % (Auto) (50-75) % Lymph % (Auto) (25-40) % [place] % (Auto) (3-14) % Eos % (Auto) (2-4) % Baso % (Auto) (0-2) % Neut # (Auto) (7130-6395) /uL Lymph # (Auto) (2193-6996) /uL [place] # (Auto) (0-900) /uL Eos # (Auto) (0-450) /uL Baso # (Auto) (0-100) /uL Sodium (137-145) mmol/L Potassium (3.4-5.1) mmol/L Chloride (98-107) mmol/L Carbon Dioxide (22-32) mmol/L BUN (9-20) mg/dL Creatinine (0.66-1.25) mg/dL Estimated GFR (>60) mL/min BUN/Creatinine Ratio (6-22) Glucose (80-110) mg/dL Lactate (0.7-2.1) mmol/L Calcium (8.4-10.2) mg/dL Total Bilirubin (0.2-1.3) mg/dL AST (17-59) IU/L ALT (<50) IU/L Alkaline Phosphatase (38-126) U/L Total Creatine Kinase (55-170) U/L CK-MB (CK-2) CK-MB (CK-2) Rel Index Troponin I (0.01-0.034) ng/mL Total Protein (6.3-8.2) g/dL Albumin (3.5-5.0) g/dL Globulin (1.7-4.1) g/dL Albumin/Globulin Ratio (1.0-2.8) Lipase (23-300) U/L Procalcitonin (<0.5) ng/mL Prolactin (3.7-17.9) ng/mL Urine Color Urine Appearance Urine pH (4.5-8.0) Ur Specific [place] (1.000-1.035) Urine Protein (Negative) Urine Glucose (UA) (Negative) g/dL Urine Ketones (NEGATIVE) Urine Occult Blood (Negative) Urine Nitrate (Negative) Urine Bilirubin (NEGATIVE) Urine Urobilinogen (0.2) E.U./dL Ur Leukocyte Esterase (NEGATIVE) Urine RBC (0-5/HPF) Urine WBC (0-5/HPF) Urine Bacteria (None) Ur Culture Indicated? U Opiates 300ng/mL cut Negative (Negative) Ur Oxycodone Screen Negative (Negative) Urine Methadone Screen Negative (Negative) Ur Barbiturates Screen Negative (Negative) U Tricyclic Antidepress Negative (Negative) Ur Phencyclidine Scrn Negative (Negative) Ur Amphetamines Screen Negative (Negative) U Methamphetamines Scrn Negative (Negative) Ur MDMA Scrn (Ecstasy) Negative (Negative) U Benzodiazepines Scrn Negative (Negative) Urine Cocaine Screen Negative (Negative) U Marijuana (THC) Screen Negative (Negative) Ethyl Alcohol ( - 10) mg/dL Imaging Data CT scan - abdomen/pelvis: Radiologist's Impression: PROCEDURE:? CT CHEST ABD PEL W CON ? INDICATIONS:? syncope ? TECHNIQUE:? After the administration of intravenous contrast, axial sections acquired from the supraclavicular neck to the pubic symphysis.? Coronal and sagittal reformats were performed.? For radiation dose reduction, the following was used:? automated exposure control, adjustment of mA and/or kV according to patient size.? ? COMPARISON: ? [facility], CT, CT CHEST ABD PEL W CON, 07/17/2022, 1:22. ? FINDINGS:? Image quality:? There is metallic streak artifact from patient's right hip prosthesis limiting evaluation.? ? CHEST:? Lower Neck: No lymphadenopathy by size criteria. Thyroid:? Visualized thyroid demonstrates no discrete nodules. Axillae: No lymphadenopathy by size criteria. Chest Wall:? Unremarkable.? ? Lungs and Airways:? No acute consolidation.? There is a small pulmonary nodule measuring up to 0.4 cm on series 5, image 93 which appears unchanged from the prior study.? The trachea and central airways are patent. Pleura: No pneumothorax or pleural effusions.? ? Heart: Heart size is normal.? No pericardial effusion. Thoracic Vessels: The aorta and pulmonary arteries are normal in size.? Mediastinum and Fel[place]: No lymphadenopathy by size criteria. Esophagus: No wall thickening. No hiatal hernia. ? ABDOMEN: Liver:? No mass lesion. Gallbladder:? Within normal limits without calcified gallstones.? ? Biliary ducts:? No biliary ductal dilatation.? ? Pancreas:? Unremarkable.? ? Spleen:? Normal in size.? ? Adrenal Glands:? No adrenal nodules.? ? Kidneys and Ureters:? No hydronephrosis.? ? ? Stomach and Bowel:? Stomach and small bowel loops are normal in caliber and wall thickness.? No pericecal inflammatory changes to suggest appendicitis.? There is mild segmental wall thickening in the descending and sigmoid colon redemonstrated suggestive of a mild colitis. Peritoneum:? No abnormal intraperitoneal fluid.? No free air.? ? Ventral Wall: ? No hernia.? Abdominal Nodes:? No retroperitoneal or mesenteric adenopathy by size criteria.? Vessels:? Aorta and inferior vena cava are normal in size.? ? PELVIS: Pelvic Organs:? Unremarkable.? ? Bladder:? Unremarkable.? ? Pelvic Nodes: No enlarged lymph nodes.? Miscellaneous: No inguinal hernias are seen. ? ? ? Bones:? Visualized osseous structures demonstrate no suspicious focal lesions. IMPRESSION:? ? 1.? Mild segmental wall thickening in the descending and sigmoid colon redemonstrated suggestive of a mild colitis. ? 2. Right upper lobe pulmonary nodule.? The finding is nonspecific and a follow-up CT may be performed in 12 months to demonstrate stability if clinically indicated. ? ? Dictated by: Lamin Goode M.D. on 09/03/2022 at 2:01 ? ? ECG Data Interpretation: Sinus rhythm rate 60 panel 150 QRS 134 QTC 446 T-wave inversion noted in V 3 new from previous EKG but it does appear he has had some abnormality and April 2022 in the same area no ST elevations or depressions EKG 2. Similar to prior EKG rate [address] changes as noted previously MDM Narrative Medical decision making narrative: Patient 71-year-old male cachectic presenting for the 3rd time this month and his 2nd syncopal episode. He was initially hypotensive for EMS blood pressure has been stable here in the ED. He is some mild abdominal pain again. Blood work again is reassuring there is no leukocytosis or anemia no sign of significant dehydration, electrolytes are stable with a sodium of 133. He is a negative troponin. Prolactin is 33 questionable if he had a seizure not. Imaging shows segmental wall thickening of the descending and sigmoid colon mild colitis which she has had on previous CTs. He also has a pulmonary nodule. Insert is a there is underlying cancer he has yet to have a colonoscopy. Has recurrent syncopal episodes, patient would benefit from at least observation. Dr. Rossi accepts patient Discharge Plan Departure Patient Disposition: Admitted as Observation Clinical Impression: Syncope Admit Date/Time: 09/03/22 03:36 Admit Provider: Romie Rossi
[2022-09-02] MEDS: SODIUM CHLORIDE 0.9% 1,000 ML 1000 ML IV (23:56)
[2022-09-03] VITALS (22 sets, daily range): BP systolic 102–143; BP diastolic 63–90; PULSE 65–91; RESP 12–20; TEMP 36.5–37; O2SAT 93–100; BMI 20.2
[2022-09-03 00:12] LABS: Add Manual Diff / Slide Review NO; Basophils Absolute Auto 0 /uL (0-100); Basophils Percent Auto 0.2 % (0-2); Eosinophils Absolute Auto 200 /uL (0-450); Eosinophils Percent Auto 3.2 % (2-4); Hematocrit 40.2 % (41-53); Lymphocytes Absolute Auto 1900 /uL (1100-4500); Lymphocytes Percent Auto 34.8 % (25-40); Mean Corpuscular HGB Conc 34.9 % (30-36); Mean Corpuscular Hemoglobin 30.8 PG (26-34); Mean Corpuscular Volume 88.4 fL (80-100); Monocytes Absolute Auto 600 /uL (0-900); Neutrophils Absolute Auto 2800 /uL (1500-7000); Neutrophils Percent Auto 50.8 % (50-75); Platelet Count 190 X10^3/uL (150-400); Red Blood Cell Count 4.55 X10^6/uL (4.5-5.9); Red Cell Distribution Width 13.5 % (11.6-14.8); White Blood Cell Count 5.5 X10^3/uL (4.5-11.0)
[2022-09-03 00:14] LABS: Lactate (Lactic Acid) 1.4 mmol/L (0.7-2.1)
[2022-09-03 00:18] LABS: Ethanol (ETOH) < 10 mg/dL
[2022-09-03 00:19] LABS: Alanine Aminotransferase 20 IU/L (<50); Albumin Globulin Ratio 1.4 (1.0-2.8); Alkaline Phosphatase 40 U/L (38-126); Aspartate Aminotransferase 32 IU/L (17-59); BUN Creatinine Ratio 15.3 (6-22); Bilirubin Total 0.7 mg/dL (0.2-1.3); Blood Urea Nitrogen 9 mg/dL (9-20); Calcium 9.2 mg/dL (8.4-10.2); Carbon Dioxide 28 mmol/L (22-32); Chloride 98 mmol/L (98-107); Creatine Kinase 20 U/L (55-170); Estimated Glomerular Filt Rate > 60 mL/min (>60); Globulin 2.9 g/dL (1.7-4.1); Glucose 87 mg/dL (80-110); Lipase 43 U/L (23-300); Potassium 3.5 mmol/L (3.4-5.1); Sodium 133 mmol/L (137-145); Total Protein 6.9 g/dL (6.3-8.2)
[2022-09-03 00:26] LABS: HEMOLYSIS 65 (0-50)
[2022-09-03 00:31] LABS: Troponin I < 0.012 ng/mL (0.01-0.034)
[2022-09-03 00:36] LABS: Prolactin 33.4 ng/mL (3.7-17.9)
[2022-09-03 01:03] LABS: Procalcitonin 0.04 ng/mL (<0.5)
[2022-09-03 01:45] LABS: Appearance Urine UA CLEAR; Bilirubin Urine UA NEGATIVE (NEGATIVE); Color Urine UA YELLOW; Glucose Urine UA NEGATIVE (Negative); Ketones Urine UA NEGATIVE (NEGATIVE); Leukocyte Esterase Urine UA NEGATIVE (NEGATIVE); Nitrite Urine UA NEGATIVE (Negative); Occult Blood Urine UA NEGATIVE (Negative); Protein Urine UA NEGATIVE (Negative); Urobilinogen Urine UA 0.2 E.U./dL (0.2)
[2022-09-03] MEDS: SODIUM CHLORIDE 0.9% 1,000 ML 1000 ML IV ×2 (01:46→05:03)
[2022-09-03 01:50] LABS: Ur Creatinine 20 (Normal); Urine pH 7 (Normal)
[2022-09-03 01:51] LABS: UR Morphine/Opiate cutoff 300 Negative (Negative); Urine Amphetamines Negative (Negative); Urine Barbiturates Negative (Negative); Urine Benzodiazepines Negative (Negative); Urine Cocaine Negative (Negative); Urine MDMA Negative (Negative); Urine Methadone Negative (Negative); Urine Methamphetamines Negative (Negative); Urine Oxycodone Negative (Negative); Urine Phencyclidine Negative (Negative); Urine Tetrahydrocannabinol Negative (Negative); Urine Tricyclic Antidepressant Negative (Negative)
[2022-09-03 02:22] LABS: Bacteria Urine None Seen; Culture Indicated Urine Cult Not Indicated; RBC Urine None Seen (0-5/HPF); WBC Urine None Seen (0-5/HPF)
--- NOTE | 2022-09-03 04:08 | PM.HP.1 ---
History of Present Illness History of Present Illness Date Patient Seen: 09/03/22 Time Patient Seen: 03:30 Chief complaint: witnessed syncopal episode Narrative: Mr. Marlow is a 71M with PMH CAD s/p stents, BPH, HTN, Type 2 DM on insulin, recurrent falls, severe weight loss who presents to the hospital with syncope. He has had multiple visits to the ED this month. He has previously presented with syncope. He has no recollection of his syncopal event. He states he was feeling fine beforehand. He has chronic nausea, diarrhea which was no different than normal. No dizziness/lightheaded. No chest pain, shortness of breath. No overt seizure like activities. He had no postictal confusion. When EMS arrived his blood pressure was in the 80s and then resolved on its own. In the ED workup was done, vitals notable for afebrile, heart rate 60s, blood pressure 140s/90s, sats 98% on room air. Labs reviewed and notable for WBC 5.5, wbc 14, plts 190. Na 133, creatinine 0.59. Lactate 1.4. Trop negative. TSH normal on 06/21/2022. UA negative. Urine drug screen negative. CT chest/abd/pelvis reviewed by me and shows segmental wall thickening on colon, and right upper lobe pulmonary nodule. He was ordered for IV fluids and admitte for further treatment. [facility] Medical History BPH (benign prostatic hyperplasia) CAD (coronary artery disease) of bypass graft Chronic pain Essential hypertension GERD (gastroesophageal reflux disease) Malnutrition of mild degree Recurrent falls Type 2 diabetes mellitus with hyperlipidemia Surgical History History of cholecystectomy Family History Father No problems noted. Mother No problems noted. Social History household members: none Smoking Status: Former smoker alcohol intake: current Meds Home Medications and Allergies Home Medications Medication Instructions Recorded Confirmed Type atorvastatin 40 mg tablet 40 mg PO DAILY 04/26/22 08/02/22 History insulin aspart U-100 100 unit/mL See Rx Instructions .Route .COMPLEX 04/26/22 08/02/22 History (3 mL) subcutaneous pen (Novolog FlexPen U-100 Insulin aspart) metoprolol succinate 100 mg 100 mg PO DAILY 04/26/22 08/02/22 History tablet,extended release 24 hr sitagliptin phosphate 50 mg tablet 50 mg PO DAILY 04/26/22 08/02/22 History (Januvia) tamsulosin 0.4 mg capsule 0.4 mg PO DAILY 04/26/22 08/02/22 History aspirin 81 mg tablet,delayed 81 mg PO DAILY 04/28/22 08/02/22 History release omeprazole 20 mg capsule,delayed 20 mg PO DAILY 04/28/22 08/02/22 History release Saccharomyces boulardii 250 mg 250 mg PO BID #30 caps 06/24/22 08/02/22 Rx capsule (Florastor) sennosides 8.6 mg tablet (senna) 17.2 mg PO BEDTIME #30 tabs 06/24/22 08/02/22 Rx buprenorphine 7.5 mcg/hour weekly 1 patch transdermal QWEEK #4 ea 06/25/22 08/02/22 Rx transdermal patch insulin glargine 100 unit/mL (3 20 unit SUBCUT BEDTIME 08/02/22 08/02/22 History mL) subcutaneous pen (Lantus Solostar U-100 Insulin) trazodone 50 mg tablet 50 mg PO BEDTIME 08/02/22 08/02/22 History ciprofloxacin HCl 500 mg tablet 500 mg PO BID #14 tabs 08/23/22 Rx (Cipro) Allergies Allergy/AdvReac Type Severity Reaction Status Date / Time NSAIDS (Non-Steroidal Allergy Verified 08/23/22 17:56 Anti-Inflamma Tetanus Vaccines and Toxoid Allergy Verified 08/23/22 17:56 Review of Systems Review of Systems Narrative: 14 systems reviewed and negative aside from what is noted in HPI Exam Vital Signs (past 8 hours): - 09/02/22 23:46 09/03/22 01:35 09/03/22 01:36 Temperature 97.6 F Pulse Rate 68 Pulse Rate [Orthostatic Lying] 85 Pulse Rate [Orthostatic Sitting] 90 Pulse Rate [Orthostatic Standing] 79 Respiratory Rate 16 Blood Pressure 143/91 H Blood Pressure [Orthostatic Lying] 102/65 102/65 Blood Pressure [Orthostatic Sitting] 107/68 107/68 Blood Pressure [Orthostatic Standing] 124/70 124/70 Pulse Oximetry 98 Oxygen Delivery Method Room Air 09/02/22 23:48 09/03/22 00:00 09/03/22 00:21 Temperature Pulse Rate 71 70 65 Pulse Rate [Orthostatic Lying] Pulse Rate [Orthostatic Sitting] Pulse Rate [Orthostatic Standing] Respiratory Rate 12 14 20 Blood Pressure Blood Pressure [Orthostatic Lying] Blood Pressure [Orthostatic Sitting] Blood Pressure [Orthostatic Standing] Pulse Oximetry 98 99 99 Oxygen Delivery Method 09/03/22 00:21 09/03/22 00:30 09/03/22 00:30 Temperature Pulse Rate 65 Pulse Rate [Orthostatic Lying] Pulse Rate [Orthostatic Sitting] Pulse Rate [Orthostatic Standing] Respiratory Rate 14 Blood Pressure 110/67 111/69 Blood Pressure [Orthostatic Lying] Blood Pressure [Orthostatic Sitting] Blood Pressure [Orthostatic Standing] Pulse Oximetry 98 Oxygen Delivery Method 09/03/22 01:00 09/03/22 01:00 09/03/22 01:20 Temperature Pulse Rate 75 81 Pulse Rate [Orthostatic Lying] Pulse Rate [Orthostatic Sitting] Pulse Rate [Orthostatic Standing] Respiratory Rate 16 19 Blood Pressure 123/76 Blood Pressure [Orthostatic Lying] Blood Pressure [Orthostatic Sitting] Blood Pressure [Orthostatic Standing] Pulse Oximetry 98 98 Oxygen Delivery Method 09/03/22 01:20 09/03/22 01:21 09/03/22 01:21 Temperature Pulse Rate 85 Pulse Rate [Orthostatic Lying] Pulse Rate [Orthostatic Sitting] Pulse Rate [Orthostatic Standing] Respiratory Rate 15 Blood Pressure 124/71 107/68 Blood Pressure [Orthostatic Lying] Blood Pressure [Orthostatic Sitting] Blood Pressure [Orthostatic Standing] Pulse Oximetry 98 Oxygen Delivery Method 09/03/22 01:22 09/03/22 01:22 09/03/22 01:30 Temperature Pulse Rate 85 Pulse Rate [Orthostatic Lying] Pulse Rate [Orthostatic Sitting] Pulse Rate [Orthostatic Standing] Respiratory Rate 16 Blood Pressure 102/65 125/71 Blood Pressure [Orthostatic Lying] Blood Pressure [Orthostatic Sitting] Blood Pressure [Orthostatic Standing] Pulse Oximetry Oxygen Delivery Method 09/03/22 01:30 09/03/22 02:00 09/03/22 02:00 Temperature Pulse Rate 80 80 Pulse Rate [Orthostatic Lying] Pulse Rate [Orthostatic Sitting] Pulse Rate [Orthostatic Standing] Respiratory Rate 12 19 Blood Pressure 125/80 Blood Pressure [Orthostatic Lying] Blood Pressure [Orthostatic Sitting] Blood Pressure [Orthostatic Standing] Pulse Oximetry 93 97 Oxygen Delivery Method 09/03/22 02:30 09/03/22 02:30 Temperature Pulse Rate 81 Pulse Rate [Orthostatic Lying] Pulse Rate [Orthostatic Sitting] Pulse Rate [Orthostatic Standing] Respiratory Rate 13 Blood Pressure 126/88 Blood Pressure [Orthostatic Lying] Blood Pressure [Orthostatic Sitting] Blood Pressure [Orthostatic Standing] Pulse Oximetry 98 Oxygen Delivery Method Room Air Oxygen Delivery Method Room Air Narrative Exam Narrative: GEN: no acute distress HEENT: dry mucous membranes, PERRL NECK: trachea midline, no jvd PULM: clear bilaterally, no wheezes, rhonchi, rales CV: regular rate and rhythm, no murmurs ABD: soft, nontender, nondistended, no organomegaly EXT: warm and well perfused with no edema NEURO: awake, alert, oriented, no focal deficits Objective Labs 09/02/22 23:50 09/02/22 23:50 Labs: Laboratory Results - last 24 hr 09/02/22 09/02/22 09/02/22 23:50 23:50 23:50 WBC 5.5 RBC 4.55 Hgb 14.0 Hct 40.2 L MCV 88.4 MCH 30.8 MCHC 34.9 RDW 13.5 Plt Count 190 Neut % (Auto) 50.8 Lymph % (Auto) 34.8 [place] % (Auto) 11.0 Eos % (Auto) 3.2 Baso % (Auto) 0.2 Neut # (Auto) 2800 Lymph # (Auto) 1900 [place] # (Auto) 600 Eos # (Auto) 200 Baso # (Auto) 0 Sodium Potassium Chloride Carbon Dioxide BUN Creatinine Estimated GFR BUN/Creatinine Ratio Glucose Lactate 1.4 Calcium Total Bilirubin AST ALT Alkaline Phosphatase Total Creatine Kinase CK-MB (CK-2) CK-MB (CK-2) Rel Index Troponin I Total Protein Albumin Globulin Albumin/Globulin Ratio Lipase Procalcitonin 0.04 Prolactin Urine Color Urine Appearance Urine pH Ur Specific [place] Urine Protein Urine Glucose (UA) Urine Ketones Urine Occult Blood Urine Nitrate Urine Bilirubin Urine Urobilinogen Ur Leukocyte Esterase Urine RBC Urine WBC Urine Bacteria Ur Culture Indicated? U Opiates 300ng/mL cut Ur Oxycodone Screen Urine Methadone Screen Ur Barbiturates Screen U Tricyclic Antidepress Ur Phencyclidine Scrn Ur Amphetamines Screen U Methamphetamines Scrn Ur MDMA Scrn (Ecstasy) U Benzodiazepines Scrn Urine Cocaine Screen U Marijuana (THC) Screen Ethyl Alcohol < 10 09/02/22 09/02/22 09/03/22 23:50 23:50 01:23 WBC RBC Hgb Hct MCV MCH MCHC RDW Plt Count Neut % (Auto) Lymph % (Auto) [place] % (Auto) Eos % (Auto) Baso % (Auto) Neut # (Auto) Lymph # (Auto) [place] # (Auto) Eos # (Auto) Baso # (Auto) Sodium 133 L Potassium 3.5 Chloride 98 Carbon Dioxide 28 BUN 9 Creatinine 0.59 L Estimated GFR > 60 BUN/Creatinine Ratio 15.3 Glucose 87 Lactate Calcium 9.2 Total Bilirubin 0.7 AST 32 ALT 20 Alkaline Phosphatase 40 Total Creatine Kinase 20 L CK-MB (CK-2) TNP CK-MB (CK-2) Rel Index TNP Troponin I < 0.012 Total Protein 6.9 Albumin 4.0 Globulin 2.9 Albumin/Globulin Ratio 1.4 Lipase 43 Procalcitonin Prolactin 33.4 H Urine Color Yellow Urine Appearance Clear Urine pH 7.0 Ur Specific [place] 1.010 Urine Protein Negative Urine Glucose (UA) Negative Urine Ketones Negative Urine Occult Blood Negative Urine Nitrate Negative Urine Bilirubin Negative Urine Urobilinogen 0.2 Ur Leukocyte Esterase Negative Urine RBC None seen Urine WBC None seen Urine Bacteria None seen Ur Culture Indicated? Cult not indicated U Opiates 300ng/mL cut Ur Oxycodone Screen Urine Methadone Screen Ur Barbiturates Screen U Tricyclic Antidepress Ur Phencyclidine Scrn Ur Amphetamines Screen U Methamphetamines Scrn Ur MDMA Scrn (Ecstasy) U Benzodiazepines Scrn Urine Cocaine Screen U Marijuana (THC) Screen Ethyl Alcohol 09/03/22 01:23 WBC RBC Hgb Hct MCV MCH MCHC RDW Plt Count Neut % (Auto) Lymph % (Auto) [place] % (Auto) Eos % (Auto) Baso % (Auto) Neut # (Auto) Lymph # (Auto) [place] # (Auto) Eos # (Auto) Baso # (Auto) Sodium Potassium Chloride Carbon Dioxide BUN Creatinine Estimated GFR BUN/Creatinine Ratio Glucose Lactate Calcium Total Bilirubin AST ALT Alkaline Phosphatase Total Creatine Kinase CK-MB (CK-2) CK-MB (CK-2) Rel Index Troponin I Total Protein Albumin Globulin Albumin/Globulin Ratio Lipase Procalcitonin Prolactin Urine Color Urine Appearance Urine pH Ur Specific [place] Urine Protein Urine Glucose (UA) Urine Ketones Urine Occult Blood Urine Nitrate Urine Bilirubin Urine Urobilinogen Ur Leukocyte Esterase Urine RBC Urine WBC Urine Bacteria Ur Culture Indicated? U Opiates 300ng/mL cut Negative Ur Oxycodone Screen Negative Urine Methadone Screen Negative Ur Barbiturates Screen Negative U Tricyclic Antidepress Negative Ur Phencyclidine Scrn Negative Ur Amphetamines Screen Negative U Methamphetamines Scrn Negative Ur MDMA Scrn (Ecstasy) Negative U Benzodiazepines Scrn Negative Urine Cocaine Screen Negative U Marijuana (THC) Screen Negative Ethyl Alcohol Assessment & Plan Assessment & Plan narrative: 1. Recurrent syncope -suspect most likely etiology is due to hypovolemia -however he had no typical prodromal symptoms, with no dizzines, lightheadedness -syncope sounded sudden onset -no postictal symptoms -because of this and history of cardiac disease will keep on tele, and order echo for further eval -ordered an additional bolus of IV fluids -had slight drop of blood pressure upon standing, but not significant orthostatic change -check orthostatics qshift 2. Thickened colon wall -etiology unclear -continues to have diarrhea despite multiple treatment for colitis -suspect less likely bacterial infection -just complete a course of antibiotics recently -hold off on antibiotics for now -colonoscopy referral has been done as outpatient, which he has not arranged -continue loperamide 3. CAD s/p stents -continue aspirin, statin -hold metoprolol for now 4. Type 2 DM on insulin -continue lantus -ordered sliding scale -check glucose achs 5. Severe protein calorie malnutrition -consult dietitian -there has been concern for underlying malignancy, especially given ct abdomen findings 6. Right pulmonary nodule -follow up with CT in 12 months I have discussed plan and obtained history from the patient. I have discussed plan of care with ED physician and bedside nurse. I have reviewed labs, imaging and previous medical notes CODE: Full Proxy: Doc Marlow, [facility] 'Current medications' to include all prescriptions, [id number] products, herbals, cannabis/cannabidiol products, and vitamin/mineral/dietary (nutritional) supplements. I have utilized all available resources to obtain, update, or review the patient?s current medications. [If Yes, STOP here]: Yes
--- NOTE | 2022-09-03 04:23 | DI.ECHO.S_ITS ---
[facility]---------+ [facility] +---------+ : : [address] : : : : [id number] : : : : Phone: [phone] Echocardiogram Report + + :Name: JIHAN PELAEZ Study Date: 09/03/2022 Height: 69 in : :[facility] ReadingLocation: Weight: 150 lb : : Gender: Male BSA: 1.8 m2 : :: 1950 Age: 71 yrs BP: 141/86 mmHg: :Reason For Study: RECURRENT SYNCOPE : :Ordering Physician: SUZAN, : :GRISELDA Performed By: Carley Lay : :Referring: GRISELDA MARES : + + Interpretation Summary Normal left ventricle size with ejection fraction 30-35%. Moderate global hypokinesis of the left ventricle. Mildly dilated left atrium. The aortic valve is mildly calcified. Mild to moderate mitral annular calcification. Procedure: A two-dimensional transthoracic echocardiogram with color flow and Doppler was performed. The study quality was technically adequate. There is no prior echocardiogram noted for this patient. The patient was in sinus rhythm with heart rates between 64-91 bpm during the exam. The patient had occasional PVCs during the exam. Left Ventricle: The left ventricle is normal in size and wall thickness. The ejection fraction is estimated to be 30-35%. There is moderate global hypokinesis of the left ventricle. Right Ventricle: The right ventricle is normal in size and function. Atria: The left atrium is mildly dilated. Right atrial size is normal. There is no Doppler evidence for an interatrial shunt. Mitral Valve: There is mild to moderate mitral annular calcification. There is trace mitral regurgitation. Aortic Valve: The aortic valve is trileaflet. The aortic valve opens well. The aortic valve is mildly calcified. There is no aortic valve stenosis. There is trace aortic regurgitation. Tricuspid Valve: The tricuspid valve is normal in structure and function. There is trace tricuspid regurgitation. Pulmonic Valve: The pulmonic valve is not well visualized. Great Vessels: The aortic root is normal size. The ascending aorta could not be visualized. The IVC is of normal diameter and collapses greater than 50% with a sniff. This suggests a low right atrial pressure of 3 mm Hg. Pericardium/ Pleura There is no pericardial effusion. There is no pleural effusion. MMode/2D Measurements & Calculations LVIDd: 5.2 cm LVOT diam: 2.0 cm LVIDs: 4.3 cm Ao root diam: 3.6 cm FS: 16.3 % Ao Arch Diam (Prox Trans): 2.7 cm IVSd: 0.67 cm LVPWd: 0.47 cm LV strong. diameter/BSA (cm/m^2): 2.8 LV sys. diameter/BSA (cm/m^2): 2.4 LA A2 area: 22.3 cm2 RA long axis: 4.8 cm LA A4 area: 18.7 cm2 RA area: 15.3 cm2 LA length (vol): 5.0 cm RA vol: 41.2 ml LA vol: 70.9 ml RA : 22.6 ml/m2 LA vol index: 38.8 ml/m2 IVC diam: 1.7 cm RVD1 (basal): 3.6 cm RVD2 (mid): 3.5 cm TAPSE: 1.5 cm Doppler Measurements & Calculations Ao V2 max: 76.0 cm/sec LVOT Max Jorge: 56.0 cm/sec Ao V2 mean: 58.9 cm/sec LV V1 max P.3 mmHg Ao max P.3 mmHg LV V1 VTI: 11.9 cm Ao mean P.5 mmHg SYED(I,D): 2.1 cm2 Ao V2 VTI: 16.6 cm SYED(V,D): 2.2 cm2 sev ratio: 0.71 SYED indexed to BSA (cm^2/m^2): 1.2 MV E max jorge: 46.2 cm/sec SV(LVOT): 35.4 ml MV A max jorge: 49.8 cm/sec MV E/A: 0.93 Med Peak E' Jorge: 4.3 cm/sec E/E' med: 10.7 Lat Peak E' Jorge: 5.0 cm/sec E/E' lat: 9.3 E/e' average: 10.0 MV dec time: 0.22 sec Electronically signed by: Bobby Goode on Reading Physician:09/03/2022 11:34 AM
--- NOTE | 2022-09-03 05:37 | PC.NURSE ---
Pt came in with a POLST (DNR) from his facility.
--- NOTE | 2022-09-03 05:57 | PC.NURSE ---
customer response representative: Patient arrived on floor at 0425 from ED with nurse Cydney via wheelchair. Patient reports chronic pain. Denies dizziness. VS WNL. Patient received 1L NS bolus this shift per MD orders. PIV in R hand. Patient OOB to BR with SBA. Patient reports not eating anything in a couple days. Offered food, patient declined. Hypoactive bowel sounds. Patient's chest is concave, very thin, stomach significantly thinner than rib cage.
--- NOTE | 2022-09-03 08:41 | DIET.CONS ---
Dietary Consultation Note Admission Date: 09/03/2022 03:36 Assessment: 71 y/o M admitted for witnessed syncopal episode. Pt was previously diagnosed with malnutrition in April 2022 mostly r/t food insecurity. Since June, pt's weight went from 68kg to 63.3kg (-7% in 2mo, severe) BMI 20.2 (severe for age) with ongoing colitis diarrhea and hypovolemia. Pt was instructed to schedule outpatient colonoscopy at that time to rule out malignancy which has not been done to date. Has PMH of T2DM. Both ED physician and hospitalist describe pt as cachectic and chronically ill appearing. NFPE: significant scooping of temples, prominent acromion process, boxed shoulders and visible justin landmarks of rib cage and sternum. Ht: 176.53 cm Wt: 63.304 kg (-7% in 2mo, severe) BMI: 20.2 (severe for age) UBW: 68kg+ Last BM: () MNA: 8 (malnourished) Quentin Score: 20 Diet: 09/03/22 Breakfast Carbohydrate Consistent Diet Diet Modifications: Carbohydrate level: Medium (3 CHO) Reflex DM orders: No Nutrition Percent Meal Consumed 75% 09/03/22 08:33 RBC 4.15 X10^6/uL (4.5-5.9) L 06/22/22 05:35 Hgb 12.8 g/dL (13.5-17.5) L 06/22/22 05:35 Hct 37.0 % (41-53) L 06/22/22 05:35 Creatinine 0.46 mg/dL (0.66-1.25) L 06/22/22 04:59 Hemoglobin A1c 6.3 % (4.0-6.0) H 06/21/22 20:34 Lactate 1.7 mmol/L (0.7-2.1) 06/21/22 23:59 Labs: RBC 4.55 X10^6/uL (4.5-5.9) 09/02/22 23:50 Hgb 14.0 g/dL (13.5-17.5) 09/02/22 23:50 Hct 40.2 % (41-53) L 09/02/22 23:50 Creatinine 0.59 mg/dL (0.66-1.25) L 09/02/22 23:50 Lactate 1.4 mmol/L (0.7-2.1) 09/02/22 23:50 Nutrition Diagnosis: Severe Acute Protein Calorie Malnutrition r/t predicated inadequate PO and h/o food insecurity aeb BMI 20.2 (severe for age), 7% unintentional weight loss in 2mo (severe), MNA 8 (malnourished) and significant muscle/fat wasting indicated by prominent acromion process, boxed shoulders, visible bones of ribcage and sternum, temporal scooping. -The patient is at much higher risk for medical and surgical complications because of his malnutrition. This increases the difficulty and complexity of medical and surgical interventions and increases the chances of poor outcomes such as morbidity and mortality. Interventions: 1. Due to repeat syncope from hypovolemia, recc oral nutrition therapy while hospitalized and in home setting to support nutrition and volume status. 2. Sending ONS Ensure Plus bid while hospitalized. EER: 1700-1900kcals (25-28kcal/kg per BMI) 88-102g PRO (1.3-1.5g/kg per malnutrition) Monitoring/Evaluations: POs, ONS tolerance Electronically Signed by: Radha Morris 09/03/22 08:41 Clinical Dietitian [address] [id number]
--- NOTE | 2022-09-03 09:43 | PT.IIE ---
Surgical History (Last Reviewed 09/03/22 @ 04:08 by Romie Rossi MD) History of cholecystectomy Medical History (Last Reviewed 09/03/22 @ 04:08 by Romie Rossi MD) BPH (benign prostatic hyperplasia) CAD (coronary artery disease) of bypass graft Chronic pain Essential hypertension GERD (gastroesophageal reflux disease) Malnutrition of mild degree Recurrent falls Type 2 diabetes mellitus with hyperlipidemia Physical Therapy Inpatient Evaluation/Re-Eval M1 PT/OT-IP Prior Functional Status Start: 09/03/22 08:52 Freq: NEEDED Status: Active Protocol: Document 09/03/22 09:43 AW (Rec: 09/03/22 10:33 AW [id number]) Medical Review Prior Functional Status Medical History Reviewed Yes Communication Pt is able to make his needs known. Mobility and Gait Uses a FWW at baseline. Occasionally uses a walking stick Activities of Daily Living and IADL's Pt gets meals and transportation from [facility]. States he is independent with ADL's but he presents with confusion and is likely not an accurate historia. Prior Functional Level (Other details) Pt has been to ED 9 times in this calendar year. Social History Household Members none Living Arrangements Assisted Living M2 PT-IP Current Condition Start: 09/03/22 08:52 Freq: NEEDED Status: Active Protocol: Document 09/03/22 09:43 AW (Rec: 09/03/22 10:33 AW [id number]) Physical Therapy Current Condition Current Condition Evaluation Date 09/03/22 Treatment Diagnosis recurrent syncope affecting mobility independence Onset Date months M3 PT-IP Subjective Start: 09/03/22 08:52 Freq: NEEDED Status: Active Protocol: Document 09/03/22 09:43 AW (Rec: 09/03/22 10:33 AW [id number]) Subjective Physical Therapy Visit Type Type Initial Evaluation Visit Start Time 09:22 Visit Stop Time 09:43 Total Visit Minutes 21 Number of PET HOUSE SITTER Visits 0 Physical Therapy Visit Comments Patient Comments Pt is dressed for discharge, awaiting echo, willing to participate with PT Patient Goals Pt hopes to go home today. Therapy Pain Assessment Pain When Pain Assessed During Mobility Pain Present Pain Present Denied Pain M4 PT-IP Mobility and Gait Start: 09/03/22 08:52 Freq: NEEDED Status: Active Protocol: Document 09/03/22 09:43 AW (Rec: 09/03/22 11:01 AW [id number]) PT-Bed Mobility Assessment Supine to Sit Supine to Sit Independent Scooting Scooting to Edge of Bed Independent PT-Transfer Assessment Sit to and From Stand Sit to and from Stand Independent Equipment Transfer Assistive Device Front Wheeled Walker Orthotic/Prosthetic Devices or Brace: No Transfers Transfer Destination Chair,Toilet Transfer Technique Stand Step Pivot Transfer Ability Level of Assist Independent Comments Mobility Comments Pt was found resting in bed, willing to work with PT. Orthostatic VS were assessed and were positive (see Other Assessments below) but pt was asymptomatic throughout. Transfers assessment found pt able to complete all transfers with modified independence using FWW. Gait Assessment Gait Gait Assistance Required: Independent Distance (Feet) 250 Assistive Devices Assistive Device Front Wheeled Walker Orthotic/Prosthetic Devices or Brace: No Gait Deviations General Gait Pattern Flexed Trunk Factors Limiting Gait Function Factors Limiting Gait Function Decreased Sensation Comments Gait Comments Pt ambulated using FWW with modified independence. He was able to navigate around obstacles with good environmental awareness and no LOB. Stair Climbing Assessment Evaluation Level of Assist On Stairs Independent Devices Stair Climbing Assistive Devices Right Railing Technique/Endurance Stair Climbing Direction Ascend and Descend Stair Climbing Technique Step Over Step Number of Steps Climbed 3 Query Text: Stair Climbing Set # Repetitions (reps) 2 Comments Stair Climbing Comments Good foot clearance. PT-Balance Assessment Sitting Balance and Reactions Static Sitting Balance Ability Normal Dynamic Sitting Balance Ability Normal Standing Balance and Reactions Static Standing Balance Ability Good Dynamic Standing Balance Ability Good Device Used FWW Balance Tests Romberg 15 sec EO no sway Tandem Standing semi-tandem 15 sec EO with min sway M5 PT-IP Objective Assessments Start: 09/03/22 08:52 Freq: NEEDED Status: Active Protocol: Document 09/03/22 09:43 AW (Rec: 09/03/22 11:01 AW [id number]) Orientation Orientation/Cognition Level of Alertness Alert Orientation Name,Situation Language Function Ability No Deficits Noted Memory Description Short Term Impaired,Prison Impaired Comments Pt not oriented to location or time. 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 Other Assessments Other Other Assessments Orthostatic VS: BP 136/90 HR 88 Supine BP 125/84 HR 86 Sitting BP 106/69 HR 91 Standing BP 122/80 HR 84 After activity M6 PT-IP Treatment Start: 09/03/22 08:52 Freq: NEEDED Status: Active Protocol: Document 09/03/22 09:43 AW (Rec: 09/03/22 11:01 AW [id number]) Physical Therapy Treatment Education Education Provided Safety Other Treatments Other Treatment Performed Educated pt on implications of orthostatic hypotension especially in light of no symptoms. M7 PT-IP Assessment and Plan Start: 09/03/22 08:52 Freq: NEEDED Status: Active Protocol: Document 09/03/22 09:43 AW (Rec: 09/03/22 11:01 AW [id number]) PT Summary Assessment and Plan Potential Rehabilitation Potential Excellent Status of Condition at Evaluation Stable Summary Impairments Balance,Sensation,Cognition Assessment Summary Lev is a 71 yo man admitted with recurrent syncopy. He has been to the ED nine times in this calendar year with similar concerns. He is modified independent for mobility using FWW at baseline . He resides at [facility]. CLOF: Pt presents alert and oriented x 2, able and willing to follow simple and 2-step instructions. LE strength is WNL and pt demonstrates all transfers and gait with modified independence using FWW. He does have positive orthostatic hypotension as noted above. RN and hospitalist MD were made aware . No further acute PT needs are identified. PT recommends discharge back to [facility] once medically stable. Will discharge from PT caseload. Please re-consult if mobility needs arise. Frequency of Treatment Frequency Of Treatment Discharge Precautions Other Precautions orthostatic hypotension Discharge Recommendations PT Discharge Recommendations Home with Assistance,Home with 24/7 Assist Available Transportation Needs at Discharge Private Vehicle
[2022-09-03] MEDS: SODIUM CHLORIDE 0.9% 500 ML IV (10:37)
--- NOTE | 2022-09-03 10:43 | CM.DANOTE ---
DCP: Patient is a 71yo M here for syncopal episode. Patient has been to the ER 3 times within the past month or so for similar reasons (08/02, 08/20, 08/23). Patient lives at [facility] and reports needing assistance with home maintenance, driving, and shopping. Patient reports using a cane and front wheel walker at baseline. ADJUSTMENT EXAMINER enter room and introduced self and role. Patient appeared A/Ox4 and appeared agitated as evidenced by frequent fidgeting. Patient reported having a desire to leave soon. Patient reported being upset about his missing hat and cane. This author agreed to inquire about where it could be. ER team and nursing staff already notified and already on the [place] for patient's belongings. Patient reported not having a PCP. ADJUSTMENT EXAMINER printed off and provided list of PCP's that accept his insurance in the area and gave list to patient. Patient accepted this information and appeared appreciative. ADJUSTMENT EXAMINER placed call to [facility]. Spoke with Whit. She is agreeable to accept patient today and request clinical be faxed. ADJUSTMENT EXAMINER asked TORO Martinez to complete. ADJUSTMENT EXAMINER team completed Medicaid transport form. TORO Martinez arranged transport to pick him up and will return him to [facility] as 12pm today. Insurance: [employer] HMO and Medicaid PCP: None at the moment. Provider list of PCP accepting new patient's in area. Plan: Patient will return to [facility] today via Medicaid transport set up for 12pm. STAR Keith Discharge Planning/Care Management CM Discharge Assessment Start: 09/03/22 10:39 Freq: Status: Active Protocol: Document 09/03/22 10:39 (Rec: 09/03/22 10:43 [id number]) Discharge Planning Assessment Assigned Jewelry Polisher STAR Keith DPOA/Assigned Designee Name Doc Marlow (brother) Contact Information [phone] Advance Directives? Yes Advance Directives on File No History Provided By Patient,Medical Record Has Patient been admitted in last 30 Yes days? Comment ER 08/02, 08/20, 08/23 Prior Living Arrangements Assisted Living Comment [facility] Assisted Living Household Members none Type of transporation used prior to Relies on Others admit Facility Name Admitted From: [place] Willing to Return to Facility? Yes Independent with ADL's No Needs Assistance With Meal Prep,Home Chores / Shopping Caregiver for Another No DME Already Rented / Owned FWW / Walker,Cane Barriers to Discharge No Discharge Plan Assisted Living Facility Transportation Arrangement Medicaid transport. Referrals Initiated None needed Whiteboard Updated in Patient Room with Yes name and ext. # of Jewelry Polisher Review Status In Process Next Review Type Continued Stay Review
--- NOTE | 2022-09-04 10:54 | P.DS_ITS ---
History of Present Illness History of Present Illness Date Patient Seen: 09/03/22 Time Patient Seen: 03:30 Chief complaint: witnessed syncopal episode Narrative: Mr. Marlow is a 71M with PMH CAD s/p stents, BPH, HTN, Type 2 DM on insulin, recurrent falls, severe weight loss who presents to the hospital with syncope. He has had multiple visits to the ED this month. He has previously presented with syncope. He has no recollection of his syncopal event. He states he was feeling fine beforehand. He has chronic nausea, diarrhea which was no different than normal. No dizziness/lightheaded. No chest pain, shortness of breath. No overt seizure like activities. He had no postictal confusion. When EMS arrived his blood pressure was in the 80s and then resolved on its own. In the ED workup was done, vitals notable for afebrile, heart rate 60s, blood pressure 140s/90s, sats 98% on room air. Labs reviewed and notable for WBC 5.5, wbc 14, plts 190. Na 133, creatinine 0.59. Lactate 1.4. Trop negative. TSH normal on 06/21/2022. UA negative. Urine drug screen negative. CT chest/abd/pelvis reviewed by me and shows segmental wall thickening on colon, and right upper lobe pulmonary nodule. He was ordered for IV fluids and admitte for further treatment. Discharge Providers Provider Date of admission: 09/03/22 03:36 Discharge Date: 09/03/22 Consults: 09/03/22 04:23 Consult to Dietitian, Adult Routine Comment: Reason For Exam: severe weight loss Consult to Physical Therapy Evaluate & Treat Comment: Physician Instructions: Evaluate and Treat Discharge provider: Nam Carolina DO Summary Hospital Course Discharge Diagnosis: 1. Recurrent syncope due to likely orthostatic hypotension -suspect most likely etiology is due to hypovolemia -however he had no typical prodromal symptoms, with no dizzines, lightheadedness -syncope sounded sudden onset -no postictal symptoms -because of this and history of cardiac disease will keep on tele, and order echo for further eval -ordered an additional bolus of IV fluids -had slight drop of blood pressure upon standing, but not significant orthostatic change -orthostatic positive with drop in systolic from 136 to 106 lying to standing -lowered his metoprolol to 25mg daily from 100, and changed his flomax to be at night instead of in the morning -echo with EF 30-35%, patient already on beta-atul, will need cardiology f/u to add lisinopril and spironolactone at later time due to orthostatic issues, as well as discuss potential ICD placement 2. Thickened colon wall -etiology unclear -continues to have diarrhea despite multiple treatment for colitis -suspect less likely bacterial infection -just complete a course of antibiotics recently -hold off on antibiotics for now -colonoscopy referral has been done as outpatient, which he has not arranged -continue loperamide 3. CAD s/p stents -continue aspirin, statin -hold metoprolol for now 4. Type 2 DM on insulin -continue lantus -ordered sliding scale -check glucose achs 5. Severe protein calorie malnutrition -consult dietitian -there has been concern for underlying malignancy, especially given ct abdomen findings 6. Right pulmonary nodule -follow up with CT in 12 months Hospital Course: See above problem list. Time Spent with Patient Time spent: Greater than 30 minutes Exam Vital Signs (past 8 hours): Oxygen Delivery Method Room Air Oxygen Flow Rate 0 Narrative Exam Narrative: GEN: no acute distress HEENT: dry mucous membranes, PERRL NECK: trachea midline, no jvd PULM: clear bilaterally, no wheezes, rhonchi, rales CV: regular rate and rhythm, no murmurs ABD: soft, nontender, nondistended, no organomegaly EXT: warm and well perfused with no edema NEURO: awake, alert, oriented, no focal deficits Objective Labs 09/02/22 23:50 09/02/22 23:50 [facility] Medical History BPH (benign prostatic hyperplasia) CAD (coronary artery disease) of bypass graft Chronic pain Essential hypertension GERD (gastroesophageal reflux disease) Malnutrition of mild degree Recurrent falls Type 2 diabetes mellitus with hyperlipidemia Surgical History History of cholecystectomy Family History Father No problems noted. Mother No problems noted. Social History household members: none Smoking Status: Former smoker alcohol intake: current Discharge Plan Discharge Plan Patient Disposition: Home Provider Discharge Comment: You were admitted for passing out also known as syncope. It was likely blood pressure related. Due to this, I've made some changes to your home meds. I've lowered your metoprolol to 25mg instead of 100mg and changed your flomax to take at night instead of in the morning. We also checked your heart out with an echo and I will call if the results show something concerning. Discharge orders & Medications Prescriptions: New metoprolol succinate 25 mg tablet extended release 24 hr 25 mg PO DAILY Qty: 30 0RF Continued insulin glargine [Lantus Solostar U-100 Insulin] 100 unit/mL (3 mL) Insulin Pen 20 unit SUBCUT BEDTIME atorvastatin 40 mg tablet 40 mg PO DAILY insulin aspart U-100 [Novolog FlexPen U-100 Insulin] 100 unit/mL (3 mL) insulin pen See Rx Instructions .ROUTE .COMPLEX Rx Instructions: PER BLOOD SUGAR aspirin 81 mg Tablet,Delayed Release (Dr/Ec) 81 mg PO DAILY omeprazole 20 mg capsule,delayed release(DR/EC) 20 mg PO DAILY Patient Comments: once a day sennosides [senna] 8.6 mg Tablet 17.2 mg PO BEDTIME Qty: 30 0RF Saccharomyces boulardii [Florastor] 250 mg capsule 250 mg PO BID Qty: 30 0RF buprenorphine 7.5 mcg/hour patch weekly 1 patch transdermal QWEEK Qty: 4 0RF Changed tamsulosin 0.4 mg capsule 0.4 mg PO BEDTIME Qty: 30 0RF Patient Comments: TAKE ONE CAPSULE BY MOUTH ONE TIME DAILY Discontinued metoprolol succinate 100 mg tablet extended release 24 hr 100 mg PO DAILY Visit Report/Discharge Packet Instructions: DI for Syncope in Adults (Fainting) Stand Alone Forms: Patient Portal/API, Stroke Signs & Symptoms Discharge Data Attending Provider: Romie Rossi Admit Date/Time: 09/03/22 03:36 Discharges patient from system. Discharge Date/Time: 09/03/22 11:55
== END 2022-09-03 11:55 | disposition home or self-care (01) ==
LOC: ED 09-03 03:36 → AC 09-03 03:37
PROVIDERS: Admitting Provider Internal Medicine; Emergency Provider Emergency Medicine; Visit Provider Internal Medicine
DX: R55 Syncope and collapse (principal); E11.9 Type 2 diabetes mellitus without complications; Z79.4 Long term (current) use of insulin; I10 Essential (primary) hypertension; E43 Unspecified severe protein-calorie malnutrition; R91.8 Other nonspecific abnormal finding of lung field; I25.10 Atherosclerotic heart disease of native coronary artery without angina pectoris; Z95.818 Presence of other cardiac implants and grafts; R93.3 Abnormal findings on diagnostic imaging of other parts of digestive tract
CPT/HCPCS: 36415; 71260; 74177; 80053; 80305; 80320; 81001; 82550; 82962; 83605; 83690; 84145; 84146; 84484; 85025; 93005; 93010; 93306; 96360; 96361; 97161; 99284; G0378; Q9967

== ENCOUNTER 2022-10-02 20:45 | Emergency (ER) | payer MEDICARE, MEDICAID, SELFPAY ==
[2022-09-03 03:55] VITALS: BMI 20.2
[2022-10-02 21:02] VITALS: BP 117/73; PULSE 86; RESP 16; TEMP 36.7; O2SAT 98; BMI 20.7
[2022-10-02 22:47] LABS: Add Manual Diff / Slide Review NO; Basophils Absolute Auto 0 /uL (0-100); Basophils Percent Auto 0.7 % (0-2); Eosinophils Absolute Auto 0 /uL (0-450); Eosinophils Percent Auto 0.5 % (2-4); Hematocrit 40.3 % (41-53); Hemoglobin 14.1 g/dL (13.5-17.5); Lymphocytes Absolute Auto 600 /uL (1100-4500); Lymphocytes Percent Auto 11.9 % (25-40); Mean Corpuscular HGB Conc 34.9 % (30-36); Mean Corpuscular Hemoglobin 30.5 PG (26-34); Mean Corpuscular Volume 87.3 fL (80-100); Monocytes Absolute Auto 200 /uL (0-900); Monocytes Percent Auto 3.4 % (3-14); Neutrophils Absolute Auto 4500 /uL (1500-7000); Neutrophils Percent Auto 83.5 % (50-75); Platelet Count 182 X10^3/uL (150-400); Red Blood Cell Count 4.61 X10^6/uL (4.5-5.9); Red Cell Distribution Width 13.7 % (11.6-14.8); White Blood Cell Count 5.4 X10^3/uL (4.5-11.0)
[2022-10-02 22:57] LABS: Alanine Aminotransferase 29 IU/L (<50); Albumin 4.4 g/dL (3.5-5.0); Albumin Globulin Ratio 1.3 (1.0-2.8); Alkaline Phosphatase 68 U/L (38-126); Aspartate Aminotransferase 23 IU/L (17-59); BUN Creatinine Ratio 13.2 (6-22); Bilirubin Total 0.7 mg/dL (0.2-1.3); Blood Urea Nitrogen 7 mg/dL (9-20); Calcium 9.3 mg/dL (8.4-10.2); Carbon Dioxide 29 mmol/L (22-32); Chloride 95 mmol/L (98-107); Estimated Glomerular Filt Rate > 60 mL/min (>60); Globulin 3.4 g/dL (1.7-4.1); Glucose 221 mg/dL (80-110); HEMOLYSIS 16 (0-50); Lipase 41 U/L (23-300); Potassium 4.3 mmol/L (3.4-5.1); Sodium 134 mmol/L (137-145); Total Protein 7.8 g/dL (6.3-8.2)
[2022-10-02 23:03] VITALS: BP 139/77; PULSE 87; RESP 16; TEMP 36.6; O2SAT 99
--- NOTE | 2022-10-02 23:24 | ED.GENADULT ---
HPI - General Adult General Chief complaint: Abdominal Pain Stated complaint: abd pain Time Seen by Provider: 10/02/22 23:05 Source: patient Mode of arrival: EMS Limitations: no limitations History of Present Illness HPI narrative: Patient is a 71-year-old male who is here for evaluation of abdominal pain. This is the same pain that he is had in the past. He has been seen here in the emergency department several times for it in his had a fairly extensive workup. It was recommended that he follow-up with Gastroenterology or General surgery to have upper endoscopies and colonoscopies. He is yet to do this. He does live at [facility]. He stated that the nursing staff at the facility was supposed to help schedule this follow-up appointment. He is here because he is having continued discomfort. No vomiting. He has had diarrhea but nothing currently. No fevers. No urinary symptoms. He stated that he received a dose of steroids earlier today. He states it was prescribed by 1 of the nurses at the facility. He is unsure as to why he was given this medication. Related Data Home Medications Medication Instructions Recorded Confirmed atorvastatin 40 mg tablet 40 mg PO DAILY 04/26/22 09/03/22 insulin aspart U-100 100 unit/mL See Rx Instructions .Route .COMPLEX 04/26/22 09/03/22 (3 mL) subcutaneous pen (Novolog FlexPen U-100 Insulin aspart) aspirin 81 mg tablet,delayed 81 mg PO DAILY 04/28/22 09/03/22 release omeprazole 20 mg capsule,delayed 20 mg PO DAILY 04/28/22 09/03/22 release insulin glargine 100 unit/mL (3 20 unit SUBCUT BEDTIME 08/02/22 09/03/22 mL) subcutaneous pen (Lantus Solostar U-100 Insulin) Previous Rx's Medication Instructions Recorded Saccharomyces boulardii 250 mg 250 mg PO BID #30 caps 06/24/22 capsule (Florastor) sennosides 8.6 mg tablet (senna) 17.2 mg PO BEDTIME #30 tabs 06/24/22 buprenorphine 7.5 mcg/hour weekly 1 patch transdermal QWEEK #4 ea 06/25/22 transdermal patch metoprolol succinate 25 mg 25 mg PO DAILY #30 tabs 09/03/22 tablet,extended release 24 hr tamsulosin 0.4 mg capsule 0.4 mg PO BEDTIME #30 caps 09/03/22 Allergies Allergy/AdvReac Type Severity Reaction Status Date / Time NSAIDS (Non-Steroidal Allergy Verified 08/23/22 17:56 Anti-Inflamma Tetanus Vaccines and Toxoid Allergy Verified 08/23/22 17:56 Review of Systems Gastrointestinal Gastrointestinal: Reports system reviewed and no additional complaints, except as documented Genitourinary Genitourinary: Reports system reviewed and no additional complaints, except as documented Musculoskeletal Musculoskeletal: Reports system reviewed and no additional complaints, except as documented Patient History Medical History BPH (benign prostatic hyperplasia) CAD (coronary artery disease) of bypass graft Chronic pain Essential hypertension GERD (gastroesophageal reflux disease) Malnutrition of mild degree Recurrent falls Type 2 diabetes mellitus with hyperlipidemia Surgical History History of cholecystectomy Family History Father No problems noted. Mother No problems noted. Social History household members: none Smoking Status: Former smoker alcohol intake: current Smoking Status: Former smoker tobacco type: cigarettes alcohol intake frequency: holidays/special occasions only Substance Use Type: does not use and former substance user Exam Initial Vital Signs Initial Vital Signs: Vital Signs Temperature 98.1 F 10/02/22 21:02 Pulse Rate 86 10/02/22 21:02 Respiratory Rate 16 10/02/22 21:02 Blood Pressure 117/73 10/02/22 21:02 Pulse Oximetry 98 10/02/22 21:02 Oxygen Delivery Method Room Air 10/02/22 21:02 Const General: cooperative and comfortable Resp Effort & Inspection: normal respiratory effort Cardio Rate: regular rate GI Inspection: normal to inspection and non-distended Course Orders Ordered: ED Orders 10/02/22 22:24 EKG-12 Lead Stat 10/02/22 22:30 Complete Blood Count AUTO DIFF Stat Comprehensive Metabolic Panel Stat Lipase Stat Discontinued Medications Ondansetron HCl (Ondansetron 4 Mg Odt) 4 mg PO NOW PRN PRN Reason: Nausea And Vomiting Ondansetron HCl (Ondansetron 4 Mg/2 Ml Inj) 4 mg IV NOW PRN PRN Reason: Nausea And Vomiting Last Admin: 10/02/22 23:33 Dose: 4 mg Documented By: Ondansetron HCl (Ondansetron 4 Mg Odt Prepack) 1 bottle MISC SEEINSTR ONE Stop: 10/02/22 23:25 Last Admin: 10/02/22 23:34 Dose: 1 bottle Documented By: Vital Signs Vital signs: Vital Signs - 8 hr 10/02/22 21:02 10/02/22 23:03 Temperature 98.1 F 97.8 F Pulse Rate 86 87 Respiratory Rate 16 16 Blood Pressure 117/73 139/77 Pulse Oximetry 98 99 Oxygen Delivery Method Room Air Room Air Medical Decision Making Lab Data Lab results reviewed: Yes I reviewed the patient's lab results. 10/02/22 22:30 10/02/22 22:30 Labs: Lab Results 10/02/22 10/02/22 Range/Units 22:30 22:30 WBC 5.4 (4.5-11.0) X10^3/uL RBC 4.61 (4.5-5.9) X10^6/uL Hgb 14.1 (13.5-17.5) g/dL Hct 40.3 L (41-53) % MCV 87.3 (80-100) fL MCH 30.5 (26-34) PG MCHC 34.9 (30-36) % RDW 13.7 (11.6-14.8) % Plt Count 182 (150-400) X10^3/uL Neut % (Auto) 83.5 H (50-75) % Lymph % (Auto) 11.9 L (25-40) % [place] % (Auto) 3.4 (3-14) % Eos % (Auto) 0.5 L (2-4) % Baso % (Auto) 0.7 (0-2) % Neut # (Auto) 4500 (7843-6420) /uL Lymph # (Auto) 600 L (5281-0162) /uL [place] # (Auto) 200 (0-900) /uL Eos # (Auto) 0 (0-450) /uL Baso # (Auto) 0 (0-100) /uL Sodium 134 L (137-145) mmol/L Potassium 4.3 (3.4-5.1) mmol/L Chloride 95 L (98-107) mmol/L Carbon Dioxide 29 (22-32) mmol/L BUN 7 L (9-20) mg/dL Creatinine 0.53 L (0.66-1.25) mg/dL Estimated GFR > 60 (>60) mL/min BUN/Creatinine Ratio 13.2 (6-22) Glucose 221 H (80-110) mg/dL Calcium 9.3 (8.4-10.2) mg/dL Total Bilirubin 0.7 (0.2-1.3) mg/dL AST 23 (17-59) IU/L ALT 29 (<50) IU/L Alkaline Phosphatase 68 (38-126) U/L Total Protein 7.8 (6.3-8.2) g/dL Albumin 4.4 (3.5-5.0) g/dL Globulin 3.4 (1.7-4.1) g/dL Albumin/Globulin Ratio 1.3 (1.0-2.8) Lipase 41 (23-300) U/L Urine Dip Bedside Urine Glucose Negative Bedside Urine Bilirubin - Negative Bedside Urine Ketone - Negative Urine Specific Bernice 1.005 Bedside Urine Occult Blood - Negative Bedside Urine pH 6.5 Bedside Urine Protein - Negative Bedside Urine Urobilinogen - Negative Bedside Urine Nitrite - Negative Bedside Urine Leukocytes - Negative Esterase Point of care testing: Urine Dip Bedside Urine Glucose Negative Bedside Urine Bilirubin - Negative Bedside Urine Ketone - Negative Urine Specific Bernice 1.005 Bedside Urine Occult Blood - Negative Bedside Urine pH 6.5 Bedside Urine Protein - Negative Bedside Urine Urobilinogen - Negative Bedside Urine Nitrite - Negative Bedside Urine Leukocytes - Negative Esterase MDM Narrative Medical decision making narrative: Workup and presentation here in the emergency department is very benign. He is had a very extensive workup here in the emergency department to include CT scans. Do not feel the need to repeat CT scans today. There was no indication for antibiotics. He states he can not provide us a stool sample. I advised that he contact the general surgeons at the number he is provided in the past because he does need further workup and most likely colonoscopy and upper endoscopy. Will send home with nausea medications. He was given return precautions. Expressed understanding and agreement. Discharge Plan Departure Patient Disposition: Home Clinical Impression: Abdominal pain Instructions: DI for Abdominal Pain-Adult Activity Restrictions/Additional Instructions: I do recommend that you continue to work on making an appointment with General surgery in order to have an upper endoscopy and a colonoscopy. Continue to take all of your medications as directed. Also recommend that you consider taking a medicine for stomach ulcers such as restarting on Prilosec which you have been on in the past. Return to the emergency department for new symptoms. Prescriptions: No Action insulin glargine [Lantus Solostar U-100 Insulin] 100 unit/mL (3 mL) Insulin Pen 20 unit SUBCUT BEDTIME atorvastatin 40 mg tablet 40 mg PO DAILY insulin aspart U-100 [Novolog FlexPen U-100 Insulin] 100 unit/mL (3 mL) insulin pen See Rx Instructions .ROUTE .COMPLEX Rx Instructions: PER BLOOD SUGAR aspirin 81 mg Tablet,Delayed Release (Dr/Ec) 81 mg PO DAILY omeprazole 20 mg capsule,delayed release(DR/EC) 20 mg PO DAILY Patient Comments: once a day sennosides [senna] 8.6 mg Tablet 17.2 mg PO BEDTIME Qty: 30 0RF Saccharomyces boulardii [Florastor] 250 mg capsule 250 mg PO BID Qty: 30 0RF buprenorphine 7.5 mcg/hour patch weekly 1 patch transdermal QWEEK Qty: 4 0RF metoprolol succinate 25 mg tablet extended release 24 hr 25 mg PO DAILY Qty: 30 0RF tamsulosin 0.4 mg capsule 0.4 mg PO BEDTIME Qty: 30 0RF Patient Comments: TAKE ONE CAPSULE BY MOUTH ONE TIME DAILY Stand Alone Forms: Patient Portal/API
[2022-10-02] MEDS: ONDANSETRON 4 MG/2 ML INJ IV (23:33)
[2022-10-02] MEDS: ONDANSETRON 4 MG ODT PREPACK 1 BOTTLE MISC (23:34)
== END 2022-10-02 23:41 | disposition home or self-care (01) ==
PROVIDERS: Emergency Provider Emergency Medicine
DX: R10.9 Unspecified abdominal pain (principal); I10 Essential (primary) hypertension; Z87.891 Personal history of nicotine dependence
CPT/HCPCS: 36415; 80053; 81003; 83690; 85025; 93005; 96374; 99284; J2405

== ENCOUNTER 2022-12-03 19:42 | Emergency (ER) | payer MEDICARE, MEDICAID, SELFPAY ==
[2022-09-03 03:55] VITALS: BMI 20.2
[2022-12-03] VITALS (7 sets, daily range): BP systolic 106–118; BP diastolic 72–76; PULSE 79–88; RESP 14–20; TEMP 36.9; O2SAT 91–96; BMI 22.1
--- NOTE | 2022-12-03 19:48 | DI.RAD.S_ITS ---
PROCEDURE: XR CHEST 1V INDICATIONS: Shortness of breath TECHNIQUE: One view of the chest was acquired. COMPARISON: [facility], CT, CT CHEST ABD PEL W CON, 09/03/2022, 0:08. [facility], CR, XR CHEST 1V, 08/20/2022, 12:30. [facility], CR, XR CHEST 1V, 07/16/2022, 23:20. FINDINGS: Surgical changes and devices: None. Lungs and pleura: Hazy opacities are seen at the lung bases bilaterally. There is silhouetting of the left hemidiaphragm, and a small effusion is suspected. No right-sided pleural effusion. No pneumothorax. Mediastinum: Mediastinal contours appear normal. Heart size is normal. Bones and chest wall: No suspicious bony lesions. Overlying soft tissues appear unremarkable. IMPRESSION: Bilateral pulmonary opacities are suspicious for pulmonary edema versus bilateral pneumonia. Small left pleural effusion. Approved by: Peter Garces M.D. on 12/03/2022 at 20:40
--- NOTE | 2022-12-03 19:52 | ED_ITS ---
HPI - General Adult General Chief complaint: Shortness of Breath/Dyspnea Stated complaint: SOB Hx of CHF Time Seen by Provider: 12/03/22 19:46 Source: patient and EMS Mode of arrival: EMS History of Present Illness HPI narrative: Patient is a 72-year-old male. History of CHF. States he is not on Lasix. No diagnosis of COPD although he does have a smoking history. States that he is had increasing shortness of breath over the past day or so. No chest pain. EMS was called because he was feeling short of breath. No fevers. No cough. No lower extremity swelling. He did receive a nebulizer by EMS prior to arrival which he states potentially helped his symptoms somewhat. Related Data Home Medications Medication Instructions Recorded Confirmed atorvastatin 40 mg tablet 40 mg PO DAILY 04/26/22 09/03/22 insulin aspart U-100 100 unit/mL See Rx Instructions .Route .COMPLEX 04/26/22 09/03/22 (3 mL) subcutaneous pen (Novolog FlexPen U-100 Insulin aspart) aspirin 81 mg tablet,delayed 81 mg PO DAILY 04/28/22 09/03/22 release omeprazole 20 mg capsule,delayed 20 mg PO DAILY 04/28/22 09/03/22 release insulin glargine 100 unit/mL (3 20 unit SUBCUT BEDTIME 08/02/22 09/03/22 mL) subcutaneous pen (Lantus Solostar U-100 Insulin) Previous Rx's Medication Instructions Recorded Saccharomyces boulardii 250 mg 250 mg PO BID #30 caps 06/24/22 capsule (Florastor) sennosides 8.6 mg tablet (senna) 17.2 mg PO BEDTIME #30 tabs 06/24/22 buprenorphine 7.5 mcg/hour weekly 1 patch transdermal QWEEK #4 ea 06/25/22 transdermal patch metoprolol succinate 25 mg 25 mg PO DAILY #30 tabs 09/03/22 tablet,extended release 24 hr tamsulosin 0.4 mg capsule 0.4 mg PO BEDTIME #30 caps 09/03/22 furosemide 20 mg tablet (Lasix) 20 mg PO DAILY 7 days #7 tabs 12/03/22 Allergies Allergy/AdvReac Type Severity Reaction Status Date / Time NSAIDS (Non-Steroidal Allergy Verified 08/23/22 17:56 Anti-Inflamma Tetanus Vaccines and Toxoid Allergy Verified 08/23/22 17:56 Review of Systems Constitutional Constitutional: Reports system reviewed and no additional complaints, except as documented Cardiovascular Cardiovascular: Reports system reviewed and no additional complaints, except as documented Respiratory Respiratory: Reports system reviewed and no additional complaints, except as documented Gastrointestinal Gastrointestinal: Reports system reviewed and no additional complaints, except as documented Integumentary/Breasts Skin/Breast: Reports system reviewed and no additional complaints, except as documented Hematologic/Lymphatic On Anticoagulants: No Patient History Medical History BPH (benign prostatic hyperplasia) CAD (coronary artery disease) of bypass graft Chronic pain Essential hypertension GERD (gastroesophageal reflux disease) Malnutrition of mild degree Recurrent falls Type 2 diabetes mellitus with hyperlipidemia Surgical History History of cholecystectomy Family History Father No problems noted. Mother No problems noted. Social History household members: none Smoking Status: Former smoker alcohol intake: current Smoking Status: Former smoker tobacco type: cigarettes alcohol intake frequency: holidays/special occasions only Substance Use Type: does not use and former substance user Exam Initial Vital Signs Initial Vital Signs: Vital Signs Pulse Rate 88 12/03/22 19:41 Blood Pressure 106/75 12/03/22 19:41 Pulse Oximetry 95 12/03/22 19:41 HENMT Head: normal to inspection and normocephalic Resp Effort & Inspection: normal respiratory effort Auscultation: clear to auscultation bilaterally Cardio Rate: regular rate Rhythm: regular rhythm Skin General: no rashes or lesions noted Neuro General: patient alert, patient awake and moves all extremities Extrem General: normal to inspection, capillary refill normal and No edema Course Orders Ordered: ED Orders 12/03/22 19:48 XR chest 1V Stat EKG-12 Lead Stat Measure peak expiratory flow ONCE RT Consult Eval and Treat NOW 12/03/22 19:56 Complete Blood Count AUTO DIFF Stat Comprehensive Metabolic Panel Stat Lactate (Lactic Acid) Stat NT-proBNP (BNP-Adult 18+) Stat Prothrombin Time INR Stat Troponin I Stat Discontinued Medications Furosemide (Furosemide 40 Mg/4 Ml Vial) 40 mg IV NOW ONE Stop: 12/03/22 20:39 Last Admin: 12/03/22 20:55 Dose: 40 mg Documented By: SHARIF Vital Signs Vital signs: Vital Signs - 8 hr 12/03/22 19:44 12/03/22 19:41 12/03/22 19:41 Temperature 98.4 F Pulse Rate 86 88 Respiratory Rate 20 Blood Pressure 106/75 106/75 Pulse Oximetry 96 95 Oxygen Delivery Method Room Air 12/03/22 20:00 12/03/22 20:00 12/03/22 20:30 Temperature Pulse Rate 85 Respiratory Rate 15 Blood Pressure 116/74 114/74 Pulse Oximetry 91 Oxygen Delivery Method 12/03/22 20:30 12/03/22 21:00 12/03/22 21:00 Temperature Pulse Rate 83 86 Respiratory Rate 14 16 Blood Pressure 118/76 Pulse Oximetry 93 93 Oxygen Delivery Method 12/03/22 21:30 12/03/22 21:30 12/03/22 22:00 Temperature Pulse Rate 79 Respiratory Rate 17 Blood Pressure 116/74 114/72 Pulse Oximetry 93 Oxygen Delivery Method 12/03/22 22:00 Temperature Pulse Rate 82 Respiratory Rate 15 Blood Pressure Pulse Oximetry 95 Oxygen Delivery Method Medical Decision Making Lab Data Lab results reviewed: Yes I reviewed the patient's lab results. 12/03/22 19:56 12/03/22 19:56 Labs: Lab Results 12/03/22 12/03/22 12/03/22 Range/Units 19:56 19:56 19:56 WBC 6.1 (4.5-11.0) X10^3/uL RBC 4.24 L (4.5-5.9) X10^6/uL Hgb 13.0 L (13.5-17.5) g/dL Hct 37.5 L (41-53) % MCV 88.5 (80-100) fL MCH 30.6 (26-34) PG MCHC 34.6 (30-36) % RDW 13.8 (11.6-14.8) % Plt Count 239 (150-400) X10^3/uL Neut % (Auto) 63.6 (50-75) % Lymph % (Auto) 19.4 L (25-40) % [place] % (Auto) 11.9 (3-14) % Eos % (Auto) 3.9 (2-4) % Baso % (Auto) 1.2 (0-2) % Neut # (Auto) 3800 (2828-0508) /uL Lymph # (Auto) 1200 (6615-1286) /uL [place] # (Auto) 700 (0-900) /uL Eos # (Auto) 200 (0-450) /uL Baso # (Auto) 100 (0-100) /uL PT 12.6 (10.1-12.7) SECONDS INR 1.1 (0.9-1.3) Sodium 132 L (137-145) mmol/L Potassium 4.3 (3.4-5.1) mmol/L Chloride 96 L (98-107) mmol/L Carbon Dioxide 28 (22-32) mmol/L BUN 13 (9-20) mg/dL Creatinine 0.67 (0.66-1.25) mg/dL Estimated GFR > 60 (>60) mL/min BUN/Creatinine Ratio 19.4 (6-22) Glucose 174 H (80-110) mg/dL Lactate (0.7-2.1) mmol/L Calcium 8.8 (8.4-10.2) mg/dL Total Bilirubin 0.6 (0.2-1.3) mg/dL AST 25 (17-59) IU/L ALT 13 (<50) IU/L Alkaline Phosphatase 59 (38-126) U/L Troponin I 0.017 (0.01-0.034) ng/mL NT-Pro-B Natriuret Pep 7560 H (<125) pg/mL Total Protein 7.1 (6.3-8.2) g/dL Albumin 3.8 (3.5-5.0) g/dL Globulin 3.3 (1.7-4.1) g/dL Albumin/Globulin Ratio 1.2 (1.0-2.8) 12/03/22 Range/Units 19:56 WBC (4.5-11.0) X10^3/uL RBC (4.5-5.9) X10^6/uL Hgb (13.5-17.5) g/dL Hct (41-53) % MCV (80-100) fL MCH (26-34) PG MCHC (30-36) % RDW (11.6-14.8) % Plt Count (150-400) X10^3/uL Neut % (Auto) (50-75) % Lymph % (Auto) (25-40) % [place] % (Auto) (3-14) % Eos % (Auto) (2-4) % Baso % (Auto) (0-2) % Neut # (Auto) (6653-6238) /uL Lymph # (Auto) (0697-5934) /uL [place] # (Auto) (0-900) /uL Eos # (Auto) (0-450) /uL Baso # (Auto) (0-100) /uL PT (10.1-12.7) SECONDS INR (0.9-1.3) Sodium (137-145) mmol/L Potassium (3.4-5.1) mmol/L Chloride (98-107) mmol/L Carbon Dioxide (22-32) mmol/L BUN (9-20) mg/dL Creatinine (0.66-1.25) mg/dL Estimated GFR (>60) mL/min BUN/Creatinine Ratio (6-22) Glucose (80-110) mg/dL Lactate 1.8 (0.7-2.1) mmol/L Calcium (8.4-10.2) mg/dL Total Bilirubin (0.2-1.3) mg/dL AST (17-59) IU/L ALT (<50) IU/L Alkaline Phosphatase (38-126) U/L Troponin I (0.01-0.034) ng/mL NT-Pro-B Natriuret Pep (<125) pg/mL Total Protein (6.3-8.2) g/dL Albumin (3.5-5.0) g/dL Globulin (1.7-4.1) g/dL Albumin/Globulin Ratio (1.0-2.8) Imaging Data Chest x-ray: Radiologist's Impression: PROCEDURE:? XR CHEST 1V ? INDICATIONS:? Shortness of breath ? TECHNIQUE:? One view of the chest was acquired.? ? COMPARISON:? [facility], CT, CT CHEST ABD PEL W CON, 09/03/2022, 0:08.? [facility], CR, XR CHEST 1V, 08/20/2022, 12:30.? [facility], CR, XR CHEST 1V, 07/16/2022, 23:20. ? FINDINGS:? ? Surgical changes and devices:? None.? ? Lungs and pleura:? Hazy opacities are seen at the lung bases bilaterally.? There is silhouetting of the left hemidiaphragm, and a small effusion is suspected.? No right-sided pleural effusion.? No pneumothorax.? ? ? Mediastinum:? Mediastinal contours appear normal.? Heart size is normal.? ? Bones and chest wall:? No suspicious bony lesions.? Overlying soft tissues appear unremarkable.? ? IMPRESSION:? Bilateral pulmonary opacities are suspicious for pulmonary edema versus bilateral pneumonia.? Small left pleural effusion. ECG Data Attestation: I personally reviewed and interpreted this ECG as follows: Interpretation: Sinus rhythm Ventricular rate 83 Normal axis Normal QRS no sign right bundle-branch block One PVC No ST T wave changes MDM Narrative Medical decision making narrative: Patient's chest x-ray shows edema and his BNP is elevated. He denies any chest pain. He does not having lower extremity swelling. Patient was given Lasix. He diuresed approximately 1 L. He states he feels much better. He ambulated around the department with a walker which is his baseline and states he did not feel any short of breath. He states he is not on any diuretics. Will send home with a prescription for Lasix for him to take for the next couple days. He stated that he feels well enough to go home. He was given return precautions. He expressed understanding and agreement. Discharge Plan Departure Patient Disposition: Home Clinical Impression: Congestive heart failure (CHF), Shortness of breath Instructions: Congestive Heart Failure (Alternative Therapy) Activity Restrictions/Additional Instructions: I do recommend that you continue to take all of your medications as directed to include the Lasix/furosemide they your prescribed today. This medication was sent to [facility]. Contact your primary doctor for follow-up. Return to the emergency department for new or worsening symptoms. Prescriptions: New furosemide [Lasix] 20 mg tablet 20 mg PO DAILY 7 Days Qty: 7 0RF No Action insulin glargine [Lantus Solostar U-100 Insulin] 100 unit/mL (3 mL) Insulin Pen 20 unit SUBCUT BEDTIME atorvastatin 40 mg tablet 40 mg PO DAILY insulin aspart U-100 [Novolog FlexPen U-100 Insulin] 100 unit/mL (3 mL) insulin pen See Rx Instructions .ROUTE .COMPLEX Rx Instructions: PER BLOOD SUGAR aspirin 81 mg Tablet,Delayed Release (Dr/Ec) 81 mg PO DAILY omeprazole 20 mg capsule,delayed release(DR/EC) 20 mg PO DAILY Patient Comments: once a day sennosides [senna] 8.6 mg Tablet 17.2 mg PO BEDTIME Qty: 30 0RF Saccharomyces boulardii [Florastor] 250 mg capsule 250 mg PO BID Qty: 30 0RF buprenorphine 7.5 mcg/hour patch weekly 1 patch transdermal QWEEK Qty: 4 0RF metoprolol succinate 25 mg tablet extended release 24 hr 25 mg PO DAILY Qty: 30 0RF tamsulosin 0.4 mg capsule 0.4 mg PO BEDTIME Qty: 30 0RF Patient Comments: TAKE ONE CAPSULE BY MOUTH ONE TIME DAILY Stand Alone Forms: Patient Portal/API
[2022-12-03 20:05] LABS: Add Manual Diff / Slide Review NO; Basophils Absolute Auto 100 /uL (0-100); Basophils Percent Auto 1.2 % (0-2); Eosinophils Absolute Auto 200 /uL (0-450); Eosinophils Percent Auto 3.9 % (2-4); Hematocrit 37.5 % (41-53); Lymphocytes Absolute Auto 1200 /uL (1100-4500); Lymphocytes Percent Auto 19.4 % (25-40); Mean Corpuscular HGB Conc 34.6 % (30-36); Mean Corpuscular Hemoglobin 30.6 PG (26-34); Mean Corpuscular Volume 88.5 fL (80-100); Monocytes Absolute Auto 700 /uL (0-900); Monocytes Percent Auto 11.9 % (3-14); Neutrophils Absolute Auto 3800 /uL (1500-7000); Neutrophils Percent Auto 63.6 % (50-75); Platelet Count 239 X10^3/uL (150-400); Red Blood Cell Count 4.24 X10^6/uL (4.5-5.9); Red Cell Distribution Width 13.8 % (11.6-14.8); White Blood Cell Count 6.1 X10^3/uL (4.5-11.0)
[2022-12-03 20:12] LABS: INR 1.1 (0.9-1.3); Prothrombin Time 12.6 SECONDS (10.1-12.7)
[2022-12-03 20:18] LABS: Lactate (Lactic Acid) 1.8 mmol/L (0.7-2.1)
[2022-12-03 20:19] LABS: Alanine Aminotransferase 13 IU/L (<50); Albumin 3.8 g/dL (3.5-5.0); Albumin Globulin Ratio 1.2 (1.0-2.8); Alkaline Phosphatase 59 U/L (38-126); Aspartate Aminotransferase 25 IU/L (17-59); BUN Creatinine Ratio 19.4 (6-22); Bilirubin Total 0.6 mg/dL (0.2-1.3); Blood Urea Nitrogen 13 mg/dL (9-20); Calcium 8.8 mg/dL (8.4-10.2); Carbon Dioxide 28 mmol/L (22-32); Chloride 96 mmol/L (98-107); Estimated Glomerular Filt Rate > 60 mL/min (>60); Globulin 3.3 g/dL (1.7-4.1); Glucose 174 mg/dL (80-110); HEMOLYSIS 34 (0-50); Potassium 4.3 mmol/L (3.4-5.1); Sodium 132 mmol/L (137-145); Total Protein 7.1 g/dL (6.3-8.2)
[2022-12-03 20:29] LABS: NT-proBNP (BNP-Adult 18+) 7560 pg/mL (<125); Troponin I 0.017 ng/mL (0.01-0.034)
[2022-12-03] MEDS: FUROSEMIDE 40 MG/4 ML VIAL IV (20:55)
--- NOTE | 2022-12-03 21:57 | PC.NURSE ---
pt walked with a steady gait and no shortness of breath
== END 2022-12-03 22:13 | disposition home or self-care (01) ==
PROVIDERS: Emergency Provider Emergency Medicine
DX: I50.9 Heart failure, unspecified (principal); R06.02 Shortness of breath; Z79.899 Other long term (current) drug therapy
CPT/HCPCS: 36415; 71045; 80053; 83605; 83880; 84484; 85025; 85610; 93005; 96374; 99284; J1940

== ENCOUNTER 2022-12-19 17:56 | Observation (INO) | payer MEDICARE, MEDICAID, SELFPAY ==
[2022-09-03 03:55] VITALS: BMI 20.2
[2022-12-19] VITALS (19 sets, daily range): BP systolic 107–123; BP diastolic 71–76; PULSE 90–98; RESP 12–24; TEMP 35.9–36.9; O2SAT 88–95; BMI 28.0; BMI 26.6
--- NOTE | 2022-12-19 17:59 | DI.RAD.S_ITS ---
PROCEDURE: XR CHEST 1V INDICATIONS: Shortness of breath TECHNIQUE: One view of the chest was acquired. COMPARISON: [facility], CT, CT CHEST ABD PEL W CON, 09/03/2022, 0:08. [facility], CR, XR CHEST 1V, 12/03/2022, 20:05. FINDINGS: Surgical changes and devices: There is a left humeral head anchor seen. There is truncation of the left distal clavicle. Lungs and pleura: Generalized interstitial prominence can be seen. There is blunting of the costophrenic angles, right worse than left. Mediastinum: The cardiac contours are at the upper limits of normal. The aorta demonstrates calcification and tortuosity. Bones and chest wall: No suspicious bony lesions. Age-appropriate bony degenerative changes are seen. Overlying soft tissues appear unremarkable. IMPRESSION: Generalized interstitial prominence and likely small pleural effusions. The heart size is at the upper limits of normal. Please consider CHF. Postoperative and degenerative changes are seen. Dictated by: Kg Gallagher M.D. on 12/19/2022 at 17:52 Approved by: Kg Gallagher M.D. on 12/19/2022 at 17:53
[2022-12-19 18:28] LABS: Alanine Aminotransferase 17 IU/L (<50); Albumin Globulin Ratio 1.2 (1.0-2.8); Alkaline Phosphatase 52 U/L (38-126); Aspartate Aminotransferase 25 IU/L (17-59); BUN Creatinine Ratio 16.7 (6-22); Bilirubin Total 0.5 mg/dL (0.2-1.3); Blood Urea Nitrogen 11 mg/dL (9-20); Calcium 8.6 mg/dL (8.4-10.2); Carbon Dioxide 26 mmol/L (22-32); Chloride 99 mmol/L (98-107); Estimated Glomerular Filt Rate > 60 mL/min (>60); Globulin 3.3 g/dL (1.7-4.1); Glucose 130 mg/dL (80-110); HEMOLYSIS 40 (0-50); Potassium 4.3 mmol/L (3.4-5.1); Sodium 133 mmol/L (137-145); Total Protein 7.3 g/dL (6.3-8.2)
[2022-12-19 18:29] LABS: Lactate (Lactic Acid) 1.4 mmol/L (0.7-2.1)
[2022-12-19 18:34] LABS: Add Manual Diff / Slide Review NO; Basophils Absolute Auto 100 /uL (0-100); Basophils Percent Auto 1.2 % (0-2); Eosinophils Absolute Auto 300 /uL (0-450); Eosinophils Percent Auto 4.5 % (2-4); Hematocrit 36.7 % (41-53); Hemoglobin 12.8 g/dL (13.5-17.5); Lymphocytes Absolute Auto 1100 /uL (1100-4500); Lymphocytes Percent Auto 18.2 % (25-40); Mean Corpuscular HGB Conc 34.8 % (30-36); Mean Corpuscular Hemoglobin 30.6 PG (26-34); Monocytes Absolute Auto 700 /uL (0-900); Monocytes Percent Auto 11.6 % (3-14); Neutrophils Absolute Auto 4000 /uL (1500-7000); Neutrophils Percent Auto 64.5 % (50-75); Platelet Count 201 X10^3/uL (150-400); Red Blood Cell Count 4.17 X10^6/uL (4.5-5.9); Red Cell Distribution Width 14.4 % (11.6-14.8); White Blood Cell Count 6.2 X10^3/uL (4.5-11.0)
[2022-12-19 18:40] LABS: NT-proBNP (BNP-Adult 18+) 7690 pg/mL (<125); Troponin I 0.023 ng/mL (0.01-0.034)
--- NOTE | 2022-12-19 18:43 | ED.SOB ---
HPI - SOB/Dyspnea General Chief Complaint: Shortness of Breath/Dyspnea Stated Complaint: SOB x 2 weeks Time Seen by Provider: 12/19/22 18:18 Source: patient and EMS Mode of arrival: EMS History of Present Illness HPI Narrative: Patient is 72-year-old male history of coronary artery disease with stents, insulin-dependent diabetes, congestive heart failure with EF of 30-35% on echo 09/03/2022, presents today with increasing shortness of breath. He resides at a long-term care facility reports over last 2 weeks he has had increasing shortness of breath. Endorses orthopnea. Possibly shortness of breath with exertion but does not sound like he is very active. Takes aspirin daily but no anticoagulation. Was seen here 12/03/2022 diagnosed with congestive heart failure and discharged. He is found to be hypoxic on room air at 88% requiring 1-2 L of oxygen. He occasionally has some chest pain but not having chest pain now. No palpitations. Denies any cough or fever. Related Data Home Medications Medication Instructions Recorded Confirmed atorvastatin 40 mg tablet 40 mg PO DAILY 04/26/22 12/19/22 insulin aspart U-100 100 unit/mL See Rx Instructions .Route .COMPLEX 04/26/22 12/19/22 (3 mL) subcutaneous pen (Novolog FlexPen U-100 Insulin aspart) omeprazole 20 mg capsule,delayed 20 mg PO DAILY 04/28/22 12/19/22 release insulin glargine 100 unit/mL (3 20 unit SUBCUT BEDTIME 08/02/22 12/19/22 mL) subcutaneous pen (Lantus Solostar U-100 Insulin) gabapentin 600 mg tablet 600 mg PO 3XD 12/19/22 12/19/22 Previous Rx's Medication Instructions Recorded buprenorphine 7.5 mcg/hour weekly 1 patch transdermal QWEEK #4 ea 06/25/22 transdermal patch metoprolol succinate 25 mg 25 mg PO DAILY #30 tabs 09/03/22 tablet,extended release 24 hr Allergies Allergy/AdvReac Type Severity Reaction Status Date / Time NSAIDS (Non-Steroidal Allergy Verified 12/19/22 18:17 Anti-Inflamma Tetanus Vaccines and Toxoid Allergy Verified 12/19/22 18:17 Review of Systems Review of Systems ROS Unobtainable: All systems reviewed & are unremarkable except as noted in HPI and below Patient History Medical History BPH (benign prostatic hyperplasia) CAD (coronary artery disease) of bypass graft Chronic pain Essential hypertension GERD (gastroesophageal reflux disease) Malnutrition of mild degree Recurrent falls Type 2 diabetes mellitus with hyperlipidemia Surgical History History of cholecystectomy Family History Father No problems noted. Mother No problems noted. Social History household members: none Smoking Status: Former smoker alcohol intake: current Smoking Status: Former smoker tobacco type: cigarettes alcohol intake frequency: holidays/special occasions only Substance Use Type: does not use and former substance user Exam Initial Vital Signs Initial Vital Signs: Vital Signs Pulse Rate 97 H 12/19/22 18:00 Blood Pressure 114/73 12/19/22 18:00 Pulse Oximetry 88 L 12/19/22 18:00 Oxygen Delivery Method Room Air 12/19/22 18:00 GENERAL: Alert 72-year-old male no acute distress s. HEENT: Head atraumatic,EOMI, pupils reactive, face symmetric, moist mucous membranes CARDIOVASCULAR: Regular rate and rhythm without murmurs, rubs or gallops. RESPIRATORY: Coarse breath sounds at bases speaks in full sentences ABDOMEN: Soft, nontender. Normoactive bowel sounds all 4 quadrants. No guarding or rebound. EXTREMITIES: Normal range of motion, no clubbing or edema. Neurovascularly intact NEUROLOGICAL: Alert and oriented x4.Normal gait and speech. SKIN: Warm, dry, no laceration, no petechiae, no rashes or lesions. Course Orders Ordered: ED Orders 12/19/22 17:59 XR chest 1V Stat EKG-12 Lead Stat Measure peak expiratory flow ONCE RT Consult Eval and Treat NOW 12/19/22 18:05 Complete Blood Count AUTO DIFF Stat Comprehensive Metabolic Panel Stat Lactate (Lactic Acid) Stat NT-proBNP (BNP-Adult 18+) Stat Prothrombin Time INR Stat Respiratory Panel (Film Array) Stat Troponin I Stat 12/19/22 18:46 CT angio chest PE protocol Stat 12/19/22 20:15 Trop I [Troponin I] Stat Acetaminophen (Acetaminophen 325 Mg Tablet) 650 mg PO Q6H PRN PRN Reason: Fever/Mild Pain (1-3) Enoxaparin Sodium (Enoxaparin 40 Mg/0.4 Ml Syringe) 40 mg SUBCUT DAILY [facility] Furosemide (Furosemide 40 Mg/4 Ml Vial) 40 mg IV DAILY TOMMY Naloxone HCl (Naloxone 0.4 Mg/Ml Vial) 0.2 mg IV Q2MIN PRN PRN Reason: Opiate Reversal Ondansetron HCl (Ondansetron 4 Mg/2 Ml Inj) 4 mg IV Q8HR PRN PRN Reason: Nausea And Vomiting Discontinued Medications Furosemide (Furosemide 40 Mg/4 Ml Vial) 40 mg IV NOW ONE Stop: 12/19/22 18:41 Last Admin: 12/19/22 19:24 Dose: 40 mg Documented By: NAFISA Vital Signs Vital signs: Vital Signs - 8 hr 12/19/22 18:02 12/19/22 18:00 12/19/22 18:00 Temperature 98.5 F Pulse Rate 96 H 97 H Respiratory Rate 24 Blood Pressure 113/74 114/73 Pulse Oximetry 88 L 88 L Oxygen Delivery Method Room Air Room Air Oxygen Flow Rate 12/19/22 18:15 12/19/22 18:30 12/19/22 18:30 Temperature Pulse Rate 92 H 90 Respiratory Rate 12 13 Blood Pressure 112/73 Pulse Oximetry 94 95 Oxygen Delivery Method Nasal Cannula Nasal Cannula Oxygen Flow Rate 2 2 12/19/22 18:45 12/19/22 19:00 12/19/22 19:00 Temperature Pulse Rate 90 90 Respiratory Rate 12 13 Blood Pressure 110/73 Pulse Oximetry 94 94 Oxygen Delivery Method Nasal Cannula Oxygen Flow Rate 2 12/19/22 19:22 12/19/22 19:30 12/19/22 20:00 Temperature Pulse Rate 92 H 94 H 92 H Respiratory Rate 20 18 16 Blood Pressure Pulse Oximetry 92 91 91 Oxygen Delivery Method Oxygen Flow Rate 12/19/22 20:15 12/19/22 20:30 12/19/22 20:45 Temperature Pulse Rate 93 H 93 H 93 H Respiratory Rate 15 19 14 Blood Pressure Pulse Oximetry 92 94 93 Oxygen Delivery Method Oxygen Flow Rate 12/19/22 21:00 12/19/22 21:15 12/19/22 21:30 Temperature Pulse Rate 94 H 95 H 93 H Respiratory Rate 14 16 15 Blood Pressure Pulse Oximetry 94 93 93 Oxygen Delivery Method Oxygen Flow Rate MDM - SOB/Dyspnea Lab Data 12/19/22 18:05 12/19/22 18:05 Labs: Lab Results 12/19/22 12/19/22 12/19/22 Range/Units 18:05 18:05 18:05 WBC 6.2 (4.5-11.0) X10^3/uL RBC 4.17 L (4.5-5.9) X10^6/uL Hgb 12.8 L (13.5-17.5) g/dL Hct 36.7 L (41-53) % MCV 88.0 (80-100) fL MCH 30.6 (26-34) PG MCHC 34.8 (30-36) % RDW 14.4 (11.6-14.8) % Plt Count 201 (150-400) X10^3/uL Neut % (Auto) 64.5 (50-75) % Lymph % (Auto) 18.2 L (25-40) % [place] % (Auto) 11.6 (3-14) % Eos % (Auto) 4.5 H (2-4) % Baso % (Auto) 1.2 (0-2) % Neut # (Auto) 4000 (4271-8141) /uL Lymph # (Auto) 1100 (8038-8626) /uL [place] # (Auto) 700 (0-900) /uL Eos # (Auto) 300 (0-450) /uL Baso # (Auto) 100 (0-100) /uL PT 12.0 (10.1-12.7) SECONDS INR 1.0 (0.9-1.3) Sodium 133 L (137-145) mmol/L Potassium 4.3 (3.4-5.1) mmol/L Chloride 99 (98-107) mmol/L Carbon Dioxide 26 (22-32) mmol/L BUN 11 (9-20) mg/dL Creatinine 0.66 (0.66-1.25) mg/dL Estimated GFR > 60 (>60) mL/min BUN/Creatinine Ratio 16.7 (6-22) Glucose 130 H (80-110) mg/dL Lactate (0.7-2.1) mmol/L Calcium 8.6 (8.4-10.2) mg/dL Total Bilirubin 0.5 (0.2-1.3) mg/dL AST 25 (17-59) IU/L ALT 17 (<50) IU/L Alkaline Phosphatase 52 (38-126) U/L Troponin I 0.023 (0.01-0.034) ng/mL NT-Pro-B Natriuret Pep 7690 H (<125) pg/mL Total Protein 7.3 (6.3-8.2) g/dL Albumin 4.0 (3.5-5.0) g/dL Globulin 3.3 (1.7-4.1) g/dL Albumin/Globulin Ratio 1.2 (1.0-2.8) Chlamy pneumoniae PCR (Not Detect) Adenovirus (PCR) (Not Detect) B. pertussis DNA (PCR) (Not Detecte) B.parapertussis DNA PCR (Not Detecte) Coronavirus OC43 (PCR) (Not Detect) Coronavirus HKU1 (PCR) (Not Detect) Coronavirus 229E (PCR) (Not Detect) SARS-CoV-2 (PCR) (Not Detecte) Coronavirus NL63 (PCR) (Not Detect) Human Metapneumovir PCR (Not Detect) Influenza Type A (PCR) (Not Detect) Influenza Type B (PCR) (Not Detect) M. pneumoniae (PCR) (Not Detect) Parainfluenza 1 (PCR) (Not Detect) Parainfluenza 2 (PCR) (Not Detect) Parainfluenza 3 (PCR) (Not Detect) Parainfluenza 4 (PCR) (Not Detect) RSV (PCR) (Not Detect) Entero/Rhino (PCR) (Not Detect) 12/19/22 12/19/22 12/19/22 Range/Units 18:05 18:05 20:15 WBC (4.5-11.0) X10^3/uL RBC (4.5-5.9) X10^6/uL Hgb (13.5-17.5) g/dL Hct (41-53) % MCV (80-100) fL MCH (26-34) PG MCHC (30-36) % RDW (11.6-14.8) % Plt Count (150-400) X10^3/uL Neut % (Auto) (50-75) % Lymph % (Auto) (25-40) % [place] % (Auto) (3-14) % Eos % (Auto) (2-4) % Baso % (Auto) (0-2) % Neut # (Auto) (4158-1812) /uL Lymph # (Auto) (3857-3047) /uL [place] # (Auto) (0-900) /uL Eos # (Auto) (0-450) /uL Baso # (Auto) (0-100) /uL PT (10.1-12.7) SECONDS INR (0.9-1.3) Sodium (137-145) mmol/L Potassium (3.4-5.1) mmol/L Chloride (98-107) mmol/L Carbon Dioxide (22-32) mmol/L BUN (9-20) mg/dL Creatinine (0.66-1.25) mg/dL Estimated GFR (>60) mL/min BUN/Creatinine Ratio (6-22) Glucose (80-110) mg/dL Lactate 1.4 (0.7-2.1) mmol/L Calcium (8.4-10.2) mg/dL Total Bilirubin (0.2-1.3) mg/dL AST (17-59) IU/L ALT (<50) IU/L Alkaline Phosphatase (38-126) U/L Troponin I 0.028 (0.01-0.034) ng/mL NT-Pro-B Natriuret Pep (<125) pg/mL Total Protein (6.3-8.2) g/dL Albumin (3.5-5.0) g/dL Globulin (1.7-4.1) g/dL Albumin/Globulin Ratio (1.0-2.8) Chlamy pneumoniae PCR Not detected (Not Detect) Adenovirus (PCR) Not detected (Not Detect) B. pertussis DNA (PCR) Not detected (Not Detecte) B.parapertussis DNA PCR Not detected (Not Detecte) Coronavirus OC43 (PCR) Not detected (Not Detect) Coronavirus HKU1 (PCR) Not detected (Not Detect) Coronavirus 229E (PCR) Not detected (Not Detect) SARS-CoV-2 (PCR) Not detected (Not Detecte) Coronavirus NL63 (PCR) Not detected (Not Detect) Human Metapneumovir PCR Not detected (Not Detect) Influenza Type A (PCR) Not detected (Not Detect) Influenza Type B (PCR) Not detected (Not Detect) M. pneumoniae (PCR) Not detected (Not Detect) Parainfluenza 1 (PCR) Not detected (Not Detect) Parainfluenza 2 (PCR) Not detected (Not Detect) Parainfluenza 3 (PCR) Not detected (Not Detect) Parainfluenza 4 (PCR) Not detected (Not Detect) RSV (PCR) Not detected (Not Detect) Entero/Rhino (PCR) Not detected (Not Detect) Imaging Data Chest x-ray: Radiologist's Impression: PROCEDURE:? XR CHEST 1V ? INDICATIONS:? Shortness of breath ? TECHNIQUE:? One view of the chest was acquired.? ? COMPARISON:? [facility], CT, CT CHEST ABD PEL W CON, 09/03/2022, 0:08.? [facility], CR, XR CHEST 1V, 12/03/2022, 20:05. ? FINDINGS:? ? Surgical changes and devices:? There is a left humeral head anchor seen.? There is truncation of the left distal clavicle. ? Lungs and pleura:? Generalized interstitial prominence can be seen.? There is blunting of the costophrenic angles, right worse than left. ? Mediastinum:? The cardiac contours are at the upper limits of normal. The aorta demonstrates calcification and tortuosity. ? Bones and chest wall:? No suspicious bony lesions.? Age-appropriate bony degenerative changes are seen.? ? Overlying soft tissues appear unremarkable.? ? ? IMPRESSION:? Generalized interstitial prominence and likely small pleural effusions.? The heart size is at the upper limits of normal.? Please consider CHF. ? Postoperative and degenerative changes are seen.? Dictated by: Kg Gallagher M.D. on 12/19/2022 at 17:52 ? ? CT scan - chest: Radiologist's Impression: PROCEDURE:? CT ANGIO CHEST PE PROTOCOL ? INDICATIONS:? hypoxia ? TECHNIQUE:? After the administration of intravenous contrast, 2 mm thick sections acquired from the pulmonary apices to the posterior costophrenic angles.? 3-dimensional maximum intensity projection (MIP) coronal and sagittal reformats were then acquired through the thorax.? For radiation dose reduction, the following was used:? automated exposure control, adjustment of mA and/or kV according to patient size.? ? COMPARISON:? None. ? FINDINGS:? Image quality:? Excellent.? ? Pulmonary arteries:? Pulmonary arteries are normal in size, and demonstrate no intraluminal filling defects to suggest central pulmonary embolism.? ? Lungs and pleura:? Moderate bilateral pleural effusions.? Smooth interstitial thickening with superimposed ground-glass.? Bronchial thickening. ? Mediastinum:? Heart size is mildly enlarged.? Reflux of contrast into the IVC, indicating elevated heart pressures.? Three-vessel coronary calcifications.? No adenopathy. ? Bones and chest wall:? No suspicious bony lesions.? Ribs and thoracic spine appear intact throughout.? Thyroid gland is unremarkable.? No axillary or supraclavicular adenopathy.? ? Abdomen:? Visualized upper abdominal solid organs appear normal in the early arterial phase of enhancement.? ? IMPRESSION:? No pulmonary embolus. ? Moderate to severe pulmonary edema and moderate pleural effusions. ? Mild cardiomegaly with reflux of contrast into the IVC, indicating elevated heart pressures. ? ? Dictated by: Robert Gonzalez M.D. on 12/19/2022 at 19:58 ? ? ECG Data Interpretation: Sinus rhythm rate 95 [place] interval 150 QRS 136 QTC [address] changes similar to previous EKG in November 2022 MDM Narrative Medical decision making narrative: Patient is 72-year-old male with history of coronary artery disease stents and congestive heart failure presenting today with increasing shortness of breath. He was evaluated on the discharged home with increasing his Lasix reports increasing shortness of breath since then. He is hypoxic requiring 2 L of oxygen. He does not have any sort of obvious respiratory distress. He is found to have elevated BNP 7600 previously 7500 he has 2- troponins. Is some mild swelling of his lower extremities. Symptoms are consistent with congestive heart failure exacerbation. He is given Lasix 40 mg. He is actually urinated out about 1 L but still requiring oxygen. CT angio done to rule out pulmonary embolism concern for sedentary lifestyle. CT shows cardiomegaly and pulmonary edema but no PE. Other blood work has been reviewed no evidence of ALY or electrolyte abnormalities. He is not anemic or having any leukocytosis. Respiratory panel is done in his also negative. , updated on patient's symptoms test results initially recommended monitoring for a little bit to see if his oxygen could be turned off and he could be diuresed in the ED, along with waiting for his repeat troponin. Ultimately repeat troponin was negative he was still requiring oxygen and she kindly accepted to observation. Discharge Plan Departure Patient Disposition: Admitted as Observation Clinical Impression: Congestive heart failure, Hypoxia Admit Date/Time: 12/19/22 21:35 Admit Provider: Sofia Plata
--- NOTE | 2022-12-19 18:46 | DI.CT.S_ITS ---
PROCEDURE: CT ANGIO CHEST PE PROTOCOL INDICATIONS: hypoxia TECHNIQUE: After the administration of intravenous contrast, 2 mm thick sections acquired from the pulmonary apices to the posterior costophrenic angles. 3-dimensional maximum intensity projection (MIP) coronal and sagittal reformats were then acquired through the thorax. For radiation dose reduction, the following was used: automated exposure control, adjustment of mA and/or kV according to patient size. COMPARISON: None. FINDINGS: Image quality: Excellent. Pulmonary arteries: Pulmonary arteries are normal in size, and demonstrate no intraluminal filling defects to suggest central pulmonary embolism. Lungs and pleura: Moderate bilateral pleural effusions. Smooth interstitial thickening with superimposed ground-glass. Bronchial thickening. Mediastinum: Heart size is mildly enlarged. Reflux of contrast into the IVC, indicating elevated heart pressures. Three-vessel coronary calcifications. No adenopathy. Bones and chest wall: No suspicious bony lesions. Ribs and thoracic spine appear intact throughout. Thyroid gland is unremarkable. No axillary or supraclavicular adenopathy. Abdomen: Visualized upper abdominal solid organs appear normal in the early arterial phase of enhancement. IMPRESSION: No pulmonary embolus. Moderate to severe pulmonary edema and moderate pleural effusions. Mild cardiomegaly with reflux of contrast into the IVC, indicating elevated heart pressures. Dictated by: Robert Gonzalez M.D. on 12/19/2022 at 19:58 Approved by: Robert Gonzalez M.D. on 12/19/2022 at 20:02
[2022-12-19 19:24] LABS: Adenovirus Not Detected (Not Detect); B. parapertussis Not Detected (Not Detecte); Bordetella pertussis Not Detected (Not Detecte); Chlamydophila pneumoniae Not Detected (Not Detect); Coronavirus 229E Not Detected (Not Detect); Coronavirus HKU1 Not Detected (Not Detect); Coronavirus NL 63 Not Detected (Not Detect); Coronavirus OC43 Not Detected (Not Detect); Human Metapneumovirus Not Detected (Not Detect); Human Rhinovirus/Enterovirus Not Detected (Not Detect); Influenza A Not Detected (Not Detect); Influenza B Not Detected (Not Detect); Mycoplasma pneumoniae Not Detected (Not Detect); Parainfluenza Virus 1 Not Detected (Not Detect); Parainfluenza Virus 2 Not Detected (Not Detect); Parainfluenza Virus 3 Not Detected (Not Detect); Parainfluenza Virus 4 Not Detected (Not Detect); Respiratory Syncytial Virus Not Detected (Not Detect); SARS- CoV-2 Not Detected (Not Detecte)
[2022-12-19] MEDS: FUROSEMIDE 40 MG/4 ML VIAL IV (19:24)
[2022-12-19 21:08] LABS: Troponin I 0.028 ng/mL (0.01-0.034)
--- NOTE | 2022-12-19 23:21 | P.HP_ITS ---
History of Present Illness History of Present Illness Date Patient Seen: 12/19/22 Time Patient Seen: 23:21 Chief complaint: SOB x 2 weeks Narrative: Patient is 72-year-old male history of coronary artery disease with stents, insulin-dependent diabetes, congestive heart failure with EF of 30-35% on echo 09/03/2022, presents today with increasing shortness of breath. He states that he has been short of breath for the last two weeks which has slowly progressed and worse tonight. He has noted orthopnea but no cough, fever or sputum. He states he has not been ill and has not had nausea, vomiting or diarrhea. He does report intermittent left sided chest pain which does not change with breathing and is just there. He denies any current pain. He states that he actually pretty good right now. He was evaluated in the ED and found to have pulmonary edema by CTA chest and he had an elevated BNP as well. Troponin x 2 was negative. His blood sugar was also controlled on his usual regimen which appears to ne 20 units of Lantus at night with coverage during the day. Nurses are attempting to get a fax of the medications from the facility where he resides but he does not believe there have been any recent changes to his medications. He was comfortable but noted to have a mild O2 requirement of 1-2 liters. After 40mg IV lasix he diuresed 1L but still had a minimal requirement. He was admitted overnight for obseervation and another dose of lasix in am and hopefully will wean to room air where he can continue his care at the [facility] care facility where he resides. [facility] Medical History BPH (benign prostatic hyperplasia) CAD (coronary artery disease) of bypass graft Chronic pain Essential hypertension GERD (gastroesophageal reflux disease) Malnutrition of mild degree Recurrent falls Type 2 diabetes mellitus with hyperlipidemia Surgical History History of cholecystectomy Family History Father No problems noted. Mother No problems noted. Social History household members: none Smoking Status: Former smoker alcohol intake: current Meds Home Medications and Allergies Home Medications Medication Instructions Recorded Confirmed Type atorvastatin 40 mg tablet 40 mg PO DAILY 04/26/22 12/19/22 History insulin aspart U-100 100 unit/mL See Rx Instructions .Route .COMPLEX 04/26/22 12/19/22 History (3 mL) subcutaneous pen (Novolog FlexPen U-100 Insulin aspart) omeprazole 20 mg capsule,delayed 20 mg PO DAILY 04/28/22 12/19/22 History release buprenorphine 7.5 mcg/hour weekly 1 patch transdermal QWEEK #4 ea 06/25/22 12/19/22 Rx transdermal patch insulin glargine 100 unit/mL (3 20 unit SUBCUT BEDTIME 08/02/22 12/19/22 History mL) subcutaneous pen (Lantus Solostar U-100 Insulin) metoprolol succinate 25 mg 25 mg PO DAILY #30 tabs 09/03/22 12/19/22 Rx tablet,extended release 24 hr Saccharomyces boulardii 250 mg 250 mg PO BID 12/19/22 12/19/22 History capsule acetaminophen 325 mg tablet 325 mg PO Q6H PRN Pain (Scale 12/19/22 12/19/22 History Score 1-3) calcium carbonate 200 mg calcium 1,000 mg PO Q8H PRN Acid Reflux 12/19/22 12/19/22 History (500 mg) chewable tablet (Tums) gabapentin 600 mg tablet 600 mg PO 3XD 12/19/22 12/19/22 History loperamide 2 mg capsule 2 mg PO Q2H PRN Diarrhea 12/19/22 12/19/22 History naloxone 4 mg/actuation nasal spray 1 spray intranasal PRN PRN drug 12/19/22 12/19/22 History ondansetron HCl 4 mg tablet 4 mg PO Q4H 12/19/22 12/19/22 History prednisone 10 mg tablet 10 mg PO DAILY 12/19/22 12/19/22 History sennosides 8.6 mg tablet (senna) 17.2 mg PO DAILY 12/19/22 12/19/22 History sitagliptin phosphate 50 mg tablet 50 mg PO DAILY 12/19/22 12/19/22 History (Januvia) tamsulosin 0.4 mg capsule 0.4 mg PO DAILY 12/19/22 12/19/22 History trazodone 50 mg tablet 50 mg PO ONCE PM 12/19/22 12/19/22 History Allergies Allergy/AdvReac Type Severity Reaction Status Date / Time NSAIDS (Non-Steroidal Allergy Verified 12/19/22 18:17 Anti-Inflamma Tetanus Vaccines and Toxoid Allergy Verified 12/19/22 18:17 Review of Systems Constitutional Comments: no fevers or weight gain/loss Respiratory Comments: dyspnea, no cough Gastrointestinal Comments: no nausea, vomiting or diarrhea Neurologic Comments: no focal weakness Endocrine Comments: no polyuria or polydipsia Hematologic/Lymphatic Comments: no bruising Exam Vital Signs (past 8 hours): - 12/19/22 18:02 12/19/22 18:00 12/19/22 18:00 Temperature 98.5 F Pulse Rate 96 H 97 H Respiratory Rate 24 Blood Pressure 113/74 114/73 Pulse Oximetry 88 L 88 L Oxygen Delivery Method Room Air Room Air Oxygen Flow Rate 12/19/22 18:15 12/19/22 18:30 12/19/22 18:30 Temperature Pulse Rate 92 H 90 Respiratory Rate 12 13 Blood Pressure 112/73 Pulse Oximetry 94 95 Oxygen Delivery Method Nasal Cannula Nasal Cannula Oxygen Flow Rate 2 2 12/19/22 18:45 12/19/22 19:00 12/19/22 19:00 Temperature Pulse Rate 90 90 Respiratory Rate 12 13 Blood Pressure 110/73 Pulse Oximetry 94 94 Oxygen Delivery Method Nasal Cannula Oxygen Flow Rate 2 12/19/22 19:22 12/19/22 19:30 12/19/22 20:00 Temperature Pulse Rate 92 H 94 H 92 H Respiratory Rate 20 18 16 Blood Pressure Pulse Oximetry 92 91 91 Oxygen Delivery Method Oxygen Flow Rate 12/19/22 20:15 12/19/22 20:30 12/19/22 20:45 Temperature Pulse Rate 93 H 93 H 93 H Respiratory Rate 15 19 14 Blood Pressure Pulse Oximetry 92 94 93 Oxygen Delivery Method Oxygen Flow Rate 12/19/22 21:00 12/19/22 21:15 12/19/22 21:30 Temperature Pulse Rate 94 H 95 H 93 H Respiratory Rate 14 16 15 Blood Pressure Pulse Oximetry 94 93 93 Oxygen Delivery Method Oxygen Flow Rate 12/19/22 21:45 12/19/22 21:51 12/19/22 22:00 Temperature Pulse Rate 97 H 93 H Respiratory Rate 15 20 Blood Pressure 113/72 123/76 Pulse Oximetry 94 94 Oxygen Delivery Method Nasal Cannula Oxygen Flow Rate 2 12/19/22 22:00 12/19/22 22:21 Temperature 96.6 F L Pulse Rate 93 H 98 H Respiratory Rate 15 16 Blood Pressure 107/71 Pulse Oximetry 95 94 Oxygen Delivery Method Oxygen Flow Rate 2 Oxygen Delivery Method Nasal Cannula Oxygen Flow Rate 2 Const General: cooperative and comfortable Nutritional Appearance: well nourished Orientation: alert and oriented x3 HENMT Head: normal to inspection Nose: external nose normal Face and sinus: normal facial exam Eyes Sclera: sclerae normal Pupils: PERRL EOM: EOM intact bilaterally Resp Auscultation: diminished lung sounds Cardio Rate: regular rate Rhythm: regular rhythm GI Inspection: normal to inspection Auscultation: normal bowel sounds Skin General: no rashes or lesions noted and warm Neuro Cranial Nerves: CN's II-XI intact bilaterally Cognition: normal cognition Speech: speech normal Motor: muscle tone normal throughout Sensory Exam: other (paresthesia of feet per patient) Extrem Right upper extremity: normal to inspection Left upper extremity: normal to inspection Right lower extremity: normal to inspection Left lower extremity: normal to inspection Psych Appearance: grossly normal Speech and Movement: speech and movement normal Mood: congruent mood Objective Imaging CT scan - chest: Radiologist's impression: pulmonary edema no PE Labs 12/19/22 18:05 12/19/22 18:05 Labs: Laboratory Results - last 24 hr 12/19/22 12/19/22 12/19/22 18:05 18:05 18:05 WBC 6.2 RBC 4.17 L Hgb 12.8 L Hct 36.7 L MCV 88.0 MCH 30.6 MCHC 34.8 RDW 14.4 Plt Count 201 Neut % (Auto) 64.5 Lymph % (Auto) 18.2 L [place] % (Auto) 11.6 Eos % (Auto) 4.5 H Baso % (Auto) 1.2 Neut # (Auto) 4000 Lymph # (Auto) 1100 [place] # (Auto) 700 Eos # (Auto) 300 Baso # (Auto) 100 PT 12.0 INR 1.0 Sodium 133 L Potassium 4.3 Chloride 99 Carbon Dioxide 26 BUN 11 Creatinine 0.66 Estimated GFR > 60 BUN/Creatinine Ratio 16.7 Glucose 130 H Lactate Calcium 8.6 Total Bilirubin 0.5 AST 25 ALT 17 Alkaline Phosphatase 52 Troponin I 0.023 NT-Pro-B Natriuret Pep 7690 H Total Protein 7.3 Albumin 4.0 Globulin 3.3 Albumin/Globulin Ratio 1.2 Chlamy pneumoniae PCR Adenovirus (PCR) B. pertussis DNA (PCR) B.parapertussis DNA PCR Coronavirus OC43 (PCR) Coronavirus HKU1 (PCR) Coronavirus 229E (PCR) SARS-CoV-2 (PCR) Coronavirus NL63 (PCR) Human Metapneumovir PCR Influenza Type A (PCR) Influenza Type B (PCR) M. pneumoniae (PCR) Parainfluenza 1 (PCR) Parainfluenza 2 (PCR) Parainfluenza 3 (PCR) Parainfluenza 4 (PCR) RSV (PCR) Entero/Rhino (PCR) 12/19/22 12/19/22 12/19/22 18:05 18:05 20:15 WBC RBC Hgb Hct MCV MCH MCHC RDW Plt Count Neut % (Auto) Lymph % (Auto) [place] % (Auto) Eos % (Auto) Baso % (Auto) Neut # (Auto) Lymph # (Auto) [place] # (Auto) Eos # (Auto) Baso # (Auto) PT INR Sodium Potassium Chloride Carbon Dioxide BUN Creatinine Estimated GFR BUN/Creatinine Ratio Glucose Lactate 1.4 Calcium Total Bilirubin AST ALT Alkaline Phosphatase Troponin I 0.028 NT-Pro-B Natriuret Pep Total Protein Albumin Globulin Albumin/Globulin Ratio Chlamy pneumoniae PCR Not detected Adenovirus (PCR) Not detected B. pertussis DNA (PCR) Not detected B.parapertussis DNA PCR Not detected Coronavirus OC43 (PCR) Not detected Coronavirus HKU1 (PCR) Not detected Coronavirus 229E (PCR) Not detected SARS-CoV-2 (PCR) Not detected Coronavirus NL63 (PCR) Not detected Human Metapneumovir PCR Not detected Influenza Type A (PCR) Not detected Influenza Type B (PCR) Not detected M. pneumoniae (PCR) Not detected Parainfluenza 1 (PCR) Not detected Parainfluenza 2 (PCR) Not detected Parainfluenza 3 (PCR) Not detected Parainfluenza 4 (PCR) Not detected RSV (PCR) Not detected Entero/Rhino (PCR) Not detected Assessment & Plan Assessment and plan (1) Hypoxia: Status: Acute (2) Type 2 diabetes mellitus with hyperlipidemia: Status: Acute (3) Congestive heart failure: Status: Acute Assessment & Plan narrative: Congestive heart failure EF in August 30% ordered Lasix 40 mg IV in am reassess need for oxygen in the am if worsening may need ECHO but currently looks well discussed with patient the importance of daily weights 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
[2022-12-20] VITALS (10 sets, daily range): BP systolic 102–129; BP diastolic 68–74; PULSE 58–98; RESP 14–20; TEMP 36.1–36.6; O2SAT 92–100
[2022-12-20] MEDS: INSULIN GLARGINE 100 UNIT/ML 3ML PEN 20 UNIT SUBCUT (00:03)
--- NOTE | 2022-12-20 00:12 | PC.ADMIT ---
[address] [place] [address] No 209B Admission Note: The patient,Lev Marlow,72 y/o, was given written information regarding hospital policies, unit procedures and contact persons. Patient's smoking status: Former smoker. Vital Signs - 8 hr 12/19/22 18:02 12/19/22 18:00 12/19/22 18:00 Temperature 98.5 F Pulse Rate 96 H 97 H Respiratory Rate 24 Blood Pressure 113/74 114/73 Pulse Oximetry 88 L 88 L Oxygen Delivery Method Room Air Room Air Oxygen Flow Rate 12/19/22 18:15 12/19/22 18:30 12/19/22 18:30 Temperature Pulse Rate 92 H 90 Respiratory Rate 12 13 Blood Pressure 112/73 Pulse Oximetry 94 95 Oxygen Delivery Method Nasal Cannula Nasal Cannula Oxygen Flow Rate 2 2 12/19/22 18:45 12/19/22 19:00 12/19/22 19:00 Temperature Pulse Rate 90 90 Respiratory Rate 12 13 Blood Pressure 110/73 Pulse Oximetry 94 94 Oxygen Delivery Method Nasal Cannula Oxygen Flow Rate 2 12/19/22 19:22 12/19/22 19:30 12/19/22 20:00 Temperature Pulse Rate 92 H 94 H 92 H Respiratory Rate 20 18 16 Blood Pressure Pulse Oximetry 92 91 91 Oxygen Delivery Method Oxygen Flow Rate 12/19/22 20:15 12/19/22 20:30 12/19/22 20:45 Temperature Pulse Rate 93 H 93 H 93 H Respiratory Rate 15 19 14 Blood Pressure Pulse Oximetry 92 94 93 Oxygen Delivery Method Oxygen Flow Rate 12/19/22 21:00 12/19/22 21:15 12/19/22 21:30 Temperature Pulse Rate 94 H 95 H 93 H Respiratory Rate 14 16 15 Blood Pressure Pulse Oximetry 94 93 93 Oxygen Delivery Method Oxygen Flow Rate 12/19/22 21:45 12/19/22 21:51 12/19/22 22:00 Temperature Pulse Rate 97 H 93 H Respiratory Rate 15 20 Blood Pressure 113/72 123/76 Pulse Oximetry 94 94 Oxygen Delivery Method Nasal Cannula Oxygen Flow Rate 2 12/19/22 22:00 12/19/22 22:21 12/19/22 22:21 Temperature 96.6 F L Pulse Rate 93 H 98 H Respiratory Rate 15 16 Blood Pressure 107/71 Pulse Oximetry 95 94 94 Oxygen Delivery Method Nasal Cannula Oxygen Flow Rate 2 2 12/19/22 22:21 12/19/22 23:52 Temperature Pulse Rate Respiratory Rate Blood Pressure Pulse Oximetry 94 Oxygen Delivery Method Nasal Cannula Nasal Cannula Oxygen Flow Rate 2 Patient admitted to room 206 from ER at 2220. Is alert and mostly oriented; did not know month or day of month and knew he was in the hospital but not the town he is in. Breath sounds coarse but CTA with sat of 94% on oxygen at 2L/min per NC. Denies SOB even when up to bathroom. Did report to MD he did have orthopnea at facility. HRR w/telemetry reading of SR. He denies nausea. BT present and abdomen is soft. Denies dysuria with urination. Had Lasix in ER and has had UOP > 2000 since that time; urine is pale, yellow and clear. Is able to reposition in bed and up to bathroom with SBA + walker; seems steady on feet. Does report neuropathy bilateral LE from knees to toes. Feet are reddened but blanchable and has dry skin on LE with scaling on soles of feet around heels. Oriented to call light and bed controls. Fall risk is high and bed alarm is activated. Bilateral calf SCD's applied. Denied pain during assessment but does have a pain patch on for what he describes as chronic pain all over.
[2022-12-20] MEDS: PANTOPRAZOLE DR 20 MG TABLET PO (05:39)
[2022-12-20 06:20] LABS: BUN Creatinine Ratio 15.4 (6-22); Blood Urea Nitrogen 10 mg/dL (9-20); Calcium 8.8 mg/dL (8.4-10.2); Carbon Dioxide 28 mmol/L (22-32); Chloride 100 mmol/L (98-107); Estimated Glomerular Filt Rate > 60 mL/min (>60); Glucose 111 mg/dL (80-110); HEMOLYSIS < 15 (0-50); Potassium 3.8 mmol/L (3.4-5.1); Sodium 136 mmol/L (137-145)
[2022-12-20 06:24] LABS: Add Manual Diff / Slide Review NO; Basophils Absolute Auto 100 /uL (0-100); Eosinophils Absolute Auto 300 /uL (0-450); Eosinophils Percent Auto 4.8 % (2-4); Hematocrit 36.3 % (41-53); Hemoglobin 12.3 g/dL (13.5-17.5); Lymphocytes Absolute Auto 1000 /uL (1100-4500); Lymphocytes Percent Auto 17.3 % (25-40); Mean Corpuscular HGB Conc 33.9 % (30-36); Mean Corpuscular Volume 88.6 fL (80-100); Monocytes Absolute Auto 700 /uL (0-900); Neutrophils Absolute Auto 4000 /uL (1500-7000); Neutrophils Percent Auto 65.9 % (50-75); Platelet Count 187 X10^3/uL (150-400); Red Cell Distribution Width 14.1 % (11.6-14.8); White Blood Cell Count 6.1 X10^3/uL (4.5-11.0)
--- NOTE | 2022-12-20 08:26 | P.HP_ITS ---
History of Present Illness History of Present Illness Date Patient Seen: 12/19/22 Time Patient Seen: 23:21 Chief complaint: SOB x 2 weeks Narrative: Patient is 72-year-old male history of coronary artery disease with stents, insulin-dependent diabetes, congestive heart failure with EF of 30-35% on echo 09/03/2022, presents today with increasing shortness of breath. He states that he has been short of breath for the last two weeks which has slowly progressed and worse tonight. He has noted orthopnea but no cough, fever or sputum. He states he has not been ill and has not had nausea, vomiting or diarrhea. He does report intermittent left sided chest pain which does not change with breathing and is just there. He denies any current pain. He states that he actually pretty good right now. He was evaluated in the ED and found to have pulmonary edema by CTA chest and he had an elevated BNP as well. Troponin x 2 was negative. His blood sugar was also controlled on his usual regimen which appears to ne 20 units of Lantus at night with coverage during the day. Nurses are attempting to get a fax of the medications from the facility where he resides but he does not believe there have been any recent changes to his medications. He was comfortable but noted to have a mild O2 requirement of 1-2 liters. After 40mg IV lasix he diuresed 1L but still had a minimal requirement. He was admitted overnight for obseervation and another dose of lasix in am and hopefully will wean to room air where he can continue his care at the [facility] care facility where he resides. [facility] Medical History BPH (benign prostatic hyperplasia) CAD (coronary artery disease) of bypass graft Chronic pain Essential hypertension GERD (gastroesophageal reflux disease) Malnutrition of mild degree Recurrent falls Type 2 diabetes mellitus with hyperlipidemia Surgical History History of cholecystectomy Family History Father No problems noted. Mother No problems noted. Social History household members: none Smoking Status: Former smoker alcohol intake: current Meds Home Medications and Allergies Home Medications Medication Instructions Recorded Confirmed Type atorvastatin 40 mg tablet 40 mg PO DAILY 04/26/22 12/19/22 History insulin aspart U-100 100 unit/mL See Rx Instructions .Route .COMPLEX 04/26/22 12/19/22 History (3 mL) subcutaneous pen (Novolog FlexPen U-100 Insulin aspart) omeprazole 20 mg capsule,delayed 20 mg PO DAILY 04/28/22 12/19/22 History release buprenorphine 7.5 mcg/hour weekly 1 patch transdermal QWEEK #4 ea 06/25/22 12/19/22 Rx transdermal patch insulin glargine 100 unit/mL (3 20 unit SUBCUT BEDTIME 08/02/22 12/19/22 History mL) subcutaneous pen (Lantus Solostar U-100 Insulin) metoprolol succinate 25 mg 25 mg PO DAILY #30 tabs 09/03/22 12/19/22 Rx tablet,extended release 24 hr Saccharomyces boulardii 250 mg 250 mg PO BID 12/19/22 12/19/22 History capsule acetaminophen 325 mg tablet 325 mg PO Q6H PRN Pain (Scale 12/19/22 12/19/22 History Score 1-3) calcium carbonate 200 mg calcium 1,000 mg PO Q8H PRN Acid Reflux 12/19/22 12/19/22 History (500 mg) chewable tablet (Tums) gabapentin 600 mg tablet 600 mg PO 3XD 12/19/22 12/19/22 History loperamide 2 mg capsule 2 mg PO Q2H PRN Diarrhea 12/19/22 12/19/22 History naloxone 4 mg/actuation nasal spray 1 spray intranasal PRN PRN drug 12/19/22 12/19/22 History ondansetron HCl 4 mg tablet 4 mg PO Q4H 12/19/22 12/19/22 History prednisone 10 mg tablet 10 mg PO DAILY 12/19/22 12/19/22 History sennosides 8.6 mg tablet (senna) 17.2 mg PO DAILY 12/19/22 12/19/22 History sitagliptin phosphate 50 mg tablet 50 mg PO DAILY 12/19/22 12/19/22 History (Januvia) tamsulosin 0.4 mg capsule 0.4 mg PO DAILY 12/19/22 12/19/22 History trazodone 50 mg tablet 50 mg PO ONCE PM 12/19/22 12/19/22 History Allergies Allergy/AdvReac Type Severity Reaction Status Date / Time NSAIDS (Non-Steroidal Allergy Verified 12/19/22 18:17 Anti-Inflamma Tetanus Vaccines and Toxoid Allergy Verified 12/19/22 18:17 Review of Systems Constitutional Comments: no fever Cardiovascular Comments: chest pain Respiratory Comments: dyspnea no cough Gastrointestinal Comments: no nausea, vomiting or diarrhea Musculoskeletal Comments: no edema or weakness Neurologic Comments: no focal weakness Exam Vital Signs (past 8 hours): - 12/20/22 02:14 12/20/22 02:14 12/20/22 05:54 Temperature 97.8 F Pulse Rate 96 H Respiratory Rate 20 Blood Pressure 102/68 Pulse Oximetry 94 94 95 Oxygen Delivery Method Nasal Cannula Nasal Cannula Oxygen Flow Rate 2 2 2 12/20/22 06:15 12/20/22 07:39 Temperature 97.7 F 97 F L Pulse Rate 98 H 97 H Respiratory Rate 20 14 Blood Pressure 107/74 113/68 Pulse Oximetry 96 94 Oxygen Delivery Method Oxygen Flow Rate 2 2 Oxygen Delivery Method Nasal Cannula Oxygen Flow Rate 2 Const General: cooperative and comfortable HENMT Head: normal to inspection Neck Neck: trachea midline, supple and No JVD Chest Chest: normal inspection of the chest Resp Effort & Inspection: normal respiratory effort and able to speak in complete sentences Auscultation: clear to auscultation bilaterally Cardio Rate: regular rate Rhythm: regular rhythm Heart Sounds: S1 normal and S2 normal GI Inspection: normal to inspection Palpation: soft, No guarding and No tender Auscultation: normal bowel sounds Extrem Right upper extremity: normal to inspection Left upper extremity: normal to inspection Right lower extremity: normal to inspection Left lower extremity: normal to inspection Psych Mental Status: mental status grossly normal Speech and Movement: speech and movement normal Affect: normal affect Objective Labs 12/20/22 05:30 12/20/22 05:30 Labs: Laboratory Results - last 24 hr 12/19/22 12/19/22 12/19/22 18:05 18:05 18:05 WBC 6.2 RBC 4.17 L Hgb 12.8 L Hct 36.7 L MCV 88.0 MCH 30.6 MCHC 34.8 RDW 14.4 Plt Count 201 Neut % (Auto) 64.5 Lymph % (Auto) 18.2 L [place] % (Auto) 11.6 Eos % (Auto) 4.5 H Baso % (Auto) 1.2 Neut # (Auto) 4000 Lymph # (Auto) 1100 [place] # (Auto) 700 Eos # (Auto) 300 Baso # (Auto) 100 PT 12.0 INR 1.0 Sodium 133 L Potassium 4.3 Chloride 99 Carbon Dioxide 26 BUN 11 Creatinine 0.66 Estimated GFR > 60 BUN/Creatinine Ratio 16.7 Glucose 130 H Lactate Calcium 8.6 Magnesium Total Bilirubin 0.5 AST 25 ALT 17 Alkaline Phosphatase 52 Troponin I 0.023 NT-Pro-B Natriuret Pep 7690 H Total Protein 7.3 Albumin 4.0 Globulin 3.3 Albumin/Globulin Ratio 1.2 Chlamy pneumoniae PCR Adenovirus (PCR) B. pertussis DNA (PCR) B.parapertussis DNA PCR Coronavirus OC43 (PCR) Coronavirus HKU1 (PCR) Coronavirus 229E (PCR) SARS-CoV-2 (PCR) Coronavirus NL63 (PCR) Human Metapneumovir PCR Influenza Type A (PCR) Influenza Type B (PCR) M. pneumoniae (PCR) Parainfluenza 1 (PCR) Parainfluenza 2 (PCR) Parainfluenza 3 (PCR) Parainfluenza 4 (PCR) RSV (PCR) Entero/Rhino (PCR) 12/19/22 12/19/22 12/19/22 18:05 18:05 20:15 WBC RBC Hgb Hct MCV MCH MCHC RDW Plt Count Neut % (Auto) Lymph % (Auto) [place] % (Auto) Eos % (Auto) Baso % (Auto) Neut # (Auto) Lymph # (Auto) [place] # (Auto) Eos # (Auto) Baso # (Auto) PT INR Sodium Potassium Chloride Carbon Dioxide BUN Creatinine Estimated GFR BUN/Creatinine Ratio Glucose Lactate 1.4 Calcium Magnesium Total Bilirubin AST ALT Alkaline Phosphatase Troponin I 0.028 NT-Pro-B Natriuret Pep Total Protein Albumin Globulin Albumin/Globulin Ratio Chlamy pneumoniae PCR Not detected Adenovirus (PCR) Not detected B. pertussis DNA (PCR) Not detected B.parapertussis DNA PCR Not detected Coronavirus OC43 (PCR) Not detected Coronavirus HKU1 (PCR) Not detected Coronavirus 229E (PCR) Not detected SARS-CoV-2 (PCR) Not detected Coronavirus NL63 (PCR) Not detected Human Metapneumovir PCR Not detected Influenza Type A (PCR) Not detected Influenza Type B (PCR) Not detected M. pneumoniae (PCR) Not detected Parainfluenza 1 (PCR) Not detected Parainfluenza 2 (PCR) Not detected Parainfluenza 3 (PCR) Not detected Parainfluenza 4 (PCR) Not detected RSV (PCR) Not detected Entero/Rhino (PCR) Not detected 12/20/22 12/20/22 05:30 05:30 WBC 6.1 RBC 4.10 L Hgb 12.3 L Hct 36.3 L MCV 88.6 MCH 30.0 MCHC 33.9 RDW 14.1 Plt Count 187 Neut % (Auto) 65.9 Lymph % (Auto) 17.3 L [place] % (Auto) 11.0 Eos % (Auto) 4.8 H Baso % (Auto) 1.0 Neut # (Auto) 4000 Lymph # (Auto) 1000 L [place] # (Auto) 700 Eos # (Auto) 300 Baso # (Auto) 100 PT INR Sodium 136 L Potassium 3.8 Chloride 100 Carbon Dioxide 28 BUN 10 Creatinine 0.65 L Estimated GFR > 60 BUN/Creatinine Ratio 15.4 Glucose 111 H Lactate Calcium 8.8 Magnesium 2.0 Total Bilirubin AST ALT Alkaline Phosphatase Troponin I NT-Pro-B Natriuret Pep Total Protein Albumin Globulin Albumin/Globulin Ratio Chlamy pneumoniae PCR Adenovirus (PCR) B. pertussis DNA (PCR) B.parapertussis DNA PCR Coronavirus OC43 (PCR) Coronavirus HKU1 (PCR) Coronavirus 229E (PCR) SARS-CoV-2 (PCR) Coronavirus NL63 (PCR) Human Metapneumovir PCR Influenza Type A (PCR) Influenza Type B (PCR) M. pneumoniae (PCR) Parainfluenza 1 (PCR) Parainfluenza 2 (PCR) Parainfluenza 3 (PCR) Parainfluenza 4 (PCR) RSV (PCR) Entero/Rhino (PCR) Assessment & Plan Assessment and plan (1) Congestive heart failure: Status: Acute (2) Hypoxia: Status: Acute Plan Assessment & Plan Assessment and plan (1) Hypoxia: ?Status:?Acute (2) Type 2 diabetes mellitus with hyperlipidemia: ?Status:?Acute (3) Congestive heart failure: ?Status:?Acute Assessment & Plan narrative: Congestive heart failure ? EF in May 30% ? ordered Lasix 40 mg IV in am ? reassess need for oxygen in the am ? if worsening may need ECHO but currently looks well ? discussed with patient the importance of daily weights ? 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 Ordered Lantus 20 units at bedtime and sliding scale ? continue gabapentin for diabetic neuropathy Chronic pain ? has Butrans patch which needs to be changed on 12/20 or 12/21 Received forms from alf after initial evaluation. Patient has POLST which requests DNR and comfort measures? Quality VTE Deep Vein Thrombosis/Pulmonary Embolism Present on Admission: No
--- NOTE | 2022-12-20 08:59 | CM.DANOTE ---
Initial DCP Assessment Note Pt is a 72 yo male, resident at [facility] , presents with SOB x 2 weeks admitted OBS for addtl lasix with intention of weaning patient off O2 (not on home O2 at baseline) before DC PMH includes CAD with stents, insulin-dependent diabetes, CHF with EF of 30-35% PCP: Unknown Payer: [employer] HMO/ [facility] Of note, since April 2022, patient has had 11 ER visits and now 4 admissions Met w/patient to introduce self and role. Patient getting up independently from his chair to get back into bed as this BINDERY LIBRARY TECHNICAL ASSISTANT entered room. Patient explains he has been living at [facility] x 2 weeks, was formerly homeless. Patient receives assist from [facility] staff for meds, meals, chores and higher ADLs. Patient is encouraged to use a cane vs walker at [facility] Patient is eager to return home today Plan: Discharge back to [facility] when medically stable, likely via [facility] transport STAR Pacheco Discharge Planning/Care Management CM Discharge Assessment Start: 12/20/22 08:53 Freq: Status: Active Protocol: Document 12/20/22 08:53 SUKUMAR (Rec: 12/20/22 08:57 [id number]) Discharge Planning Assessment Assigned Environmental Planning Engineer STAR Cabrera DPOA/Assigned Designee Name brother Shelton Contact Information [phone] Advance Directives? Yes Advance Directives on File Yes History Provided By Patient,Medical Record Prior Living Arrangements Assisted Living Comment [facility] Household Members none Type of transporation used prior to Relies on Others admit Facility Name Admitted From: [facility] Willing to Return to Facility? Yes Independent with ADL's Yes Is patient alert and oriented? Yes Needs Assistance With Meal Prep,Managing Medications ,Home Chores / Shopping Barriers to Discharge No Discharge Plan Assisted Living Facility Transportation Arrangement Medicaid transport (?) Referrals Initiated None needed
--- NOTE | 2022-12-20 09:34 | DI.ECHO.S_ITS ---
[facility] +---------+ : : [address] : : : : [id number] : : : : Phone: [phone]+ Echocardiogram Report + + :Name: JIHAN PELAEZ Study Date: 12/20/2022 Height: 69 in : :[facility] ReadingLocation: Weight: 180 lb : : Gender: Male BSA: 2.0 m2 : :: 1950 Age: 72 yrs BP: 113/68 mmHg: :Reason For Study: CONGESTIVE HEART FAILURE : :Ordering Physician: HARDY, : :KIM DE JESUS Performed By: Carley Lay : :Referring: KIM DASH : + + Interpretation Summary Limited echo for wall motion and LV systolic function. Normal sinus rhythm. Mildly dilated left ventricle with normal wall thickness. Severe global hypokinesis with ejection fraction of 15-20%. EPSS is 1.9 cm consistent with cardiomyopathy. There are moderate bilateral pleural effusions. Moderate mitral annular calcification. Aortic sclerosis without stenosis. Compared to prior study obtained September 03, 2022, cardiomyopathy is t worse. EF is down from 30-35% to 15-20%. EPSS is up from 1.1 cm to 1.9 cm confirming worsening cardiomyopathy. Left ventricular end-diastolic dimension is worse, up from 4.2 cm to 6.1 cm. Procedure: Images were not obtained from all of the standard acoustic windows due to the limited scope of the study. The study quality was technically adequate. Comparison is made with the echocardiogram of 09/03/2022. The patient was in sinus rhythm with heart rates between 91-94 bpm during the exam. Left Ventricle: The left ventricle is mildly dilated. The estimated left ventricular end diastolic volume is 157 ml. There is normal left ventricular wall thickness. The ejection fraction is estimated to be 20-25%. Great Vessels: The IVC is of normal diameter and collapses greater than 50% with a sniff. This suggests a low right atrial pressure of 3 mm Hg. Pericardium/ Pleura There is no pericardial effusion. There is a moderate left-sided pleural effusion. MMode/2D Measurements & Calculations LVIDd: 6.1 cm IVC diam: 2.2 cm LVIDs: 5.6 cm FS: 8.5 % EPSS: 1.9 cm IVSd: 0.95 cm LVPWd: 0.91 cm LV strong. diameter/BSA (cm/m^2): 3.1 LV sys. diameter/BSA (cm/m^2): 2.8 Electronically signed by: Jennifer Knowles M.D. on Reading Physician:12/20/2022 01:17 PM
[2022-12-20] MEDS: ATORVASTATIN 20 MG TABLET 40 MG PO (09:37)
[2022-12-20] MEDS: ENOXAPARIN 40 MG/0.4 ML SYRINGE SUBCUT (09:37)
[2022-12-20] MEDS: OXYCODONE ER 10 MG TAB 20 MG PO (09:37)
[2022-12-20] MEDS: FUROSEMIDE 40 MG/4 ML VIAL IV (09:37)
[2022-12-20] MEDS: SITAGLIPTIN 50 MG TABLET PO (09:37)
[2022-12-20] MEDS: METOPROLOL ER 25 MG TABLET PO (09:37)
[2022-12-20] MEDS: TAMSULOSIN 0.4 MG CAPSULE PO (09:38)
[2022-12-20] MEDS: GABAPENTIN 600 MG TABLET PO ×2 (09:38→14:34)
[2022-12-20] MEDS: DOCUSATE 100 MG CAPSULE PO (09:38)
[2022-12-20] MEDS: SODIUM CHLORIDE 0.9% FLUSH 10 ML IV (09:49)
--- NOTE | 2022-12-20 10:14 | PM.DS.1 ---
History of Present Illness History of Present Illness Date Patient Seen: 12/20/22 Time Patient Seen: 10:14 Chief complaint: SOB x 2 weeks Narrative: Per admitting provider, Patient is 72-year-old male history of coronary artery disease with stents, insulin-dependent diabetes, congestive heart failure with EF of 30-35% on echo 09/03/2022, presents today with increasing shortness of breath. He states that he has been short of breath for the last two weeks which has slowly progressed and worse tonight. He has noted orthopnea but no cough, fever or sputum. He states he has not been ill and has not had nausea, vomiting or diarrhea. He does report intermittent left sided chest pain which does not change with breathing and is just there. He denies any current pain. He states that he actually pretty good right now. He was evaluated in the ED and found to have pulmonary edema by CTA chest and he had an elevated BNP as well. Troponin x 2 was negative. His blood sugar was also controlled on his usual regimen which appears to ne 20 units of Lantus at night with coverage during the day. Nurses are attempting to get a fax of the medications from the facility where he resides but he does not believe there have been any recent changes to his medications. He was comfortable but noted to have a mild O2 requirement of 1-2 liters. After 40mg IV lasix he diuresed 1L but still had a minimal requirement. He was admitted overnight for obseervation and another dose of lasix in am and hopefully will wean to room air where he can continue his care at the intermediate care facility where he resides. Discharge Providers Provider Date of admission: 12/19/22 21:35 Discharge Date: 12/20/22 Consults: 12/19/22 21:52 Consult to Discharge Planning Routine Comment: Discharge provider: Garo Nunez DO Summary Hospital Course Discharge Diagnosis: Acute respiratory failure with hypoxia Acute on chronic systolic heart failure Type II diabetes, chronic, with intermediate insulin HLD, chronic Chronic pain CAD Hospital Course: Mr. Marlow is a 71M with PMH CAD s/p stents, BPH, HTN, Type 2 DM on insulin who presented with shortness of breath and hypoxia. This was deemed due to acute decompenstation of his chronic systolic heart failure. He had no chest pain and initial troponin values were within normal limits. He had significant improvement in his symptoms with diuretic therapy and no longer complained of dyspnea and was able to ambulate without the need for supplemental oxygen. TTE did show worsening cardiomyopathy with EF decreasing to 15-20%. He is not on rajani inhibition prior to admission, but is on beta sina therapy. Given normotension and need for initiation of diuretic therapy given pleural effusion on imaging, there is not sufficient room for initiation of rajani inhibition at this time. Please consider addition of this with PCP or cardiology. Prompt follow up with PCP and cardiology is recommended after discharge given his worsening cardiomyopathy. No other changes were recommended to his home medications at discharge. Time Spent with Patient Time spent: Greater than 30 minutes Exam Vital Signs (past 8 hours): - 12/20/22 05:54 12/20/22 06:15 12/20/22 07:39 Temperature 97.7 F 97 F L Pulse Rate 98 H 97 H Respiratory Rate 20 14 Blood Pressure 107/74 113/68 Pulse Oximetry 95 96 94 Oxygen Delivery Method Nasal Cannula Oxygen Flow Rate 2 2 2 12/20/22 09:37 Temperature Pulse Rate 97 H Respiratory Rate Blood Pressure 113/68 Pulse Oximetry Oxygen Delivery Method Oxygen Flow Rate Oxygen Delivery Method Nasal Cannula Oxygen Flow Rate 2 Narrative Exam Narrative: Gen: elderly male, no acute distress Lungs; Decrease breath sounds RLL, no wheezing CV: RRR no m/r/g Abd: S NT ND Ext: no edema. Neuro: alert, oriented no focal deficits. ambulates with assistance of walker, moving well. Objective Labs 12/20/22 05:30 12/20/22 05:30 Labs: Laboratory Results - last 24 hr 12/19/22 12/19/22 12/19/22 18:05 18:05 18:05 WBC 6.2 RBC 4.17 L Hgb 12.8 L Hct 36.7 L MCV 88.0 MCH 30.6 MCHC 34.8 RDW 14.4 Plt Count 201 Neut % (Auto) 64.5 Lymph % (Auto) 18.2 L [place] % (Auto) 11.6 Eos % (Auto) 4.5 H Baso % (Auto) 1.2 Neut # (Auto) 4000 Lymph # (Auto) 1100 [place] # (Auto) 700 Eos # (Auto) 300 Baso # (Auto) 100 PT 12.0 INR 1.0 Sodium 133 L Potassium 4.3 Chloride 99 Carbon Dioxide 26 BUN 11 Creatinine 0.66 Estimated GFR > 60 BUN/Creatinine Ratio 16.7 Glucose 130 H Lactate Calcium 8.6 Magnesium Total Bilirubin 0.5 AST 25 ALT 17 Alkaline Phosphatase 52 Troponin I 0.023 NT-Pro-B Natriuret Pep 7690 H Total Protein 7.3 Albumin 4.0 Globulin 3.3 Albumin/Globulin Ratio 1.2 Chlamy pneumoniae PCR Adenovirus (PCR) B. pertussis DNA (PCR) B.parapertussis DNA PCR Coronavirus OC43 (PCR) Coronavirus HKU1 (PCR) Coronavirus 229E (PCR) SARS-CoV-2 (PCR) Coronavirus NL63 (PCR) Human Metapneumovir PCR Influenza Type A (PCR) Influenza Type B (PCR) M. pneumoniae (PCR) Parainfluenza 1 (PCR) Parainfluenza 2 (PCR) Parainfluenza 3 (PCR) Parainfluenza 4 (PCR) RSV (PCR) Entero/Rhino (PCR) 12/19/22 12/19/22 12/19/22 18:05 18:05 20:15 WBC RBC Hgb Hct MCV MCH MCHC RDW Plt Count Neut % (Auto) Lymph % (Auto) [place] % (Auto) Eos % (Auto) Baso % (Auto) Neut # (Auto) Lymph # (Auto) [place] # (Auto) Eos # (Auto) Baso # (Auto) PT INR Sodium Potassium Chloride Carbon Dioxide BUN Creatinine Estimated GFR BUN/Creatinine Ratio Glucose Lactate 1.4 Calcium Magnesium Total Bilirubin AST ALT Alkaline Phosphatase Troponin I 0.028 NT-Pro-B Natriuret Pep Total Protein Albumin Globulin Albumin/Globulin Ratio Chlamy pneumoniae PCR Not detected Adenovirus (PCR) Not detected B. pertussis DNA (PCR) Not detected B.parapertussis DNA PCR Not detected Coronavirus OC43 (PCR) Not detected Coronavirus HKU1 (PCR) Not detected Coronavirus 229E (PCR) Not detected SARS-CoV-2 (PCR) Not detected Coronavirus NL63 (PCR) Not detected Human Metapneumovir PCR Not detected Influenza Type A (PCR) Not detected Influenza Type B (PCR) Not detected M. pneumoniae (PCR) Not detected Parainfluenza 1 (PCR) Not detected Parainfluenza 2 (PCR) Not detected Parainfluenza 3 (PCR) Not detected Parainfluenza 4 (PCR) Not detected RSV (PCR) Not detected Entero/Rhino (PCR) Not detected 12/20/22 12/20/22 05:30 05:30 WBC 6.1 RBC 4.10 L Hgb 12.3 L Hct 36.3 L MCV 88.6 MCH 30.0 MCHC 33.9 RDW 14.1 Plt Count 187 Neut % (Auto) 65.9 Lymph % (Auto) 17.3 L [place] % (Auto) 11.0 Eos % (Auto) 4.8 H Baso % (Auto) 1.0 Neut # (Auto) 4000 Lymph # (Auto) 1000 L [place] # (Auto) 700 Eos # (Auto) 300 Baso # (Auto) 100 PT INR Sodium 136 L Potassium 3.8 Chloride 100 Carbon Dioxide 28 BUN 10 Creatinine 0.65 L Estimated GFR > 60 BUN/Creatinine Ratio 15.4 Glucose 111 H Lactate Calcium 8.8 Magnesium 2.0 Total Bilirubin AST ALT Alkaline Phosphatase Troponin I NT-Pro-B Natriuret Pep Total Protein Albumin Globulin Albumin/Globulin Ratio Chlamy pneumoniae PCR Adenovirus (PCR) B. pertussis DNA (PCR) B.parapertussis DNA PCR Coronavirus OC43 (PCR) Coronavirus HKU1 (PCR) Coronavirus 229E (PCR) SARS-CoV-2 (PCR) Coronavirus NL63 (PCR) Human Metapneumovir PCR Influenza Type A (PCR) Influenza Type B (PCR) M. pneumoniae (PCR) Parainfluenza 1 (PCR) Parainfluenza 2 (PCR) Parainfluenza 3 (PCR) Parainfluenza 4 (PCR) RSV (PCR) Entero/Rhino (PCR) [facility] Medical History BPH (benign prostatic hyperplasia) CAD (coronary artery disease) of bypass graft Chronic pain Essential hypertension GERD (gastroesophageal reflux disease) Malnutrition of mild degree Recurrent falls Type 2 diabetes mellitus with hyperlipidemia Surgical History History of cholecystectomy Family History Father No problems noted. Mother No problems noted. Social History household members: none Smoking Status: Former smoker alcohol intake: current Discharge Plan Discharge Plan Patient Disposition: Assisted Living Provider Discharge Comment: 72 year old male with PMH of CHF, admitted with CHF exacerbation. Improved with diuresis, no longer dyspnic and O2 saturations not indicating need for supplemental O2. Diuretic was started, likely needs continued diuresis over time. Recommend outpatient follow up with primary care or billing specialist if he has one for further monitoring of diuretic management. Discharge orders & Medications Discharge Orders: Discharge (Order); Ordered 12/20/22 Ordered By: Garo Nunez Prescriptions: New furosemide 40 mg tablet 40 mg PO DAILY 30 Days Qty: 30 0RF Continued insulin glargine [Lantus Solostar U-100 Insulin] 100 unit/mL (3 mL) Insulin Pen 20 unit SUBCUT BEDTIME gabapentin 600 mg tablet 600 mg PO 3XD sennosides [senna] 8.6 mg tablet 17.2 mg PO DAILY acetaminophen 325 mg tablet 325 mg PO Q6H PRN (Reason: Pain (Scale Score 1-3)) prednisone 10 mg tablet 10 mg PO DAILY loperamide 2 mg capsule 2 mg PO Q2H PRN (Reason: Diarrhea) trazodone 50 mg tablet 50 mg PO ONCE PM ondansetron HCl 4 mg Tablet 4 mg PO Q4H tamsulosin 0.4 mg capsule 0.4 mg PO DAILY calcium carbonate [Tums] 200 mg calcium (500 mg) Tablet,Chewable 1,000 mg PO Q8H PRN (Reason: Acid Reflux) Saccharomyces boulardii 250 mg Capsule 250 mg PO BID Januvia 50 mg tablet 50 mg PO DAILY naloxone 4 mg/actuation spray,non-aerosol 1 spray intranasal PRN PRN (Reason: drug) atorvastatin 40 mg tablet 40 mg PO DAILY insulin aspart U-100 [Novolog FlexPen U-100 Insulin] 100 unit/mL (3 mL) insulin pen See Rx Instructions .ROUTE .COMPLEX Rx Instructions: PER BLOOD SUGAR omeprazole 20 mg capsule,delayed release(DR/EC) 20 mg PO DAILY Patient Comments: once a day buprenorphine 7.5 mcg/hour patch weekly 1 patch transdermal QWEEK Qty: 4 0RF metoprolol succinate 25 mg tablet extended release 24 hr 25 mg PO DAILY Qty: 30 0RF Medication counseling provided by Pharmacist: Yes Discharge Health Status Multidrug resistant organism: No MDRO Diet/Activity/Treatments Diet: Diet as Tolerated and Low-sodium Diet comment: 2L total fluid restriction recommended Activity: As tolearted, no restrictions. Visit Report/Discharge Packet Instructions: DI for Diabetes Type 2, How to Prevent Falls, DI for Hypoxia Stand Alone Forms: Patient Portal/API, Stroke Signs & Symptoms Discharge Data Attending Provider: Sofia Plata Admit Date/Time: 12/19/22 21:35 Discharges patient from system. Discharge Date/Time: 12/20/22 16:18 Quality VTE Deep Vein Thrombosis/Pulmonary Embolism Present on Admission: No MIPS - DC The patient has a history of heart transplant or Left Ventricular Assist Device (LVAD). If yes, STOP here.: No The patient has current or prior documentation of left ventricular ejection fraction (LVEF) less than or equal to 40%, or moderate or severely depressed left ventricular systolic function.: Yes A. The patient was prescribed or already taking an Angiotensin-Converting Enzyme (RAJANI) Inhibitor, or Angiotensin Receptor Isna (ARB).: No B. The patient was prescribed or already taking a beta-sina. [If Yes to Both A & B, STOP here]: Yes Patient not prescribed/taking RAJANI or ARB for medical/patient reason(s) including (ex: allergy, intolerance, contraindication).: hypotension
--- NOTE | 2022-12-20 12:36 | CM.DPNOTE ---
DC Note Discharged back to [facility] today, patient eager to return home ALFONSO Martinez linux vmware administrator kindly agreed to coordinate with [facility] transport and secured a taxi thru [facility] transport for p/u at 1445. RN Lynette made aware of transport time Faxed patient's DC visit report and completed and signed med list to [facility] at F [phone] Placed two calls to [facility] nursing line at P [phone], left detailed messages altering them to patient's return home, have not heard back Plan: Discharge back to [facility], where patient is a resident, via [facility] taxi JW
--- NOTE | 2022-12-20 13:22 | CM.DPNOTE ---
Jelani from [facility] Medicaid transport said [facility] is delayed in [place], and it will be about 1530 transport. I told nurse & UX ARCHITECT. I also called and spoke to Yue at [facility] and told her cab will be delayed, approx. 1530. She said No problem. Michelle Gonzalez, ALFONSO Assist.
--- NOTE | 2022-12-20 14:57 | PC.NURSE ---
Discharge education given to patient, patient verbalized understanding, all questions answered. O2 sat is 95% on RA. All belongings are with patient, no items locked in safe. IV and tele removed. Awaiting medicaid taxi to arrive @ 1530, patient to return to [facility].
== END 2022-12-20 16:18 ==
LOC: ED 21:35 → AC 21:36
PROVIDERS: Admitting Provider Internal Medicine; Emergency Provider Emergency Medicine; Referring Provider Emergency Medicine; Visit Provider Internal Medicine
DX: J96.01 Acute respiratory failure with hypoxia (principal); I50.23 Acute on chronic systolic (congestive) heart failure; E11.69 Type 2 diabetes mellitus with other specified complication; E78.5 Hyperlipidemia, unspecified; I25.10 Atherosclerotic heart disease of native coronary artery without angina pectoris; Z95.1 Presence of aortocoronary bypass graft
CPT/HCPCS: 36415; 71045; 71275; 80048; 80053; 82962; 83605; 83735; 83880; 84484; 85025; 85610; 87633; 93005; 93010; 93307; 96372; 96374; 96376; 99285; G0378; J1650; J1940; Q9967

== ENCOUNTER 2023-01-02 10:04 | Emergency (ER) | payer MEDICARE, MEDICAID, SELFPAY ==
[2022-12-19 22:29] VITALS: BMI 26.6
[2023-01-02] VITALS (9 sets, daily range): BP systolic 114–129; BP diastolic 75–86; PULSE 79–98; RESP 16–22; TEMP 36.7; O2SAT 90–98; BMI 25.8
--- NOTE | 2023-01-02 10:09 | ED.GENADULT ---
HPI - General Adult General Chief complaint: Shortness of Breath/Dyspnea Stated complaint: SOB Time Seen by Provider: 01/02/23 10:06 Source: patient Mode of arrival: Ambulatory Limitations: no limitations History of Present Illness HPI narrative: 72-year-old male. Does have a history of CHF. Insulin attend diabetes. Is on Lasix. His brought in by EMS this morning for shortness of breath. States he is only short of breath. Today not particularly worse than normal which just he woke up this morning and had a hard time breathing. He is not on home oxygen. He is taking Lasix. He does feel like his lower extremities are swelling. He denies chest pain. No fevers. No cough. No abdominal pain or nausea or vomiting. Related Data Home Medications Medication Instructions Recorded Confirmed atorvastatin 40 mg tablet 40 mg PO DAILY 04/26/22 12/19/22 insulin aspart U-100 100 unit/mL See Rx Instructions .Route .COMPLEX 04/26/22 12/19/22 (3 mL) subcutaneous pen (Novolog FlexPen U-100 Insulin aspart) omeprazole 20 mg capsule,delayed 20 mg PO DAILY 04/28/22 12/19/22 release insulin glargine 100 unit/mL (3 20 unit SUBCUT BEDTIME 08/02/22 12/19/22 mL) subcutaneous pen (Lantus Solostar U-100 Insulin) Saccharomyces boulardii 250 mg 250 mg PO BID 12/19/22 12/19/22 capsule acetaminophen 325 mg tablet 325 mg PO Q6H PRN Pain (Scale 12/19/22 12/19/22 Score 1-3) calcium carbonate 200 mg calcium 1,000 mg PO Q8H PRN Acid Reflux 12/19/22 12/19/22 (500 mg) chewable tablet (Tums) gabapentin 600 mg tablet 600 mg PO 3XD 12/19/22 12/19/22 loperamide 2 mg capsule 2 mg PO Q2H PRN Diarrhea 12/19/22 12/19/22 naloxone 4 mg/actuation nasal spray 1 spray intranasal PRN PRN drug 12/19/22 12/19/22 ondansetron HCl 4 mg tablet 4 mg PO Q4H 12/19/22 12/19/22 prednisone 10 mg tablet 10 mg PO DAILY 12/19/22 12/19/22 sennosides 8.6 mg tablet (senna) 17.2 mg PO DAILY 12/19/22 12/19/22 sitagliptin phosphate 50 mg tablet 50 mg PO DAILY 12/19/22 12/19/22 (Januvia) tamsulosin 0.4 mg capsule 0.4 mg PO DAILY 12/19/22 12/19/22 trazodone 50 mg tablet 50 mg PO ONCE PM 12/19/22 12/19/22 Previous Rx's Medication Instructions Recorded buprenorphine 7.5 mcg/hour weekly 1 patch transdermal QWEEK #4 ea 06/25/22 transdermal patch metoprolol succinate 25 mg 25 mg PO DAILY #30 tabs 09/03/22 tablet,extended release 24 hr furosemide 40 mg tablet 40 mg PO DAILY 30 days #30 tabs 12/20/22 Allergies Allergy/AdvReac Type Severity Reaction Status Date / Time NSAIDS (Non-Steroidal Allergy Verified 12/19/22 18:17 Anti-Inflamma Tetanus Vaccines and Toxoid Allergy Verified 12/19/22 18:17 Review of Systems Constitutional Constitutional: Reports system reviewed and no additional complaints, except as documented Cardiovascular Cardiovascular: Reports system reviewed and no additional complaints, except as documented Respiratory Respiratory: Reports system reviewed and no additional complaints, except as documented Gastrointestinal Gastrointestinal: Reports system reviewed and no additional complaints, except as documented Genitourinary Genitourinary: Reports system reviewed and no additional complaints, except as documented Hematologic/Lymphatic On Anticoagulants: No Patient History Medical History BPH (benign prostatic hyperplasia) CAD (coronary artery disease) of bypass graft Chronic pain Essential hypertension GERD (gastroesophageal reflux disease) Malnutrition of mild degree Recurrent falls Type 2 diabetes mellitus with hyperlipidemia Surgical History History of cholecystectomy Family History Father No problems noted. Mother No problems noted. Social History household members: none Smoking Status: Former smoker alcohol intake: current Smoking Status: Former smoker tobacco type: cigarettes alcohol intake frequency: holidays/special occasions only Substance Use Type: does not use and former substance user Exam Initial Vital Signs Initial Vital Signs: Vital Signs Temperature 98.0 F 01/02/23 10:13 Pulse Rate 79 01/02/23 10:13 Respiratory Rate 20 01/02/23 10:13 Blood Pressure 119/86 01/02/23 10:13 Pulse Oximetry 90 L 01/02/23 10:13 Oxygen Delivery Method Room Air 01/02/23 10:13 [facility] Head: normal to inspection and normocephalic Resp Effort & Inspection: normal respiratory effort Auscultation: clear to auscultation bilaterally Cardio Rate: regular rate Rhythm: regular rhythm GI Inspection: normal to inspection Skin General: no rashes or lesions noted Neuro General: patient alert, patient awake, patient oriented x3 and moves all extremities Extrem General: edema Course Orders Ordered: ED Orders 01/02/23 10:00 Complete Blood Count AUTO DIFF Stat Comprehensive Metabolic Panel Stat Lipase Stat NT-proBNP (BNP-Adult 18+) Stat Troponin & CK Cardiac Panel Stat 01/02/23 10:10 XR chest 1V Stat EKG-12 Lead Stat 01/02/23 10:32 Covid-19 + FLU A/B + RSV - PCR Stat Discontinued Medications Furosemide 80 mg/ Sodium (Chloride) 58 mls @ 116 mls/hr IV NOW ONE Stop: 01/02/23 11:13 Last Infusion: 01/02/23 12:06 Dose: 0 mls/hr Documented By: Infusion: 01/02/23 12:04 Dose: 0 mls/hr Documented By: Admin: 01/02/23 11:39 Dose: 116 mls/hr Documented By: DAILY Vital Signs Vital signs: Vital Signs - 8 hr 01/02/23 10:13 01/02/23 10:16 01/02/23 10:16 Temperature 98.0 F Pulse Rate 79 98 H Respiratory Rate 20 Blood Pressure 119/86 119/86 Pulse Oximetry 90 L 91 Oxygen Delivery Method Room Air 01/02/23 10:30 01/02/23 10:32 01/02/23 10:32 Temperature Pulse Rate 95 H 94 H Respiratory Rate 16 19 Blood Pressure 114/76 Pulse Oximetry 91 95 Oxygen Delivery Method 01/02/23 11:00 01/02/23 11:00 01/02/23 11:30 Temperature Pulse Rate 94 H Respiratory Rate 18 Blood Pressure 117/79 129/86 Pulse Oximetry Oxygen Delivery Method 01/02/23 11:30 Temperature Pulse Rate 94 H Respiratory Rate 18 Blood Pressure Pulse Oximetry 90 L Oxygen Delivery Method Medical Decision Making Medical Records Medical records reviewed: Yes I reviewed the patient's medical records. Lab Data Lab results reviewed: Yes I reviewed the patient's lab results. 01/02/23 10:00 01/02/23 10:00 Labs: Lab Results 01/02/23 01/02/23 01/02/23 Range/Units 10:00 10:00 10:32 WBC 6.4 (4.5-11.0) X10^3/uL RBC 4.43 L (4.5-5.9) X10^6/uL Hgb 13.1 L (13.5-17.5) g/dL Hct 39.1 L (41-53) % MCV 88.3 (80-100) fL MCH 29.7 (26-34) PG MCHC 33.6 (30-36) % RDW 14.7 (11.6-14.8) % Plt Count 180 (150-400) X10^3/uL Neut % (Auto) 73.9 (50-75) % Lymph % (Auto) 13.2 L (25-40) % [place] % (Auto) 9.4 (3-14) % Eos % (Auto) 2.3 (2-4) % Baso % (Auto) 1.2 (0-2) % Neut # (Auto) 4700 (9356-8074) /uL Lymph # (Auto) 800 L (9138-8288) /uL [place] # (Auto) 600 (0-900) /uL Eos # (Auto) 100 (0-450) /uL Baso # (Auto) 100 (0-100) /uL Sodium 136 L (137-145) mmol/L Potassium 3.7 (3.4-5.1) mmol/L Chloride 102 (98-107) mmol/L Carbon Dioxide 26 (22-32) mmol/L BUN 8 L (9-20) mg/dL Creatinine 0.72 (0.66-1.25) mg/dL Estimated GFR > 60 (>60) mL/min BUN/Creatinine Ratio 11.1 (6-22) Glucose 187 H (80-110) mg/dL Calcium 9.4 (8.4-10.2) mg/dL Total Bilirubin 0.9 (0.2-1.3) mg/dL AST 25 (17-59) IU/L ALT 26 (<50) IU/L Alkaline Phosphatase 68 (38-126) U/L Total Creatine Kinase 34 L (55-170) U/L Troponin I 0.014 (0.01-0.034) ng/mL NT-Pro-B Natriuret Pep 72464 H (<125) pg/mL Total Protein 7.1 (6.3-8.2) g/dL Albumin 4.1 (3.5-5.0) g/dL Globulin 3.0 (1.7-4.1) g/dL Albumin/Globulin Ratio 1.4 (1.0-2.8) Lipase 37 (23-300) U/L SARS-CoV-2 (PCR) Negative (Negative) Influenza A (RT-PCR) Flu a negative (NEGATIVE) Influenza B (RT-PCR) Flu b negative (NEGATIVE) RSV (PCR) Negative (Negative) Imaging Data Chest x-ray: Radiologist's Impression: PROCEDURE:? XR CHEST 1V ? INDICATIONS:? Shortness of breath ? TECHNIQUE:? One view of the chest was acquired.? ? COMPARISON:? [facility], CR, XR CHEST 1V, 12/19/2022, 18:07. ? FINDINGS:? ? Surgical changes and devices:? None.? ? Lungs and pleura:? Mild interstitial pulmonary edema.? Minimal right pleural effusion.? Findings are slightly better than the previous study. ? Mediastinum:? Mediastinal contours appear normal.? Heart size is normal.? ? Bones and chest wall:? No suspicious bony lesions.? Overlying soft tissues appear unremarkable.? ? ? IMPRESSION:? Congestive heart failure exacerbation. ECG Data Attestation: I personally reviewed and interpreted this ECG as follows: Interpretation: Sinus rhythm Ventricular rate 96 Normal axis QRS 1 for 2 milliseconds Right bundle-branch block Nonspecific ST T wave changes MDM Narrative Medical decision making narrative: After IV diuretics patient did diurese quite a bit in the states he does feel much better in his breathing much easier. His BNP is elevated. I have low suspicion for an infectious etiology. According to his medical records that came from the facility he is on 40 mg of Lasix a day. The plan will be to increase this for the next several days. Will discharge patient home with return precautions. Discharge Plan Departure Patient Disposition: Home Clinical Impression: Congestive heart failure Instructions: DI for Heart Failure Activity Restrictions/Additional Instructions: According to the records that came with you it appears that your on 40 mg of Lasix/furosemide on a daily basis. I recommend that for the next week we increase this to 80 mg of Lasix. You can take the full 80 mg in the morning. I do recommend that you contact your primary doctor for a follow-up. Return to the emergency department for new symptoms. Prescriptions: No Action insulin glargine [Lantus Solostar U-100 Insulin] 100 unit/mL (3 mL) Insulin Pen 20 unit SUBCUT BEDTIME gabapentin 600 mg tablet 600 mg PO 3XD sennosides [senna] 8.6 mg tablet 17.2 mg PO DAILY acetaminophen 325 mg tablet 325 mg PO Q6H PRN (Reason: Pain (Scale Score 1-3)) prednisone 10 mg tablet 10 mg PO DAILY loperamide 2 mg capsule 2 mg PO Q2H PRN (Reason: Diarrhea) trazodone 50 mg tablet 50 mg PO ONCE PM ondansetron HCl 4 mg Tablet 4 mg PO Q4H tamsulosin 0.4 mg capsule 0.4 mg PO DAILY calcium carbonate [Tums] 200 mg calcium (500 mg) Tablet,Chewable 1,000 mg PO Q8H PRN (Reason: Acid Reflux) Saccharomyces boulardii 250 mg Capsule 250 mg PO BID Januvia 50 mg tablet 50 mg PO DAILY naloxone 4 mg/actuation spray,non-aerosol 1 spray intranasal PRN PRN (Reason: drug) furosemide 40 mg tablet 40 mg PO DAILY 30 Days Qty: 30 0RF atorvastatin 40 mg tablet 40 mg PO DAILY insulin aspart U-100 [Novolog FlexPen U-100 Insulin] 100 unit/mL (3 mL) insulin pen See Rx Instructions .ROUTE .COMPLEX Rx Instructions: PER BLOOD SUGAR omeprazole 20 mg capsule,delayed release(DR/EC) 20 mg PO DAILY Patient Comments: once a day buprenorphine 7.5 mcg/hour patch weekly 1 patch transdermal QWEEK Qty: 4 0RF metoprolol succinate 25 mg tablet extended release 24 hr 25 mg PO DAILY Qty: 30 0RF Stand Alone Forms: Patient Portal/API
--- NOTE | 2023-01-02 10:10 | DI.RAD.S_ITS ---
PROCEDURE: XR CHEST 1V INDICATIONS: Shortness of breath TECHNIQUE: One view of the chest was acquired. COMPARISON: [facility], CR, XR CHEST 1V, 12/19/2022, 18:07. FINDINGS: Surgical changes and devices: None. Lungs and pleura: Mild interstitial pulmonary edema. Minimal right pleural effusion. Findings are slightly better than the previous study. Mediastinum: Mediastinal contours appear normal. Heart size is normal. Bones and chest wall: No suspicious bony lesions. Overlying soft tissues appear unremarkable. IMPRESSION: Congestive heart failure exacerbation. Dictated by: Gato James M.D. on 01/02/2023 at 10:34 Approved by: Gato James M.D. on 01/02/2023 at 10:35
[2023-01-02 10:21] LABS: Add Manual Diff / Slide Review NO; Basophils Absolute Auto 100 /uL (0-100); Basophils Percent Auto 1.2 % (0-2); Eosinophils Absolute Auto 100 /uL (0-450); Eosinophils Percent Auto 2.3 % (2-4); Hematocrit 39.1 % (41-53); Hemoglobin 13.1 g/dL (13.5-17.5); Lymphocytes Absolute Auto 800 /uL (1100-4500); Lymphocytes Percent Auto 13.2 % (25-40); Mean Corpuscular HGB Conc 33.6 % (30-36); Mean Corpuscular Hemoglobin 29.7 PG (26-34); Mean Corpuscular Volume 88.3 fL (80-100); Monocytes Absolute Auto 600 /uL (0-900); Monocytes Percent Auto 9.4 % (3-14); Neutrophils Absolute Auto 4700 /uL (1500-7000); Neutrophils Percent Auto 73.9 % (50-75); Platelet Count 180 X10^3/uL (150-400); Red Blood Cell Count 4.43 X10^6/uL (4.5-5.9); Red Cell Distribution Width 14.7 % (11.6-14.8); White Blood Cell Count 6.4 X10^3/uL (4.5-11.0)
--- NOTE | 2023-01-02 10:22 | PC.NURSE ---
Pt reports SOB for weeks that has been getting worse over the past few days. Dependent non pitting edema to B/L LE. Orthopnea. Sitting up 90 degrees is position of comfort. AAOx3, 90-93% RA. Diminished lungs throughout. No home O2. H/O CHF COPD. Lives at [facility] and when asked if hes compliant with his medications pt states i dont know what i take because they just give them to me OOB to bathroom with steady gait. Arrived via EMS with 18G R wrist.
[2023-01-02 10:43] LABS: Alanine Aminotransferase 26 IU/L (<50); Albumin 4.1 g/dL (3.5-5.0); Albumin Globulin Ratio 1.4 (1.0-2.8); Alkaline Phosphatase 68 U/L (38-126); Aspartate Aminotransferase 25 IU/L (17-59); BUN Creatinine Ratio 11.1 (6-22); Bilirubin Total 0.9 mg/dL (0.2-1.3); Blood Urea Nitrogen 8 mg/dL (9-20); Calcium 9.4 mg/dL (8.4-10.2); Carbon Dioxide 26 mmol/L (22-32); Chloride 102 mmol/L (98-107); Creatine Kinase 34 U/L (55-170); Estimated Glomerular Filt Rate > 60 mL/min (>60); Glucose 187 mg/dL (80-110); HEMOLYSIS 20 (0-50); Lipase 37 U/L (23-300); Potassium 3.7 mmol/L (3.4-5.1); Sodium 136 mmol/L (137-145); Total Protein 7.1 g/dL (6.3-8.2)
[2023-01-02 10:53] LABS: NT-proBNP (BNP-Adult 18+) 10100 pg/mL (<125); Troponin I 0.014 ng/mL (0.01-0.034)
[2023-01-02 11:14] LABS: Influenza A - CEPHEID Flu A NEGATIVE (NEGATIVE); Influenza B - CEPHEID Flu B NEGATIVE (NEGATIVE); Respiratory Syncytial Virus Negative (Negative)
[2023-01-02 11:21] LABS: COVID-19 CEPHEID 4-PLEX PCR Negative (Negative)
[2023-01-02] MEDS: FUROSEMIDE 80 MG in SODIUM CHLORIDE 0.9% 50 ML 116 MG IV (11:39)
== END 2023-01-02 13:26 | disposition home or self-care (01) ==
PROVIDERS: Emergency Provider Emergency Medicine
DX: I50.9 Heart failure, unspecified (principal); R06.02 Shortness of breath; Z79.899 Other long term (current) drug therapy; Z20.822 Contact with and (suspected) exposure to COVID-19
CPT/HCPCS: 0241U; 36415; 71045; 80053; 82550; 83690; 83880; 84484; 85025; 93005; 96365; 99284; 99285; J1940

== ENCOUNTER → 2023-01-12 22:56 | Outpatient (ROUT) | payer MEDICARE, MEDICAID, SELFPAY ==
[2022-12-19 22:29] VITALS: BMI 26.6
[2023-01-12 23:10] LABS: BUN Creatinine Ratio 15.2 (6-22); Blood Urea Nitrogen 12 mg/dL (9-20); Carbon Dioxide 24 mmol/L (22-32); Chloride 99 mmol/L (98-107); Estimated Glomerular Filt Rate > 60 mL/min (>60); Glucose 169 mg/dL (80-110); HEMOLYSIS < 15 (0-50); Sodium 133 mmol/L (137-145)
== END ==
PROVIDERS: Visit Provider Nurse Practitioner Family
DX: J44.1 Chronic obstructive pulmonary disease with (acute) exacerbation (principal)
CPT/HCPCS: 80048

== ENCOUNTER → 2023-01-14 12:58 | Outpatient (CLI) | payer MEDICARE, MEDICAID, SELFPAY ==
[2022-12-19 22:29] VITALS: BMI 26.6
--- NOTE | 2023-01-14 | DI.RAD.S_ITS ---
PROCEDURE: XR FINGER RT MIN 2V INDICATIONS: FALL TECHNIQUE: AP hand, 2 views of the 4th finger(s) acquired. COMPARISON: None. FINDINGS: Bones: No fractures or dislocations. No suspicious bony lesions. First carpometacarpal degenerative changes Soft tissues: No suspicious soft tissue calcifications. IMPRESSION: Degenerative changes without fracture Approved by: Rene Stout M.D. on 01/14/2023 at 17:08
--- NOTE | 2023-01-14 | DI.RAD.S_ITS ---
PROCEDURE: XR HIP W PEL IF DONE RT 2V INDICATIONS: FALL TECHNIQUE: AP pelvis and lateral view of the right hip acquired. COMPARISON: [facility], CT, CT ABDOMEN PELVIS W CON, 08/23/2022, 18:18. [facility], CT, CT ABDOMEN PELVIS W CON, 07/14/2022, 2:29. [facility], CR, XR HIP W PEL IF DONE LT 2V, 04/26/2022, 11:10. FINDINGS: Bones: Patient is status post right hip arthroplasty, with hardware components in expected positions. The hip joint appears congruent. The visualized bony structures appear intact. Mild left hip joint degeneration. Degenerative disc and facet disease involves the inferior lumbar spine. Soft tissues: Mild soft tissue swelling about the right hip. No suspicious soft tissue densities. Vascular calcifications indicate atherosclerosis. IMPRESSION: No radiographic evidence of an acute fracture. Stable appearance of right hip arthroplasty. If there is high clinical suspicion for a radiographically occult fracture, consider CT for further evaluation. Dictated by: Antonio Cloud Inga Interpreted: Ada Jeff MD on 01/14/2023 at 13:48 Transcribed by: JASON on 01/14/2023 at 13:49 Approved by: Ada Jeff M.D. on 01/15/2023 at 14:22
== END ==
PROVIDERS: PCP Nurse Practitioner Family; Referring Provider Nurse Practitioner Family; Visit Provider Nurse Practitioner Family
DX: M79.641 Pain in right hand (principal); M25.851 Other specified joint disorders, right hip; W19.XXXA Unspecified fall, initial encounter; R52 Pain, unspecified; Z96.641 Presence of right artificial hip joint
CPT/HCPCS: 73140; 73502

== ENCOUNTER → 2023-01-17 21:09 | Outpatient (ROUT) | payer MEDICARE, MEDICAID, SELFPAY ==
[2022-12-19 22:29] VITALS: BMI 26.6
[2023-01-17 21:34] LABS: BUN Creatinine Ratio 13.4 (6-22); Blood Urea Nitrogen 9 mg/dL (9-20); Carbon Dioxide 29 mmol/L (22-32); Chloride 97 mmol/L (98-107); Estimated Glomerular Filt Rate > 60 mL/min (>60); Glucose 167 mg/dL (80-110); HEMOLYSIS < 15 (0-50); Potassium 4.2 mmol/L (3.4-5.1); Sodium 134 mmol/L (137-145)
== END ==
PROVIDERS: PCP Nurse Practitioner Family; Visit Provider Physician Assistant Medical
DX: Z79.899 Other long term (current) drug therapy (principal)
CPT/HCPCS: 80048

== ENCOUNTER → 2023-01-22 07:34 | Outpatient (ROUT) | payer MEDICARE, MEDICAID, SELFPAY ==
[2022-12-19 22:29] VITALS: BMI 26.6
[2023-01-22 08:02] LABS: BUN Creatinine Ratio 21.4 (6-22); Blood Urea Nitrogen 18 mg/dL (9-20); Calcium 9.5 mg/dL (8.4-10.2); Carbon Dioxide 28 mmol/L (22-32); Chloride 96 mmol/L (98-107); Estimated Glomerular Filt Rate > 60 mL/min (>60); Glucose 96 mg/dL (80-110); HEMOLYSIS < 15 (0-50); Potassium 4.2 mmol/L (3.4-5.1); Sodium 133 mmol/L (137-145)
== END ==
PROVIDERS: PCP Nurse Practitioner Family; Visit Provider Nurse Practitioner Family
DX: J44.1 Chronic obstructive pulmonary disease with (acute) exacerbation (principal)
CPT/HCPCS: 36415; 80048

== ENCOUNTER 2023-01-23 15:54 | Inpatient (IN) | payer MEDICARE, MEDICAID, SELFPAY ==
[2022-12-19 22:29] VITALS: BMI 26.6
[2023-01-23] VITALS (17 sets, daily range): BP systolic 105–132; BP diastolic 61–86; PULSE 81–95; RESP 12–24; TEMP 36.6; O2SAT 84–99; BMI 26.6; BMI 29.1
--- NOTE | 2023-01-23 16:10 | DI.RAD.S_ITS ---
PROCEDURE: XR CHEST 1V INDICATIONS: URI TECHNIQUE: One view of the chest was acquired. COMPARISON: [facility], CR, XR CHEST 1V, 01/02/2023, 10:13. FINDINGS: Surgical changes and devices: None. Lungs and pleura: Patchy bibasilar/retrocardiac opacities slightly more prominent. Mediastinum: Mediastinal contours appear normal. Heart size is normal. Bones and chest wall: No suspicious bony lesions. Overlying soft tissues appear unremarkable. IMPRESSION: Bibasilar and retrocardiac opacities suggestive of pneumonia. Small underlying effusions cannot be excluded. Dictated by: María Bruce M.D. on 01/23/2023 at 17:00 Approved by: María Bruce M.D. on 01/23/2023 at 17:00
[2023-01-23 17:29] LABS: Influenza A - CEPHEID Flu A NEGATIVE (NEGATIVE); Influenza B - CEPHEID Flu B NEGATIVE (NEGATIVE); Respiratory Syncytial Virus Negative (Negative)
[2023-01-23 17:32] LABS: COVID-19 CEPHEID 4-PLEX PCR POSITIVE (Negative)
--- NOTE | 2023-01-23 18:00 | ED.URI ---
HPI - URI/Sore Throat <Mary Ann Childs PA-C - Last Filed: 01/23/23 19:14> General Chief Complaint: Upper Respiratory Symptoms Stated Complaint: SOB Time Seen by Provider: 01/23/23 16:11 Source: patient and EMS Mode of arrival: EMS History of Present Illness HPI Narrative: Patient is a 72-year-old male with history of diabetes type 2, CHF, GERD, CAD, hypertension who lives at [facility] was brought by EMS for shortness of breath, moist cough and altered mental status. He received a neb en route from EMS. He has a history of cigarette smoking and COPD. Patient was answering questions appropriately for the nurse when he 1st arrived but on my exam I wake him up from a deep nap and he is quite confused. He tells me that he used to live at [facility] but no longer does. He tells me it is March 2003. Has a copy of his end of life orders in the chart, which state he is DNR and comfort measures only. Related Data Home Medications Medication Instructions Recorded Confirmed atorvastatin 40 mg tablet 40 mg PO DAILY 04/26/22 01/23/23 insulin aspart U-100 100 unit/mL See Rx Instructions .Route .COMPLEX 04/26/22 01/23/23 (3 mL) subcutaneous pen (Novolog FlexPen U-100 Insulin aspart) omeprazole 20 mg capsule,delayed 20 mg PO DAILY 04/28/22 01/23/23 release insulin glargine 100 unit/mL (3 20 unit SUBCUT BEDTIME 08/02/22 01/23/23 mL) subcutaneous pen (Lantus Solostar U-100 Insulin) Saccharomyces boulardii 250 mg 250 mg PO BID 12/19/22 01/23/23 capsule acetaminophen 325 mg tablet 325 mg PO Q6H PRN Pain (Scale 12/19/22 01/23/23 Score 1-3) calcium carbonate 200 mg calcium 1,000 mg PO Q8H PRN Acid Reflux 12/19/22 01/23/23 (500 mg) chewable tablet (Tums) gabapentin 600 mg tablet 600 mg PO 3XD 12/19/22 01/23/23 loperamide 2 mg capsule 2 mg PO Q2H PRN Diarrhea 12/19/22 01/23/23 naloxone 4 mg/actuation nasal spray 1 spray intranasal PRN PRN drug 12/19/22 01/23/23 ondansetron HCl 4 mg tablet 4 mg PO Q4H 12/19/22 01/23/23 prednisone 10 mg tablet 10 mg PO DAILY 12/19/22 01/23/23 sennosides 8.6 mg tablet (senna) 17.2 mg PO DAILY 12/19/22 01/23/23 sitagliptin phosphate 50 mg tablet 50 mg PO DAILY 12/19/22 01/23/23 (Januvia) tamsulosin 0.4 mg capsule 0.4 mg PO DAILY 12/19/22 01/23/23 trazodone 50 mg tablet 50 mg PO ONCE PM 12/19/22 01/23/23 albuterol sulfate 90 mcg/actuation 1 puff inhalation PRN PRN SOB 01/23/23 01/23/23 aerosol inhaler benzonatate 100 mg capsule 100 mg PO DAILY PRN Cough 01/23/23 01/23/23 furosemide 80 mg tablet (Lasix) 80 mg PO DAILY 01/23/23 01/23/23 potassium chloride 20 mEq 20 meq PO DAILY 01/23/23 01/23/23 tablet,extended release(part/cryst) Previous Rx's Medication Instructions Recorded buprenorphine 7.5 mcg/hour weekly 1 patch transdermal QWEEK #4 ea 06/25/22 transdermal patch metoprolol succinate 25 mg 25 mg PO DAILY #30 tabs 09/03/22 tablet,extended release 24 hr Allergies Allergy/AdvReac Type Severity Reaction Status Date / Time NSAIDS (Non-Steroidal Allergy Verified 01/23/23 16:03 Anti-Inflamma Tetanus Vaccines and Toxoid Allergy Verified 01/23/23 16:03 Review of Systems <Mary Ann Childs PA-C - Last Filed: 01/23/23 19:14> Review of Systems ROS Unobtainable: All systems reviewed & are unremarkable except as noted in HPI and below Patient History <Mary Ann Childs PA-C - Last Filed: 01/23/23 19:14> Medical History GERD (gastroesophageal reflux disease) Malnutrition of mild degree BPH (benign prostatic hyperplasia) Recurrent falls Chronic pain Type 2 diabetes mellitus with hyperlipidemia Essential hypertension CAD (coronary artery disease) of bypass graft Surgical History History of cholecystectomy Family History Father No problems noted. Mother No problems noted. Social History household members: none Smoking Status: Former smoker alcohol intake: current Smoking Status: Former smoker tobacco type: cigarettes alcohol intake frequency: a few times a month Alcohol type: hard liquor Substance Use Type: does not use and former substance user Exam <Mary Ann Childs PA-C - Last Filed: 01/23/23 19:14> Narrative Exam Narrative: GENERAL: 72 year old patient appears older than stated age. NEURO: AOx1, oriented to birthday only HEAD: Atraumatic. Normocephalic. EYES: Pupils equal round and reactive. Extraocular motions intact. No scleral icterus. No injection or drainage. ENT: Nose without bleeding or purulent drainage. Airway patent. Mucus membranes dry. CARDIOVASCULAR: Regular rate and rhythm without murmurs, gallops, or rubs. No pedal edema. RESPIRATORY: Coarse rhonchi bilaterally with mild expiratory wheeze GASTROINTESTINAL: Abdomen soft, non-tender, nondistended. SKIN: No rash or erythema of visible areas Initial Vital Signs Initial Vital Signs: Vital Signs Temperature 97.9 F 01/23/23 16:04 Pulse Rate 94 H 01/23/23 16:04 Respiratory Rate 24 01/23/23 16:04 Blood Pressure 127/79 01/23/23 16:04 Pulse Oximetry 99 01/23/23 16:04 Oxygen Delivery Method Simple Mask 01/23/23 16:04 Oxygen Flow Rate 8 01/23/23 16:04 <Lis Shay DO - Last Filed: 01/24/23 03:51> Initial Vital Signs Initial Vital Signs: Vital Signs Temperature 97.9 F 01/23/23 16:04 Pulse Rate 94 H 01/23/23 16:04 Respiratory Rate 24 01/23/23 16:04 Blood Pressure 127/79 01/23/23 16:04 Pulse Oximetry 99 01/23/23 16:04 Oxygen Delivery Method Simple Mask 01/23/23 16:04 Oxygen Flow Rate 8 01/23/23 16:04 Course <Mary Ann Childs PA-C - Last Filed: 01/23/23 19:14> Orders Ordered: ED Orders 01/23/23 21:14 Blood Culture Stat Acetaminophen (Acetaminophen 325 Mg Tablet) 650 mg PO Q6H PRN PRN Reason: Fever/Mild Pain (1-3) Al Hydrox/Mg Hydrox/Simethicone (Mag Hydrox/Alum/Simeth 30 Ml Udc) 30 ml PO Q6HR PRN PRN Reason: Dyspepsia Albuterol (Albuterol 2.5 Mg/3 Ml Neb (Adult)) 2.5 mg INH [id number] PRN PRN Reason: Shortness Of Breath Atorvastatin Calcium (Atorvastatin 20 Mg Tablet) 40 mg PO DAILY TOMMY Calcium Carbonate (Calcium Carbonate 500 Mg Tab) 1,000 mg PO Q8H PRN PRN Reason: Acid Reflux Dexamethasone (Dexamethasone 1 Mg Tablet) 6 mg PO DAILY [facility] Stop: 02/01/23 09:00 Enoxaparin Sodium (Enoxaparin 40 Mg/0.4 Ml Syringe) 40 mg SUBCUT DAILY [facility] Furosemide (Furosemide 40 Mg Tablet) 80 mg PO DAILY [facility] Gabapentin (Gabapentin 600 Mg Tablet) 600 mg PO TID [facility] Last Admin: 01/23/23 23:58 Dose: 600 mg Documented By: AT Remdesivir 100 mg/ Sodium (Chloride) 250 mls @ 250 mls/hr IV DAILY [facility] Stop: 01/27/23 09:59 Dextrose (D10w) 100 mls @ 1,200 mls/hr IV PRN PRN PRN Reason: Hypoglycemia Insulin Glargine (Insulin Glargine 100 Unit/Ml 3ml Pen) 20 unit SUBCUT BEDTIME [facility] Insulin Human Lispro (Insulin Lispro 100 Unit/Ml 3ml Vial) 0 unit SUBCUT ACHS TOMMY; Protocol Metoprolol Succinate (Metoprolol Er 25 Mg Tablet) 25 mg PO DAILY [facility] Naloxone HCl (Naloxone 0.4 Mg/Ml Vial) 0.2 mg IV Q2MIN PRN PRN Reason: Opiate Reversal Non-Formulary Medication (Buprenorphine) 1 patch TOP WEEKLY [facility] Last Admin: 01/23/23 23:58 Dose: Not Given Documented By: AT Non-Formulary Medication (Saccharomyces Boulardii) 250 mg PO BID [facility] Ondansetron HCl (Ondansetron 4 Mg Odt) 4 mg PO Q8HR PRN PRN Reason: Nausea And Vomiting Ondansetron HCl (Ondansetron 4 Mg/2 Ml Inj) 4 mg IV Q8HR PRN PRN Reason: Nausea And Vomiting Oxycodone HCl (Oxycodone Ir 5 Mg Tablet) 5 mg PO Q12H PRN PRN Reason: pain severe Last Admin: 01/24/23 01:50 Dose: 5 mg Documented By: AT Pantoprazole Sodium (Pantoprazole Dr 20 Mg Tablet) 20 mg PO DAILY TOMMY Potassium Chloride (Potassium Chloride 20 Meq Tab) 20 meq PO DAILY TOMMY Sennosides (Sennosides 8.6 Mg Tablet) 17.2 mg PO BEDTIME TOMMY Last Admin: 01/23/23 22:27 Dose: Not Given Documented By: AT Sitagliptin Phosphate (Sitagliptin 50 Mg Tablet) 50 mg PO DAILY TOMMY Tamsulosin HCl (Tamsulosin 0.4 Mg Capsule) 0.4 mg PO DAILY TOMMY Discontinued Medications Dexamethasone (Dexamethasone 10 Mg/Ml Vial) 6 mg IV NOW ONE Stop: 01/23/23 19:26 Last Admin: 01/23/23 19:58 Dose: 6 mg Documented By: MARINO Sodium Chloride (Normal Saline 0.9%) 1,000 mls @ 1,000 mls/hr IV BOLUS ONE Stop: 01/23/23 18:39 Last Infusion: 01/23/23 19:53 Dose: Infused Documented By: Admin: 01/23/23 18:53 Dose: 1,000 mls/hr Documented By: ALEAH Remdesivir 200 mg/ Sodium (Chloride) 250 mls @ 250 mls/hr IV NOW ONE Stop: 01/23/23 20:24 Last Infusion: 01/23/23 20:58 Dose: Infused Documented By: Admin: 01/23/23 19:58 Dose: 250 mls/hr Documented By: MARINO Vital Signs Vital signs: Vital Signs - 8 hr 01/23/23 16:04 01/23/23 16:07 01/23/23 16:30 Temperature 97.9 F Pulse Rate 94 H 92 H 93 H Respiratory Rate 24 24 18 Blood Pressure 127/79 Pulse Oximetry 99 98 95 Oxygen Delivery Method Simple Mask Nasal Cannula Oxygen Flow Rate 8 2 01/23/23 16:31 01/23/23 16:31 01/23/23 17:00 Temperature Pulse Rate 93 H Respiratory Rate 19 Blood Pressure 125/78 115/67 Pulse Oximetry 91 Oxygen Delivery Method Oxygen Flow Rate 01/23/23 17:00 01/23/23 17:30 01/23/23 17:30 Temperature Pulse Rate 90 83 Respiratory Rate 18 15 Blood Pressure 105/61 Pulse Oximetry 93 91 Oxygen Delivery Method Oxygen Flow Rate 01/23/23 18:00 01/23/23 18:01 01/23/23 18:01 Temperature Pulse Rate 89 89 Respiratory Rate 17 20 Blood Pressure 117/85 Pulse Oximetry 93 96 Oxygen Delivery Method Oxygen Flow Rate <Lis Shay, DO - Last Filed: 01/24/23 03:51> Orders Ordered: ED Orders 01/23/23 21:14 Blood Culture Stat Acetaminophen (Acetaminophen 325 Mg Tablet) 650 mg PO Q6H PRN PRN Reason: Fever/Mild Pain (1-3) Al Hydrox/Mg Hydrox/Simethicone (Mag Hydrox/Alum/Simeth 30 Ml Udc) 30 ml PO Q6HR PRN PRN Reason: Dyspepsia Albuterol (Albuterol 2.5 Mg/3 Ml Neb (Adult)) 2.5 mg INH [id number] PRN PRN Reason: Shortness Of Breath Atorvastatin Calcium (Atorvastatin 20 Mg Tablet) 40 mg PO DAILY TOMMY Calcium Carbonate (Calcium Carbonate 500 Mg Tab) 1,000 mg PO Q8H PRN PRN Reason: Acid Reflux Dexamethasone (Dexamethasone 1 Mg Tablet) 6 mg PO DAILY TOMMY Stop: 02/01/23 09:00 Enoxaparin Sodium (Enoxaparin 40 Mg/0.4 Ml Syringe) 40 mg SUBCUT DAILY TOMMY Furosemide (Furosemide 40 Mg Tablet) 80 mg PO DAILY TOMMY Gabapentin (Gabapentin 600 Mg Tablet) 600 mg PO TID [facility] Last Admin: 01/23/23 23:58 Dose: 600 mg Documented By: AT Remdesivir 100 mg/ Sodium (Chloride) 250 mls @ 250 mls/hr IV DAILY TOMMY Stop: 01/27/23 09:59 Dextrose (D10w) 100 mls @ 1,200 mls/hr IV PRN PRN PRN Reason: Hypoglycemia Insulin Glargine (Insulin Glargine 100 Unit/Ml 3ml Pen) 20 unit SUBCUT BEDTIME TOMMY Insulin Human Lispro (Insulin Lispro 100 Unit/Ml 3ml Vial) 0 unit SUBCUT ACHS TOMMY; Protocol Metoprolol Succinate (Metoprolol Er 25 Mg Tablet) 25 mg PO DAILY [facility] Naloxone HCl (Naloxone 0.4 Mg/Ml Vial) 0.2 mg IV Q2MIN PRN PRN Reason: Opiate Reversal Non-Formulary Medication (Buprenorphine) 1 patch TOP WEEKLY [facility] Last Admin: 01/23/23 23:58 Dose: Not Given Documented By: AT Non-Formulary Medication (Saccharomyces Boulardii) 250 mg PO BID [facility] Ondansetron HCl (Ondansetron 4 Mg Odt) 4 mg PO Q8HR PRN PRN Reason: Nausea And Vomiting Ondansetron HCl (Ondansetron 4 Mg/2 Ml Inj) 4 mg IV Q8HR PRN PRN Reason: Nausea And Vomiting Oxycodone HCl (Oxycodone Ir 5 Mg Tablet) 5 mg PO Q12H PRN PRN Reason: pain severe Last Admin: 01/24/23 01:50 Dose: 5 mg Documented By: AT Pantoprazole Sodium (Pantoprazole Dr 20 Mg Tablet) 20 mg PO DAILY [facility] Potassium Chloride (Potassium Chloride 20 Meq Tab) 20 meq PO DAILY [facility] Sennosides (Sennosides 8.6 Mg Tablet) 17.2 mg PO BEDTIME [facility] Last Admin: 01/23/23 22:27 Dose: Not Given Documented By: AT Sitagliptin Phosphate (Sitagliptin 50 Mg Tablet) 50 mg PO DAILY TOMMY Tamsulosin HCl (Tamsulosin 0.4 Mg Capsule) 0.4 mg PO DAILY [facility] Discontinued Medications Dexamethasone (Dexamethasone 10 Mg/Ml Vial) 6 mg IV NOW ONE Stop: 01/23/23 19:26 Last Admin: 01/23/23 19:58 Dose: 6 mg Documented By: MARINO Sodium Chloride (Normal Saline 0.9%) 1,000 mls @ 1,000 mls/hr IV BOLUS ONE Stop: 01/23/23 18:39 Last Infusion: 01/23/23 19:53 Dose: Infused Documented By: Admin: 01/23/23 18:53 Dose: 1,000 mls/hr Documented By: ALEAH Remdesivir 200 mg/ Sodium (Chloride) 250 mls @ 250 mls/hr IV NOW ONE Stop: 01/23/23 20:24 Last Infusion: 01/23/23 20:58 Dose: Infused Documented By: Admin: 01/23/23 19:58 Dose: 250 mls/hr Documented By: MARINO Vital Signs Vital signs: Vital Signs - 8 hr 01/23/23 16:04 01/23/23 16:07 01/23/23 16:30 Temperature 97.9 F Pulse Rate 94 H 92 H 93 H Respiratory Rate 24 24 18 Blood Pressure 127/79 Pulse Oximetry 99 98 95 Oxygen Delivery Method Simple Mask Nasal Cannula Oxygen Flow Rate 8 2 01/23/23 16:31 01/23/23 16:31 01/23/23 17:00 Temperature Pulse Rate 93 H Respiratory Rate 19 Blood Pressure 125/78 115/67 Pulse Oximetry 91 Oxygen Delivery Method Oxygen Flow Rate 01/23/23 17:00 01/23/23 17:30 01/23/23 17:30 Temperature Pulse Rate 90 83 Respiratory Rate 18 15 Blood Pressure 105/61 Pulse Oximetry 93 91 Oxygen Delivery Method Oxygen Flow Rate 01/23/23 18:00 01/23/23 18:01 01/23/23 18:01 Temperature Pulse Rate 89 89 Respiratory Rate 17 20 Blood Pressure 117/85 Pulse Oximetry 93 96 Oxygen Delivery Method Oxygen Flow Rate MDM - URI/Sore Throat <Mary Ann Childs PA-C - Last Filed: 01/23/23 19:14> Lab Data 01/23/23 17:52 01/23/23 17:52 Labs: Lab Results 01/23/23 01/23/23 01/23/23 Range/Units 16:18 17:52 18:03 WBC 4.2 L (4.5-11.0) X10^3/uL RBC 4.24 L (4.5-5.9) X10^6/uL Hgb 12.2 L (13.5-17.5) g/dL Hct 35.9 L (41-53) % MCV 84.7 (80-100) fL MCH 28.7 (26-34) PG MCHC 33.8 (30-36) % RDW 15.1 H (11.6-14.8) % Plt Count 171 (150-400) X10^3/uL Neut % (Auto) 65.0 (50-75) % Lymph % (Auto) 14.1 L (25-40) % Colbert % (Auto) 20.4 H (3-14) % Eos % (Auto) 0.0 L (2-4) % Baso % (Auto) 0.5 (0-2) % Neut # (Auto) 2700 (1170-1594) /uL Lymph # (Auto) 600 L (7093-8738) /uL Colbert # (Auto) 900 (0-900) /uL Eos # (Auto) 0 (0-450) /uL Baso # (Auto) 0 (0-100) /uL Plt Morphology Comment 1+ large platelets RBC Morphology Normal morphology PT 17.3 H (10.1-12.7) SECONDS INR 1.5 H (0.9-1.3) ABG Sample Site Right radial ABG pH 7.40 (7.35-7.45) ABG pCO2 36.3 (35-45) mmHg ABG pO2 88 (80-100) mmHg ABG HCO3 23 (23-27) mmol/L ABG Total CO2 24 (23-27) mmol/L ABG O2 Saturation 97 (95-100) % ABG Base Excess -2.0 (-2-3) mmol/L FiO2 28 Sodium 132 L (137-145) mmol/L Potassium 4.1 (3.4-5.1) mmol/L Chloride 96 L (98-107) mmol/L Carbon Dioxide 24 (22-32) mmol/L BUN 24 H (9-20) mg/dL Creatinine 0.78 (0.66-1.25) mg/dL Estimated GFR > 60 (>60) mL/min BUN/Creatinine Ratio 30.8 H (6-22) Glucose 136 H (80-110) mg/dL Lactate 1.8 (0.7-2.1) mmol/L Calcium 9.0 (8.4-10.2) mg/dL Total Bilirubin 0.6 (0.2-1.3) mg/dL AST 71 H (17-59) IU/L ALT 75 H (<50) IU/L Alkaline Phosphatase 80 (38-126) U/L Troponin I 0.067 H (0.01-0.034) ng/mL NT-Pro-B Natriuret Pep 44947 H (<125) pg/mL Total Protein 6.4 (6.3-8.2) g/dL Albumin 3.7 (3.5-5.0) g/dL Globulin 2.7 (1.7-4.1) g/dL Albumin/Globulin Ratio 1.4 (1.0-2.8) SARS-CoV-2 (PCR) Positive H (Negative) Influenza A (RT-PCR) Flu a negative (NEGATIVE) Influenza B (RT-PCR) Flu b negative (NEGATIVE) RSV (PCR) Negative (Negative) Imaging Data Chest x-ray: Radiologist's Impression: PROCEDURE: XR CHEST 1V INDICATIONS: URI TECHNIQUE: One view of the chest was acquired. COMPARISON: [facility], , XR CHEST 1V, 01/02/2023, 10:13. FINDINGS: Surgical changes and devices: None. Lungs and pleura: Patchy bibasilar/retrocardiac opacities slightly more prominent. Mediastinum: Mediastinal contours appear normal. Heart size is normal. Bones and chest wall: No suspicious bony lesions. Overlying soft tissues appear unremarkable. IMPRESSION: Bibasilar and retrocardiac opacities suggestive of pneumonia. Small underlying effusions cannot be excluded. Dictated by: María Bruce M.D. on 01/23/2023 at 17:00 Approved by: Maíra Bruce M.D. on 01/23/2023 at 17:00 ECG Data Interpretation: Sinus rhythm with occasional PVCs. Rate 88, [place] 140, right bundle branch block which is also present on previous EKG. [facility] Narrative Medical decision making narrative: Patient is a 72-year-old male who lives in a facility who presents with altered mental status, shortness of breath and cough. Multiple etiologies for patient's symptoms considered including, but not limited to: Pneumonia, sepsis, COPD exacerbation, CHF. Chest x-ray consistent with pneumonia and respiratory panel shows COVID positive. Labs notable for white blood cell count of 4.2k, INR 1.5, normal blood gas, mild chronic hyponatremia, mild elevation of LFTs, elevation of troponin and BNP of 17k, last was 10k two weeks ago. While in the emergency department, he received 1 L normal saline bolus in the setting of possible sepsis and borderline hypotension with blood pressures 100/60 on arrival. He is stable on 2 L of oxygen, without this he dropped his saturations into the mid to high 90s. He will be admitted by the hospitalist for COVID pneumonia and CHF exacerbation. Patient's symptoms improved over duration of stay with above-stated therapies. Findings and discharge diagnosis discussed with patient/family followed by verbalization of understanding Return precautions discussed with patient/family whom verbalize understanding of diagnosis and plan <Lis Martínez Jaspal, DO - Last Filed: 01/24/23 03:51> Lab Data Labs: Lab Results 01/23/23 01/23/23 01/23/23 Range/Units 16:18 17:52 18:03 WBC 4.2 L (4.5-11.0) X10^3/uL RBC 4.24 L (4.5-5.9) X10^6/uL Hgb 12.2 L (13.5-17.5) g/dL Hct 35.9 L (41-53) % MCV 84.7 (80-100) fL MCH 28.7 (26-34) PG MCHC 33.8 (30-36) % RDW 15.1 H (11.6-14.8) % Plt Count 171 (150-400) X10^3/uL Neut % (Auto) 65.0 (50-75) % Lymph % (Auto) 14.1 L (25-40) % Colbert % (Auto) 20.4 H (3-14) % Eos % (Auto) 0.0 L (2-4) % Baso % (Auto) 0.5 (0-2) % Neut # (Auto) 2700 (2084-5645) /uL Lymph # (Auto) 600 L (0896-0670) /uL Colbert # (Auto) 900 (0-900) /uL Eos # (Auto) 0 (0-450) /uL Baso # (Auto) 0 (0-100) /uL Plt Morphology Comment 1+ large platelets RBC Morphology Normal morphology PT 17.3 H (10.1-12.7) SECONDS INR 1.5 H (0.9-1.3) ABG Sample Site Right radial ABG pH 7.40 (7.35-7.45) ABG pCO2 36.3 (35-45) mmHg ABG pO2 88 (80-100) mmHg ABG HCO3 23 (23-27) mmol/L ABG Total CO2 24 (23-27) mmol/L ABG O2 Saturation 97 (95-100) % ABG Base Excess -2.0 (-2-3) mmol/L FiO2 28 Sodium 132 L (137-145) mmol/L Potassium 4.1 (3.4-5.1) mmol/L Chloride 96 L (98-107) mmol/L Carbon Dioxide 24 (22-32) mmol/L BUN 24 H (9-20) mg/dL Creatinine 0.78 (0.66-1.25) mg/dL Estimated GFR > 60 (>60) mL/min BUN/Creatinine Ratio 30.8 H (6-22) Glucose 136 H (80-110) mg/dL Lactate 1.8 (0.7-2.1) mmol/L Calcium 9.0 (8.4-10.2) mg/dL Total Bilirubin 0.6 (0.2-1.3) mg/dL AST 71 H (17-59) IU/L ALT 75 H (<50) IU/L Alkaline Phosphatase 80 (38-126) U/L Troponin I 0.067 H (0.01-0.034) ng/mL NT-Pro-B Natriuret Pep [id number] H (<125) pg/mL Total Protein 6.4 (6.3-8.2) g/dL Albumin 3.7 (3.5-5.0) g/dL Globulin 2.7 (1.7-4.1) g/dL Albumin/Globulin Ratio 1.4 (1.0-2.8) SARS-CoV-2 (PCR) Positive H (Negative) Influenza A (RT-PCR) Flu a negative (NEGATIVE) Influenza B (RT-PCR) Flu b negative (NEGATIVE) RSV (PCR) Negative (Negative) Discharge Plan Departure Patient Disposition: Admitted As Inpatient Clinical Impression: COVID Pneumonia Qualifiers: Pneumonia type: due to unspecified organism Laterality: bilateral Lung location: unspecified part of lung Qualified Code(s): J18.9 - Pneumonia, unspecified organism CHF exacerbation Qualifiers: Heart failure type: unspecified Qualified Code(s): I50.9 - Heart failure, unspecified Admit Date/Time: 01/23/23 19:28 Admit Provider: Kia Cain ED Sign-out <Lis Shay DO - Last Filed: 01/24/23 03:51> Cosign ED Attending Daisy Attestation: I was immediately available in the department for consultation. Documentation has been reviewed. Agree with current plan.
[2023-01-23 18:01] LABS: Basophils Absolute Auto 0 /uL (0-100); Basophils Percent Auto 0.5 % (0-2); Eosinophils Absolute Auto 0 /uL (0-450); Hematocrit 35.9 % (41-53); Hemoglobin 12.2 g/dL (13.5-17.5); Lymphocytes Absolute Auto 600 /uL (1100-4500); Lymphocytes Percent Auto 14.1 % (25-40); Mean Corpuscular HGB Conc 33.8 % (30-36); Mean Corpuscular Hemoglobin 28.7 PG (26-34); Mean Corpuscular Volume 84.7 fL (80-100); Monocytes Absolute Auto 900 /uL (0-900); Monocytes Percent Auto 20.4 % (3-14); Neutrophils Absolute Auto 2700 /uL (1500-7000); Platelet Count 171 X10^3/uL (150-400); Red Blood Cell Count 4.24 X10^6/uL (4.5-5.9); Red Cell Distribution Width 15.1 % (11.6-14.8); White Blood Cell Count 4.2 X10^3/uL (4.5-11.0)
[2023-01-23 18:03] LABS: Add Manual Diff / Slide Review SLIDE REVIEW
[2023-01-23 18:11] LABS: INR 1.5 (0.9-1.3); Prothrombin Time 17.3 SECONDS (10.1-12.7)
[2023-01-23 18:15] LABS: Lactate (Lactic Acid) 1.8 mmol/L (0.7-2.1)
[2023-01-23 18:16] LABS: Allen Test for ABG Passed? Yes, Passed; Blood Gas Collection Site Right Radial; Fractionated Inspired Oxygen 28; HCO3 ABG 23 mmol/L (23-27); Oxygen Saturation ABG 97 % (95-100); PCO2 ABG 36.3 mmHg (35-45); PO2 ABG 88 mmHg (80-100); TCO2 ABG 24 mmol/L (23-27)
[2023-01-23 18:16] LABS: Alanine Aminotransferase 75 IU/L (<50); Albumin 3.7 g/dL (3.5-5.0); Albumin Globulin Ratio 1.4 (1.0-2.8); Alkaline Phosphatase 80 U/L (38-126); Aspartate Aminotransferase 71 IU/L (17-59); BUN Creatinine Ratio 30.8 (6-22); Bilirubin Total 0.6 mg/dL (0.2-1.3); Blood Urea Nitrogen 24 mg/dL (9-20); Carbon Dioxide 24 mmol/L (22-32); Chloride 96 mmol/L (98-107); Estimated Glomerular Filt Rate > 60 mL/min (>60); Globulin 2.7 g/dL (1.7-4.1); Glucose 136 mg/dL (80-110); HEMOLYSIS < 15 (0-50); Potassium 4.1 mmol/L (3.4-5.1); Sodium 132 mmol/L (137-145); Total Protein 6.4 g/dL (6.3-8.2)
[2023-01-23 18:18] LABS: RBC Morphology Normal Morphology
[2023-01-23 18:28] LABS: NT-proBNP (BNP-Adult 18+) 17700 pg/mL (<125); Troponin I 0.067 ng/mL (0.01-0.034)
[2023-01-23] MEDS: SODIUM CHLORIDE 0.9% 1,000 ML 1000 ML IV (18:53)
[2023-01-23] MEDS: REMDESIVIR 200 MG in SODIUM CHLORIDE 0.9% 250 ML 250 MG IV (19:58)
[2023-01-23] MEDS: DEXAMETHASONE 10 MG/ML VIAL 6 MG IV (19:58)
--- NOTE | 2023-01-23 22:53 | PM.HP.1 ---
History of Present Illness History of Present Illness Date Patient Seen: 01/23/23 Chief complaint: SOB Narrative: 72 y/o, with PMH of HFrEF with ED visit 1 month ago for CHF flare and hospitalization 2 months ago for same reason, presents with worsening SOB, non-productive cough, generalized weakness. Diagnosed with Covid PNA. Hypoxemic, requires 2 L of oxygen at rest. He did not have chills, sweats, fever, hemoptysis, pleuritic chest pain. PENDING SALE TO [facility] Medical History GERD (gastroesophageal reflux disease) Malnutrition of mild degree BPH (benign prostatic hyperplasia) Recurrent falls Chronic pain Type 2 diabetes mellitus with hyperlipidemia Essential hypertension CAD (coronary artery disease) of bypass graft Surgical History History of cholecystectomy Family History Father No problems noted. Mother No problems noted. Social History household members: none Smoking Status: Former smoker alcohol intake: current Meds Home Medications and Allergies Home Medications Medication Instructions Recorded Confirmed Type atorvastatin 40 mg tablet 40 mg PO DAILY 04/26/22 01/23/23 History insulin aspart U-100 100 unit/mL See Rx Instructions .Route .COMPLEX 04/26/22 01/23/23 History (3 mL) subcutaneous pen (Novolog FlexPen U-100 Insulin aspart) omeprazole 20 mg capsule,delayed 20 mg PO DAILY 04/28/22 01/23/23 History release buprenorphine 7.5 mcg/hour weekly 1 patch transdermal QWEEK #4 ea 06/25/22 01/23/23 Rx transdermal patch insulin glargine 100 unit/mL (3 20 unit SUBCUT BEDTIME 08/02/22 01/23/23 History mL) subcutaneous pen (Lantus Solostar U-100 Insulin) metoprolol succinate 25 mg 25 mg PO DAILY #30 tabs 09/03/22 01/23/23 Rx tablet,extended release 24 hr Saccharomyces boulardii 250 mg 250 mg PO BID 12/19/22 01/23/23 History capsule acetaminophen 325 mg tablet 325 mg PO Q6H PRN Pain (Scale 12/19/22 01/23/23 History Score 1-3) calcium carbonate 200 mg calcium 1,000 mg PO Q8H PRN Acid Reflux 12/19/22 01/23/23 History (500 mg) chewable tablet (Tums) gabapentin 600 mg tablet 600 mg PO 3XD 12/19/22 01/23/23 History loperamide 2 mg capsule 2 mg PO Q2H PRN Diarrhea 12/19/22 01/23/23 History naloxone 4 mg/actuation nasal spray 1 spray intranasal PRN PRN drug 12/19/22 01/23/23 History ondansetron HCl 4 mg tablet 4 mg PO Q4H 12/19/22 01/23/23 History prednisone 10 mg tablet 10 mg PO DAILY 12/19/22 01/23/23 History sennosides 8.6 mg tablet (senna) 17.2 mg PO DAILY 12/19/22 01/23/23 History sitagliptin phosphate 50 mg tablet 50 mg PO DAILY 12/19/22 01/23/23 History (Januvia) tamsulosin 0.4 mg capsule 0.4 mg PO DAILY 12/19/22 01/23/23 History trazodone 50 mg tablet 50 mg PO ONCE PM 12/19/22 01/23/23 History albuterol sulfate 90 mcg/actuation 1 puff inhalation PRN PRN SOB 01/23/23 01/23/23 History aerosol inhaler benzonatate 100 mg capsule 100 mg PO DAILY PRN Cough 01/23/23 01/23/23 History furosemide 80 mg tablet (Lasix) 80 mg PO DAILY 01/23/23 01/23/23 History potassium chloride 20 mEq 20 meq PO DAILY 01/23/23 01/23/23 History tablet,extended release(part/cryst) Allergies Allergy/AdvReac Type Severity Reaction Status Date / Time NSAIDS (Non-Steroidal Allergy Verified 01/23/23 16:03 Anti-Inflamma Tetanus Vaccines and Toxoid Allergy Verified 01/23/23 16:03 Review of Systems Constitutional Comments: w/o fever, chills Feels weaker then usual Cardiovascular Comments: w/o chest pain or palpitations Respiratory Comments: short of breath, dry cough Gastrointestinal Comments: heartburn Genitourinary Comments: w/o dysuria Musculoskeletal Comments: chronic back pain and difficulty ambulating - using walker Neurologic Comments: w/o focal weakness or numbness Psychiatric Comments: mood appropriate Exam Vital Signs (past 8 hours): - 01/23/23 16:04 01/23/23 16:07 01/23/23 16:30 Temperature 97.9 F Pulse Rate 94 H 92 H 93 H Respiratory Rate 24 24 18 Blood Pressure 127/79 Pulse Oximetry 99 98 95 Oxygen Delivery Method Simple Mask Nasal Cannula Oxygen Flow Rate 8 2 01/23/23 16:31 01/23/23 16:31 01/23/23 17:00 Temperature Pulse Rate 93 H Respiratory Rate 19 Blood Pressure 125/78 115/67 Pulse Oximetry 91 Oxygen Delivery Method Oxygen Flow Rate 01/23/23 17:00 01/23/23 17:30 01/23/23 17:30 Temperature Pulse Rate 90 83 Respiratory Rate 18 15 Blood Pressure 105/61 Pulse Oximetry 93 91 Oxygen Delivery Method Oxygen Flow Rate 01/23/23 18:00 01/23/23 18:01 01/23/23 18:01 Temperature Pulse Rate 89 89 Respiratory Rate 17 20 Blood Pressure 117/85 Pulse Oximetry 93 96 Oxygen Delivery Method Oxygen Flow Rate 01/23/23 18:30 01/23/23 18:30 01/23/23 19:00 Temperature Pulse Rate 81 Respiratory Rate 15 Blood Pressure 113/69 120/80 Pulse Oximetry 98 Oxygen Delivery Method Oxygen Flow Rate 01/23/23 19:00 01/23/23 19:25 01/23/23 19:30 Temperature Pulse Rate 85 87 Respiratory Rate 22 16 Blood Pressure 111/77 Pulse Oximetry 98 94 Oxygen Delivery Method Oxygen Flow Rate 01/23/23 19:35 01/23/23 19:53 01/23/23 19:53 Temperature Pulse Rate 95 H 91 H Respiratory Rate 20 16 Blood Pressure 116/85 Pulse Oximetry 84 L 96 Oxygen Delivery Method Nasal Cannula Oxygen Flow Rate 2 01/23/23 20:00 01/23/23 20:00 01/23/23 20:30 Temperature Pulse Rate 91 H Respiratory Rate 19 Blood Pressure 132/81 132/83 Pulse Oximetry 97 Oxygen Delivery Method Oxygen Flow Rate 01/23/23 20:30 01/23/23 21:00 01/23/23 21:00 Temperature Pulse Rate 88 88 Respiratory Rate 12 16 Blood Pressure 128/86 Pulse Oximetry 97 97 Oxygen Delivery Method Oxygen Flow Rate 01/23/23 21:59 Temperature Pulse Rate Respiratory Rate Blood Pressure Pulse Oximetry Oxygen Delivery Method Nasal Cannula Oxygen Flow Rate Oxygen Delivery Method Nasal Cannula Oxygen Flow Rate 2 Const Other: sitting in bed in no distress HENMT Other: normocephalic, O2 NC Eyes Other: eomi Neck Other: w/o JVD Resp Other: b/l rhonchi Cardio Other: RRR PADMINI 2 + b/l LE edema GI Other: abdomen not distended Skin Other: w/o rashes Neuro Other: w/o deficits Psych Other: lucid Objective ECG Impression: NSR, w/o ischemic changes Labs 01/23/23 17:52 01/23/23 17:52 Labs: Laboratory Results - last 24 hr 01/23/23 01/23/23 01/23/23 16:18 17:52 18:03 WBC 4.2 L RBC 4.24 L Hgb 12.2 L Hct 35.9 L MCV 84.7 MCH 28.7 MCHC 33.8 RDW 15.1 H Plt Count 171 Neut % (Auto) 65.0 Lymph % (Auto) 14.1 L [place] % (Auto) 20.4 H Eos % (Auto) 0.0 L Baso % (Auto) 0.5 Neut # (Auto) 2700 Lymph # (Auto) 600 L [place] # (Auto) 900 Eos # (Auto) 0 Baso # (Auto) 0 Plt Morphology Comment 1+ large platelets RBC Morphology Normal morphology PT 17.3 H INR 1.5 H ABG Sample Site Right radial ABG pH 7.40 ABG pCO2 36.3 ABG pO2 88 ABG HCO3 23 ABG Total CO2 24 ABG O2 Saturation 97 ABG Base Excess -2.0 FiO2 28 Sodium 132 L Potassium 4.1 Chloride 96 L Carbon Dioxide 24 BUN 24 H Creatinine 0.78 Estimated GFR > 60 BUN/Creatinine Ratio 30.8 H Glucose 136 H Lactate 1.8 Calcium 9.0 Total Bilirubin 0.6 AST 71 H ALT 75 H Alkaline Phosphatase 80 Troponin I 0.067 H NT-Pro-B Natriuret Pep 46469 H Total Protein 6.4 Albumin 3.7 Globulin 2.7 Albumin/Globulin Ratio 1.4 SARS-CoV-2 (PCR) Positive H Influenza A (RT-PCR) Flu a negative Influenza B (RT-PCR) Flu b negative RSV (PCR) Negative Assessment & Plan Assessment and plan (1) Pneumonia due to COVID-19 virus: Status: Acute Plan: Remdesevir, Dexamethasone, O2, bronchodilator (2) Acute on chronic HFrEF (heart failure with reduced ejection fraction): Status: Acute Plan: Severe, EF 15-20 % Lasix 80 mg daily - monitored BMP Is&Os, weights (3) Acute hypoxemic respiratory failure: Status: Acute Plan: O2, try to wean (4) Chronic pain: Status: Acute Plan: Buprenorphine, tylenol, oxycodone Chronic back pain (5) BPH (benign prostatic hyperplasia): Status: Acute Plan: Flomax (6) Type 2 diabetes mellitus with hyperlipidemia: Status: Acute Plan: Lantus, SS, Januvia (7) Essential hypertension: Status: Acute Plan: Toprol XL, Lasix (8) CAD (coronary artery disease) of bypass graft: Status: Acute Plan: Troponin elevated, w/o obvious ischemic changes Severe underlying HF, w/o angina Continue statin, BB (9) GERD (gastroesophageal reflux disease): Status: Acute Plan: PPI (10) Recurrent falls: Status: Acute Plan: Lack of balance, using walker Quality VTE Deep Vein Thrombosis/Pulmonary Embolism Present on Admission: No
[2023-01-23] MEDS: GABAPENTIN 600 MG TABLET PO (23:58)
[2023-01-24] MEDS: OXYCODONE IR 5 MG TABLET PO (01:50)
[2023-01-24 05:26] LABS: Add Manual Diff / Slide Review NO; Basophils Absolute Auto 0 /uL (0-100); Basophils Percent Auto 0.3 % (0-2); Eosinophils Absolute Auto 0 /uL (0-450); Hematocrit 38.4 % (41-53); Hemoglobin 12.7 g/dL (13.5-17.5); Lymphocytes Absolute Auto 400 /uL (1100-4500); Lymphocytes Percent Auto 13.3 % (25-40); Mean Corpuscular HGB Conc 33.1 % (30-36); Mean Corpuscular Hemoglobin 28.5 PG (26-34); Mean Corpuscular Volume 86.1 fL (80-100); Monocytes Absolute Auto 300 /uL (0-900); Monocytes Percent Auto 8.3 % (3-14); Neutrophils Absolute Auto 2500 /uL (1500-7000); Neutrophils Percent Auto 78.1 % (50-75); Platelet Count 158 X10^3/uL (150-400); Red Blood Cell Count 4.46 X10^6/uL (4.5-5.9); White Blood Cell Count 3.2 X10^3/uL (4.5-11.0)
[2023-01-24 05:41] LABS: BUN Creatinine Ratio 32.1 (6-22); Blood Urea Nitrogen 26 mg/dL (9-20); Carbon Dioxide 25 mmol/L (22-32); Chloride 96 mmol/L (98-107); Estimated Glomerular Filt Rate > 60 mL/min (>60); Glucose 205 mg/dL (80-110); HEMOLYSIS < 15 (0-50); Potassium 4.6 mmol/L (3.4-5.1); Sodium 133 mmol/L (137-145)
[2023-01-24 06:20] VITALS: BP 118/82; PULSE 85; RESP 20; TEMP 36.3; O2SAT 99
[2023-01-24 08:16] LABS: Troponin I 0.058 ng/mL (0.01-0.034)
[2023-01-24] MEDS: INSULIN LISPRO 100 UNIT/ML 3ML VIAL SUBCUT ×4 (08:21→21:54)
[2023-01-24] MEDS: FUROSEMIDE 40 MG/4 ML VIAL IV ×2 (08:23→17:02)
[2023-01-24] MEDS: dexAMETHasone 1 MG TABLET 6 MG PO (08:25)
[2023-01-24] MEDS: SITAGLIPTIN 50 MG TABLET PO (08:25)
[2023-01-24] MEDS: POTASSIUM CHLORIDE 20 MEQ TAB PO (08:25)
[2023-01-24] MEDS: PANTOPRAZOLE DR 20 MG TABLET PO (08:26)
[2023-01-24] MEDS: ATORVASTATIN 20 MG TABLET 40 MG PO (08:26)
[2023-01-24] MEDS: GABAPENTIN 600 MG TABLET PO ×3 (08:26→21:46)
[2023-01-24] MEDS: ENOXAPARIN 40 MG/0.4 ML SYRINGE SUBCUT (08:26)
[2023-01-24 08:38] VITALS: BP 129/90; PULSE 92
[2023-01-24] MEDS: METOPROLOL ER 25 MG TABLET PO (08:38)
[2023-01-24] MEDS: REMDESIVIR 100 MG in SODIUM CHLORIDE 0.9% 250 ML 250 MG IV (10:16)
[2023-01-24 10:28] VITALS: PULSE 82
[2023-01-24] MEDS: SODIUM CHLORIDE 0.9% 250 ML 21 ML IV (10:29)
[2023-01-24 14:00] VITALS: BP 105/76; PULSE 82; RESP 18; O2SAT 92
--- NOTE | 2023-01-24 15:08 | PM.PN.1 ---
Subjective Subjective Interval history: Mr. Marlow is a 71M with PMH CAD s/p stents, BPH, HTN, Type 2 DM on insulin, recurrent falls, CHFrEF admitted with acute respiratory failure with hypoxia and possible acute metabolic encephalopathy. He is COVID positive, also being treated for decompensated heart failure with furosemide. Exam Vital Signs (past 8 hours): - 01/24/23 08:38 01/24/23 10:28 01/24/23 14:00 Pulse Rate 92 H 82 82 Respiratory Rate 18 Blood Pressure 129/90 105/76 Pulse Oximetry 92 Oxygen Flow Rate 1 Oxygen Delivery Method Nasal Cannula Oxygen Flow Rate 1 Narrative Exam Narrative: Gen: elderly male, no acute distress Lungs; Decrease breath sounds RLL, no wheezing CV: RRR no m/r/g Abd: S NT ND Ext: trace to 1+ pitting edema b/l LE. Neuro: alert but falls asleep very easily. No focal deficits. Objective Labs 01/24/23 05:09 01/24/23 05:09 Labs: Laboratory Results - last 24 hr 01/23/23 01/23/23 01/23/23 16:18 17:52 18:03 WBC 4.2 L RBC 4.24 L Hgb 12.2 L Hct 35.9 L MCV 84.7 MCH 28.7 MCHC 33.8 RDW 15.1 H Plt Count 171 Neut % (Auto) 65.0 Lymph % (Auto) 14.1 L [place] % (Auto) 20.4 H Eos % (Auto) 0.0 L Baso % (Auto) 0.5 Neut # (Auto) 2700 Lymph # (Auto) 600 L [place] # (Auto) 900 Eos # (Auto) 0 Baso # (Auto) 0 Plt Morphology Comment 1+ large platelets RBC Morphology Normal morphology PT 17.3 H INR 1.5 H ABG Sample Site Right radial ABG pH 7.40 ABG pCO2 36.3 ABG pO2 88 ABG HCO3 23 ABG Total CO2 24 ABG O2 Saturation 97 ABG Base Excess -2.0 FiO2 28 Sodium 132 L Potassium 4.1 Chloride 96 L Carbon Dioxide 24 BUN 24 H Creatinine 0.78 Estimated GFR > 60 BUN/Creatinine Ratio 30.8 H Glucose 136 H Lactate 1.8 Calcium 9.0 Total Bilirubin 0.6 AST 71 H ALT 75 H Alkaline Phosphatase 80 Troponin I 0.067 H NT-Pro-B Natriuret Pep 67202 H Total Protein 6.4 Albumin 3.7 Globulin 2.7 Albumin/Globulin Ratio 1.4 SARS-CoV-2 (PCR) Positive H Influenza A (RT-PCR) Flu a negative Influenza B (RT-PCR) Flu b negative RSV (PCR) Negative 01/24/23 05:09 WBC 3.2 L RBC 4.46 L Hgb 12.7 L Hct 38.4 L MCV 86.1 MCH 28.5 MCHC 33.1 RDW 15.0 H Plt Count 158 Neut % (Auto) 78.1 H Lymph % (Auto) 13.3 L [place] % (Auto) 8.3 Eos % (Auto) 0.0 L Baso % (Auto) 0.3 Neut # (Auto) 2500 Lymph # (Auto) 400 L [place] # (Auto) 300 Eos # (Auto) 0 Baso # (Auto) 0 Plt Morphology Comment RBC Morphology PT INR ABG Sample Site ABG pH ABG pCO2 ABG pO2 ABG HCO3 ABG Total CO2 ABG O2 Saturation ABG Base Excess FiO2 Sodium 133 L Potassium 4.6 Chloride 96 L Carbon Dioxide 25 BUN 26 H Creatinine 0.81 Estimated GFR > 60 BUN/Creatinine Ratio 32.1 H Glucose 205 H Lactate Calcium 9.0 Total Bilirubin AST ALT Alkaline Phosphatase Troponin I 0.058 H NT-Pro-B Natriuret Pep Total Protein Albumin Globulin Albumin/Globulin Ratio SARS-CoV-2 (PCR) Influenza A (RT-PCR) Influenza B (RT-PCR) RSV (PCR) PFSH Medical History GERD (gastroesophageal reflux disease) Malnutrition of mild degree BPH (benign prostatic hyperplasia) Recurrent falls Chronic pain Type 2 diabetes mellitus with hyperlipidemia Essential hypertension CAD (coronary artery disease) of bypass graft Surgical History History of cholecystectomy Family History Father No problems noted. Mother No problems noted. Social History household members: none Smoking Status: Former smoker alcohol intake: current Assessment & Plan Assessment & Plan narrative: Acute respiratory failure with hypoxia due to acute on chronic systolic heart failure and COVID-19 pneumonia. - suspect more likely volume overload related. - takes 80 mg PO at home, diurese for now with 40 mg IV BID. - continue steroids and remdesevir. - Goal O2 90-96% while on supplemental therapy. Acute on chronic systolic heart failure - continue diuresis as above. - no need for repeat TTE now. EF 10-15% 1 month ago. - continue beta atul, metoprolol daily. Have not been able to add naheed/arb due to normo/hypotension previously. Type II diabetes, chronic, with intermodal customer service insulin - Continue Lovenox 20 U nightly HLD, chronic continue home atorvastatin Chronic pain continue home gabapentin CAD with myocardial injury - troponin downtrended. No chest pain or acute ischemic changes on EKG. - continue home medications BPH - continue flomax Code: DNR, surrogate is brother. DVT: lovenox daily Dispo: anticipate discharge back to assisted living facility once weaned from supplemental O2. Quality VTE Deep Vein Thrombosis/Pulmonary Embolism Present on Admission: No
--- NOTE | 2023-01-24 15:22 | CM.DANOTE ---
Initial DCP Assessment Note Pt is a 72 yo male, resident at [facility] in [place], presents with shortness of breath, admitted for management of CHF w/incidental COVID+ resp failure, currently on O2. PCP: Arnold Yu Payer: Yvan MOSER/ABIGAIL Reviewed chart, attempted assessment with patient by phone r/t C+ isolation precautions, RN says patient is sleeping. According to RN, patient eager to return home to [place]. Placed call to [facility], spoke with Salvador. Salvador aware patient is C+, 4 other residents at [place] have tested C+. Patient able to ambulate, forgetful but does most ADLs independently. Patient requires assist w/higher ADLs r/t cognitive impairment. Salvador has arranged facility van to pick patient up tomorrow, Saturday, at 1000 in preparation for patient's discharge. Updated Dr Nunez. Plan: Discharge back to [facility] via facility van when medically stable to do so. CM team will plan to follow closely for coordination of discharge plan. STAR Pacheco Discharge Planning/Care Management CM Discharge Assessment Start: 01/24/23 15:18 Freq: Status: Active Protocol: Document 01/24/23 15:18 SUKUMAR (Rec: 01/24/23 15:22 SUKUMAR [id number]) Discharge Planning Assessment Assigned Glass Breaker STAR Cabrera DPOA/Assigned Designee Name brother Shelton Contact Information [phone] Advance Directives? Yes: POLST Advance Directives on File Yes History Provided By Patient,Medical Record Prior Living Arrangements Assisted Living Household Members none Type of transporation used prior to Relies on Others admit Facility Name Admitted From: [facility] Willing to Return to Facility? Yes Independent with ADL's Yes Is patient alert and oriented? No Needs Assistance With Grooming,Meal Prep,Managing Medications,Home Chores / Shopping Barriers to Discharge No Discharge Plan Assisted Living Facility Transportation Arrangement Facility van Referrals Initiated None needed
[2023-01-24] MEDS: ALBUTEROL 2.5 MG/3 ML NEB (ADULT) INH (17:03)
[2023-01-24 17:05] VITALS: O2SAT 93
[2023-01-24 21:35] VITALS: BP 121/82; PULSE 89; RESP 20; TEMP 35.9; O2SAT 94
[2023-01-24] MEDS: TAMSULOSIN 0.4 MG CAPSULE PO (21:46)
[2023-01-24] MEDS: SENNOSIDES 8.6 MG TABLET 17.2 MG PO (21:46)
[2023-01-24] MEDS: INSULIN GLARGINE 100 UNIT/ML 3ML PEN 20 UNIT SUBCUT (21:51)
[2023-01-25 01:40] VITALS: O2SAT 93
[2023-01-25 07:02] LABS: Basophils Absolute Auto 0 /uL (0-100); Basophils Percent Auto 0.1 % (0-2); Eosinophils Absolute Auto 0 /uL (0-450); Lymphocytes Absolute Auto 700 /uL (1100-4500); Monocytes Absolute Auto 900 /uL (0-900)
[2023-01-25 07:41] LABS: Add Manual Diff / Slide Review NO; Hematocrit 40.7 % (41-53); Hemoglobin 13.5 g/dL (13.5-17.5); Lymphocytes Percent Auto 16.9 % (25-40); Mean Corpuscular HGB Conc 33.2 % (30-36); Mean Corpuscular Hemoglobin 28.3 PG (26-34); Mean Corpuscular Volume 85.1 fL (80-100); Neutrophils Absolute Auto 2600 /uL (1500-7000); Platelet Count 176 X10^3/uL (150-400); Red Blood Cell Count 4.78 X10^6/uL (4.5-5.9); Red Cell Distribution Width 15.3 % (11.6-14.8); White Blood Cell Count 4.2 X10^3/uL (4.5-11.0)
[2023-01-25 07:43] LABS: BUN Creatinine Ratio 42.3 (6-22); Blood Urea Nitrogen 33 mg/dL (9-20); Calcium 9.1 mg/dL (8.4-10.2); Carbon Dioxide 28 mmol/L (22-32); Chloride 95 mmol/L (98-107); Estimated Glomerular Filt Rate > 60 mL/min (>60); Glucose 141 mg/dL (80-110); HEMOLYSIS < 15 (0-50); Potassium 4.2 mmol/L (3.4-5.1); Sodium 134 mmol/L (137-145)
[2023-01-25] MEDS: FUROSEMIDE 40 MG/4 ML VIAL IV (08:05)
[2023-01-25] MEDS: INSULIN LISPRO 100 UNIT/ML 3ML VIAL SUBCUT (08:05)
[2023-01-25] MEDS: TAMSULOSIN 0.4 MG CAPSULE PO (08:06)
[2023-01-25] MEDS: SITAGLIPTIN 50 MG TABLET PO (08:06)
[2023-01-25] MEDS: POTASSIUM CHLORIDE 20 MEQ TAB PO (08:06)
[2023-01-25] MEDS: PANTOPRAZOLE DR 20 MG TABLET PO (08:06)
[2023-01-25] MEDS: GABAPENTIN 600 MG TABLET PO (08:06)
[2023-01-25] MEDS: dexAMETHasone 1 MG TABLET 6 MG PO (08:07)
[2023-01-25] MEDS: ATORVASTATIN 20 MG TABLET 40 MG PO (08:07)
[2023-01-25 08:21] VITALS: BP 131/88; PULSE 85
[2023-01-25] MEDS: METOPROLOL ER 25 MG TABLET PO (08:21)
--- NOTE | 2023-01-25 08:43 | P.DS_ITS ---
History of Present Illness History of Present Illness Date Patient Seen: 01/25/23 Time Patient Seen: 08:43 Chief complaint: SOB Narrative: Per admitting provider, 72 y/o, with PMH of HFrEF with ED visit 1 month ago for CHF flare and hospitalization 2 months ago for same reason, presents with worsening SOB, non- productive cough, generalized weakness. Diagnosed with Covid PNA. Hypoxemic, requires 2 L of oxygen at rest. He did not have chills, sweats, fever, hemoptysis, pleuritic chest pain. Discharge Providers Provider Date of admission: 01/23/23 19:28 Discharge Date: 01/25/23 Primary care physician: MICHELLE Alanis Discharge provider: Garo Nunez DO Summary Hospital Course Discharge Diagnosis: Acute respiratory failure with hypoxia due to acute on chronic systolic heart failure and COVID-19 pneumonia. . Acute on chronic systolic heart failure Type II diabetes, chronic, with petroleum terminal plant operator insulin HLD, chronic Chronic pain CAD with myocardial injury BPH Hospital Course: This is a 72 year old male with PMH of CAD, BPH, DM2, HLD, systolic heart failure admitted with acute respiratory failure with hypoxia. He appeared volume overloaded but also tested positive for COVID 19. He was treated with diuretics, IV dexamethasone, and remdesevir. After 2 days he was no longer requiring supplemental oxygen and he was asymptomatic. He had a mildly elevated troponin which improved with repeated testing, and is thought to be due to increased demand. He was discharged back to his assisted living facility. No changes from his usual home medications are recommended at discharge, should continue usual 80 mg of PO lasix per day. We were still unable to add naheed/arb this admission due to normotension, though recommend continued following of BP as an outpatient to see if this can be added given recent EF of 10-15%. Time Spent with Patient Time spent: Greater than 30 minutes Exam Vital Signs (past 8 hours): - 01/25/23 01:40 01/25/23 08:21 Pulse Rate 85 Blood Pressure 131/88 Pulse Oximetry 93 Oxygen Flow Rate 0 Oxygen Delivery Method Nasal Cannula Oxygen Flow Rate 0 Narrative Exam Narrative: Gen: elderly male, no acute distress Lungs; Decrease breath sounds RLL, no wheezing CV: RRR no m/r/g Abd: S NT ND Ext: trace to 1+ pitting edema b/l LE. Neuro: alert but falls asleep very easily. No focal deficits. Objective Labs 01/25/23 05:45 01/25/23 05:45 Labs: Laboratory Results - last 24 hr 01/25/23 05:45 WBC 4.2 L RBC 4.78 Hgb 13.5 Hct 40.7 L MCV 85.1 MCH 28.3 MCHC 33.2 RDW 15.3 H Plt Count 176 Neut % (Auto) 62.0 Lymph % (Auto) 16.9 L [place] % (Auto) 21.0 H Eos % (Auto) 0.0 L Baso % (Auto) 0.1 Neut # (Auto) 2600 Lymph # (Auto) 700 L [place] # (Auto) 900 Eos # (Auto) 0 Baso # (Auto) 0 Sodium 134 L Potassium 4.2 Chloride 95 L Carbon Dioxide 28 BUN 33 H Creatinine 0.78 Estimated GFR > 60 BUN/Creatinine Ratio 42.3 H Glucose 141 H Calcium 9.1 Magnesium 2.0 PFSH Medical History GERD (gastroesophageal reflux disease) Malnutrition of mild degree BPH (benign prostatic hyperplasia) Recurrent falls Chronic pain Type 2 diabetes mellitus with hyperlipidemia Essential hypertension CAD (coronary artery disease) of bypass graft Surgical History History of cholecystectomy Family History Father No problems noted. Mother No problems noted. Social History household members: none Smoking Status: Former smoker alcohol intake: current Discharge Plan Discharge Plan Patient Disposition: Assisted Living Provider Discharge Comment: 72 M admitted with shortness of breath and hypoxia. Hypoxia and symptoms resolved with steroids, antivirals, and diuresis for COVID infection and CHF exacerbation. He still remains a bit volume overloaded. Recommend increasing furosemide to BID for 5 days then returning to prior once daily. Continue isolation for COVID 19 per CDC guidelines. Discharge orders & Medications Discharge Orders: Discharge (Order); Ordered 01/25/23 Ordered By: Garo Nunez Prescriptions: Continued insulin glargine [Lantus Solostar U-100 Insulin] 100 unit/mL (3 mL) Insulin Pen 20 unit SUBCUT BEDTIME gabapentin 600 mg tablet 600 mg PO 3XD sennosides [senna] 8.6 mg tablet 17.2 mg PO DAILY acetaminophen 325 mg tablet 325 mg PO Q6H PRN (Reason: Pain (Scale Score 1-3)) prednisone 10 mg tablet 10 mg PO DAILY loperamide 2 mg capsule 2 mg PO Q2H PRN (Reason: Diarrhea) trazodone 50 mg tablet 50 mg PO ONCE PM ondansetron HCl 4 mg Tablet 4 mg PO Q4H tamsulosin 0.4 mg capsule 0.4 mg PO DAILY calcium carbonate [Tums] 200 mg calcium (500 mg) Tablet,Chewable 1,000 mg PO Q8H PRN (Reason: Acid Reflux) Saccharomyces boulardii 250 mg Capsule 250 mg PO BID Januvia 50 mg tablet 50 mg PO DAILY naloxone 4 mg/actuation spray,non-aerosol 1 spray intranasal PRN PRN (Reason: drug) benzonatate 100 mg capsule 100 mg PO DAILY PRN (Reason: Cough) potassium chloride 20 mEq tablet,ER particles/crystals 20 meq PO DAILY albuterol sulfate 90 mcg/actuation HFA aerosol inhaler 1 puff inhalation PRN PRN (Reason: SOB) atorvastatin 40 mg tablet 40 mg PO DAILY insulin aspart U-100 [Novolog FlexPen U-100 Insulin] 100 unit/mL (3 mL) insulin pen See Rx Instructions .ROUTE .COMPLEX Rx Instructions: PER BLOOD SUGAR omeprazole 20 mg capsule,delayed release(DR/EC) 20 mg PO DAILY Patient Comments: once a day buprenorphine 7.5 mcg/hour patch weekly 1 patch transdermal QWEEK Qty: 4 0RF metoprolol succinate 25 mg tablet extended release 24 hr 25 mg PO DAILY Qty: 30 0RF Changed furosemide [Lasix] 80 mg Tablet 80 mg PO BID Qty: 60 0RF Follow up/Referrals: Arnold Yu ARNP [Primary Care Provider] - Discharge Health Status Precautions: [place] and Droplet Diet/Activity/Treatments Diet: Diet as Tolerated and Low-sodium Liquid consistency: Normal/Thin Food texture: Regular Activity: As tolerated, no restrictions. Visit Report/Discharge Packet Stand Alone Forms: Patient Portal/API, Stroke Signs & Symptoms Discharge Data Primary Care Provider: Arnold Yu Discharges patient from system. Discharge Date/Time: 01/25/23 10:05 Quality VTE Deep Vein Thrombosis/Pulmonary Embolism Present on Admission: No
--- NOTE | 2023-01-25 09:20 | CM.DPC ---
DCP cont: Patient is to be returning back to [facility] today, transportation was already arranged yesterday for a 10:[address] Nunez signed med list, faxed over to [place], updated main white board at [facility] nurses station, and nurse, Anne-Marie, is aware. Patient is looking forward to going back home. P: Patient is discharging back to [facility] today, with sisal picker at 10:00. Yamini Sorensen RN/Authorizer
== END 2023-01-25 10:05 | DRG 177 ==
LOC: ED 19:14 → AC 19:28
PROVIDERS: Internal Medicine; Admitting Provider Internal Medicine; Emergency Provider Physician Assistant; PCP Nurse Practitioner Family; Referring Provider Physician Assistant; Visit Provider Internal Medicine
DX: U07.1 COVID-19 (principal); I50.23 Acute on chronic systolic (congestive) heart failure; J12.82 Pneumonia due to coronavirus disease 2019; J96.01 Acute respiratory failure with hypoxia; I25.810 Atherosclerosis of coronary artery bypass graft(s) without angina pectoris; I5A Non-ischemic myocardial injury (non-traumatic); J44.1 Chronic obstructive pulmonary disease with (acute) exacerbation; M54.9 Dorsalgia, unspecified; G89.29 Other chronic pain; N40.0 Benign prostatic hyperplasia without lower urinary tract symptoms; E11.9 Type 2 diabetes mellitus without complications; E78.5 Hyperlipidemia, unspecified; I11.0 Hypertensive heart disease with heart failure; K21.9 Gastro-esophageal reflux disease without esophagitis; R29.6 Repeated falls; Z95.5 Presence of coronary angioplasty implant and graft; Z66 Do not resuscitate; Z87.891 Personal history of nicotine dependence; Z79.4 Long term (current) use of insulin; Z79.84 Long term (current) use of oral hypoglycemic drugs
CPT/HCPCS: 0241U; 36415; 36600; 71045; 80048; 80053; 81003; 82805; 82962; 83605; 83735; 83880; 84484; 85025; 85610; 87040; 93005; 94640; 94760; 94762; 96365; 96375; 99285; J1100; J1650; J1815; J1940; J7613

== ENCOUNTER → 2023-01-29 07:23 | Outpatient (ROUT) | payer MEDICARE, MEDICAID, SELFPAY ==
[2023-01-23 21:05] VITALS: BMI 29.1
[2023-01-29 08:47] LABS: Alanine Aminotransferase 31 IU/L (<50); Albumin 3.5 g/dL (3.5-5.0); Albumin Globulin Ratio 1.3 (1.0-2.8); Alkaline Phosphatase 71 U/L (38-126); Aspartate Aminotransferase 23 IU/L (17-59); Bilirubin Total 0.7 mg/dL (0.2-1.3); Bilirubin Unconjugated 0.6 mg/dL (0.0-1.1); Globulin 2.7 g/dL (1.7-4.1); HEMOLYSIS < 15 (0-50); Total Protein 6.2 g/dL (6.3-8.2)
== END ==
PROVIDERS: PCP Nurse Practitioner Family; Visit Provider Nurse Practitioner Family
DX: Z51.81 Encounter for therapeutic drug level monitoring (principal)
CPT/HCPCS: 36415; 80076

== ENCOUNTER → 2023-02-12 07:56 | Outpatient (ROUT) | payer MEDICARE, MEDICAID, SELFPAY ==
[2023-01-23 21:05] VITALS: BMI 29.1
[2023-02-12 08:22] LABS: Add Manual Diff / Slide Review NO; Basophils Absolute Auto 100 /uL (0-100); Basophils Percent Auto 1.2 % (0-2); Eosinophils Absolute Auto 300 /uL (0-450); Eosinophils Percent Auto 6.6 % (2-4); Hemoglobin 12.3 g/dL (13.5-17.5); Lymphocytes Absolute Auto 1200 /uL (1100-4500); Mean Corpuscular HGB Conc 33.2 % (30-36); Mean Corpuscular Hemoglobin 27.6 PG (26-34); Mean Corpuscular Volume 83.1 fL (80-100); Monocytes Absolute Auto 600 /uL (0-900); Neutrophils Absolute Auto 2300 /uL (1500-7000); Neutrophils Percent Auto 52.2 % (50-75); Platelet Count 124 X10^3/uL (150-400); Red Blood Cell Count 4.46 X10^6/uL (4.5-5.9); Red Cell Distribution Width 15.8 % (11.6-14.8); White Blood Cell Count 4.3 X10^3/uL (4.5-11.0)
[2023-02-12 08:41] LABS: BUN Creatinine Ratio 14.5 (6-22); Blood Urea Nitrogen 12 mg/dL (9-20); Calcium 9.3 mg/dL (8.4-10.2); Carbon Dioxide 30 mmol/L (22-32); Chloride 97 mmol/L (98-107); Estimated Glomerular Filt Rate > 60 mL/min (>60); Glucose 79 mg/dL (80-110); HEMOLYSIS < 15 (0-50); Potassium 4.2 mmol/L (3.4-5.1); Sodium 134 mmol/L (137-145)
[2023-02-12 09:22] LABS: HIV 1 & 2 Ab/Ag 4th Gen Combo NEGATIVE (NEGATIVE); Hep C Virus Ab w/Reflex Quant REACTIVE s/c (NEGATIVE)
== END ==
PROVIDERS: PCP Nurse Practitioner Family; Visit Provider Nurse Practitioner Family
DX: T14.8XXA Other injury of unspecified body region, initial encounter (principal)
CPT/HCPCS: 36415; 80048; 85025; 86803; 87389; 87522

== ENCOUNTER → 2023-02-20 15:31 | Outpatient (ROUT) | payer MEDICARE, MEDICAID, SELFPAY ==
[2023-01-23 21:05] VITALS: BMI 29.1
[2023-02-20 15:49] LABS: BUN Creatinine Ratio 12.9 (6-22); Blood Urea Nitrogen 11 mg/dL (9-20); Calcium 9.1 mg/dL (8.4-10.2); Carbon Dioxide 30 mmol/L (22-32); Chloride 97 mmol/L (98-107); Estimated Glomerular Filt Rate > 60 mL/min (>60); Glucose 166 mg/dL (80-110); HEMOLYSIS < 15 (0-50); Magnesium 1.8 mg/dL (1.6-2.3); Potassium 3.6 mmol/L (3.4-5.1); Sodium 135 mmol/L (137-145)
[2023-02-20 15:58] LABS: NT-proBNP (BNP-Adult 18+) 8510 pg/mL (<125)
== END ==
PROVIDERS: PCP Nurse Practitioner Family; Visit Provider Nurse Practitioner Family
DX: Z51.81 Encounter for therapeutic drug level monitoring (principal)
CPT/HCPCS: 80048; 83735; 83880

== ENCOUNTER → 2023-03-19 07:33 | Outpatient (ROUT) | payer MEDICARE, MEDICAID, SELFPAY ==
[2023-01-23 21:05] VITALS: BMI 29.1
[2023-03-19 07:47] LABS: BUN Creatinine Ratio 19.4 (6-22); Blood Urea Nitrogen 14 mg/dL (9-20); Calcium 9.2 mg/dL (8.4-10.2); Carbon Dioxide 37 mmol/L (22-32); Chloride 90 mmol/L (98-107); Estimated Glomerular Filt Rate > 60 mL/min (>60); Glucose 129 mg/dL (80-110); HEMOLYSIS < 15 (0-50); Magnesium 1.5 mg/dL (1.6-2.3); Potassium 3.4 mmol/L (3.4-5.1); Sodium 132 mmol/L (137-145)
== END ==
PROVIDERS: PCP Nurse Practitioner Family; Visit Provider Registered Nurse
DX: I50.40 Unspecified combined systolic (congestive) and diastolic (congestive) heart failure (principal)
CPT/HCPCS: 36415; 80048; 83735

== ENCOUNTER → 2023-03-20 08:12 | Outpatient (CLI) | payer MEDICARE, MEDICAID, SELFPAY ==
[2023-01-23 21:05] VITALS: BMI 29.1
--- NOTE | 2023-03-20 | DI.US.S_ITS ---
PROCEDURE: US PERIPH VENOUS LOW EXTREM BI INDICATIONS: PAIN TECHNIQUE: Real-time imaging, as well as color and pulse Doppler interrogation, were performed of the deep veins of both legs from the inguinal ligament to the popliteal fossa, with documentation of the visualized calf veins. COMPARISON: None. FINDINGS: Right: The common femoral, femoral, popliteal, and the visualized calf veins are normally compressible, and free of intraluminal thrombus. Color and pulse Doppler demonstrate normal phasic intravascular flow. There is normal augmentation response to distal compression maneuver. Several lymph nodes appear prominent but are within normal limits by size criteria. Diffuse edema. Vascular calcifications incidentally noted. Left: The common femoral, femoral, popliteal, and the visualized calf veins are normally compressible, and free of intraluminal thrombus. Color and pulse Doppler demonstrate normal phasic intravascular flow. There is normal augmentation response to distal compression maneuver. Several lymph nodes appear prominent but are within normal limits by size criteria. Diffuse edema. Vascular calcifications incidentally noted. IMPRESSION: No findings of deep venous thrombosis in either lower extremity. Dictated by: William Quintero M.D. on 03/20/2023 at 11:27 Approved by: William Quintero M.D. on 03/20/2023 at 11:31
== END ==
PROVIDERS: PCP Nurse Practitioner Family; Visit Provider Registered Nurse
DX: M79.661 Pain in right lower leg (principal); M79.662 Pain in left lower leg; R60.0 Localized edema; I50.40 Unspecified combined systolic (congestive) and diastolic (congestive) heart failure
CPT/HCPCS: 93970

== ENCOUNTER → 2023-04-02 12:56 | Outpatient (ROUT) | payer MEDICARE, MEDICAID, SELFPAY ==
[2023-01-23 21:05] VITALS: BMI 29.1
[2023-04-02 13:19] LABS: BUN Creatinine Ratio 12.8 (6-22); Blood Urea Nitrogen 10 mg/dL (9-20); Calcium 9.1 mg/dL (8.4-10.2); Carbon Dioxide 33 mmol/L (22-32); Chloride 93 mmol/L (98-107); Estimated Glomerular Filt Rate > 60 mL/min (>60); Glucose 85 mg/dL (80-110); HEMOLYSIS < 15 (0-50); Magnesium 1.7 mg/dL (1.6-2.3); Potassium 3.7 mmol/L (3.4-5.1); Sodium 133 mmol/L (137-145)
== END ==
PROVIDERS: PCP Nurse Practitioner Family; Visit Provider Registered Nurse
DX: I50.9 Heart failure, unspecified (principal)
CPT/HCPCS: 80048; 83735

== ENCOUNTER → 2023-05-09 09:51 | Outpatient (CLI) | payer MEDICARE, MEDICAID, SELFPAY ==
[2023-01-23 21:05] VITALS: BMI 29.1
--- NOTE | 2023-05-09 | DI.RAD.S_ITS ---
PROCEDURE: XR ELBOW RT MIN 3V INDICATIONS: RIGHT ELBOW PAIN/BUMP TECHNIQUE: 3 views of the elbow were acquired. COMPARISON: None. FINDINGS: Bones: No fractures or dislocations. Mild degenerative changes of the humeroulnar joint with juxta-articular osteophytosis No suspicious bony lesions. Soft tissues: No elbow joint effusion. No suspicious soft tissue calcifications. Soft tissue swelling overlying the proximal ulnar diaphysis. IMPRESSION: 1. No acute bony abnormality or significant joint effusion. 2. Soft tissue swelling overlying the proximal ulnar diaphysis. Dictated by: Ada Jeff M.D. on 05/09/2023 at 14:00 Approved by: Ada Jeff M.D. on 05/09/2023 at 15:31
== END ==
PROVIDERS: PCP Nurse Practitioner Family; Referring Provider Nurse Practitioner Family; Visit Provider Nurse Practitioner Family
DX: M25.521 Pain in right elbow (principal); M79.89 Other specified soft tissue disorders
CPT/HCPCS: 73080

== ENCOUNTER → 2023-07-10 08:55 | Outpatient (CLI) | payer MEDICARE, MEDICAID, SELFPAY ==
[2023-01-23 21:05] VITALS: BMI 29.1
== END ==
PROVIDERS: PCP Nurse Practitioner Family; Referring Provider Internal Medicine; Visit Provider Surgery
DX: L97.822 Non-pressure chronic ulcer of other part of left lower leg with fat layer exposed (principal); E11.622 Type 2 diabetes mellitus with other skin ulcer; I73.9 Peripheral vascular disease, unspecified; I25.10 Atherosclerotic heart disease of native coronary artery without angina pectoris; Z87.891 Personal history of nicotine dependence; R60.0 Localized edema
CPT/HCPCS: 11042; 87070; 87075; 87205; 99203; 99214

== ENCOUNTER 2023-07-18 19:30 | Emergency (ER) | payer MEDICARE, MEDICAID, SELFPAY ==
[2023-01-23 21:05] VITALS: BMI 29.1
[2023-07-18] VITALS (29 sets, daily range): BP systolic 39–153; BP diastolic 19–81; PULSE 16–82; RESP 0–27; TEMP 36.3; O2SAT 59–100; BMI 24.3
--- NOTE | 2023-07-18 19:46 | ED_ITS ---
HPI - Abdominal Pain General Chief Complaint: Abdominal Pain Stated Complaint: abd pain Time Seen by Provider: 07/18/23 19:32 Source: patient and EMS Mode of arrival: EMS History of Present Illness HPI narrative: 72-year-old male with history of congestive heart failure (EF 10-15%), recurrent colitis presents by EMS from his skilled facility for nausea, malaise, abdominal pains. Patient reports concerned that he has a flare-up of his colitis again. Briefly reported intermittent chest pains to paramedics during transport, but also told them that these chest pains are typical of a colitis flare-up. Related Data Home Medications Medication Instructions Recorded Confirmed atorvastatin 40 mg tablet 40 mg PO DAILY 04/26/22 01/23/23 insulin aspart U-100 100 unit/mL See Rx Instructions .Route .COMPLEX 04/26/22 01/23/23 (3 mL) subcutaneous pen (Novolog FlexPen U-100 Insulin aspart) omeprazole 20 mg capsule,delayed 20 mg PO DAILY 04/28/22 01/23/23 release insulin glargine 100 unit/mL (3 20 unit SUBCUT BEDTIME 08/02/22 01/23/23 mL) subcutaneous pen (Lantus Solostar U-100 Insulin) Saccharomyces boulardii 250 mg 250 mg PO BID 12/19/22 01/23/23 capsule acetaminophen 325 mg tablet 325 mg PO Q6H PRN Pain (Scale 12/19/22 01/23/23 Score 1-3) calcium carbonate 200 mg calcium 1,000 mg PO Q8H PRN Acid Reflux 12/19/22 01/23/23 (500 mg) chewable tablet (Tums) gabapentin 600 mg tablet 600 mg PO 3XD 12/19/22 01/23/23 loperamide 2 mg capsule 2 mg PO Q2H PRN Diarrhea 12/19/22 01/23/23 naloxone 4 mg/actuation nasal spray 1 spray intranasal PRN PRN drug 12/19/22 01/23/23 ondansetron HCl 4 mg tablet 4 mg PO Q4H 12/19/22 01/23/23 prednisone 10 mg tablet 10 mg PO DAILY 12/19/22 01/23/23 sennosides 8.6 mg tablet (senna) 17.2 mg PO DAILY 12/19/22 01/23/23 sitagliptin phosphate 50 mg tablet 50 mg PO DAILY 12/19/22 01/23/23 (Januvia) tamsulosin 0.4 mg capsule 0.4 mg PO DAILY 12/19/22 01/23/23 trazodone 50 mg tablet 50 mg PO ONCE PM 12/19/22 01/23/23 albuterol sulfate 90 mcg/actuation 1 puff inhalation PRN PRN SOB 01/23/23 01/23/23 aerosol inhaler benzonatate 100 mg capsule 100 mg PO DAILY PRN Cough 01/23/23 01/23/23 potassium chloride 20 mEq 20 meq PO DAILY 01/23/23 01/23/23 tablet,extended release(part/cryst) Previous Rx's Medication Instructions Recorded buprenorphine 7.5 mcg/hour weekly 1 patch transdermal QWEEK #4 ea 06/25/22 transdermal patch metoprolol succinate 25 mg 25 mg PO DAILY #30 tabs 09/03/22 tablet,extended release 24 hr furosemide 80 mg tablet (Lasix) 80 mg PO BID #60 tabs 01/25/23 Allergies Allergy/AdvReac Type Severity Reaction Status Date / Time NSAIDS (Non-Steroidal Allergy Verified 01/23/23 16:03 Anti-Inflamma Tetanus Vaccines and Toxoid Allergy Verified 01/23/23 16:03 Review of Systems Review of Systems Narrative: Negative except as noted above Patient History Medical History GERD (gastroesophageal reflux disease) Malnutrition of mild degree BPH (benign prostatic hyperplasia) Recurrent falls Chronic pain Type 2 diabetes mellitus with hyperlipidemia Essential hypertension CAD (coronary artery disease) of bypass graft Surgical History History of cholecystectomy Family History Father No problems noted. Mother No problems noted. Social History household members: none Smoking Status: Former smoker alcohol intake: current Smoking Status: Former smoker tobacco type: cigarettes alcohol intake frequency: a few times a month Alcohol type: hard liquor Substance Use Type: does not use and former substance user Exam Initial Vital Signs Initial Vital Signs: Vital Signs Pulse Rate 75 07/18/23 19:45 Pulse Oximetry 87 L 07/18/23 19:45 Oxygen Delivery Method Room Air 07/18/23 19:45 Const: Awake, alert, no acute distress, nontoxic appearing Cardiac: regular rate, regular rhythm RESP: unlabored, decreased breath sounds right lower lobe, no crackles GI: Soft, minimal tenderness to deep palpation bilateral lower quadrants, no peritoneal signs MSK: Atraumatic, full range of motion, pulses equal Skin: Warm, Dry, excoriations upper and lower extremities similar to skin- picking lesions Neuro: AO x3, CN II-XII grossly intact, moves all extremities Course Orders Ordered: ED Orders 07/18/23 19:44 CT abdomen pelvis w con Stat Chest [XR chest 1V] Stat UA Complete [Urinalysis and Microscopic] Stat 07/18/23 19:45 EKG-12 Lead Stat 07/18/23 20:00 CBC Auto Diff [Complete Blood Count AUTO DIFF] Stat CMP [Comprehensive Metabolic Panel] Stat Lactate (Lactic Acid) Stat Lipase Stat MAG [Magnesium] Stat PT [Prothrombin Time INR] Stat Troponin & CK Cardiac Panel Stat 07/18/23 21:45 Ammonia (NH3) Stat 07/18/23 22:12 ABG [Arterial Blood Gas] Stat BiPAP Ventilatory Support RT PROTOCOL 07/18/23 22:13 Chest [XR chest 1V] Stat Discontinued Medications Ceftriaxone Sodium 2,000 mg/ (Sodium Chloride) 100 mls @ 200 mls/hr IV NOW ONE Stop: 07/18/23 20:15 Last Infusion: 07/18/23 21:33 Dose: Infused Documented By: Admin: 07/18/23 20:26 Dose: 200 mls/hr Documented By: MAXIMILIANO Azithromycin 500 mg/ Dextrose 250 mls @ 250 mls/hr IV NOW ONE Stop: 07/18/23 20:15 Last Infusion: 07/18/23 22:50 Dose: Infused Documented By: Admin: 07/18/23 21:34 Dose: 250 mls/hr Documented By: RANCHO Sodium Chloride (Normal Saline 0.9%) 1,000 mls @ 1,000 mls/hr IV BOLUS ONE Stop: 07/18/23 21:14 Last Infusion: 07/18/23 21:33 Dose: 1,000 mls/hr Documented By: Admin: 07/18/23 20:26 Dose: 1,000 mls/hr Documented By: MAXIMILIANO Furosemide 60 mg/ Sodium (Chloride) 56 mls @ 112 mls/hr IV NOW ONE Stop: 07/18/23 21:48 Last Admin: 07/18/23 22:27 Dose: 112 mls/hr Documented By: OBDULIO Lorazepam (Lorazepam 2 Mg/Ml Inj) 2 mg IV NOW ONE Stop: 07/18/23 22:42 Last Admin: 07/18/23 22:46 Dose: 2 mg Documented By: MAXIMILIANO Morphine Sulfate (Morphine 4 Mg/Ml Inj) 4 mg IV NOW ONE Stop: 07/18/23 22:42 Last Admin: 07/18/23 22:46 Dose: 4 mg Documented By: MAXIMILIANO Morphine Sulfate (Morphine 4 Mg/Ml Inj) 4 mg IV NOW ONE Stop: 07/18/23 22:57 Vital Signs Vital signs: Vital Signs - 8 hr 07/18/23 19:45 07/18/23 19:47 07/18/23 19:47 Temperature Pulse Rate 75 73 Respiratory Rate 21 Blood Pressure 90/62 Pulse Oximetry 87 L 90 L Oxygen Delivery Method Room Air Room Air Oxygen Flow Rate 07/18/23 20:06 07/18/23 20:11 07/18/23 20:11 Temperature 97.4 F L Pulse Rate 74 69 Respiratory Rate 12 19 Blood Pressure 86/53 L 88/58 L Pulse Oximetry 88 L 81 L Oxygen Delivery Method Room Air Oxygen Flow Rate 07/18/23 20:14 07/18/23 20:14 07/18/23 20:16 Temperature Pulse Rate 70 69 Respiratory Rate 9 L 8 L Blood Pressure 87/58 L Pulse Oximetry 100 98 Oxygen Delivery Method Oxygen Flow Rate 07/18/23 20:16 07/18/23 20:21 07/18/23 20:21 Temperature Pulse Rate 66 Respiratory Rate 21 Blood Pressure 84/60 L 84/58 L Pulse Oximetry 100 Oxygen Delivery Method Oxygen Flow Rate 07/18/23 20:30 07/18/23 20:30 07/18/23 21:00 Temperature Pulse Rate 67 Respiratory Rate 20 Blood Pressure 88/64 L 153/70 H Pulse Oximetry 99 Oxygen Delivery Method Oxygen Flow Rate 07/18/23 21:00 07/18/23 21:25 07/18/23 21:25 Temperature Pulse Rate 70 71 Respiratory Rate 19 9 L Blood Pressure 100/64 Pulse Oximetry 98 86 L Oxygen Delivery Method Oxygen Flow Rate 07/18/23 21:30 07/18/23 21:30 07/18/23 21:45 Temperature Pulse Rate 74 74 Respiratory Rate 11 L 9 L Blood Pressure 102/61 Pulse Oximetry 95 86 L Oxygen Delivery Method Oxygen Flow Rate 07/18/23 21:45 07/18/23 21:47 07/18/23 21:47 Temperature Pulse Rate 74 Respiratory Rate 12 Blood Pressure 88/58 L 87/57 L Pulse Oximetry 74 L Oxygen Delivery Method Oxygen Flow Rate 07/18/23 22:00 07/18/23 22:17 07/18/23 22:17 Temperature Pulse Rate 77 82 Respiratory Rate 27 H 19 Blood Pressure 109/81 Pulse Oximetry 88 L 96 Oxygen Delivery Method Ambu Bag Oxygen Flow Rate 15 07/18/23 22:30 07/18/23 22:31 07/18/23 22:31 Temperature Pulse Rate 77 80 Respiratory Rate 24 14 Blood Pressure 73/50 L Pulse Oximetry 76 L 83 L Oxygen Delivery Method Oxygen Flow Rate 07/18/23 22:35 07/18/23 22:35 07/18/23 22:46 Temperature Pulse Rate 76 79 Respiratory Rate 23 20 Blood Pressure 70/51 L Pulse Oximetry 82 L 59 L Oxygen Delivery Method Oxygen Flow Rate 07/18/23 22:46 07/18/23 22:50 07/18/23 22:50 Temperature Pulse Rate 81 Respiratory Rate 20 Blood Pressure 58/34 L 39/23 L Pulse Oximetry 59 L Oxygen Delivery Method Oxygen Flow Rate 07/18/23 22:55 07/18/23 22:55 Temperature Pulse Rate 81 Respiratory Rate 20 Blood Pressure 40/19 L Pulse Oximetry 74 L Oxygen Delivery Method Oxygen Flow Rate MDM - Abdominal Pain Differential Diagnosis Differential diagnosis: Likely abdominal pain, acute appendicitis and calculus of kidney Lab Data 07/18/23 20:00 07/18/23 20:00 Labs: Lab Results 07/18/23 Range/Units 20:00 WBC 7.0 (4.5-11.0) X10^3/uL RBC 4.38 L (4.5-5.9) X10^6/uL Hgb 12.5 L (13.5-17.5) g/dL Hct 37.6 L (41-53) % MCV 85.9 (80-100) fL MCH 28.4 (26-34) PG MCHC 33.1 (30-36) % RDW 16.8 H (11.6-14.8) % Plt Count 131 L (150-400) X10^3/uL Neut % (Auto) 60.0 (50-75) % Lymph % (Auto) 22.7 L (25-40) % Terrell % (Auto) 11.4 (3-14) % Eos % (Auto) 5.0 H (2-4) % Baso % (Auto) 0.9 (0-2) % Neut # (Auto) 4200 (9517-1812) /uL Lymph # (Auto) 1600 (0955-2008) /uL Terrell # (Auto) 800 (0-900) /uL Eos # (Auto) 300 (0-450) /uL Baso # (Auto) 100 (0-100) /uL PT 16.6 H (9.4-12.5) SECONDS INR 1.4 H (0.9-1.3) Sodium 130 L (137-145) mmol/L Potassium 5.9 H (3.4-5.1) mmol/L Chloride 96 L (98-107) mmol/L Carbon Dioxide 25 (22-32) mmol/L BUN 28 H (9-20) mg/dL Creatinine 1.56 H (0.66-1.25) mg/dL Estimated GFR 47 L (>60) mL/min BUN/Creatinine Ratio 17.9 (6-22) Glucose 108 (80-110) mg/dL Lactate 2.7 H (0.7-2.1) mmol/L Calcium 9.2 (8.4-10.2) mg/dL Magnesium 2.2 (1.6-2.3) mg/dL Total Bilirubin 1.2 (0.2-1.3) mg/dL AST 78 H (17-59) IU/L ALT 51 H (<50) IU/L Alkaline Phosphatase 122 (38-126) U/L Total Creatine Kinase 44 L (55-170) U/L Troponin I 0.014 (0.01-0.034) ng/mL Total Protein 8.2 (6.3-8.2) g/dL Albumin 4.2 (3.5-5.0) g/dL Globulin 4.0 (1.7-4.1) g/dL Albumin/Globulin Ratio 1.1 (1.0-2.8) Lipase 38 (23-300) U/L Imaging Data CT scan - abdomen/pelvis: Radiologist's Impression: PROCEDURE: CT ABDOMEN PELVIS W CON INDICATIONS: LOWER ABD PAIN, HX COLITIS TECHNIQUE: After the administration of intravenous contrast, axial sections acquired from the lung bases to the pubic symphysis. Coronal and sagittal reformats were performed. For radiation dose reduction, the following was used: automated exposure control, adjustment of mA and/or kV according to patient size. COMPARISON: [facility], CT, CT ABDOMEN PELVIS W CON, 08/23/2022, 18:18. FINDINGS: Image quality: Diagnostic. Lower Chest: Mild four-chamber cardiomegaly. [id number] right pleural effusion with associated compressive atelectasis in the right lung base. Reflux of contrast into the hepatic veins suggests a degree of right heart failure. ABDOMEN: Liver: Suggestion of surface nodularity of the liver suggests probable cirrhosis. No liver masses identified. Hepatomegaly. Gallbladder: Surgically absent Biliary ducts: No biliary dilation. Pancreas: No ductal dilation. Spleen: Size is within normal limits. Adrenal Glands: No adrenal nodules. Kidneys and Ureters: No hydronephrosis. No solid mass. No complex renal cystic lesion which requires follow up. Stomach and Bowel: Diffuse wall thickening of the sigmoid and distal descending colon and proximal rectum suggest possible segmental colitis. Peritoneum: Development of mild ascites. No free air. Ventral Wall: No significant ventral hernia. Abdominal Nodes: No retroperitoneal or mesenteric adenopathy by size criteria. Vessels: Aorta is ectatic but not frankly aneurysmal. Diffuse atherosclerotic calcifications. PELVIS: Pelvic Organs: Unremarkable. Bladder: Mild diffuse bladder wall thickening. Extensive metal artifact from right hip arthroplasty obscures a portion of the bladder and the prostate. Pelvic Nodes: No enlarged lymph nodes. Miscellaneous: No inguinal hernias are seen. Bones: Right hip arthroplasty. Moderate to severe left hip degenerative arthritis. Lumbar degenerative change. There is at least moderate or potentially moderate to severe canal stenosis at L4-L5. IMPRESSION: 1. Four-chamber cardiomegaly, [id number] right pleural effusion with associated compressive atelectasis, reflux of contrast into the hepatic veins. Findings suggest possible biventricular failure. 2. Mild hepatomegaly, cirrhotic change. 3. Development of mild ascites. 4. Diffuse bladder wall thickening. 5. Remote cholecystectomy. 6. Canal stenosis at L4-L5. 7. Diffuse thickening of the sigmoid and distal descending colon suggests possible distal colitis. Dictated by: Gato James M.D. on 07/18/2023 at 21:14 Approved by: Gato James M.D. on 07/18/2023 at 21:21 Chest x-ray: Radiologist's Impression: PROCEDURE: XR CHEST 1V INDICATIONS: INTERMITTENT CHEST PAINS TECHNIQUE: One view of the chest was acquired. COMPARISON: [facility], CR, XR CHEST 1V, 01/23/2023, 16:15. FINDINGS: Surgical changes and devices: None. Lungs and pleura: Patchy consolidation, right lung base. No pleural effusions or pneumothorax. Mediastinum: Mediastinal contours appear normal. Cardiomegaly Bones and chest wall: No suspicious bony lesions. Overlying soft tissues appear unremarkable. IMPRESSION: 1. Cardiomegaly. 2. Patchy consolidation, right lung base. Comment: Progress films are recommended until clear. Dictated by: Gato James M.D. on 07/18/2023 at 20:09 Approved by: Gato James M.D. on 07/18/2023 at 20:10 PROCEDURE: XR CHEST 1V INDICATIONS: ACUTE CHANGE IN RESPIRATORY STATUS TECHNIQUE: One view of the chest was acquired. COMPARISON: [facility], CT, CT ABDOMEN PELVIS W CON, 07/18/2023, 20:16. [facility], CR, XR CHEST 1V, 07/18/2023, 19:50. FINDINGS: Surgical changes and devices: None. Lungs and pleura: [id number] right pleural effusion, better seen on the CT. Patchy right basilar atelectasis. Appearance is not any worse than on the previous chest x-ray. Mediastinum: Mediastinal contours appear normal. Cardiomegaly. Bones and chest wall: No suspicious bony lesions. Overlying soft tissues appear unremarkable. IMPRESSION: No significant worsening in pulmonary status since the previous chest x-ray. Cardiomegaly. Right pleural effusion, right basilar atelectasis. Dictated by: Gato James M.D. on 07/18/2023 at 22:57 Approved by: Gato James M.D. on 07/18/2023 at 22:58 MDM Narrative Medical decision making narrative: Patient brought in by EMS for abdominal pain concerning for flare-ups of colitis. He reported intermittent chest pains to medics, but also stated that this was typical of his colitis flare-ups. Abdomen is soft but he does have generalized tenderness to palpation in the lower abdomen. He states concern about a rash that he has on his arms and legs. These lesions appear to be skin picking. Labs, CT imaging ordered Laboratory work significant for WBC count 7.0, hemoglobin 12.5 (baseline), sodium 130, potassium 5.9, creatinine 1.56 GFR 47, lactic acid 2.7, T bili 1.2, AST 78, ALT 51, troponin 0.014. Shortly after presentation to the emergency department patient's oxygen saturations dipped into the 80s and he was placed on supplemental nasal cannula. Chest x-ray shows what appeared to be a consolidation in the right lower lobe and empiric antibiotics ordered. Pending CT imaging. 2209 -I was called stat to the patient's room by nurses who found the patient blue and minimally responsive. He was breathing spontaneous with a palpable pulse. Patient's POLST form states he is DNR/comfort care. Patient was taken to resuscitation bed where he was bagged for oxygenation. After just 2-3 minutes of bagging patient's color and mental status improved. Placed on BiPAP for respiratory support. Repeat chest x-ray and ABG ordered. 2241 -patient unable to tolerate BiPAP, placed on high-flow nasal cannula however he continues to desaturate and become cyanotic and minimally responsive. I was able to speak on the phone with patient's brother, who is medically and financially power of trade mark attorney. He agrees to respect patient's POLST form and comfort measures only. Ativan and morphine ordered for comfort. 0 -patient at this time. Critical Care Time Critical Care Time Critical Care Time: Yes Total Critical Care Time: 36 Attestation: Respiratory failure and altered mental status requiring end of life discussions Discharge Plan Departure Patient Disposition: Clinical Impression: Cardiac volume overload, Hypoxia, Prescriptions: No Action insulin glargine [Lantus Solostar U-100 Insulin] 100 unit/mL (3 mL) Insulin Pen 20 unit SUBCUT BEDTIME gabapentin 600 mg tablet 600 mg PO 3XD sennosides [senna] 8.6 mg tablet 17.2 mg PO DAILY acetaminophen 325 mg tablet 325 mg PO Q6H PRN (Reason: Pain (Scale Score 1-3)) prednisone 10 mg tablet 10 mg PO DAILY loperamide 2 mg capsule 2 mg PO Q2H PRN (Reason: Diarrhea) trazodone 50 mg tablet 50 mg PO ONCE PM ondansetron HCl 4 mg Tablet 4 mg PO Q4H tamsulosin 0.4 mg capsule 0.4 mg PO DAILY calcium carbonate [Tums] 200 mg calcium (500 mg) Tablet,Chewable 1,000 mg PO Q8H PRN (Reason: Acid Reflux) Saccharomyces boulardii 250 mg Capsule 250 mg PO BID Januvia 50 mg tablet 50 mg PO DAILY naloxone 4 mg/actuation spray,non-aerosol 1 spray intranasal PRN PRN (Reason: drug) benzonatate 100 mg capsule 100 mg PO DAILY PRN (Reason: Cough) potassium chloride 20 mEq tablet,ER particles/crystals 20 meq PO DAILY albuterol sulfate 90 mcg/actuation HFA aerosol inhaler 1 puff inhalation PRN PRN (Reason: SOB) furosemide [Lasix] 80 mg Tablet 80 mg PO BID Qty: 60 0RF atorvastatin 40 mg tablet 40 mg PO DAILY insulin aspart U-100 [Novolog FlexPen U-100 Insulin] 100 unit/mL (3 mL) insulin pen See Rx Instructions .ROUTE .COMPLEX Rx Instructions: PER BLOOD SUGAR omeprazole 20 mg capsule,delayed release(DR/EC) 20 mg PO DAILY Patient Comments: once a day buprenorphine 7.5 mcg/hour patch weekly 1 patch transdermal QWEEK Qty: 4 0RF metoprolol succinate 25 mg tablet extended release 24 hr 25 mg PO DAILY Qty: 30 0RF Referrals: Arnold Yu ARNP [Primary Care Provider] -
--- NOTE | 2023-07-18 20:00 | PC.NURSE ---
Pt's spo2 reading in the high 80's. Pt with cold hands, nasal cannula in place, Able to read sats occasionaly in the high 90's through his cold fingers. Provider aware of low bp, new fluid order given
[2023-07-18 20:06] LABS: Add Manual Diff / Slide Review NO; Basophils Absolute Auto 100 /uL (0-100); Basophils Percent Auto 0.9 % (0-2); Eosinophils Absolute Auto 300 /uL (0-450); Hematocrit 37.6 % (41-53); Hemoglobin 12.5 g/dL (13.5-17.5); Lymphocytes Absolute Auto 1600 /uL (1100-4500); Lymphocytes Percent Auto 22.7 % (25-40); Mean Corpuscular HGB Conc 33.1 % (30-36); Mean Corpuscular Hemoglobin 28.4 PG (26-34); Mean Corpuscular Volume 85.9 fL (80-100); Monocytes Absolute Auto 800 /uL (0-900); Monocytes Percent Auto 11.4 % (3-14); Neutrophils Absolute Auto 4200 /uL (1500-7000); Platelet Count 131 X10^3/uL (150-400); Red Blood Cell Count 4.38 X10^6/uL (4.5-5.9); Red Cell Distribution Width 16.8 % (11.6-14.8)
[2023-07-18 20:14] LABS: INR 1.4 (0.9-1.3); Prothrombin Time 16.6 SECONDS (9.4-12.5)
[2023-07-18 20:19] LABS: Alanine Aminotransferase 51 IU/L (<50); Albumin 4.2 g/dL (3.5-5.0); Albumin Globulin Ratio 1.1 (1.0-2.8); Alkaline Phosphatase 122 U/L (38-126); Aspartate Aminotransferase 78 IU/L (17-59); BUN Creatinine Ratio 17.9 (6-22); Bilirubin Total 1.2 mg/dL (0.2-1.3); Blood Urea Nitrogen 28 mg/dL (9-20); Calcium 9.2 mg/dL (8.4-10.2); Carbon Dioxide 25 mmol/L (22-32); Chloride 96 mmol/L (98-107); Creatine Kinase 44 U/L (55-170); Estimated Glomerular Filt Rate 47 mL/min (>60); Glucose 108 mg/dL (80-110); Lipase 38 U/L (23-300); Magnesium 2.2 mg/dL (1.6-2.3); Sodium 130 mmol/L (137-145); Total Protein 8.2 g/dL (6.3-8.2)
[2023-07-18 20:20] LABS: Lactate (Lactic Acid) 2.7 mmol/L (0.7-2.1)
[2023-07-18 20:22] LABS: HEMOLYSIS 92 (0-50)
[2023-07-18 20:23] LABS: Potassium 5.9 mmol/L (3.4-5.1)
[2023-07-18] MEDS: SODIUM CHLORIDE 0.9% 1,000 ML 1000 ML IV (20:26)
[2023-07-18] MEDS: cefTRIAXone 2,000 MG in SODIUM CHLORIDE 0.9% 100 ML 200 MG IV (20:26)
[2023-07-18 20:31] LABS: Troponin I 0.014 ng/mL (0.01-0.034)
--- NOTE | 2023-07-18 21:30 | PC.NURSE ---
I walked into the room to find pt with head tilted back, blue in his face. I yelled for help and was assisted by Doctor Herbert and 3x nurses to transport patient to trauma room 1.
[2023-07-18] MEDS: AZITHROMYCIN 500 MG in DEXTROSE 5% IN WATER 250 ML 250 MG IV (21:34)
[2023-07-18 21:38] LABS: Reflexed Lactate in 2 Hours Y
--- NOTE | 2023-07-18 22:13 | DI.RAD.S_ITS ---
PROCEDURE: XR CHEST 1V INDICATIONS: ACUTE CHANGE IN RESPIRATORY STATUS TECHNIQUE: One view of the chest was acquired. COMPARISON: [facility], CT, CT ABDOMEN PELVIS W CON, 07/18/2023, 20:16. [facility], CR, XR CHEST 1V, 07/18/2023, 19:50. FINDINGS: Surgical changes and devices: None. Lungs and pleura: [id number] right pleural effusion, better seen on the CT. Patchy right basilar atelectasis. Appearance is not any worse than on the previous chest x-ray. Mediastinum: Mediastinal contours appear normal. Cardiomegaly. Bones and chest wall: No suspicious bony lesions. Overlying soft tissues appear unremarkable. IMPRESSION: No significant worsening in pulmonary status since the previous chest x-ray. Cardiomegaly. Right pleural effusion, right basilar atelectasis. Dictated by: Gato James M.D. on 07/18/2023 at 22:57 Approved by: Gato James M.D. on 07/18/2023 at 22:58
[2023-07-18] MEDS: FUROSEMIDE 60 MG in SODIUM CHLORIDE 0.9% 50 ML 112 MG IV (22:27)
[2023-07-18] MEDS: LORazepam 2 MG/ML INJ IV (22:46)
[2023-07-18] MEDS: MORPHINE 4 MG/ML INJ IV ×2 (22:46→23:00)
--- NOTE | 2023-07-18 23:00 | PC.NURSE ---
Had assisted patient with breathing with BVM, patient had become alert and following directions. Getting ready to intubate with provider until confirmed DNR, DNI. attempted bipap. Pt with large limon and unable to get a seal on the mask. Pt fitting to wear bipap mask. Switched to Heated hi flow to see if patient would tolerate better. Pt tolerated heated hi flow but dropping oxygen levels. Placed a non rebreather on top of heated high flow. Provider on phone with pt's brother at this time. Provider aware of dropping bp's
--- NOTE | 2023-07-18 23:10 | PC.NURSE ---
Provider reported brother agreed to not intubate and to allow patient to pass. Medicated with morphine and ativan for comfort. Removed all oxygen, provided warm blankets and tried to make as comfortable as possible.
--- NOTE | 2023-07-19 00:20 | PC.NURSE ---
Called the donor inquiry line- pt not suitable for donation. Called coroners office, Case #[id number]. Stated to hold blood until released by antenna specialist. No autopsy to be performed but wants to hold blood to test for toxicology test. Informed brother, Doc of passing, He agreed to have patient go to [place],
== END 2023-07-18 23:20 | disposition expired ==
PROVIDERS: Emergency Provider Emergency Medicine; PCP Nurse Practitioner Family
DX: E87.79 Other fluid overload (principal); R09.02 Hypoxemia; R10.30 Lower abdominal pain, unspecified; Z79.899 Other long term (current) drug therapy
CPT/HCPCS: 36415; 71045; 74177; 80053; 82550; 83605; 83690; 83735; 84484; 85025; 85610; 93005; 93010; 96365; 96367; 96368; 96375; 99284; 99291; J0696; J1940; J2060; J2270; Q9967